=== PATIENT | male | born 1970 | race Caucasian/White ===

== ENCOUNTER → 2017-06-27 10:41 | Outpatient (CLI) | payer OTHER, SELFPAY ==
--- NOTE | 2017-06-27 | DI.RAD.S_ITS ---
PROCEDURE: XR LUMBAR SPINE MIN 4V INDICATIONS: BURST FRACTURE TECHNIQUE: 2 views of the lumbar spine acquired. COMPARISON: [facility], CR, SPINE LUMB 2 OR 3VW, 09/10/2013, 17:15. [facility], CR, XR LUMBAR SPINE 2 OR 3 VIEWS, 01/03/2017, 5:56. FINDINGS: Bones: 5 nonrib-bearing vertebrae are present. Compression fracture of L1 is reidentified. There is mild retropulsion of L1, unchanged. Mild retrolisthesis L2-3, L3-4 and L4-5 also unchanged. No suspicious bony lesions. Chronic degenerative disc disease and spondylosis L5-S1. Facet sclerosis L5-S1. Soft tissues: Overlying bowel gas pattern is normal. No suspicious soft tissue calcifications. Flexion/extension: There is limited range of motion, with preserved malalignment IMPRESSION: 1. Chronic compression fracture L1. 2. Lumbar malalignment as described. 3. Degenerative disc and facet disease L5-S1. Dictated by: Edgardo Moncada M.D. on 06/27/2017 at 11:49 Approved by: Edgardo Moncada M.D. on 06/27/2017 at 11:53
== END ==
PROVIDERS: Family Provider Family Medicine; PCP Physician Assistant; Visit Provider Physical Medicine & Rehabilitation
DX: S32.001A Stable burst fracture of unspecified lumbar vertebra, initial encounter for closed fracture (principal); M51.37 Other intervertebral disc degeneration, lumbosacral region
CPT/HCPCS: 72110

== ENCOUNTER → 2017-11-14 14:53 | Outpatient (CLI) | payer OTHER, SELFPAY ==
--- NOTE | 2017-11-14 14:57 | DI.RAD.S_ITS ---
PROCEDURE: XR LUMBAR SPINE MIN 4V INDICATIONS: L1 Burst fracture TECHNIQUE: 3 views of the lumbar spine acquired. COMPARISON: [facility], CR, XR THORACIC SPINE 3V, 11/14/2017, 14:38. [facility], CR, XR LUMBAR SPINE 2 OR 3 VIEWS, 01/03/2017, 5:56. [facility], CR, XR LUMBAR SPINE MIN 4V, 06/27/2017, 10:28. FINDINGS: Bones: 5 nonrib-bearing vertebrae are present. There is normal bony alignment. No change in moderate to severe L1 compression fracture. Multilevel grade 1 retrolisthesis and [id number] L5-S1 disc degeneration redemonstrated. Mild L4-L5 and L5-S1 facet joint arthropathy and neural foraminal narrowing Soft tissues: Overlying bowel gas pattern is normal. No suspicious soft tissue calcifications. Flexion/extension: There is normal range of motion, with preserved normal alignment. IMPRESSION: 1. L1 compression fracture unchanged in multilevel degenerative changes similar to prior examination. Dictated by: Anthony HILL Interpreted: Demi Ferguson MD on 11/14/2017 at 17:05 Approved by: Toan Palomares M.D. on 11/15/2017 at 9:22
--- NOTE | 2017-11-14 14:57 | DI.RAD.S_ITS ---
PROCEDURE: XR THORACIC SPINE 3V INDICATIONS: L1 Burst fracture TECHNIQUE: 3 views of the thoracic spine were acquired. COMPARISON: [facility], CR, XR LUMBAR SPINE MIN 4V, 06/27/2017, 10:28. FINDINGS: Bones: No acute fractures or dislocations. No change in L1 compression fracture. No suspicious bony lesions. 12 pairs of ribs are noted, and appear intact where visualized. Soft tissues: No paravertebral stripe thickening. IMPRESSION: No change in moderate to severe L1 compression fracture from prior examination. Trace levo-curvature otherwise normal T-spine. Dictated by: Anthony HILL Interpreted: Demi Ferguson MD on 11/14/2017 at 17:03 Approved by: Toan Palomares M.D. on 11/15/2017 at 9:22
== END ==
PROVIDERS: Visit Provider Physical Medicine & Rehabilitation
DX: S32.011D Stable burst fracture of first lumbar vertebra, subsequent encounter for fracture with routine healing (principal); M43.16 Spondylolisthesis, lumbar region; M51.37 Other intervertebral disc degeneration, lumbosacral region; M47.816 Spondylosis without myelopathy or radiculopathy, lumbar region; M47.817 Spondylosis without myelopathy or radiculopathy, lumbosacral region; M48.061 Spinal stenosis, lumbar region without neurogenic claudication; M48.07 Spinal stenosis, lumbosacral region; M54.9 Dorsalgia, unspecified
CPT/HCPCS: 72074; 72110

== ENCOUNTER 2018-02-07 11:00 | Outpatient (RCR) | payer OTHER, SELFPAY ==
--- NOTE | 2017-06-08 11:17 | PT.OTN ---
Current Diagnoses Low back pain (06/08/17) Pain in thoracic spine (06/08/17) Wedge compression fracture of first lumbar vertebra, initial encounter for closed fracture (06/08/17) Transition note: On June 06, 2017 our therapy services consisting of Speech, Occupational, and Physical Therapy transitioned from the [employer] electronic documentation system to a new [employer] electronic documentation system.?? All documentation prior to June 06 can be found under [employer] saved data. From June 06 forward all medical record documentation will be in [employer] 6.1.
--- NOTE | 2017-06-09 14:41 | PT.OIE ---
Current Diagnoses Low back pain (06/08/17) Pain in thoracic spine (06/08/17) Wedge compression fracture of first lumbar vertebra, initial encounter for closed fracture (06/08/17) Physical Therapy Initial Evaluation PT-OP-A Visit Information Start: 06/08/17 08:13 Freq: Status: Active Protocol: Activity Type Activity Date Activity User E-Sign Co-Sign Detail Recorded Client Recorded Date Recorded By Document 06/08/17 16:49 LRN [id number] 06/08/17 16:50 LRN 06/08/17 16:49 Out-Patient Physical Therapy Visit Information [Visit Information] -Visit Type Initial Evaulation -Visit Start Time 10:40 -Visit Stop Time 11:30 -Total Visit Minutes 55 -Visit Number 1 -Number of PUBLICATION SPECIALIST Visits 0 [Evaluation Information] -Evaluation Date 06/08/17 PT-OP-B Current Condition Start: 06/08/17 08:13 Freq: Status: Active Protocol: Activity Type Activity Date Activity User E-Sign Co-Sign Detail Recorded Client Recorded Date Recorded By Document 06/09/17 08:16 LRN [id number] 06/09/17 08:43 LRN 06/09/17 08:16 Current Condition [History of Current Condition] -Onset Date 01/02/2017 -Current Complaints Back pain, unable to work, sleep disturbance, difficulty with transfers -History of Current Condition Pt reports falling off a ladder ~18' high (records indicate ~25') landing on his back and hitting his head, causing a loss of consciousness. He was air lifted to [facility] in [place] and was placed in a TLSO brace for 8 weeks. Pt reports having a burst fracture at T1, the 01/02/17 X -ray indicated: Moderate compression fracture of L1 vertebral body with mild postierior displacement and hematoma at T12, L1 & L2. Other medical records indicate follow up care for L1 burst fracture , pt had been in brace for 10 weeks or so and was last seen by jono Quiles in March of this year. Pt is being referred for back pain for both upper/mid and L/S spine. -Future Testing and Treatments Planned Pt reports he is scheduled to see his [facility] physician soon to discuss possible surgery. [Treatment Goals] -Patient/Caregiver Goals Pt goal is to feel normal, decreased pain, improve ability to sleep and to tolerate static positioning. 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 -Baseline Function- Recreation/Hobbies G PT-OP-C Subjective Start: 06/08/17 08:13 Freq: Status: Active Protocol: Activity Type Activity Date Activity User E-Sign Co-Sign Detail Recorded Client Recorded Date Recorded By Document 06/08/17 16:49 LRN [id number] 06/09/17 14:40 LRN 06/08/17 16:49 Patient Questionnaires [Oswestry Low Back Index] -Oswestry Score 25 -Oswestry Impairment 20 to 39% Impaired (Score 20-39) OP-PT Pain Assessment [Pain Assessment Grid] -Paper Pain Assessment Grid Completed Yes [Location] Bilateral Lower Posterior Medial Back -Pain Location Details Midline -Intensity 6 -Scale Used Numeric (1 - 10 ) -Description Aching Radiating Shooting Throbbing -Frequency Constant -Pain Duration Since accident -Radiating Location Entire back, sometimes leg -Pain Aggravating Factors Position Changing Position ADL's Activity Exercise Standing Sitting Walking Stair Climbing Bending Lifting Prolonged Bedrest -Pain Alleviating Factors Medication -Other Pain Alleviating Factors Marijuana as needed -Patient Stated Pain Goal Less pain [Home Pain Medication Use] -Pain Medications Used Yes -Home Pain Medication Frequency As needed -Patient Goal Stay off narcotic meds [Pain Behaviors] -Pain Behaviors Guarding Restlessness [Comments] -Pain Comments Pt holds trunk very rigid. PT-OP-F Manual Assessment Start: 06/08/17 08:13 Freq: Status: Active Protocol: Activity Type Activity Date Activity User E-Sign Co-Sign Detail Recorded Client Recorded Date Recorded By Document 06/08/17 16:49 LRN [id number] 06/09/17 14:40 LRN 06/08/17 16:49 Manual Assessments [Soft Tissue Assessment] -Soft Tissue Mobility Assessment Muscle guarding and tightness in the entire posterior thoracic and lumbar muscle groups. [Joint Mobility Assessment] -Joint Mobility Assessment Deferred spinal mobility assessment. PT-OP-G Mobility & Gait Start: 06/08/17 16:33 Freq: Status: Active Protocol: Activity Type Activity Date Activity User E-Sign Co-Sign Detail Recorded Client Recorded Date Recorded By Document 06/08/17 16:49 [facility] [id number] 06/09/17 14:40 LRN 06/08/17 16:49 OP Mobility Evaluation [Bed Mobility] -Rolling Independent. Slow and cautious. -Supine to and from Sit Independent. Slow and cautious. [Transfers] -Sit to Stand Independent. Slow and cautious/ [Functional Movements] -Lifting and Carrying Deferred -Squats Deferred OP Gait Assessment [Gait Deviations] -General Gait Pattern Wide Based Gait [Factors Limiting Gait Function] -Factors Limiting Gait Function Limited Range of Motion Pain [Comments] -Gait Comments Slow gait with excessive trunk sway. PT-OP-H Neuro Start: 06/08/17 08:13 Freq: Status: Active Protocol: Activity Type Activity Date Activity User E-Sign Co-Sign Detail Recorded Client Recorded Date Recorded By Document 06/08/17 16:49 [facility] [id number] 06/09/17 14:40 [facility] 06/08/17 16:49 Sensation Evaluation [Gross Sensation] -Gross Sensation WNL Deep Tendon Reflex & Clonus Assessment [Deep Tendon Reflex] Left Achilles -Deep Tendon Reflex 2+ Normal Right Achilles -Deep Tendon Reflex 3+ Normal But Brisk PT-OP-J Posture/Palpation/Skin Start: 06/08/17 08:13 Freq: Status: Active Protocol: Activity Type Activity Date Activity User E-Sign Co-Sign Detail Recorded Client Recorded Date Recorded By Document 06/08/17 16:49 [facility] [id number] 06/09/17 14:40 [facility] 06/08/17 16:49 Posture Evaluation [Position] Standing -Evaluation View Lateral -Head/C-Spine Posture Forward Head -T-Spine Posture Flattened -L-Spine Posture Flattened -Shoulder Posture (R) Forward -Pelvis Posture Posterior Tilted -Ankle/Foot Posture (R) Forefoot Abducted -Foot Arch (L) High Arch (R) High Arch [Comments] -Posture Comments Lumbar spine is tilted Left with a C-Curve of the Thoracic spine with the apex on the left. Palpation Assessment [Location] One -Palpation Location Thoracic and Lumbar spine -Palpation Findings Muscle Guarding PT-OP-K Range of Motion Start: 06/08/17 08:13 Freq: Status: Active Protocol: Activity Type Activity Date Activity User E-Sign Co-Sign Detail Recorded Client Recorded Date Recorded By Document 06/08/17 16:49 [facility] [id number] 06/09/17 14:40 [facility] 06/08/17 16:49 Lumbar Spine Range of Motion [Lumbar Spine] Active -Testing Position Standing -Flexion 5 -Extension 3 -Lateral Flexion Left 3 -Lateral Flexion Right 5 -ROM Limitations Pain -Comments Measurements taken degrees. Shoulder Goniometric Range of Motion [Shoulder] Measured in Degrees Right Active -Shoulder ROM WFL Yes -Testing Position Sitting Left Active -Shoulder ROM WFL Yes -Testing Position Sitting Hip Goniometric Range of Motion [Hip] Measured in Degrees Left Active -Hip ROM WFL No -Testing Position Prone Right Active -Hip ROM WFL No -Testing Position Prone [Hip ROM Limitations] -Hip ROM Limitations Pain -Comments Hip ER is decreased 50% of normal bilaterally. PT-OP-M Strength Start: 06/08/17 08:13 Freq: Status: Active Protocol: Activity Type Activity Date Activity User E-Sign Co-Sign Detail Recorded Client Recorded Date Recorded By Document 06/08/17 16:49 [facility] [id number] 06/09/17 14:40 LR 06/08/17 16:49 Trunk Strength [Trunk Manual Muscle Testing] -Testing Position Sitting -Reason Not Measured Pain -Comments Pt can actively rotate in sitting ~ 28 deg's left, 10 deg's right. He is not able to lean forward in sitting and is unable to perform an abdominal curl due to back pain. Shoulder Strength [Shoulder Manual Muscle Testing] Left -Reason Not Measured Pain Right -Reason Not Measured Pain -Comments Deferred due to back pain Hip Strength [Hip Manual Muscle Testing] Left -Reason Not Measured Pain Right -Reason Not Measured Pain PT-OP-Q Treatments Start: 06/08/17 08:13 Freq: Status: Active Protocol: Activity Type Activity Date Activity User E-Sign Co-Sign Detail Recorded Client Recorded Date Recorded By Document 06/08/17 16:49 [facility] [id number] 06/09/17 14:40 [facility] 06/08/17 16:49 Manual Therapy Treatment [Soft Tissue Mobilization] 1 -Body Location Thoracic and Lumbar Paraspinals -Comments Start next treatment Self-Care/Home Management Treatment [Education] -Patient Education Posture [Activities] -Self-Care/Home Management Activities Anterior Pelvic Tilts, Equal weight bearing in standing, use of cryotherapy vs heat. PT-OP-T Assessment and Plan Start: 06/08/17 08:13 Freq: Status: Active Protocol: Activity Type Activity Date Activity User E-Sign Co-Sign Detail Recorded Client Recorded Date Recorded By Document 06/08/17 16:49 LRN [id number] 06/09/17 14:40 LRN 06/08/17 16:49 Physical Therapy Assessment [Rehab Potential] -Rehabilitation Potential Good [Evaluation Complexity] -Number of Personal Factors/ 3 or More Comorbidities -Number of Body Systems Impaired 4 or More -Clinical Presentation at Evaluation Evolving [Impairments] -Impairments Functional Activities Functional Mobility Gait Pain Posture ROM Soft Tissue Mobility Strength Transfers -Other Impairments Not able to work [Other Concerns] -Age Related Concerns Impact on family -Barriers to Rehabilitation Co-morbidity ( L5 disc bulge), spouse health concerns [Goals] Three -Impairment Pain due to soft tissue muscle guarding limiting functional ability. -Fpc Goal (LTG) TIEN Questionnaire Score - less than 19. -LTG Duration 12 weeks. Two -Impairment Decreased trunk /hip mobility -Fpc Goal (LTG) Pt will be able to demonstrate improved posture and gait mechanics with improved trunk and hip mobility. -LTG Duration 8 weeks One -Impairment Pain limiting functional mobility -Short Term Goal (STG) Pt will demonstrate ability to transfer sit to stand and move in bed with decreased pain. -STG Duration 3 weeks -Knurling Machine Operator Goal (LTG) Pt will be able to return to work on a limited basis with tolerable pain. -LTG Duration 12 weeks [Assessment Summary] -Assessment Pt presents with mechanical and soft tissue dysfunction of the spine, and pain limiting function and functional activities. The pt is quite restricted in his mobility and function; therefore he will benefit from skilled physical therapy to decrease pain, improve mobility strength, with an overall improvement in function. Stresses at home and exacerbation of his low back pain will hinder his rehabilitation, but the pt appears to be quite positive in his outlook and appears eager to start the rehabilitation process. If there are any restrictions or precautions the pt needs to follow, please note this on his signed plan of care. Physical Therapy Plan [Frequency and Duration] -Frequency of Treatment 2x/Week -Plan of Care Start Date 06/08/17 -Plan of Care End Date 08/31/17 [Therapeutic Interventions] -Therapeutic Interventions Aquatic Therapy Gait Training Home Exercise Program Manual Therapy Neuromuscular Re-education Patient/ Caregiver Education Self-Care/Home Management Soft Tissue Mobilization Taping Therapeutic Activities Therapeutic Exercises -Modalities Cold Pack/Ice Massage Electric Stimulation Hot Packs Ultrasound [Next Visit Focus/Plan] -Next Visit Plan Start STM, trunk stretches actively, HEP, E-Stim/ crotherapy or Moist heat. Check PSLR and hip PROM. Trunk strength check when tolerated. Progress towards normal posture and gait. Provider Signature Date
--- NOTE | 2017-06-09 14:45 | PT.OPPOC ---
Current Diagnoses Low back pain (06/08/17) Pain in thoracic spine (06/08/17) Other symptoms and signs involving the musculoskeletal system (06/08/17) Wedge compression fracture of first lumbar vertebra, initial encounter for closed fracture (06/08/17) Plan Of Care PT-OP-T Assessment and Plan Start: 06/08/17 08:13 Freq: Status: Active Protocol: Activity Type Activity Date Activity User E-Sign Co-Sign Detail Recorded Client Recorded Date Recorded By Document 06/08/17 16:49 LRN [id number] 06/09/17 14:40 LRN 06/08/17 16:49 Physical Therapy Assessment [Rehab Potential] -Rehabilitation Potential Good [Evaluation Complexity] -Number of Personal Factors/ 3 or More Comorbidities -Number of Body Systems Impaired 4 or More -Clinical Presentation at Evaluation Evolving [Impairments] -Impairments Functional Activities Functional Mobility Gait Pain Posture ROM Soft Tissue Mobility Strength Transfers -Other Impairments Not able to work [Other Concerns] -Age Related Concerns Impact on family -Barriers to Rehabilitation Co-morbidity ( L5 disc bulge), spouse health concerns [Goals] Three -Impairment Pain due to soft tissue muscle guarding limiting functional ability. -Highway Inspector Goal (LTG) TIEN Questionnaire Score - less than 19. -LTG Duration 12 weeks. Two -Impairment Decreased trunk /hip mobility -Highway Inspector Goal (LTG) Pt will be able to demonstrate improved posture and gait mechanics with improved trunk and hip mobility. -LTG Duration 8 weeks One -Impairment Pain limiting functional mobility -Short Term Goal (STG) Pt will demonstrate ability to transfer sit to stand and move in bed with decreased pain. -STG Duration 3 weeks -Highway Inspector Goal (LTG) Pt will be able to return to work on a limited basis with tolerable pain. -LTG Duration 12 weeks [Assessment Summary] -Assessment Pt presents with mechanical and soft tissue dysfunction of the spine, and pain limiting function and functional activities. The pt is quite restricted in his mobility and function; therefore he will benefit from skilled physical therapy to decrease pain, improve mobility strength, with an overall improvement in function. Stresses at home and exacerbation of his low back pain will hinder his rehabilitation, but the pt appears to be quite positive in his outlook and appears eager to start the rehabilitation process. If there are any restrictions or precautions the pt needs to follow, please note this on his signed plan of care. Physical Therapy Plan [Frequency and Duration] -Frequency of Treatment 2x/Week -Plan of Care Start Date 06/08/17 -Plan of Care End Date 08/31/17 [Therapeutic Interventions] -Therapeutic Interventions Aquatic Therapy Gait Training Home Exercise Program Manual Therapy Neuromuscular Re-education Patient/ Caregiver Education Self-Care/Home Management Soft Tissue Mobilization Taping Therapeutic Activities Therapeutic Exercises -Modalities Cold Pack/Ice Massage Electric Stimulation Hot Packs Ultrasound [Next Visit Focus/Plan] -Next Visit Plan Start STM, trunk stretches actively, HEP, E-Stim/ crotherapy or Moist heat. Check PSLR and hip PROM. Trunk strength check when tolerated. Progress towards normal posture and gait. Plan of Care Dates Plan of Care Start Date 06/08/17 Plan of Care End Date 08/31/17 Provider Visit Care Team Role Provider Type Lillie Ramirez MD Family Provider Non-Staff Specialty: [facility] Practice Address: [address] [place] [address], [phone] Email: Melissa Kuo PA-C Attending Provider Advanced Practioner Clinician Primary Care Provider Specialty: [facility] Address: [address] [place] [address], [id number] Email: [email or web address] Please Sign and Return: I have reviewed this Plan of Care and certify that the skilled therapy services above are required to meet the patient???s needs. Physician Signature Date Printed Name and Credentials
--- NOTE | 2017-06-13 16:59 | PT.OTN ---
Current Diagnoses Low back pain (06/13/17) Pain in thoracic spine (06/13/17) Wedge compression fracture of first lumbar vertebra, initial encounter for closed fracture (06/13/17) Physical Therapy Treatment Note PT-OP-A Visit Information Start: 06/08/17 08:13 Freq: Status: Active Protocol: Document 06/13/17 10:30 GGD (Rec: 06/13/17 16:59 GGD [id number]) Out-Patient Physical Therapy Visit Information Visit Information Visit Type Treatment Note Visit Start Time 10:30 Visit Stop Time 11:25 Total Visit Minutes 55 Visit Number 2 Number of CHEMIST INORGANIC Visits 1 Evaluation Information Evaluation Date 06/08/17 PT-OP-B Current Condition Start: 06/08/17 08:13 Freq: Status: Active Protocol: Document 06/09/17 08:16 LRN (Rec: 06/09/17 08:43 LRN [id number]) Current Condition History of Current Condition Onset Date 01/02/2017 Current Complaints Back pain, unable to work, sleep disturbance, difficulty with transfers History of Current Condition Pt reports falling off a ladder ~18' high (records indicate ~25') landing on his back and hitting his head, causing a loss of consciousness. He was air lifted to [facility] in [place] and was placed in a TLSO brace for 8 weeks. Pt reports having a burst fracture at T1, the 01/02/17 X -ray indicated: Moderate compression fracture of L1 vertebral body with mild postierior displacement and hematoma at T12, L1 & L2. Other medical records indicate follow up care for L1 burst fracture, pt had been in brace for 10 weeks or so and was last seen by jono Quiles in March of this year. Pt is being referred for back pain for both upper/ mid and L/S spine. Future Testing and Treatments Planned Pt reports he is scheduled to see his [facility] physician soon to discuss possible surgery. Treatment Goals Patient/Caregiver Goals Pt goal is to feel normal, decreased pain, improve ability to sleep and to tolerate static positioning. 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 Baseline Function- Recreation/Hobbies G PT-OP-C Subjective Start: 06/08/17 08:13 Freq: Status: Active Protocol: Document 06/13/17 10:30 GGD (Rec: 06/13/17 16:59 GGD [id number]) OP-PT Subjective Patient Comments Patient Comments Pt that he is stiff today. PT-OP-F Manual Assessment Start: 06/08/17 08:13 Freq: Status: Active Protocol: Document 06/08/17 16:49 LRN (Rec: 06/09/17 14:40 LRN [id number]) Manual Assessments Soft Tissue Assessment Soft Tissue Mobility Assessment Muscle guarding and tightness in the entire posterior thoracic and lumbar muscle groups. Joint Mobility Assessment Joint Mobility Assessment Deferred spinal mobility assessment. PT-OP-G Mobility & Gait Start: 06/08/17 16:33 Freq: Status: Active Protocol: Document 06/08/17 16:49 LRN (Rec: 06/09/17 14:40 LRN [id number]) OP Mobility Evaluation Bed Mobility Rolling Independent. Slow and cautious. Supine to and from Sit Independent. Slow and cautious. Transfers Sit to Stand Independent. Slow and cautious/ Functional Movements Lifting and Carrying Deferred Squats Deferred OP Gait Assessment Gait Deviations General Gait Pattern Wide Based Gait Factors Limiting Gait Function Factors Limiting Gait Function Limited Range of Motion Pain Comments Gait Comments Slow gait with excessive trunk sway. PT-OP-H Neuro Start: 06/08/17 08:13 Freq: Status: Active Protocol: Document 06/08/17 16:49 LRN (Rec: 06/09/17 14:40 LRN [id number]) Sensation Evaluation Gross Sensation Gross Sensation WNL Deep Tendon Reflex & Clonus Assessment Deep Tendon Reflex Left Achilles Deep Tendon Reflex 2+ Normal Right Achilles Deep Tendon Reflex 3+ Normal But Brisk PT-OP-J Posture/Palpation/Skin Start: 06/08/17 08:13 Freq: Status: Active Protocol: Document 06/08/17 16:49 LRN (Rec: 06/09/17 14:40 LRN [id number]) Posture Evaluation Position Standing Evaluation View Lateral Head/C-Spine Posture Forward Head T-Spine Posture Flattened L-Spine Posture Flattened Shoulder Posture (R) Forward Pelvis Posture Posterior Tilted Ankle/Foot Posture (R) Forefoot Abducted Foot Arch (L) High Arch (R) High Arch Comments Posture Comments Lumbar spine is tilted Left with a C-Curve of the Thoracic spine with the apex on the left. Palpation Assessment Location One Palpation Location Thoracic and Lumbar spine Palpation Findings Muscle Guarding PT-OP-K Range of Motion Start: 06/08/17 08:13 Freq: Status: Active Protocol: Document 06/08/17 16:49 LRN (Rec: 06/09/17 14:40 LRN [id number]) Lumbar Spine Range of Motion Lumbar Spine Active Testing Position Standing Flexion 5 Extension 3 Lateral Flexion Left 3 Lateral Flexion Right 5 ROM Limitations Pain Comments Measurements taken degrees. Shoulder Goniometric Range of Motion Shoulder Measured in Degrees Right Active Shoulder ROM WFL Yes Testing Position Sitting Left Active Shoulder ROM WFL Yes Testing Position Sitting Hip Goniometric Range of Motion Hip Measured in Degrees Left Active Hip ROM WFL No Testing Position Prone Right Active Hip ROM WFL No Testing Position Prone Hip ROM Limitations Hip ROM Limitations Pain Comments Hip ER is decreased 50% of normal bilaterally. PT-OP-M Strength Start: 06/08/17 08:13 Freq: Status: Active Protocol: Document 06/08/17 16:49 LRN (Rec: 06/09/17 14:40 LRN [id number]) Trunk Strength Trunk Manual Muscle Testing Testing Position Sitting Reason Not Measured Pain Comments Pt can actively rotate in sitting ~ 28 deg's left, 10 deg's right. He is not able to lean forward in sitting and is unable to perform an abdominal curl due to back pain. Shoulder Strength Shoulder Manual Muscle Testing Left Reason Not Measured Pain Right Reason Not Measured Pain Comments Deferred due to back pain Hip Strength Hip Manual Muscle Testing Left Reason Not Measured Pain Right Reason Not Measured Pain PT-OP-Q Treatments Start: 06/08/17 08:13 Freq: Status: Active Protocol: Document 06/13/17 10:30 GGD (Rec: 06/13/17 16:59 GGD [email or web address]) Therapeutic Exercises Supine Exercises 4 Supine Exercise Name Pirif str Reps/Minutes 4 3 Supine Exercise Name Single KTC Reps/Minutes 4 2 Supine Exercise Name LTR Side bilateral Reps/Minutes 10 1 Supine Exercise Name Hamstring str Reps/Minutes 4 Manual Therapy Treatment Soft Tissue Mobilization 1 Body Location Thoracic and Lumbar Paraspinals Mobilization Type Myofascial Release Rolling Sustained Pressure Intensity/Depth Moderate Body Position Prone PT-OP-R Modalities Start: 06/08/17 08:13 Freq: Status: Active Protocol: Document 06/13/17 10:30 GGD (Rec: 06/13/17 16:59 GGD [id number]) Electric Stimulation Electric Stimulation Interferential Current (IFC) Body Location T/S, L/S Duration (Minutes) 15 Combined With Heat/Cold Hot Pack PT-OP-T Assessment and Plan Start: 06/08/17 08:13 Freq: Status: Active Protocol: Document 06/13/17 10:30 GGD (Rec: 06/13/17 16:59 GGD [email or web address]) Physical Therapy Assessment Assessment Summary Assessment Pt increase muscle tone and tenderness to T/S and L/S paraspinals, QL. He was able to tolerate gentle LE stretching. Physical Therapy Plan Frequency and Duration Frequency of Treatment 2x/Week Plan of Care Start Date 06/08/17 Plan of Care End Date 08/31/17 Next Visit Focus/Plan Next Visit Plan HEP for LE stretching. Check PSLR and hip PROM. Trunk strength check when tolerated. Progress towards normal posture and gait.
--- NOTE | 2017-06-16 08:07 | PT.OTN ---
Current Diagnoses Low back pain (06/15/17) Pain in thoracic spine (06/15/17) Wedge compression fracture of first lumbar vertebra, initial encounter for closed fracture (06/15/17) Physical Therapy Treatment Note PT-OP-A Visit Information Start: 06/08/17 08:13 Freq: Status: Active Protocol: Document 06/15/17 11:15 AMB (Rec: 06/15/17 11:26 AMB [id number]) Out-Patient Physical Therapy Visit Information Visit Information Visit Type Treatment Note Visit Start Time 11:15 Visit Stop Time 12:10 Total Visit Minutes 55 Visit Number 3 Number of REGRADER Visits 0 Evaluation Information Evaluation Date 06/08/17 PT-OP-B Current Condition Start: 06/08/17 08:13 Freq: Status: Active Protocol: Document 06/09/17 08:16 LRN (Rec: 06/09/17 08:43 LRN [id number]) Current Condition History of Current Condition Onset Date 01/02/2017 Current Complaints Back pain, unable to work, sleep disturbance, difficulty with transfers History of Current Condition Pt reports falling off a ladder ~18' high (records indicate ~25') landing on his back and hitting his head, causing a loss of consciousness. He was air lifted to [facility] in [place] and was placed in a TLSO brace for 8 weeks. Pt reports having a burst fracture at T1, the 01/02/17 X -ray indicated: Moderate compression fracture of L1 vertebral body with mild postierior displacement and hematoma at T12, L1 & L2. Other medical records indicate follow up care for L1 burst fracture, pt had been in brace for 10 weeks or so and was last seen by jono Quiles in March of this year. Pt is being referred for back pain for both upper/ mid and L/S spine. Future Testing and Treatments Planned Pt reports he is scheduled to see his [facility] physician soon to discuss possible surgery. Treatment Goals Patient/Caregiver Goals Pt goal is to feel normal, decreased pain, improve ability to sleep and to tolerate static positioning. 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 Baseline Function- Recreation/Hobbies G PT-OP-C Subjective Start: 06/08/17 08:13 Freq: Status: Active Protocol: Document 06/15/17 11:15 AMB (Rec: 06/16/17 08:06 AMB [id number]) OP-PT Subjective Patient Comments Patient Comments Pt states his pain was increased after last appointment for about a day. PT-OP-F Manual Assessment Start: 06/08/17 08:13 Freq: Status: Active Protocol: Document 06/08/17 16:49 LRN (Rec: 06/09/17 14:40 LRN [id number]) Manual Assessments Soft Tissue Assessment Soft Tissue Mobility Assessment Muscle guarding and tightness in the entire posterior thoracic and lumbar muscle groups. Joint Mobility Assessment Joint Mobility Assessment Deferred spinal mobility assessment. PT-OP-G Mobility & Gait Start: 06/08/17 16:33 Freq: Status: Active Protocol: Document 06/08/17 16:49 LRN (Rec: 06/09/17 14:40 LRN [id number]) OP Mobility Evaluation Bed Mobility Rolling Independent. Slow and cautious. Supine to and from Sit Independent. Slow and cautious. Transfers Sit to Stand Independent. Slow and cautious/ Functional Movements Lifting and Carrying Deferred Squats Deferred OP Gait Assessment Gait Deviations General Gait Pattern Wide Based Gait Factors Limiting Gait Function Factors Limiting Gait Function Limited Range of Motion Pain Comments Gait Comments Slow gait with excessive trunk sway. PT-OP-H Neuro Start: 06/08/17 08:13 Freq: Status: Active Protocol: Document 06/08/17 16:49 LRN (Rec: 06/09/17 14:40 LRN [id number]) Sensation Evaluation Gross Sensation Gross Sensation WNL Deep Tendon Reflex & Clonus Assessment Deep Tendon Reflex Left Achilles Deep Tendon Reflex 2+ Normal Right Achilles Deep Tendon Reflex 3+ Normal But Brisk PT-OP-J Posture/Palpation/Skin Start: 06/08/17 08:13 Freq: Status: Active Protocol: Document 06/08/17 16:49 LRN (Rec: 06/09/17 14:40 LRN [id number]) Posture Evaluation Position Standing Evaluation View Lateral Head/C-Spine Posture Forward Head T-Spine Posture Flattened L-Spine Posture Flattened Shoulder Posture (R) Forward Pelvis Posture Posterior Tilted Ankle/Foot Posture (R) Forefoot Abducted Foot Arch (L) High Arch (R) High Arch Comments Posture Comments Lumbar spine is tilted Left with a C-Curve of the Thoracic spine with the apex on the left. Palpation Assessment Location One Palpation Location Thoracic and Lumbar spine Palpation Findings Muscle Guarding PT-OP-K Range of Motion Start: 06/08/17 08:13 Freq: Status: Active Protocol: Document 06/08/17 16:49 LRN (Rec: 06/09/17 14:40 LRN [id number]) Lumbar Spine Range of Motion Lumbar Spine Active Testing Position Standing Flexion 5 Extension 3 Lateral Flexion Left 3 Lateral Flexion Right 5 ROM Limitations Pain Comments Measurements taken degrees. Shoulder Goniometric Range of Motion Shoulder Measured in Degrees Right Active Shoulder ROM WFL Yes Testing Position Sitting Left Active Shoulder ROM WFL Yes Testing Position Sitting Hip Goniometric Range of Motion Hip Measured in Degrees Left Active Hip ROM WFL No Testing Position Prone Right Active Hip ROM WFL No Testing Position Prone Hip ROM Limitations Hip ROM Limitations Pain Comments Hip ER is decreased 50% of normal bilaterally. PT-OP-M Strength Start: 06/08/17 08:13 Freq: Status: Active Protocol: Document 06/08/17 16:49 LRN (Rec: 06/09/17 14:40 LRN [id number]) Trunk Strength Trunk Manual Muscle Testing Testing Position Sitting Reason Not Measured Pain Comments Pt can actively rotate in sitting ~ 28 deg's left, 10 deg's right. He is not able to lean forward in sitting and is unable to perform an abdominal curl due to back pain. Shoulder Strength Shoulder Manual Muscle Testing Left Reason Not Measured Pain Right Reason Not Measured Pain Comments Deferred due to back pain Hip Strength Hip Manual Muscle Testing Left Reason Not Measured Pain Right Reason Not Measured Pain PT-OP-Q Treatments Start: 06/08/17 08:13 Freq: Status: Active Protocol: Document 06/15/17 11:15 AMB (Rec: 06/16/17 08:06 AMB [id number]) Therapeutic Exercises Supine Exercises 6 Supine Exercise Name supine pelvic tilt Comments small ROM 5 Supine Exercise Name hooklying TrA stab Reps/Minutes 4 3 Supine Exercise Name Single KTC Reps/Minutes 4 Manual Therapy Treatment Soft Tissue Mobilization 1 Body Location Thoracic and Lumbar Paraspinals Mobilization Type Myofascial Release Rolling Sustained Pressure Intensity/Depth Moderate Body Position Prone Joint Mobilizations 1 Joint T4-9 Direction PA Grade II Body Position Prone Reps/Duration 2x10 PT-OP-R Modalities Start: 06/08/17 08:13 Freq: Status: Active Protocol: Document 06/15/17 11:15 AMB (Rec: 06/16/17 08:06 AMB [id number]) Electric Stimulation Electric Stimulation Interferential Current (IFC) Body Location T/S, L/S Duration (Minutes) 10 Combined With Heat/Cold Hot Pack Comments prone PT-OP-T Assessment and Plan Start: 06/08/17 08:13 Freq: Status: Active Protocol: Document 06/15/17 11:15 AMB (Rec: 06/16/17 08:06 AMB [id number]) Physical Therapy Assessment Assessment Summary Assessment Pt with more tone and tenderness on the left today, better at the end of the session. After e-stim pt felt prone was uncomfortable - may try other positions in the future. Physical Therapy Plan Next Visit Focus/Plan Next Visit Plan Progress LE stretch and gentle core stabilization HEP as tolerated.
--- NOTE | 2017-06-20 13:27 | PT.OTN ---
Current Diagnoses Low back pain (06/20/17) Pain in thoracic spine (06/20/17) Wedge compression fracture of first lumbar vertebra, initial encounter for closed fracture (06/20/17) Physical Therapy Treatment Note PT-OP-A Visit Information Start: 06/08/17 08:13 Freq: Status: Active Protocol: Document 06/20/17 13:25 EA (Rec: 06/20/17 13:26 EA [id number]) Out-Patient Physical Therapy Visit Information Visit Information Visit Type Treatment Note Visit Start Time 09:45 Visit Stop Time 10:45 Total Visit Minutes 45 Visit Number 4 PT-OP-B Current Condition Start: 06/08/17 08:13 Freq: Status: Active Protocol: Document 06/09/17 08:16 LRN (Rec: 06/09/17 08:43 LRN [id number]) Current Condition History of Current Condition Onset Date 01/02/2017 Current Complaints Back pain, unable to work, sleep disturbance, difficulty with transfers History of Current Condition Pt reports falling off a ladder ~18' high (records indicate ~25') landing on his back and hitting his head, causing a loss of consciousness. He was air lifted to [facility] in [place] and was placed in a TLSO brace for 8 weeks. Pt reports having a burst fracture at T1, the 01/02/17 X -ray indicated: Moderate compression fracture of L1 vertebral body with mild postierior displacement and hematoma at T12, L1 & L2. Other medical records indicate follow up care for L1 burst fracture, pt had been in brace for 10 weeks or so and was last seen by jono Quiles in March of this year. Pt is being referred for back pain for both upper/ mid and L/S spine. Future Testing and Treatments Planned Pt reports he is scheduled to see his [facility] physician soon to discuss possible surgery. Treatment Goals Patient/Caregiver Goals Pt goal is to feel normal, decreased pain, improve ability to sleep and to tolerate static positioning. 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 Baseline Function- Recreation/Hobbies G PT-OP-C Subjective Start: 06/08/17 08:13 Freq: Status: Active Protocol: Document 06/20/17 11:00 EA (Rec: 06/20/17 13:24 EA [id number]) OP-PT Subjective Patient Comments Patient Comments Patient reports pain is not improving and he is noit taking medication due to fear of defacation issues. He also states that he does not wnat to take so he can feel the pain if improving. PT-OP-F Manual Assessment Start: 06/08/17 08:13 Freq: Status: Active Protocol: Document 06/08/17 16:49 LRN (Rec: 06/09/17 14:40 LRN [id number]) Manual Assessments Soft Tissue Assessment Soft Tissue Mobility Assessment Muscle guarding and tightness in the entire posterior thoracic and lumbar muscle groups. Joint Mobility Assessment Joint Mobility Assessment Deferred spinal mobility assessment. PT-OP-G Mobility & Gait Start: 06/08/17 16:33 Freq: Status: Active Protocol: Document 06/08/17 16:49 LRN (Rec: 06/09/17 14:40 LRN [id number]) OP Mobility Evaluation Bed Mobility Rolling Independent. Slow and cautious. Supine to and from Sit Independent. Slow and cautious. Transfers Sit to Stand Independent. Slow and cautious/ Functional Movements Lifting and Carrying Deferred Squats Deferred OP Gait Assessment Gait Deviations General Gait Pattern Wide Based Gait Factors Limiting Gait Function Factors Limiting Gait Function Limited Range of Motion Pain Comments Gait Comments Slow gait with excessive trunk sway. PT-OP-H Neuro Start: 06/08/17 08:13 Freq: Status: Active Protocol: Document 06/08/17 16:49 LRN (Rec: 06/09/17 14:40 LRN [id number]) Sensation Evaluation Gross Sensation Gross Sensation WNL Deep Tendon Reflex & Clonus Assessment Deep Tendon Reflex Left Achilles Deep Tendon Reflex 2+ Normal Right Achilles Deep Tendon Reflex 3+ Normal But Brisk PT-OP-J Posture/Palpation/Skin Start: 06/08/17 08:13 Freq: Status: Active Protocol: Document 06/08/17 16:49 LRN (Rec: 06/09/17 14:40 LRN [id number]) Posture Evaluation Position Standing Evaluation View Lateral Head/C-Spine Posture Forward Head T-Spine Posture Flattened L-Spine Posture Flattened Shoulder Posture (R) Forward Pelvis Posture Posterior Tilted Ankle/Foot Posture (R) Forefoot Abducted Foot Arch (L) High Arch (R) High Arch Comments Posture Comments Lumbar spine is tilted Left with a C-Curve of the Thoracic spine with the apex on the left. Palpation Assessment Location One Palpation Location Thoracic and Lumbar spine Palpation Findings Muscle Guarding PT-OP-K Range of Motion Start: 06/08/17 08:13 Freq: Status: Active Protocol: Document 06/08/17 16:49 LRN (Rec: 06/09/17 14:40 LRN [id number]) Lumbar Spine Range of Motion Lumbar Spine Active Testing Position Standing Flexion 5 Extension 3 Lateral Flexion Left 3 Lateral Flexion Right 5 ROM Limitations Pain Comments Measurements taken degrees. Shoulder Goniometric Range of Motion Shoulder Measured in Degrees Right Active Shoulder ROM WFL Yes Testing Position Sitting Left Active Shoulder ROM WFL Yes Testing Position Sitting Hip Goniometric Range of Motion Hip Measured in Degrees Left Active Hip ROM WFL No Testing Position Prone Right Active Hip ROM WFL No Testing Position Prone Hip ROM Limitations Hip ROM Limitations Pain Comments Hip ER is decreased 50% of normal bilaterally. PT-OP-M Strength Start: 06/08/17 08:13 Freq: Status: Active Protocol: Document 06/08/17 16:49 LRN (Rec: 06/09/17 14:40 LRN [id number]) Trunk Strength Trunk Manual Muscle Testing Testing Position Sitting Reason Not Measured Pain Comments Pt can actively rotate in sitting ~ 28 deg's left, 10 deg's right. He is not able to lean forward in sitting and is unable to perform an abdominal curl due to back pain. Shoulder Strength Shoulder Manual Muscle Testing Left Reason Not Measured Pain Right Reason Not Measured Pain Comments Deferred due to back pain Hip Strength Hip Manual Muscle Testing Left Reason Not Measured Pain Right Reason Not Measured Pain PT-OP-Q Treatments Start: 06/08/17 08:13 Freq: Status: Active Protocol: Document 06/20/17 11:00 EA (Rec: 06/20/17 13:24 EA [id number]) Cardio Equipment Recumbent Stepper (Sci-Fit) Duration (Minutes) 5 Resistance 0 Seat Position low back supported Therapeutic Exercises Supine Exercises 7 Supine Exercise Name Isomteric low trunk rot Reps/Minutes x 5SH x 5 reps 6 Supine Exercise Name supine pelvic tilt Comments small ROM 5 Supine Exercise Name hooklying TrA stab Reps/Minutes 4 4 Supine Exercise Name Pirif str Reps/Minutes 4 1 Supine Exercise Name Hamstring str Reps/Minutes 4 Manual Therapy Treatment Soft Tissue Mobilization 1 Body Location not tolerated Joint Mobilizations 1 Joint not performed Self-Care/Home Management Treatment Education Patient Education Body Mechanics Pain Management Posture PT-OP-R Modalities Start: 06/08/17 08:13 Freq: Status: Active Protocol: Document 06/20/17 13:24 EA (Rec: 06/20/17 13:24 EA [id number]) Electric Stimulation Electric Stimulation Interferential Current (IFC) Body Location T/S, L/S Duration (Minutes) 10 Combined With Heat/Cold Hot Pack Comments prone PT-OP-T Assessment and Plan Start: 06/08/17 08:13 Freq: Status: Active Protocol: Document 06/20/17 11:00 EA (Rec: 06/20/17 13:24 EA [id number]) Physical Therapy Assessment Assessment Summary Assessment Pt did not tolerate manual therapy at this time due to increased pain sensitivity; patient showed low tolerance to therapeutic exercises as well. Patient need pain management at this time due to pain issues. Physical Therapy Plan Next Visit Focus/Plan Next Visit Plan Cont. with current plan.
--- NOTE | 2017-06-22 11:10 | PT.OTN ---
Current Diagnoses Low back pain (06/22/17) Pain in thoracic spine (06/22/17) Wedge compression fracture of first lumbar vertebra, initial encounter for closed fracture (06/22/17) Physical Therapy Treatment Note PT-OP-A Visit Information Start: 06/08/17 08:13 Freq: Status: Active Protocol: Document 06/22/17 09:50 DCW (Rec: 06/22/17 10:32 DCW [id number]) Out-Patient Physical Therapy Visit Information Visit Information Visit Type Treatment Note Visit Start Time 09:50 Visit Stop Time 10:30 Total Visit Minutes 40 Visit Number 5 Evaluation Information Evaluation Date 06/08/17 PT-OP-B Current Condition Start: 06/08/17 08:13 Freq: Status: Active Protocol: Document 06/09/17 08:16 LRN (Rec: 06/09/17 08:43 LRN [id number]) Current Condition History of Current Condition Onset Date 01/02/2017 Current Complaints Back pain, unable to work, sleep disturbance, difficulty with transfers History of Current Condition Pt reports falling off a ladder ~18' high (records indicate ~25') landing on his back and hitting his head, causing a loss of consciousness. He was air lifted to [facility] in [place] and was placed in a TLSO brace for 8 weeks. Pt reports having a burst fracture at T1, the 01/02/17 X -ray indicated: Moderate compression fracture of L1 vertebral body with mild postierior displacement and hematoma at T12, L1 & L2. Other medical records indicate follow up care for L1 burst fracture, pt had been in brace for 10 weeks or so and was last seen by jono Quiles in March of this year. Pt is being referred for back pain for both upper/ mid and L/S spine. Future Testing and Treatments Planned Pt reports he is scheduled to see his [facility] physician soon to discuss possible surgery. Treatment Goals Patient/Caregiver Goals Pt goal is to feel normal, decreased pain, improve ability to sleep and to tolerate static positioning. 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 Baseline Function- Recreation/Hobbies G PT-OP-C Subjective Start: 06/08/17 08:13 Freq: Status: Active Protocol: Document 06/22/17 09:50 DCW (Rec: 06/22/17 10:32 DCW [id number]) OP-PT Subjective Patient Comments Patient Comments Pt reports no real improvement , admits he is uncomfortable almost all the time. Patient Reported Progress Same PT-OP-Q Treatments Start: 06/08/17 08:13 Freq: Status: Active Protocol: Document 06/22/17 09:50 DCW (Rec: 06/22/17 10:32 DCW [id number]) Gym Equipment Therapeutic Ball 2 Exercise Details Feet on ball, hip/knee flex/ ext vs Lv 1 T-band Ball Size/Color Blue - 45 cm Body Position Supine 1 Exercise Details Feet on ball, Lateral rotation Ball Size/Color Blue 45 cm Body Position Supine Therapeutic Exercises Supine Exercises 6 Supine Exercise Name supine pelvic tilt Comments small ROM 5 Supine Exercise Name hooklying TrA stab Reps/Minutes 4 3 Supine Exercise Name Single KTC Reps/Minutes 4 1 Supine Exercise Name Hamstring str Reps/Minutes 4 Sidelying Exercises 2 Sidelying Exercise Name Reverse Clam Shells Side bilateral Reps/Minutes x15 1 Sidelying Exercise Name Clam Shells Side bilateral Reps/Minutes x15 Manual Therapy Treatment Soft Tissue Mobilization 1 Body Location Thoracic/Lumbar paraspinals Mobilization Type Sustained Pressure Trigger Point Release Body Position Sidelying PT-OP-T Assessment and Plan Start: 06/08/17 08:13 Freq: Status: Active Protocol: Document 06/22/17 09:50 DCW (Rec: 06/22/17 10:32 DCW [id number]) Physical Therapy Assessment Assessment Summary Assessment Due to pt report that he often left feeling very sore after E-stim, it was skipped today to see if he would have less pain. Pt able to perform all TherEx today, however exhibited clear signs of significant pain. Physical Therapy Plan Frequency and Duration Frequency of Treatment 2x/Week Plan of Care Start Date 06/08/17 Plan of Care End Date 08/31/17 Therapeutic Interventions Therapeutic Interventions Aquatic Therapy Gait Training Home Exercise Program Manual Therapy Neuromuscular Re-education Patient/Caregiver Education Self-Care/Home Management Soft Tissue Mobilization Taping Therapeutic Activities Therapeutic Exercises Modalities Cold Pack/Ice Massage Electric Stimulation Hot Packs Ultrasound Next Visit Focus/Plan Next Visit Plan Continued STM/Core strengthening, work on increasing activity tolerance.
--- NOTE | 2017-06-27 11:11 | PT.OTN ---
Current Diagnoses Low back pain (06/27/17) Pain in thoracic spine (06/27/17) Wedge compression fracture of first lumbar vertebra, initial encounter for closed fracture (06/27/17) Physical Therapy Treatment Note PT-OP-A Visit Information Start: 06/08/17 08:13 Freq: Status: Active Protocol: Document 06/27/17 09:45 GGD (Rec: 06/27/17 11:11 GGD [email or web address]) Out-Patient Physical Therapy Visit Information Visit Information Visit Type Treatment Note Visit Start Time 09:45 Visit Stop Time 10:25 Total Visit Minutes 40 Visit Number 6 Number of [employer] Visits 1 Evaluation Information Evaluation Date 06/08/17 PT-OP-B Current Condition Start: 06/08/17 08:13 Freq: Status: Active Protocol: Document 06/09/17 08:16 LRN (Rec: 06/09/17 08:43 LRN [id number]) Current Condition History of Current Condition Onset Date 01/02/2017 Current Complaints Back pain, unable to work, sleep disturbance, difficulty with transfers History of Current Condition Pt reports falling off a ladder ~18' high (records indicate ~25') landing on his back and hitting his head, causing a loss of consciousness. He was air lifted to [facility] in [place] and was placed in a TLSO brace for 8 weeks. Pt reports having a burst fracture at T1, the 01/02/17 X -ray indicated: Moderate compression fracture of L1 vertebral body with mild postierior displacement and hematoma at T12, L1 & L2. Other medical records indicate follow up care for L1 burst fracture, pt had been in brace for 10 weeks or so and was last seen by jono Quiles in March of this year. Pt is being referred for back pain for both upper/ mid and L/S spine. Future Testing and Treatments Planned Pt reports he is scheduled to see his [facility] physician soon to discuss possible surgery. Treatment Goals Patient/Caregiver Goals Pt goal is to feel normal, decreased pain, improve ability to sleep and to tolerate static positioning. 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 Baseline Function- Recreation/Hobbies G PT-OP-C Subjective Start: 06/08/17 08:13 Freq: Status: Active Protocol: Document 06/27/17 09:45 GGD (Rec: 06/27/17 11:11 GGD [email or web address]) OP-PT Subjective Patient Comments Patient Comments PT states that MD wants him to do aquatic PT and not land for now. Patient Reported Progress Same PT-OP-F Manual Assessment Start: 06/08/17 08:13 Freq: Status: Active Protocol: Document 06/08/17 16:49 LRN (Rec: 06/09/17 14:40 LRN [id number]) Manual Assessments Soft Tissue Assessment Soft Tissue Mobility Assessment Muscle guarding and tightness in the entire posterior thoracic and lumbar muscle groups. Joint Mobility Assessment Joint Mobility Assessment Deferred spinal mobility assessment. PT-OP-G Mobility & Gait Start: 06/08/17 16:33 Freq: Status: Active Protocol: Document 06/08/17 16:49 LRN (Rec: 06/09/17 14:40 LRN [id number]) OP Mobility Evaluation Bed Mobility Rolling Independent. Slow and cautious. Supine to and from Sit Independent. Slow and cautious. Transfers Sit to Stand Independent. Slow and cautious/ Functional Movements Lifting and Carrying Deferred Squats Deferred OP Gait Assessment Gait Deviations General Gait Pattern Wide Based Gait Factors Limiting Gait Function Factors Limiting Gait Function Limited Range of Motion Pain Comments Gait Comments Slow gait with excessive trunk sway. PT-OP-H Neuro Start: 06/08/17 08:13 Freq: Status: Active Protocol: Document 06/08/17 16:49 LRN (Rec: 06/09/17 14:40 LRN [id number]) Sensation Evaluation Gross Sensation Gross Sensation WNL Deep Tendon Reflex & Clonus Assessment Deep Tendon Reflex Left Achilles Deep Tendon Reflex 2+ Normal Right Achilles Deep Tendon Reflex 3+ Normal But Brisk PT-OP-J Posture/Palpation/Skin Start: 06/08/17 08:13 Freq: Status: Active Protocol: Document 06/08/17 16:49 LRN (Rec: 06/09/17 14:40 LRN [id number]) Posture Evaluation Position Standing Evaluation View Lateral Head/C-Spine Posture Forward Head T-Spine Posture Flattened L-Spine Posture Flattened Shoulder Posture (R) Forward Pelvis Posture Posterior Tilted Ankle/Foot Posture (R) Forefoot Abducted Foot Arch (L) High Arch (R) High Arch Comments Posture Comments Lumbar spine is tilted Left with a C-Curve of the Thoracic spine with the apex on the left. Palpation Assessment Location One Palpation Location Thoracic and Lumbar spine Palpation Findings Muscle Guarding PT-OP-K Range of Motion Start: 06/08/17 08:13 Freq: Status: Active Protocol: Document 06/08/17 16:49 LRN (Rec: 06/09/17 14:40 LRN [id number]) Lumbar Spine Range of Motion Lumbar Spine Active Testing Position Standing Flexion 5 Extension 3 Lateral Flexion Left 3 Lateral Flexion Right 5 ROM Limitations Pain Comments Measurements taken degrees. Shoulder Goniometric Range of Motion Shoulder Measured in Degrees Right Active Shoulder ROM WFL Yes Testing Position Sitting Left Active Shoulder ROM WFL Yes Testing Position Sitting Hip Goniometric Range of Motion Hip Measured in Degrees Left Active Hip ROM WFL No Testing Position Prone Right Active Hip ROM WFL No Testing Position Prone Hip ROM Limitations Hip ROM Limitations Pain Comments Hip ER is decreased 50% of normal bilaterally. PT-OP-M Strength Start: 06/08/17 08:13 Freq: Status: Active Protocol: Document 06/08/17 16:49 LRN (Rec: 06/09/17 14:40 LRN [id number]) Trunk Strength Trunk Manual Muscle Testing Testing Position Sitting Reason Not Measured Pain Comments Pt can actively rotate in sitting ~ 28 deg's left, 10 deg's right. He is not able to lean forward in sitting and is unable to perform an abdominal curl due to back pain. Shoulder Strength Shoulder Manual Muscle Testing Left Reason Not Measured Pain Right Reason Not Measured Pain Comments Deferred due to back pain Hip Strength Hip Manual Muscle Testing Left Reason Not Measured Pain Right Reason Not Measured Pain PT-OP-Q Treatments Start: 06/08/17 08:13 Freq: Status: Active Protocol: Document 06/27/17 09:45 GGD (Rec: 06/27/17 11:11 GGD [email or web address]) Therapeutic Exercises Supine Exercises 6 Supine Exercise Name supine pelvic tilt Comments small ROM 5 Supine Exercise Name hooklying TrA stab Reps/Minutes 4 3 Supine Exercise Name Single KTC Reps/Minutes 4 1 Supine Exercise Name Hamstring str Reps/Minutes 4 Sidelying Exercises 2 Sidelying Exercise Name Reverse Clam Shells Side bilateral Reps/Minutes x15 1 Sidelying Exercise Name Clam Shells Side bilateral Reps/Minutes x15 Manual Therapy Treatment Soft Tissue Mobilization 1 Body Location Thoracic/Lumbar paraspinals Mobilization Type Sustained Pressure Trigger Point Release Body Position Prone PT-OP-R Modalities Start: 06/08/17 08:13 Freq: Status: Active Protocol: Document 06/20/17 13:24 EA (Rec: 06/20/17 13:24 EA [id number]) Electric Stimulation Electric Stimulation Interferential Current (IFC) Body Location T/S, L/S Duration (Minutes) 10 Combined With Heat/Cold Hot Pack Comments prone PT-OP-T Assessment and Plan Start: 06/08/17 08:13 Freq: Status: Active Protocol: Document 06/27/17 09:45 GGD (Rec: 06/27/17 11:11 GGD [email or web address]) Physical Therapy Assessment Assessment Summary Assessment Pt had slight improve tolerance to exercise with decrease in ROM. Physical Therapy Plan Frequency and Duration Frequency of Treatment 2x/Week Plan of Care Start Date 06/08/17 Plan of Care End Date 08/31/17 Next Visit Focus/Plan Next Visit Plan Progress LE stretching and gentle stabilization.
--- NOTE | 2017-07-24 16:48 | PT.OTN ---
Current Diagnoses Low back pain (07/24/17) Pain in thoracic spine (07/24/17) Wedge compression fracture of first lumbar vertebra, initial encounter for closed fracture (07/24/17) Physical Therapy Treatment Note PT-OP-A Visit Information Start: 06/08/17 08:13 Freq: Status: Active Protocol: Document 07/24/17 13:45 CLB (Rec: 07/24/17 16:47 CLB [email or web address]) Out-Patient Physical Therapy Visit Information Visit Information Visit Type Treatment Note Visit Start Time 13:55 Visit Stop Time 14:25 Total Visit Minutes 30 Visit Number 7 Number of [employer] Visits 2 PT-OP-B Current Condition Start: 06/08/17 08:13 Freq: Status: Active Protocol: Document 06/09/17 08:16 LRN (Rec: 06/09/17 08:43 LRN [id number]) Current Condition History of Current Condition Onset Date 01/02/2017 Current Complaints Back pain, unable to work, sleep disturbance, difficulty with transfers History of Current Condition Pt reports falling off a ladder ~18' high (records indicate ~25') landing on his back and hitting his head, causing a loss of consciousness. He was air lifted to [facility] in [place] and was placed in a TLSO brace for 8 weeks. Pt reports having a burst fracture at T1, the 01/02/17 X -ray indicated: Moderate compression fracture of L1 vertebral body with mild postierior displacement and hematoma at T12, L1 & L2. Other medical records indicate follow up care for L1 burst fracture, pt had been in brace for 10 weeks or so and was last seen by jono Quiles in March of this year. Pt is being referred for back pain for both upper/ mid and L/S spine. Future Testing and Treatments Planned Pt reports he is scheduled to see his [facility] physician soon to discuss possible surgery. Treatment Goals Patient/Caregiver Goals Pt goal is to feel normal, decreased pain, improve ability to sleep and to tolerate static positioning. 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 Baseline Function- Recreation/Hobbies G PT-OP-C Subjective Start: 06/08/17 08:13 Freq: Status: Active Protocol: Document 07/24/17 13:45 CLB (Rec: 07/24/17 16:47 CLB [email or web address]) OP-PT Subjective Patient Comments Patient Comments Pt fearful of deep water. PT-OP-F Manual Assessment Start: 06/08/17 08:13 Freq: Status: Active Protocol: Document 06/08/17 16:49 LRN (Rec: 06/09/17 14:40 LRN [id number]) Manual Assessments Soft Tissue Assessment Soft Tissue Mobility Assessment Muscle guarding and tightness in the entire posterior thoracic and lumbar muscle groups. Joint Mobility Assessment Joint Mobility Assessment Deferred spinal mobility assessment. PT-OP-G Mobility & Gait Start: 06/08/17 16:33 Freq: Status: Active Protocol: Document 06/08/17 16:49 LRN (Rec: 06/09/17 14:40 LRN [id number]) OP Mobility Evaluation Bed Mobility Rolling Independent. Slow and cautious. Supine to and from Sit Independent. Slow and cautious. Transfers Sit to Stand Independent. Slow and cautious/ Functional Movements Lifting and Carrying Deferred Squats Deferred OP Gait Assessment Gait Deviations General Gait Pattern Wide Based Gait Factors Limiting Gait Function Factors Limiting Gait Function Limited Range of Motion Pain Comments Gait Comments Slow gait with excessive trunk sway. PT-OP-H Neuro Start: 06/08/17 08:13 Freq: Status: Active Protocol: Document 06/08/17 16:49 LRN (Rec: 06/09/17 14:40 LRN [id number]) Sensation Evaluation Gross Sensation Gross Sensation WNL Deep Tendon Reflex & Clonus Assessment Deep Tendon Reflex Left Achilles Deep Tendon Reflex 2+ Normal Right Achilles Deep Tendon Reflex 3+ Normal But Brisk PT-OP-J Posture/Palpation/Skin Start: 06/08/17 08:13 Freq: Status: Active Protocol: Document 06/08/17 16:49 LRN (Rec: 06/09/17 14:40 LRN [id number]) Posture Evaluation Position Standing Evaluation View Lateral Head/C-Spine Posture Forward Head T-Spine Posture Flattened L-Spine Posture Flattened Shoulder Posture (R) Forward Pelvis Posture Posterior Tilted Ankle/Foot Posture (R) Forefoot Abducted Foot Arch (L) High Arch (R) High Arch Comments Posture Comments Lumbar spine is tilted Left with a C-Curve of the Thoracic spine with the apex on the left. Palpation Assessment Location One Palpation Location Thoracic and Lumbar spine Palpation Findings Muscle Guarding PT-OP-K Range of Motion Start: 06/08/17 08:13 Freq: Status: Active Protocol: Document 06/08/17 16:49 LRN (Rec: 06/09/17 14:40 LRN [id number]) Lumbar Spine Range of Motion Lumbar Spine Active Testing Position Standing Flexion 5 Extension 3 Lateral Flexion Left 3 Lateral Flexion Right 5 ROM Limitations Pain Comments Measurements taken degrees. Shoulder Goniometric Range of Motion Shoulder Measured in Degrees Right Active Shoulder ROM WFL Yes Testing Position Sitting Left Active Shoulder ROM WFL Yes Testing Position Sitting Hip Goniometric Range of Motion Hip Measured in Degrees Left Active Hip ROM WFL No Testing Position Prone Right Active Hip ROM WFL No Testing Position Prone Hip ROM Limitations Hip ROM Limitations Pain Comments Hip ER is decreased 50% of normal bilaterally. PT-OP-M Strength Start: 06/08/17 08:13 Freq: Status: Active Protocol: Document 06/08/17 16:49 LRN (Rec: 06/09/17 14:40 LRN [id number]) Trunk Strength Trunk Manual Muscle Testing Testing Position Sitting Reason Not Measured Pain Comments Pt can actively rotate in sitting ~ 28 deg's left, 10 deg's right. He is not able to lean forward in sitting and is unable to perform an abdominal curl due to back pain. Shoulder Strength Shoulder Manual Muscle Testing Left Reason Not Measured Pain Right Reason Not Measured Pain Comments Deferred due to back pain Hip Strength Hip Manual Muscle Testing Left Reason Not Measured Pain Right Reason Not Measured Pain PT-OP-Q Treatments Start: 06/08/17 08:13 Freq: Status: Active Protocol: Document 06/27/17 09:45 GGD (Rec: 06/27/17 11:11 GGD [email or web address]) Therapeutic Exercises Supine Exercises 6 Supine Exercise Name supine pelvic tilt Comments small ROM 5 Supine Exercise Name hooklying TrA stab Reps/Minutes 4 3 Supine Exercise Name Single KTC Reps/Minutes 4 1 Supine Exercise Name Hamstring str Reps/Minutes 4 Sidelying Exercises 2 Sidelying Exercise Name Reverse Clam Shells Side bilateral Reps/Minutes x15 1 Sidelying Exercise Name Clam Shells Side bilateral Reps/Minutes x15 Manual Therapy Treatment Soft Tissue Mobilization 1 Body Location Thoracic/Lumbar paraspinals Mobilization Type Sustained Pressure Trigger Point Release Body Position Prone PT-OP-R Modalities Start: 06/08/17 08:13 Freq: Status: Active Protocol: Document 06/20/17 13:24 EA (Rec: 06/20/17 13:24 EA [id number]) Electric Stimulation Electric Stimulation Interferential Current (IFC) Body Location T/S, L/S Duration (Minutes) 10 Combined With Heat/Cold Hot Pack Comments prone PT-OP-S Aquatic Treatment Start: 07/24/17 16:26 Freq: Status: Active Protocol: Document 07/24/17 13:45 CLB (Rec: 07/24/17 16:47 CLB [email or web address]) Aquatics Treatment Pool Entry/Exit Pool Entry/Exit Method Stairs Assistance Standby Assistance Water Walking Sideways Water Level Chest Level Walking Equipment Large Noodle Level of Assistance Standby Assistance Forwards Water Level Chest Level Walking Equipment Large Noodle Level of Assistance Standby Assistance Lower Extremity Exercises 2 Details hip abd/add Body Position Standing Water Level Chest Level Equipment wall Reps/Duration x10 1 Details hip flx/ext Body Position Standing Water Level Chest Level Equipment wall Reps/Duration x10 PT-OP-T Assessment and Plan Start: 06/08/17 08:13 Freq: Status: Active Protocol: Document 07/24/17 13:45 CLB (Rec: 07/24/17 16:47 CLB [email or web address]) Physical Therapy Assessment Assessment Summary Assessment Pt had difficulty with balance in water. Pt tolerated hip flx/ext and abd/add within painfree ROM. Pt was fatigued after 30 minutes in pool. Physical Therapy Plan Frequency and Duration Frequency of Treatment 2x/Week Plan of Care Start Date 06/08/17 Plan of Care End Date 08/31/17 Next Visit Focus/Plan Next Visit Plan Continue water walking and advance pt as tolerated.
--- NOTE | 2017-07-28 12:30 | PT.OTN ---
Current Diagnoses Low back pain (07/28/17) Pain in thoracic spine (07/28/17) Wedge compression fracture of first lumbar vertebra, initial encounter for closed fracture (07/28/17) Physical Therapy Treatment Note PT-OP-A Visit Information Start: 06/08/17 08:13 Freq: Status: Active Protocol: Document 07/28/17 12:30 TMS (Rec: 07/28/17 15:32 TMS [email or web address]) Out-Patient Physical Therapy Visit Information Visit Information Visit Type Treatment Note Visit Start Time 11:45 Visit Stop Time 12:15 Total Visit Minutes 30 Visit Number 8 Number of SAFETY INSTRUCTOR Visits 3 PT-OP-B Current Condition Start: 06/08/17 08:13 Freq: Status: Active Protocol: Document 06/09/17 08:16 LRN (Rec: 06/09/17 08:43 LRN [id number]) Current Condition History of Current Condition Onset Date 01/02/2017 Current Complaints Back pain, unable to work, sleep disturbance, difficulty with transfers History of Current Condition Pt reports falling off a ladder ~18' high (records indicate ~25') landing on his back and hitting his head, causing a loss of consciousness. He was air lifted to [facility] in [place] and was placed in a TLSO brace for 8 weeks. Pt reports having a burst fracture at T1, the 01/02/17 X -ray indicated: Moderate compression fracture of L1 vertebral body with mild postierior displacement and hematoma at T12, L1 & L2. Other medical records indicate follow up care for L1 burst fracture, pt had been in brace for 10 weeks or so and was last seen by jono Quiles in March of this year. Pt is being referred for back pain for both upper/ mid and L/S spine. Future Testing and Treatments Planned Pt reports he is scheduled to see his [facility] physician soon to discuss possible surgery. Treatment Goals Patient/Caregiver Goals Pt goal is to feel normal, decreased pain, improve ability to sleep and to tolerate static positioning. 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 Baseline Function- Recreation/Hobbies G PT-OP-C Subjective Start: 06/08/17 08:13 Freq: Status: Active Protocol: Document 07/28/17 12:30 TMS (Rec: 07/28/17 15:32 TMS [email or web address]) OP-PT Subjective Patient Comments Patient Comments Pt. states he was exhausted after last aquatic treatment, states he didn't have an increase in pain afterwards. Reports pain at 5/10 today. PT-OP-F Manual Assessment Start: 06/08/17 08:13 Freq: Status: Active Protocol: Document 06/08/17 16:49 LRN (Rec: 06/09/17 14:40 LRN [id number]) Manual Assessments Soft Tissue Assessment Soft Tissue Mobility Assessment Muscle guarding and tightness in the entire posterior thoracic and lumbar muscle groups. Joint Mobility Assessment Joint Mobility Assessment Deferred spinal mobility assessment. PT-OP-G Mobility & Gait Start: 06/08/17 16:33 Freq: Status: Active Protocol: Document 06/08/17 16:49 LRN (Rec: 06/09/17 14:40 LRN [id number]) OP Mobility Evaluation Bed Mobility Rolling Independent. Slow and cautious. Supine to and from Sit Independent. Slow and cautious. Transfers Sit to Stand Independent. Slow and cautious/ Functional Movements Lifting and Carrying Deferred Squats Deferred OP Gait Assessment Gait Deviations General Gait Pattern Wide Based Gait Factors Limiting Gait Function Factors Limiting Gait Function Limited Range of Motion Pain Comments Gait Comments Slow gait with excessive trunk sway. PT-OP-H Neuro Start: 06/08/17 08:13 Freq: Status: Active Protocol: Document 06/08/17 16:49 LRN (Rec: 06/09/17 14:40 LRN [id number]) Sensation Evaluation Gross Sensation Gross Sensation WNL Deep Tendon Reflex & Clonus Assessment Deep Tendon Reflex Left Achilles Deep Tendon Reflex 2+ Normal Right Achilles Deep Tendon Reflex 3+ Normal But Brisk PT-OP-J Posture/Palpation/Skin Start: 06/08/17 08:13 Freq: Status: Active Protocol: Document 06/08/17 16:49 LRN (Rec: 06/09/17 14:40 LRN [id number]) Posture Evaluation Position Standing Evaluation View Lateral Head/C-Spine Posture Forward Head T-Spine Posture Flattened L-Spine Posture Flattened Shoulder Posture (R) Forward Pelvis Posture Posterior Tilted Ankle/Foot Posture (R) Forefoot Abducted Foot Arch (L) High Arch (R) High Arch Comments Posture Comments Lumbar spine is tilted Left with a C-Curve of the Thoracic spine with the apex on the left. Palpation Assessment Location One Palpation Location Thoracic and Lumbar spine Palpation Findings Muscle Guarding PT-OP-K Range of Motion Start: 06/08/17 08:13 Freq: Status: Active Protocol: Document 06/08/17 16:49 LRN (Rec: 06/09/17 14:40 LRN [id number]) Lumbar Spine Range of Motion Lumbar Spine Active Testing Position Standing Flexion 5 Extension 3 Lateral Flexion Left 3 Lateral Flexion Right 5 ROM Limitations Pain Comments Measurements taken degrees. Shoulder Goniometric Range of Motion Shoulder Measured in Degrees Right Active Shoulder ROM WFL Yes Testing Position Sitting Left Active Shoulder ROM WFL Yes Testing Position Sitting Hip Goniometric Range of Motion Hip Measured in Degrees Left Active Hip ROM WFL No Testing Position Prone Right Active Hip ROM WFL No Testing Position Prone Hip ROM Limitations Hip ROM Limitations Pain Comments Hip ER is decreased 50% of normal bilaterally. PT-OP-M Strength Start: 06/08/17 08:13 Freq: Status: Active Protocol: Document 06/08/17 16:49 LRN (Rec: 06/09/17 14:40 LRN [id number]) Trunk Strength Trunk Manual Muscle Testing Testing Position Sitting Reason Not Measured Pain Comments Pt can actively rotate in sitting ~ 28 deg's left, 10 deg's right. He is not able to lean forward in sitting and is unable to perform an abdominal curl due to back pain. Shoulder Strength Shoulder Manual Muscle Testing Left Reason Not Measured Pain Right Reason Not Measured Pain Comments Deferred due to back pain Hip Strength Hip Manual Muscle Testing Left Reason Not Measured Pain Right Reason Not Measured Pain PT-OP-Q Treatments Start: 06/08/17 08:13 Freq: Status: Active Protocol: Document 06/27/17 09:45 GGD (Rec: 06/27/17 11:11 GGD [email or web address]) Therapeutic Exercises Supine Exercises 6 Supine Exercise Name supine pelvic tilt Comments small ROM 5 Supine Exercise Name hooklying TrA stab Reps/Minutes 4 3 Supine Exercise Name Single KTC Reps/Minutes 4 1 Supine Exercise Name Hamstring str Reps/Minutes 4 Sidelying Exercises 2 Sidelying Exercise Name Reverse Clam Shells Side bilateral Reps/Minutes x15 1 Sidelying Exercise Name Clam Shells Side bilateral Reps/Minutes x15 Manual Therapy Treatment Soft Tissue Mobilization 1 Body Location Thoracic/Lumbar paraspinals Mobilization Type Sustained Pressure Trigger Point Release Body Position Prone PT-OP-R Modalities Start: 06/08/17 08:13 Freq: Status: Active Protocol: Document 06/20/17 13:24 EA (Rec: 06/20/17 13:24 EA [id number]) Electric Stimulation Electric Stimulation Interferential Current (IFC) Body Location T/S, L/S Duration (Minutes) 10 Combined With Heat/Cold Hot Pack Comments prone PT-OP-S Aquatic Treatment Start: 07/24/17 16:26 Freq: Status: Active Protocol: Document 07/28/17 12:30 TMS (Rec: 07/28/17 15:32 TMS [email or web address]) Aquatics Treatment Pool Entry/Exit Pool Entry/Exit Method Stairs Assistance Standby Assistance Water Walking Sideways Water Level Chest Level Walking Equipment Large Noodle Level of Assistance Standby Assistance Forwards Water Level Chest Level Walking Equipment Large Noodle Level of Assistance Standby Assistance Comments Also without noodle. Lower Extremity Exercises 3 Details L.E. circumduction Body Position Standing Water Level Chest Level Reps/Duration x 10 reps. 2 Details hip abd/add Body Position Standing Water Level Chest Level Reps/Duration x10 1 Details hip flx/ext Body Position Standing Water Level Chest Level Reps/Duration x10 [employer] Activities [employer] [place] Activities Bicycle Equipment Square float Duration 10 minutes Comments 1 lb. each ankle, pt. held on to tether. PT-OP-T Assessment and Plan Start: 06/08/17 08:13 Freq: Status: Active Protocol: Document 07/28/17 12:30 TMS (Rec: 07/28/17 15:32 TMS [email or web address]) Physical Therapy Assessment Assessment Summary Assessment Pt. seemed more relaxed in water today, better balance in deep water using square float and small weights on ankles. Able to walk in shallow water without noodle at end of treatment. Treatment limited to 30 minutes secondary to exhaustion after last treatment. Physical Therapy Plan Frequency and Duration Frequency of Treatment 2x/Week Plan of Care Start Date 06/08/17 Plan of Care End Date 08/31/17 Next Visit Focus/Plan Next Visit Plan Continue to progress aquatic program as tolerated, increase time to 45 minutes as able.
--- NOTE | 2017-08-02 15:59 | PT.OTN ---
Current Diagnoses Low back pain (07/28/17) Pain in thoracic spine (07/28/17) Wedge compression fracture of first lumbar vertebra, initial encounter for closed fracture (07/28/17) Physical Therapy Treatment Note PT-OP-A Visit Information Start: 06/08/17 08:13 Freq: Status: Active Protocol: Document 08/02/17 12:30 TMS (Rec: 08/02/17 15:58 TMS [email or web address]) Out-Patient Physical Therapy Visit Information Visit Information Visit Type Treatment Note Visit Start Time 12:30 Visit Stop Time 13:00 Total Visit Minutes 30 Visit Number 9 Number of RE[employer] DRIVER Visits 4 PT-OP-B Current Condition Start: 06/08/17 08:13 Freq: Status: Active Protocol: Document 06/09/17 08:16 LRN (Rec: 06/09/17 08:43 LRN [id number]) Current Condition History of Current Condition Onset Date 01/02/2017 Current Complaints Back pain, unable to work, sleep disturbance, difficulty with transfers History of Current Condition Pt reports falling off a ladder ~18' high (records indicate ~25') landing on his back and hitting his head, causing a loss of consciousness. He was air lifted to [facility] in [place] and was placed in a TLSO brace for 8 weeks. Pt reports having a burst fracture at T1, the 01/02/17 X -ray indicated: Moderate compression fracture of L1 vertebral body with mild postierior displacement and hematoma at T12, L1 & L2. Other medical records indicate follow up care for L1 burst fracture, pt had been in brace for 10 weeks or so and was last seen by jono Quiles in March of this year. Pt is being referred for back pain for both upper/ mid and L/S spine. Future Testing and Treatments Planned Pt reports he is scheduled to see his [facility] physician soon to discuss possible surgery. Treatment Goals Patient/Caregiver Goals Pt goal is to feel normal, decreased pain, improve ability to sleep and to tolerate static positioning. 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 Baseline Function- Recreation/Hobbies G PT-OP-C Subjective Start: 06/08/17 08:13 Freq: Status: Active Protocol: Document 08/02/17 12:30 TMS (Rec: 08/02/17 15:58 TMS [email or web address]) OP-PT Subjective Patient Comments Patient Comments Pt. states he wasn't as fatigued after last aquatic treatment as he was the first time. Pt. 15 minutes late for treatment. PT-OP-F Manual Assessment Start: 06/08/17 08:13 Freq: Status: Active Protocol: Document 06/08/17 16:49 LRN (Rec: 06/09/17 14:40 LRN [id number]) Manual Assessments Soft Tissue Assessment Soft Tissue Mobility Assessment Muscle guarding and tightness in the entire posterior thoracic and lumbar muscle groups. Joint Mobility Assessment Joint Mobility Assessment Deferred spinal mobility assessment. PT-OP-G Mobility & Gait Start: 06/08/17 16:33 Freq: Status: Active Protocol: Document 06/08/17 16:49 LRN (Rec: 06/09/17 14:40 LRN [id number]) OP Mobility Evaluation Bed Mobility Rolling Independent. Slow and cautious. Supine to and from Sit Independent. Slow and cautious. Transfers Sit to Stand Independent. Slow and cautious/ Functional Movements Lifting and Carrying Deferred Squats Deferred OP Gait Assessment Gait Deviations General Gait Pattern Wide Based Gait Factors Limiting Gait Function Factors Limiting Gait Function Limited Range of Motion Pain Comments Gait Comments Slow gait with excessive trunk sway. PT-OP-H Neuro Start: 06/08/17 08:13 Freq: Status: Active Protocol: Document 06/08/17 16:49 LRN (Rec: 06/09/17 14:40 LRN [id number]) Sensation Evaluation Gross Sensation Gross Sensation WNL Deep Tendon Reflex & Clonus Assessment Deep Tendon Reflex Left Achilles Deep Tendon Reflex 2+ Normal Right Achilles Deep Tendon Reflex 3+ Normal But Brisk PT-OP-J Posture/Palpation/Skin Start: 06/08/17 08:13 Freq: Status: Active Protocol: Document 06/08/17 16:49 LRN (Rec: 06/09/17 14:40 LRN [id number]) Posture Evaluation Position Standing Evaluation View Lateral Head/C-Spine Posture Forward Head T-Spine Posture Flattened L-Spine Posture Flattened Shoulder Posture (R) Forward Pelvis Posture Posterior Tilted Ankle/Foot Posture (R) Forefoot Abducted Foot Arch (L) High Arch (R) High Arch Comments Posture Comments Lumbar spine is tilted Left with a C-Curve of the Thoracic spine with the apex on the left. Palpation Assessment Location One Palpation Location Thoracic and Lumbar spine Palpation Findings Muscle Guarding PT-OP-K Range of Motion Start: 06/08/17 08:13 Freq: Status: Active Protocol: Document 06/08/17 16:49 LRN (Rec: 06/09/17 14:40 LRN [id number]) Lumbar Spine Range of Motion Lumbar Spine Active Testing Position Standing Flexion 5 Extension 3 Lateral Flexion Left 3 Lateral Flexion Right 5 ROM Limitations Pain Comments Measurements taken degrees. Shoulder Goniometric Range of Motion Shoulder Measured in Degrees Right Active Shoulder ROM WFL Yes Testing Position Sitting Left Active Shoulder ROM WFL Yes Testing Position Sitting Hip Goniometric Range of Motion Hip Measured in Degrees Left Active Hip ROM WFL No Testing Position Prone Right Active Hip ROM WFL No Testing Position Prone Hip ROM Limitations Hip ROM Limitations Pain Comments Hip ER is decreased 50% of normal bilaterally. PT-OP-M Strength Start: 06/08/17 08:13 Freq: Status: Active Protocol: Document 06/08/17 16:49 LRN (Rec: 06/09/17 14:40 LRN [id number]) Trunk Strength Trunk Manual Muscle Testing Testing Position Sitting Reason Not Measured Pain Comments Pt can actively rotate in sitting ~ 28 deg's left, 10 deg's right. He is not able to lean forward in sitting and is unable to perform an abdominal curl due to back pain. Shoulder Strength Shoulder Manual Muscle Testing Left Reason Not Measured Pain Right Reason Not Measured Pain Comments Deferred due to back pain Hip Strength Hip Manual Muscle Testing Left Reason Not Measured Pain Right Reason Not Measured Pain PT-OP-Q Treatments Start: 06/08/17 08:13 Freq: Status: Active Protocol: Document 06/27/17 09:45 GGD (Rec: 06/27/17 11:11 GGD [email or web address]) Therapeutic Exercises Supine Exercises 6 Supine Exercise Name supine pelvic tilt Comments small ROM 5 Supine Exercise Name hooklying TrA stab Reps/Minutes 4 3 Supine Exercise Name Single KTC Reps/Minutes 4 1 Supine Exercise Name Hamstring str Reps/Minutes 4 Sidelying Exercises 2 Sidelying Exercise Name Reverse Clam Shells Side bilateral Reps/Minutes x15 1 Sidelying Exercise Name Clam Shells Side bilateral Reps/Minutes x15 Manual Therapy Treatment Soft Tissue Mobilization 1 Body Location Thoracic/Lumbar paraspinals Mobilization Type Sustained Pressure Trigger Point Release Body Position Prone PT-OP-R Modalities Start: 06/08/17 08:13 Freq: Status: Active Protocol: Document 06/20/17 13:24 EA (Rec: 06/20/17 13:24 EA [id number]) Electric Stimulation Electric Stimulation Interferential Current (IFC) Body Location T/S, L/S Duration (Minutes) 10 Combined With Heat/Cold Hot Pack Comments prone PT-OP-S Aquatic Treatment Start: 07/24/17 16:26 Freq: Status: Active Protocol: Document 08/02/17 12:30 TMS (Rec: 08/02/17 15:58 TMS [email or web address]) Aquatics Treatment Pool Entry/Exit Pool Entry/Exit Method Stairs Assistance Standby Assistance Water Walking Sideways Water Level Chest Level Level of Assistance Standby Assistance Forwards Water Level Chest Level Level of Assistance Standby Assistance Lower Extremity Exercises 4 Details Squats Body Position Standing Water Level Chest Level Reps/Duration x 10 3 Details L.E. circumduction Body Position Standing Water Level Chest Level Reps/Duration x 10 reps. 2 Details hip abd/add Body Position Standing Water Level Chest Level Reps/Duration x10 1 Details hip flx/ext Body Position Standing Water Level Chest Level Reps/Duration x10 Lower Extremity Stretches 1 Details Hamstring Body Position Standing Water Level Chest Level Reps/Duration x2 2 Details Single knee to chest Body Position Standing Reps/Duration x2 Spinal Exercises 1 Details Standing U.E. flexion/ext, horiz AB/AD Water Level Chest Level Comments With emphasis on abdominal stabilization, bilateral and unilateral. [place] Activities [place] Activities Bicycle Equipment Square float Duration 6 minutes Comments 1 lb. each ankle, pt. held on to tether. PT-OP-T Assessment and Plan Start: 06/08/17 08:13 Freq: Status: Active Protocol: Document 08/02/17 12:30 TMS (Rec: 08/02/17 15:58 TMS [email or web address]) Physical Therapy Assessment Assessment Summary Assessment Pt. fatigued quickly in deep water today, tight hamstrings, needed cues to stay in tolerance range as was wincing with stretching. Physical Therapy Plan Frequency and Duration Frequency of Treatment 2x/Week Plan of Care Start Date 06/08/17 Plan of Care End Date 07/26/18 Next Visit Focus/Plan Next Visit Plan Continue to progress aquatic program as tolerated, increase time to 45 minutes as able.
--- NOTE | 2017-08-07 14:30 | PT.OTN ---
Current Diagnoses Low back pain (08/07/17) Pain in thoracic spine (08/07/17) Wedge compression fracture of first lumbar vertebra, initial encounter for closed fracture (08/07/17) Physical Therapy Treatment Note PT-OP-A Visit Information Start: 06/08/17 08:13 Freq: Status: Active Protocol: Document 08/07/17 14:30 TMS (Rec: 08/07/17 16:09 TMS [email or web address]) Out-Patient Physical Therapy Visit Information Visit Information Visit Type Treatment Note Visit Start Time 13:45 Visit Stop Time 14:30 Total Visit Minutes 45 Visit Number 10 Number of DRUM TENDER Visits 0 PT-OP-B Current Condition Start: 06/08/17 08:13 Freq: Status: Active Protocol: Document 06/09/17 08:16 LRN (Rec: 06/09/17 08:43 LRN [id number]) Current Condition History of Current Condition Onset Date 01/02/2017 Current Complaints Back pain, unable to work, sleep disturbance, difficulty with transfers History of Current Condition Pt reports falling off a ladder ~18' high (records indicate ~25') landing on his back and hitting his head, causing a loss of consciousness. He was air lifted to [facility] in [place] and was placed in a TLSO brace for 8 weeks. Pt reports having a burst fracture at T1, the 01/02/17 X -ray indicated: Moderate compression fracture of L1 vertebral body with mild postierior displacement and hematoma at T12, L1 & L2. Other medical records indicate follow up care for L1 burst fracture, pt had been in brace for 10 weeks or so and was last seen by jono Quiles in March of this year. Pt is being referred for back pain for both upper/ mid and L/S spine. Future Testing and Treatments Planned Pt reports he is scheduled to see his [facility] physician soon to discuss possible surgery. Treatment Goals Patient/Caregiver Goals Pt goal is to feel normal, decreased pain, improve ability to sleep and to tolerate static positioning. 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 Baseline Function- Recreation/Hobbies G PT-OP-C Subjective Start: 06/08/17 08:13 Freq: Status: Active Protocol: Document 08/07/17 14:30 TMS (Rec: 08/07/17 16:09 TMS [email or web address]) OP-PT Subjective Patient Comments Patient Comments Pt. walked onto pool deck at faster pace today, states he prefers aquatic therapy vs. land therapy. States I don't cry after aquatic therapy. States he's thinking about going salmon fishing from shore, it's pretty strenuous . PT-OP-F Manual Assessment Start: 06/08/17 08:13 Freq: Status: Active Protocol: Document 06/08/17 16:49 LRN (Rec: 06/09/17 14:40 LRN [id number]) Manual Assessments Soft Tissue Assessment Soft Tissue Mobility Assessment Muscle guarding and tightness in the entire posterior thoracic and lumbar muscle groups. Joint Mobility Assessment Joint Mobility Assessment Deferred spinal mobility assessment. PT-OP-G Mobility & Gait Start: 06/08/17 16:33 Freq: Status: Active Protocol: Document 06/08/17 16:49 LRN (Rec: 06/09/17 14:40 LRN [id number]) OP Mobility Evaluation Bed Mobility Rolling Independent. Slow and cautious. Supine to and from Sit Independent. Slow and cautious. Transfers Sit to Stand Independent. Slow and cautious/ Functional Movements Lifting and Carrying Deferred Squats Deferred OP Gait Assessment Gait Deviations General Gait Pattern Wide Based Gait Factors Limiting Gait Function Factors Limiting Gait Function Limited Range of Motion Pain Comments Gait Comments Slow gait with excessive trunk sway. PT-OP-H Neuro Start: 06/08/17 08:13 Freq: Status: Active Protocol: Document 06/08/17 16:49 LRN (Rec: 06/09/17 14:40 LRN [id number]) Sensation Evaluation Gross Sensation Gross Sensation WNL Deep Tendon Reflex & Clonus Assessment Deep Tendon Reflex Left Achilles Deep Tendon Reflex 2+ Normal Right Achilles Deep Tendon Reflex 3+ Normal But Brisk PT-OP-J Posture/Palpation/Skin Start: 06/08/17 08:13 Freq: Status: Active Protocol: Document 06/08/17 16:49 LRN (Rec: 06/09/17 14:40 LRN [id number]) Posture Evaluation Position Standing Evaluation View Lateral Head/C-Spine Posture Forward Head T-Spine Posture Flattened L-Spine Posture Flattened Shoulder Posture (R) Forward Pelvis Posture Posterior Tilted Ankle/Foot Posture (R) Forefoot Abducted Foot Arch (L) High Arch (R) High Arch Comments Posture Comments Lumbar spine is tilted Left with a C-Curve of the Thoracic spine with the apex on the left. Palpation Assessment Location One Palpation Location Thoracic and Lumbar spine Palpation Findings Muscle Guarding PT-OP-K Range of Motion Start: 06/08/17 08:13 Freq: Status: Active Protocol: Document 06/08/17 16:49 LRN (Rec: 06/09/17 14:40 LRN [id number]) Lumbar Spine Range of Motion Lumbar Spine Active Testing Position Standing Flexion 5 Extension 3 Lateral Flexion Left 3 Lateral Flexion Right 5 ROM Limitations Pain Comments Measurements taken degrees. Shoulder Goniometric Range of Motion Shoulder Measured in Degrees Right Active Shoulder ROM WFL Yes Testing Position Sitting Left Active Shoulder ROM WFL Yes Testing Position Sitting Hip Goniometric Range of Motion Hip Measured in Degrees Left Active Hip ROM WFL No Testing Position Prone Right Active Hip ROM WFL No Testing Position Prone Hip ROM Limitations Hip ROM Limitations Pain Comments Hip ER is decreased 50% of normal bilaterally. PT-OP-M Strength Start: 06/08/17 08:13 Freq: Status: Active Protocol: Document 06/08/17 16:49 LRN (Rec: 06/09/17 14:40 LRN [id number]) Trunk Strength Trunk Manual Muscle Testing Testing Position Sitting Reason Not Measured Pain Comments Pt can actively rotate in sitting ~ 28 deg's left, 10 deg's right. He is not able to lean forward in sitting and is unable to perform an abdominal curl due to back pain. Shoulder Strength Shoulder Manual Muscle Testing Left Reason Not Measured Pain Right Reason Not Measured Pain Comments Deferred due to back pain Hip Strength Hip Manual Muscle Testing Left Reason Not Measured Pain Right Reason Not Measured Pain PT-OP-Q Treatments Start: 06/08/17 08:13 Freq: Status: Active Protocol: Document 06/27/17 09:45 GGD (Rec: 06/27/17 11:11 GGD [email or web address]) Therapeutic Exercises Supine Exercises 6 Supine Exercise Name supine pelvic tilt Comments small ROM 5 Supine Exercise Name hooklying TrA stab Reps/Minutes 4 3 Supine Exercise Name Single KTC Reps/Minutes 4 1 Supine Exercise Name Hamstring str Reps/Minutes 4 Sidelying Exercises 2 Sidelying Exercise Name Reverse Clam Shells Side bilateral Reps/Minutes x15 1 Sidelying Exercise Name Michelle Shells Side bilateral Reps/Minutes x15 Manual Therapy Treatment Soft Tissue Mobilization 1 Body Location Thoracic/Lumbar paraspinals Mobilization Type Sustained Pressure Trigger Point Release Body Position Prone PT-OP-R Modalities Start: 06/08/17 08:13 Freq: Status: Active Protocol: Document 06/20/17 13:24 EA (Rec: 06/20/17 13:24 EA [id number]) Electric Stimulation Electric Stimulation Interferential Current (IFC) Body Location T/S, L/S Duration (Minutes) 10 Combined With Heat/Cold Hot Pack Comments prone PT-OP-S Aquatic Treatment Start: 07/24/17 16:26 Freq: Status: Active Protocol: Document 08/07/17 14:30 TMS (Rec: 08/07/17 16:09 TMS [email or web address]) Aquatics Treatment Pool Entry/Exit Pool Entry/Exit Method Stairs Assistance Standby Assistance Water Walking Backwards Water Level Chest Level Level of Assistance Standby Assistance Sideways Water Level Chest Level Level of Assistance Standby Assistance Forwards Water Level Chest Level Level of Assistance Standby Assistance Lower Extremity Exercises 4 Details Squats Body Position Standing Water Level Chest Level Reps/Duration x 10 3 Details L.E. circumduction Body Position Standing Water Level Chest Level Reps/Duration x 10 reps. 2 Details hip abd/add Body Position Standing Water Level Chest Level Reps/Duration x10 1 Details hip flx/ext Body Position Standing Water Level Chest Level Reps/Duration x10 Lower Extremity Stretches 1 Details Hamstring Body Position Standing Water Level Chest Level Reps/Duration x2 2 Details Single knee to chest Body Position Standing Reps/Duration x2 Upper Extremity Exercises 1 Details Shoulder Horiz AB/AD, AB/AB Body Position Standing Water Level Chest Level Equipment UE paddles Comments Bilateral/unilateral, core stabilization emphasis [place] Activities [place] Activities Bicycle Equipment Square float Duration 10 Comments 1 lb. each ankle, pt. held on to tether. PT-OP-T Assessment and Plan Start: 06/08/17 08:13 Freq: Status: Active Protocol: Document 08/07/17 14:30 TMS (Rec: 08/07/17 16:09 TMS [email or web address]) Physical Therapy Assessment Assessment Summary Assessment Pt. tolerated 45 minutes of aquatics today without increased complaints of pain. Encouraged pt. not to go fishing at this point. Physical Therapy Plan Frequency and Duration Frequency of Treatment 2x/Week Plan of Care Start Date 06/08/17 Plan of Care End Date 08/31/17 Next Visit Focus/Plan Next Visit Plan Continue to progress aquatic program as tolerated.
--- NOTE | 2017-08-14 15:18 | PT.OTN ---
Current Diagnoses Low back pain (08/14/17) Pain in thoracic spine (08/14/17) Wedge compression fracture of first lumbar vertebra, initial encounter for closed fracture (08/14/17) Physical Therapy Treatment Note PT-OP-A Visit Information Start: 06/08/17 08:13 Freq: Status: Active Protocol: Document 08/14/17 12:15 CLB (Rec: 08/14/17 15:18 CLB [email or web address]) Out-Patient Physical Therapy Visit Information Visit Information Visit Type Treatment Note Visit Start Time 12:15 Visit Stop Time 13:00 Total Visit Minutes 45 Visit Number 11 Number of COLD TYPE COMPOSING MACHINE OPERATOR Visits 1 PT-OP-B Current Condition Start: 06/08/17 08:13 Freq: Status: Active Protocol: Document 06/09/17 08:16 LRN (Rec: 06/09/17 08:43 LRN [id number]) Current Condition History of Current Condition Onset Date 01/02/2017 Current Complaints Back pain, unable to work, sleep disturbance, difficulty with transfers History of Current Condition Pt reports falling off a ladder ~18' high (records indicate ~25') landing on his back and hitting his head, causing a loss of consciousness. He was air lifted to [facility] in [place] and was placed in a TLSO brace for 8 weeks. Pt reports having a burst fracture at T1, the 01/02/17 X -ray indicated: Moderate compression fracture of L1 vertebral body with mild postierior displacement and hematoma at T12, L1 & L2. Other medical records indicate follow up care for L1 burst fracture, pt had been in brace for 10 weeks or so and was last seen by jono Quiles in March of this year. Pt is being referred for back pain for both upper/ mid and L/S spine. Future Testing and Treatments Planned Pt reports he is scheduled to see his [facility] physician soon to discuss possible surgery. Treatment Goals Patient/Caregiver Goals Pt goal is to feel normal, decreased pain, improve ability to sleep and to tolerate static positioning. 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 Baseline Function- Recreation/Hobbies G PT-OP-C Subjective Start: 06/08/17 08:13 Freq: Status: Active Protocol: Document 08/14/17 12:15 CLB (Rec: 08/14/17 15:18 CLB [email or web address]) OP-PT Subjective Patient Comments Patient Comments Pt states he feels that aquatic therapy helps but wishes he could do aquatic therapy twice a week. He states he feels like he loses what he gained by waiting a full week to do therapy again. Pt also stated he did go fishing once this last week. PT-OP-F Manual Assessment Start: 06/08/17 08:13 Freq: Status: Active Protocol: Document 06/08/17 16:49 LRN (Rec: 06/09/17 14:40 LRN [id number]) Manual Assessments Soft Tissue Assessment Soft Tissue Mobility Assessment Muscle guarding and tightness in the entire posterior thoracic and lumbar muscle groups. Joint Mobility Assessment Joint Mobility Assessment Deferred spinal mobility assessment. PT-OP-G Mobility & Gait Start: 06/08/17 16:33 Freq: Status: Active Protocol: Document 06/08/17 16:49 LRN (Rec: 06/09/17 14:40 LRN [id number]) OP Mobility Evaluation Bed Mobility Rolling Independent. Slow and cautious. Supine to and from Sit Independent. Slow and cautious. Transfers Sit to Stand Independent. Slow and cautious/ Functional Movements Lifting and Carrying Deferred Squats Deferred OP Gait Assessment Gait Deviations General Gait Pattern Wide Based Gait Factors Limiting Gait Function Factors Limiting Gait Function Limited Range of Motion Pain Comments Gait Comments Slow gait with excessive trunk sway. PT-OP-H Neuro Start: 06/08/17 08:13 Freq: Status: Active Protocol: Document 06/08/17 16:49 LRN (Rec: 06/09/17 14:40 LRN [id number]) Sensation Evaluation Gross Sensation Gross Sensation WNL Deep Tendon Reflex & Clonus Assessment Deep Tendon Reflex Left Achilles Deep Tendon Reflex 2+ Normal Right Achilles Deep Tendon Reflex 3+ Normal But Brisk PT-OP-J Posture/Palpation/Skin Start: 06/08/17 08:13 Freq: Status: Active Protocol: Document 06/08/17 16:49 LRN (Rec: 06/09/17 14:40 LRN [id number]) Posture Evaluation Position Standing Evaluation View Lateral Head/C-Spine Posture Forward Head T-Spine Posture Flattened L-Spine Posture Flattened Shoulder Posture (R) Forward Pelvis Posture Posterior Tilted Ankle/Foot Posture (R) Forefoot Abducted Foot Arch (L) High Arch (R) High Arch Comments Posture Comments Lumbar spine is tilted Left with a C-Curve of the Thoracic spine with the apex on the left. Palpation Assessment Location One Palpation Location Thoracic and Lumbar spine Palpation Findings Muscle Guarding PT-OP-K Range of Motion Start: 06/08/17 08:13 Freq: Status: Active Protocol: Document 06/08/17 16:49 LRN (Rec: 06/09/17 14:40 LRN [id number]) Lumbar Spine Range of Motion Lumbar Spine Active Testing Position Standing Flexion 5 Extension 3 Lateral Flexion Left 3 Lateral Flexion Right 5 ROM Limitations Pain Comments Measurements taken degrees. Shoulder Goniometric Range of Motion Shoulder Measured in Degrees Right Active Shoulder ROM WFL Yes Testing Position Sitting Left Active Shoulder ROM WFL Yes Testing Position Sitting Hip Goniometric Range of Motion Hip Measured in Degrees Left Active Hip ROM WFL No Testing Position Prone Right Active Hip ROM WFL No Testing Position Prone Hip ROM Limitations Hip ROM Limitations Pain Comments Hip ER is decreased 50% of normal bilaterally. PT-OP-M Strength Start: 06/08/17 08:13 Freq: Status: Active Protocol: Document 06/08/17 16:49 LRN (Rec: 06/09/17 14:40 LRN [id number]) Trunk Strength Trunk Manual Muscle Testing Testing Position Sitting Reason Not Measured Pain Comments Pt can actively rotate in sitting ~ 28 deg's left, 10 deg's right. He is not able to lean forward in sitting and is unable to perform an abdominal curl due to back pain. Shoulder Strength Shoulder Manual Muscle Testing Left Reason Not Measured Pain Right Reason Not Measured Pain Comments Deferred due to back pain Hip Strength Hip Manual Muscle Testing Left Reason Not Measured Pain Right Reason Not Measured Pain PT-OP-Q Treatments Start: 06/08/17 08:13 Freq: Status: Active Protocol: Document 06/27/17 09:45 GGD (Rec: 06/27/17 11:11 GGD [email or web address]) Therapeutic Exercises Supine Exercises 6 Supine Exercise Name supine pelvic tilt Comments small ROM 5 Supine Exercise Name hooklying TrA stab Reps/Minutes 4 3 Supine Exercise Name Single KTC Reps/Minutes 4 1 Supine Exercise Name Hamstring str Reps/Minutes 4 Sidelying Exercises 2 Sidelying Exercise Name Reverse Clam Shells Side bilateral Reps/Minutes x15 1 Sidelying Exercise Name Clam Shells Side bilateral Reps/Minutes x15 Manual Therapy Treatment Soft Tissue Mobilization 1 Body Location Thoracic/Lumbar paraspinals Mobilization Type Sustained Pressure Trigger Point Release Body Position Prone PT-OP-R Modalities Start: 06/08/17 08:13 Freq: Status: Active Protocol: Document 06/20/17 13:24 EA (Rec: 06/20/17 13:24 EA [id number]) Electric Stimulation Electric Stimulation Interferential Current (IFC) Body Location T/S, L/S Duration (Minutes) 10 Combined With Heat/Cold Hot Pack Comments prone PT-OP-S Aquatic Treatment Start: 07/24/17 16:26 Freq: Status: Active Protocol: Document 08/14/17 12:15 CLB (Rec: 08/14/17 15:18 CLB [email or web address]) Aquatics Treatment Pool Entry/Exit Pool Entry/Exit Method Stairs Assistance Standby Assistance Water Walking Backwards Water Level Chest Level Level of Assistance Standby Assistance Sideways Water Level Chest Level Level of Assistance Standby Assistance Forwards Water Level Chest Level Level of Assistance Standby Assistance Lower Extremity Exercises 4 Details Squats Body Position Standing Reps/Duration x 10 Comments cues for posture 3 Details L.E. circumduction Body Position Standing Water Level Chest Level Reps/Duration x 10 reps. 2 Details hip abd/add Body Position Standing Water Level Chest Level Reps/Duration x10 1 Details hip flx/ext Body Position Standing Water Level Chest Level Reps/Duration x10 Lower Extremity Stretches 1 Details Hamstring Body Position Standing Water Level Chest Level Reps/Duration x2 2 Details Single knee to chest Body Position Standing Reps/Duration x2 Upper Extremity Exercises 1 Details Shoulder Horiz AB/AD, AB/AB Body Position Standing Water Level Chest Level Equipment none Comments Bilateral/unilateral, core stabilization emphasis [place] Activities [place] Activities Bicycle Equipment small blue float Duration 10 Comments 1 lb. each ankle, pt. held on to tether. PT-OP-T Assessment and Plan Start: 06/08/17 08:13 Freq: Status: Active Protocol: Document 08/14/17 12:15 CLB (Rec: 08/14/17 15:18 CLB [email or web address]) Physical Therapy Assessment Assessment Summary Assessment Pt tolerated full 45 minute treatment today with no increase in pain. Physical Therapy Plan Frequency and Duration Frequency of Treatment 2x/Week Plan of Care Start Date 06/08/17 Plan of Care End Date 08/31/17 Next Visit Focus/Plan Next Visit Plan Continue to progress aquatic program as tolerated.
--- NOTE | 2017-08-21 16:11 | PT.OTN ---
Current Diagnoses Low back pain (08/21/17) Pain in thoracic spine (08/21/17) Wedge compression fracture of first lumbar vertebra, initial encounter for closed fracture (08/21/17) Physical Therapy Treatment Note PT-OP-A Visit Information Start: 06/08/17 08:13 Freq: Status: Active Protocol: Document 08/21/17 12:15 CLB (Rec: 08/21/17 16:11 CLB [id number]) Out-Patient Physical Therapy Visit Information Visit Information Visit Type Treatment Note Visit Start Time 12:15 Visit Stop Time 13:00 Total Visit Minutes 45 Visit Number 13 Number of DIRECTOR OF PHILANTHROPY Visits 1 PT-OP-B Current Condition Start: 06/08/17 08:13 Freq: Status: Active Protocol: Document 06/09/17 08:16 LRN (Rec: 06/09/17 08:43 LRN [id number]) Current Condition History of Current Condition Onset Date 01/02/2017 Current Complaints Back pain, unable to work, sleep disturbance, difficulty with transfers History of Current Condition Pt reports falling off a ladder ~18' high (records indicate ~25') landing on his back and hitting his head, causing a loss of consciousness. He was air lifted to [facility] in [place] and was placed in a TLSO brace for 8 weeks. Pt reports having a burst fracture at T1, the 01/02/17 X -ray indicated: Moderate compression fracture of L1 vertebral body with mild postierior displacement and hematoma at T12, L1 & L2. Other medical records indicate follow up care for L1 burst fracture, pt had been in brace for 10 weeks or so and was last seen by jono Quiles in March of this year. Pt is being referred for back pain for both upper/ mid and L/S spine. Future Testing and Treatments Planned Pt reports he is scheduled to see his [facility] physician soon to discuss possible surgery. Treatment Goals Patient/Caregiver Goals Pt goal is to feel normal, decreased pain, improve ability to sleep and to tolerate static positioning. 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 Baseline Function- Recreation/Hobbies G PT-OP-C Subjective Start: 06/08/17 08:13 Freq: Status: Active Protocol: Document 08/21/17 12:15 CLB (Rec: 08/21/17 16:11 CLB [id number]) OP-PT Subjective Patient Comments Patient Comments Pt states he feels like aquatic therapy is helping him and he is seeing improvements with his ambulation on land. PT-OP-F Manual Assessment Start: 06/08/17 08:13 Freq: Status: Active Protocol: Document 06/08/17 16:49 LRN (Rec: 06/09/17 14:40 LRN [id number]) Manual Assessments Soft Tissue Assessment Soft Tissue Mobility Assessment Muscle guarding and tightness in the entire posterior thoracic and lumbar muscle groups. Joint Mobility Assessment Joint Mobility Assessment Deferred spinal mobility assessment. PT-OP-G Mobility & Gait Start: 06/08/17 16:33 Freq: Status: Active Protocol: Document 06/08/17 16:49 LRN (Rec: 06/09/17 14:40 LRN [id number]) OP Mobility Evaluation Bed Mobility Rolling Independent. Slow and cautious. Supine to and from Sit Independent. Slow and cautious. Transfers Sit to Stand Independent. Slow and cautious/ Functional Movements Lifting and Carrying Deferred Squats Deferred OP Gait Assessment Gait Deviations General Gait Pattern Wide Based Gait Factors Limiting Gait Function Factors Limiting Gait Function Limited Range of Motion Pain Comments Gait Comments Slow gait with excessive trunk sway. PT-OP-H Neuro Start: 06/08/17 08:13 Freq: Status: Active Protocol: Document 06/08/17 16:49 LRN (Rec: 06/09/17 14:40 LRN [id number]) Sensation Evaluation Gross Sensation Gross Sensation WNL Deep Tendon Reflex & Clonus Assessment Deep Tendon Reflex Left Achilles Deep Tendon Reflex 2+ Normal Right Achilles Deep Tendon Reflex 3+ Normal But Brisk PT-OP-J Posture/Palpation/Skin Start: 06/08/17 08:13 Freq: Status: Active Protocol: Document 06/08/17 16:49 LRN (Rec: 06/09/17 14:40 LRN [id number]) Posture Evaluation Position Standing Evaluation View Lateral Head/C-Spine Posture Forward Head T-Spine Posture Flattened L-Spine Posture Flattened Shoulder Posture (R) Forward Pelvis Posture Posterior Tilted Ankle/Foot Posture (R) Forefoot Abducted Foot Arch (L) High Arch (R) High Arch Comments Posture Comments Lumbar spine is tilted Left with a C-Curve of the Thoracic spine with the apex on the left. Palpation Assessment Location One Palpation Location Thoracic and Lumbar spine Palpation Findings Muscle Guarding PT-OP-K Range of Motion Start: 06/08/17 08:13 Freq: Status: Active Protocol: Document 06/08/17 16:49 LRN (Rec: 06/09/17 14:40 LRN [id number]) Lumbar Spine Range of Motion Lumbar Spine Active Testing Position Standing Flexion 5 Extension 3 Lateral Flexion Left 3 Lateral Flexion Right 5 ROM Limitations Pain Comments Measurements taken degrees. Shoulder Goniometric Range of Motion Shoulder Measured in Degrees Right Active Shoulder ROM WFL Yes Testing Position Sitting Left Active Shoulder ROM WFL Yes Testing Position Sitting Hip Goniometric Range of Motion Hip Measured in Degrees Left Active Hip ROM WFL No Testing Position Prone Right Active Hip ROM WFL No Testing Position Prone Hip ROM Limitations Hip ROM Limitations Pain Comments Hip ER is decreased 50% of normal bilaterally. PT-OP-M Strength Start: 06/08/17 08:13 Freq: Status: Active Protocol: Document 06/08/17 16:49 LRN (Rec: 06/09/17 14:40 LRN [id number]) Trunk Strength Trunk Manual Muscle Testing Testing Position Sitting Reason Not Measured Pain Comments Pt can actively rotate in sitting ~ 28 deg's left, 10 deg's right. He is not able to lean forward in sitting and is unable to perform an abdominal curl due to back pain. Shoulder Strength Shoulder Manual Muscle Testing Left Reason Not Measured Pain Right Reason Not Measured Pain Comments Deferred due to back pain Hip Strength Hip Manual Muscle Testing Left Reason Not Measured Pain Right Reason Not Measured Pain PT-OP-Q Treatments Start: 06/08/17 08:13 Freq: Status: Active Protocol: Document 06/27/17 09:45 GGD (Rec: 06/27/17 11:11 GGD [email or web address]) Therapeutic Exercises Supine Exercises 6 Supine Exercise Name supine pelvic tilt Comments small ROM 5 Supine Exercise Name hooklying TrA stab Reps/Minutes 4 3 Supine Exercise Name Single KTC Reps/Minutes 4 1 Supine Exercise Name Hamstring str Reps/Minutes 4 Sidelying Exercises 2 Sidelying Exercise Name Reverse Clam Shells Side bilateral Reps/Minutes x15 1 Sidelying Exercise Name Clam Shells Side bilateral Reps/Minutes x15 Manual Therapy Treatment Soft Tissue Mobilization 1 Body Location Thoracic/Lumbar paraspinals Mobilization Type Sustained Pressure Trigger Point Release Body Position Prone PT-OP-R Modalities Start: 06/08/17 08:13 Freq: Status: Active Protocol: Document 06/20/17 13:24 EA (Rec: 06/20/17 13:24 EA [id number]) Electric Stimulation Electric Stimulation Interferential Current (IFC) Body Location T/S, L/S Duration (Minutes) 10 Combined With Heat/Cold Hot Pack Comments prone PT-OP-S Aquatic Treatment Start: 07/24/17 16:26 Freq: Status: Active Protocol: Document 08/21/17 12:15 CLB (Rec: 08/21/17 16:11 CLB [email or web address]) Aquatics Treatment Pool Entry/Exit Pool Entry/Exit Method Stairs Assistance Standby Assistance Water Walking Backwards Water Level Chest Level Level of Assistance Standby Assistance Forwards Water Level Chest Level Level of Assistance Standby Assistance [place] Activities [place] Activities Bicycle Equipment match-e-be-n[place]-she-wish band float Duration 10 min Comments 1 lb each LE Other 2 Details deep water DLS Body Position Standing Water Level [place] Equipment match-e-be-nash-she-wish band float, med barbells Reps/Duration 10 min 1 Details deep water traction Water Level [place] Reps/Duration match-e-be-nash-she-wish band float, 4# each LE PT-OP-T Assessment and Plan Start: 06/08/17 08:13 Freq: Status: Active Protocol: Document 08/21/17 12:15 CLB (Rec: 08/21/17 16:11 CLB [id number]) Physical Therapy Assessment Assessment Summary Assessment Pt states his ambulation on land has improved. Pt is tolerating increased activity in water. Physical Therapy Plan Frequency and Duration Frequency of Treatment 2x/Week Plan of Care Start Date 06/08/17 Plan of Care End Date 08/31/17 Next Visit Focus/Plan Next Visit Plan Continue to progress aquatic program as tolerated.
--- NOTE | 2017-09-04 15:56 | PT.OTN ---
Current Diagnoses Low back pain (09/04/17) Pain in thoracic spine (09/04/17) Wedge compression fracture of first lumbar vertebra, initial encounter for closed fracture (09/04/17) Physical Therapy Treatment Note PT-OP-A Visit Information Start: 06/08/17 08:13 Freq: Status: Active Protocol: Document 09/01/17 10:15 SAK (Rec: 09/04/17 15:54 SAK [id number]) Out-Patient Physical Therapy Visit Information Visit Information Visit Type Re-Evaluation Visit Start Time 10:15 Visit Stop Time 11:00 Total Visit Minutes 45 Visit Number Number of HOUSING INSPECTOR Visits 0 PT-OP-B Current Condition Start: 06/08/17 08:13 Freq: Status: Active Protocol: Document 06/09/17 08:16 LRN (Rec: 06/09/17 08:43 LRN [id number]) Current Condition History of Current Condition Onset Date 01/02/2017 Current Complaints Back pain, unable to work, sleep disturbance, difficulty with transfers History of Current Condition Pt reports falling off a ladder ~18' high (records indicate ~25') landing on his back and hitting his head, causing a loss of consciousness. He was air lifted to [facility] in [place] and was placed in a TLSO brace for 8 weeks. Pt reports having a burst fracture at T1, the 01/02/17 X -ray indicated: Moderate compression fracture of L1 vertebral body with mild postierior displacement and hematoma at T12, L1 & L2. Other medical records indicate follow up care for L1 burst fracture, pt had been in brace for 10 weeks or so and was last seen by jono Quiles in March of this year. Pt is being referred for back pain for both upper/ mid and L/S spine. Future Testing and Treatments Planned Pt reports he is scheduled to see his [facility] physician soon to discuss possible surgery. Treatment Goals Patient/Caregiver Goals Pt goal is to feel normal, decreased pain, improve ability to sleep and to tolerate static positioning. 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 Baseline Function- Recreation/Hobbies G PT-OP-C Subjective Start: 06/08/17 08:13 Freq: Status: Active Protocol: Document 09/01/17 10:15 SAK (Rec: 09/04/17 15:54 SAK [id number]) OP-PT Subjective Patient Comments Patient Comments Reports 15% better since starting therapy. States still very limited in his activity and that his pain is easily exacerbated. Sees his physician next week. Patient Reported Progress Improving PT-OP-F Manual Assessment Start: 06/08/17 08:13 Freq: Status: Active Protocol: Document 06/08/17 16:49 LRN (Rec: 06/09/17 14:40 LRN [id number]) Manual Assessments Soft Tissue Assessment Soft Tissue Mobility Assessment Muscle guarding and tightness in the entire posterior thoracic and lumbar muscle groups. Joint Mobility Assessment Joint Mobility Assessment Deferred spinal mobility assessment. PT-OP-G Mobility & Gait Start: 06/08/17 16:33 Freq: Status: Active Protocol: Document 06/08/17 16:49 LRN (Rec: 06/09/17 14:40 LRN [id number]) OP Mobility Evaluation Bed Mobility Rolling Independent. Slow and cautious. Supine to and from Sit Independent. Slow and cautious. Transfers Sit to Stand Independent. Slow and cautious/ Functional Movements Lifting and Carrying Deferred Squats Deferred OP Gait Assessment Gait Deviations General Gait Pattern Wide Based Gait Factors Limiting Gait Function Factors Limiting Gait Function Limited Range of Motion Pain Comments Gait Comments Slow gait with excessive trunk sway. PT-OP-H Neuro Start: 06/08/17 08:13 Freq: Status: Active Protocol: Document 06/08/17 16:49 LRN (Rec: 06/09/17 14:40 LRN [id number]) Sensation Evaluation Gross Sensation Gross Sensation WNL Deep Tendon Reflex & Clonus Assessment Deep Tendon Reflex Left Achilles Deep Tendon Reflex 2+ Normal Right Achilles Deep Tendon Reflex 3+ Normal But Brisk PT-OP-J Posture/Palpation/Skin Start: 06/08/17 08:13 Freq: Status: Active Protocol: Document 06/08/17 16:49 LRN (Rec: 06/09/17 14:40 LRN [id number]) Posture Evaluation Position Standing Evaluation View Lateral Head/C-Spine Posture Forward Head T-Spine Posture Flattened L-Spine Posture Flattened Shoulder Posture (R) Forward Pelvis Posture Posterior Tilted Ankle/Foot Posture (R) Forefoot Abducted Foot Arch (L) High Arch (R) High Arch Comments Posture Comments Lumbar spine is tilted Left with a C-Curve of the Thoracic spine with the apex on the left. Palpation Assessment Location One Palpation Location Thoracic and Lumbar spine Palpation Findings Muscle Guarding PT-OP-K Range of Motion Start: 06/08/17 08:13 Freq: Status: Active Protocol: Document 06/08/17 16:49 LRN (Rec: 06/09/17 14:40 LRN [id number]) Lumbar Spine Range of Motion Lumbar Spine Active Testing Position Standing Flexion 5 Extension 3 Lateral Flexion Left 3 Lateral Flexion Right 5 ROM Limitations Pain Comments Measurements taken degrees. Shoulder Goniometric Range of Motion Shoulder Measured in Degrees Right Active Shoulder ROM WFL Yes Testing Position Sitting Left Active Shoulder ROM WFL Yes Testing Position Sitting Hip Goniometric Range of Motion Hip Measured in Degrees Left Active Hip ROM WFL No Testing Position Prone Right Active Hip ROM WFL No Testing Position Prone Hip ROM Limitations Hip ROM Limitations Pain Comments Hip ER is decreased 50% of normal bilaterally. PT-OP-M Strength Start: 06/08/17 08:13 Freq: Status: Active Protocol: Document 06/08/17 16:49 LRN (Rec: 06/09/17 14:40 LRN [id number]) Trunk Strength Trunk Manual Muscle Testing Testing Position Sitting Reason Not Measured Pain Comments Pt can actively rotate in sitting ~ 28 deg's left, 10 deg's right. He is not able to lean forward in sitting and is unable to perform an abdominal curl due to back pain. Shoulder Strength Shoulder Manual Muscle Testing Left Reason Not Measured Pain Right Reason Not Measured Pain Comments Deferred due to back pain Hip Strength Hip Manual Muscle Testing Left Reason Not Measured Pain Right Reason Not Measured Pain PT-OP-Q Treatments Start: 06/08/17 08:13 Freq: Status: Active Protocol: Document 06/27/17 09:45 GGD (Rec: 06/27/17 11:11 GGD [email or web address]) Therapeutic Exercises Supine Exercises 6 Supine Exercise Name supine pelvic tilt Comments small ROM 5 Supine Exercise Name hooklying TrA stab Reps/Minutes 4 3 Supine Exercise Name Single KTC Reps/Minutes 4 1 Supine Exercise Name Hamstring str Reps/Minutes 4 Sidelying Exercises 2 Sidelying Exercise Name Reverse Clam Shells Side bilateral Reps/Minutes x15 1 Sidelying Exercise Name Clam Shells Side bilateral Reps/Minutes x15 Manual Therapy Treatment Soft Tissue Mobilization 1 Body Location Thoracic/Lumbar paraspinals Mobilization Type Sustained Pressure Trigger Point Release Body Position Prone PT-OP-R Modalities Start: 06/08/17 08:13 Freq: Status: Active Protocol: Document 06/20/17 13:24 EA (Rec: 06/20/17 13:24 EA [id number]) Electric Stimulation Electric Stimulation Interferential Current (IFC) Body Location T/S, L/S Duration (Minutes) 10 Combined With Heat/Cold Hot Pack Comments prone PT-OP-S Aquatic Treatment Start: 07/24/17 16:26 Freq: Status: Active Protocol: Document 09/01/17 10:15 SAK (Rec: 09/04/17 15:54 SAK [id number]) Aquatics Treatment Pool Entry/Exit Pool Entry/Exit Method Stairs Assistance Standby Assistance Water Walking Backwards Water Level Chest Level Level of Assistance Standby Assistance Forwards Water Level Chest Level Level of Assistance Standby Assistance Lower Extremity Exercises 4 Details Squats Body Position Standing Reps/Duration x 10 Comments cues for posture 3 Details L.E. circumduction Body Position Standing Water Level Chest Level Reps/Duration x 10 reps. 2 Details hip abd/add Body Position Standing Water Level Chest Level Reps/Duration x10 1 Details hip flx/ext Body Position Standing Water Level Chest Level Reps/Duration x10 Lower Extremity Stretches 1 Details Hamstring Body Position Standing Water Level Chest Level Reps/Duration x2 2 Details Single knee to chest Body Position Standing Reps/Duration x2 [place] Activities Vandiver Activities Bicycle Equipment little shell tribe float Duration 10 min Comments 1 lb each LE Other 2 Details deep water DLS Body Position Standing Water Level Vandiver Equipment little [place] tribe float, med barbells Reps/Duration 10 min 1 Details deep water traction Water Level Vandiver Equipment 10 min Reps/Duration little shell tribe float, 4# each LE PT-OP-T Assessment and Plan Start: 06/08/17 08:13 Freq: Status: Active Protocol: Document 09/01/17 10:15 SAK (Rec: 09/04/17 15:54 SAK [id number]) Physical Therapy Assessment Impairments Impairments Functional Activities Functional Mobility Gait Pain Posture ROM Soft Tissue Mobility Strength Transfers Other Impairments Not able to work Goals Three Impairment Pain due to soft tissue muscle guarding limiting functional ability. Buzzsaw Operator Helper Goal (LTG) TIEN Questionnaire Score - less than 19 (goal progress) LTG Duration 8 weeks Two Impairment Decreased trunk/hip mobility Buzzsaw Operator Helper Goal (LTG) Pt will be able to demonstrate improved posture and gait mechanics with improved trunk and hip mobility. (goal progress LTG Duration 8 weeks One Impairment Pain limiting functional mobility Short Term Goal (STG) Pt will demonstrate ability to transfer sit to stand and move in bed with decreased pain. (goal progress) Assisted Goal (LTG) Pt will be able to return to work on a limited basis with tolerable pain. (patient still unable to work) LTG Duration 8 weeks Progress Towards Goals Progress Comments slow progress due to persistent pain, activity intolerance. Best tolerance for aquatic therapy. Assessment Summary Assessment Pt states his ambulation on land has improved. Pt is tolerating increased activity in water. Physical Therapy Plan Frequency and Duration Frequency of Treatment 2x/Week Duration of Treatment 2 months Plan of Care Start Date 09/01/17 Plan of Care End Date 11/02/17 Therapeutic Interventions Therapeutic Interventions Aquatic Therapy Home Exercise Program Manual Therapy Patient/Caregiver Education Self-Care/Home Management Soft Tissue Mobilization Taping Therapeutic Activities Therapeutic Exercises Modalities Cold Pack/Ice Massage Electric Stimulation Hot Packs Ultrasound Next Visit Focus/Plan Next Note Type Treatment Note Next Visit Plan Aquatic therapy with emphasis on core and LE strengthening, pain management, posture, mobility.
--- NOTE | 2017-09-04 16:07 | PT.OTN ---
Current Diagnoses Low back pain (09/04/17) Pain in thoracic spine (09/04/17) Wedge compression fracture of first lumbar vertebra, initial encounter for closed fracture (09/04/17) Physical Therapy Treatment Note PT-OP-A Visit Information Start: 06/08/17 08:13 Freq: Status: Active Protocol: Document 09/04/17 12:15 CLB (Rec: 09/04/17 16:07 CLB [email or web address]) Out-Patient Physical Therapy Visit Information Visit Information Visit Type Treatment Note Visit Start Time 12:15 Visit Stop Time 13:00 Total Visit Minutes 45 Visit Number Number of DELIVERY COORDINATOR Visits 1 PT-OP-B Current Condition Start: 06/08/17 08:13 Freq: Status: Active Protocol: Document 06/09/17 08:16 LRN (Rec: 06/09/17 08:43 LRN [id number]) Current Condition History of Current Condition Onset Date 01/02/2017 Current Complaints Back pain, unable to work, sleep disturbance, difficulty with transfers History of Current Condition Pt reports falling off a ladder ~18' high (records indicate ~25') landing on his back and hitting his head, causing a loss of consciousness. He was air lifted to [facility] in [place] and was placed in a TLSO brace for 8 weeks. Pt reports having a burst fracture at T1, the 01/02/17 X -ray indicated: Moderate compression fracture of L1 vertebral body with mild postierior displacement and hematoma at T12, L1 & L2. Other medical records indicate follow up care for L1 burst fracture, pt had been in brace for 10 weeks or so and was last seen by jono Quiles in March of this year. Pt is being referred for back pain for both upper/ mid and L/S spine. Future Testing and Treatments Planned Pt reports he is scheduled to see his [facility] physician soon to discuss possible surgery. Treatment Goals Patient/Caregiver Goals Pt goal is to feel normal, decreased pain, improve ability to sleep and to tolerate static positioning. 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 Baseline Function- Recreation/Hobbies G PT-OP-C Subjective Start: 05/03/18 08:13 Freq: Status: Active Protocol: Document 09/04/17 12:15 CLB (Rec: 09/04/17 16:07 CLB [email or web address]) OP-PT Subjective Patient Comments Patient Comments Pt reports feeling like his balance is improving. Pt reports having some numbness in left hand. PT-OP-F Manual Assessment Start: 06/08/17 08:13 Freq: Status: Active Protocol: Document 06/08/17 16:49 LRN (Rec: 06/09/17 14:40 LRN [id number]) Manual Assessments Soft Tissue Assessment Soft Tissue Mobility Assessment Muscle guarding and tightness in the entire posterior thoracic and lumbar muscle groups. Joint Mobility Assessment Joint Mobility Assessment Deferred spinal mobility assessment. PT-OP-G Mobility & Gait Start: 06/08/17 16:33 Freq: Status: Active Protocol: Document 06/08/17 16:49 LRN (Rec: 06/09/17 14:40 LRN [id number]) OP Mobility Evaluation Bed Mobility Rolling Independent. Slow and cautious. Supine to and from Sit Independent. Slow and cautious. Transfers Sit to Stand Independent. Slow and cautious/ Functional Movements Lifting and Carrying Deferred Squats Deferred OP Gait Assessment Gait Deviations General Gait Pattern Wide Based Gait Factors Limiting Gait Function Factors Limiting Gait Function Limited Range of Motion Pain Comments Gait Comments Slow gait with excessive trunk sway. PT-OP-H Neuro Start: 06/08/17 08:13 Freq: Status: Active Protocol: Document 06/08/17 16:49 LRN (Rec: 06/09/17 14:40 LRN [id number]) Sensation Evaluation Gross Sensation Gross Sensation WNL Deep Tendon Reflex & Clonus Assessment Deep Tendon Reflex Left Achilles Deep Tendon Reflex 2+ Normal Right Achilles Deep Tendon Reflex 3+ Normal But Brisk PT-OP-J Posture/Palpation/Skin Start: 06/08/17 08:13 Freq: Status: Active Protocol: Document 06/08/17 16:49 LRN (Rec: 06/09/17 14:40 LRN [id number]) Posture Evaluation Position Standing Evaluation View Lateral Head/C-Spine Posture Forward Head T-Spine Posture Flattened L-Spine Posture Flattened Shoulder Posture (R) Forward Pelvis Posture Posterior Tilted Ankle/Foot Posture (R) Forefoot Abducted Foot Arch (L) High Arch (R) High Arch Comments Posture Comments Lumbar spine is tilted Left with a C-Curve of the Thoracic spine with the apex on the left. Palpation Assessment Location One Palpation Location Thoracic and Lumbar spine Palpation Findings Muscle Guarding PT-OP-K Range of Motion Start: 06/08/17 08:13 Freq: Status: Active Protocol: Document 06/08/17 16:49 LRN (Rec: 06/09/17 14:40 LRN [id number]) Lumbar Spine Range of Motion Lumbar Spine Active Testing Position Standing Flexion 5 Extension 3 Lateral Flexion Left 3 Lateral Flexion Right 5 ROM Limitations Pain Comments Measurements taken degrees. Shoulder Goniometric Range of Motion Shoulder Measured in Degrees Right Active Shoulder ROM WFL Yes Testing Position Sitting Left Active Shoulder ROM WFL Yes Testing Position Sitting Hip Goniometric Range of Motion Hip Measured in Degrees Left Active Hip ROM WFL No Testing Position Prone Right Active Hip ROM WFL No Testing Position Prone Hip ROM Limitations Hip ROM Limitations Pain Comments Hip ER is decreased 50% of normal bilaterally. PT-OP-M Strength Start: 06/08/17 08:13 Freq: Status: Active Protocol: Document 06/08/17 16:49 LRN (Rec: 06/09/17 14:40 LRN [id number]) Trunk Strength Trunk Manual Muscle Testing Testing Position Sitting Reason Not Measured Pain Comments Pt can actively rotate in sitting ~ 28 deg's left, 10 deg's right. He is not able to lean forward in sitting and is unable to perform an abdominal curl due to back pain. Shoulder Strength Shoulder Manual Muscle Testing Left Reason Not Measured Pain Right Reason Not Measured Pain Comments Deferred due to back pain Hip Strength Hip Manual Muscle Testing Left Reason Not Measured Pain Right Reason Not Measured Pain PT-OP-Q Treatments Start: 06/08/17 08:13 Freq: Status: Active Protocol: Document 06/27/17 09:45 GGD (Rec: 06/27/17 11:11 GGD [email or web address]) Therapeutic Exercises Supine Exercises 6 Supine Exercise Name supine pelvic tilt Comments small ROM 5 Supine Exercise Name hooklying TrA stab Reps/Minutes 4 3 Supine Exercise Name Single KTC Reps/Minutes 4 1 Supine Exercise Name Hamstring str Reps/Minutes 4 Sidelying Exercises 2 Sidelying Exercise Name Reverse Clam Shells Side bilateral Reps/Minutes x15 1 Sidelying Exercise Name Clam Shells Side bilateral Reps/Minutes x15 Manual Therapy Treatment Soft Tissue Mobilization 1 Body Location Thoracic/Lumbar paraspinals Mobilization Type Sustained Pressure Trigger Point Release Body Position Prone PT-OP-R Modalities Start: 06/08/17 08:13 Freq: Status: Active Protocol: Document 06/20/17 13:24 EA (Rec: 06/20/17 13:24 EA [id number]) Electric Stimulation Electric Stimulation Interferential Current (IFC) Body Location T/S, L/S Duration (Minutes) 10 Combined With Heat/Cold Hot Pack Comments prone PT-OP-S Aquatic Treatment Start: 07/24/17 16:26 Freq: Status: Active Protocol: Document 09/04/17 12:15 CLB (Rec: 09/04/17 16:07 CLB [email or web address]) Aquatics Treatment Pool Entry/Exit Pool Entry/Exit Method Stairs Assistance Standby Assistance Water Walking Sideways Water Level Chest Level Level of Assistance Standby Assistance Forwards Water Level Chest Level Level of Assistance Standby Assistance Lower Extremity Exercises 3 Details L.E. circumduction Body Position Standing Water Level Chest Level Reps/Duration x 10 reps. 2 Details hip abd/add Body Position Standing Water Level Chest Level Reps/Duration x10 1 Details hip flx/ext Body Position Standing Water Level Chest Level Reps/Duration x10 Lower Extremity Stretches 1 Details Hamstring Body Position Standing Water Level Chest Level Reps/Duration x2 [place] Activities [place] Activities Bicycle Equipment [place] float Duration 10 min Comments 1 lb each LE Other 2 Details deep water DLS Body Position Standing Water Level [place] Equipment [place] float, med barbells Reps/Duration 10 min 1 Details deep water traction Water Level [place] Equipment 10 min Reps/Duration [place] float, 4# each LE PT-OP-T Assessment and Plan Start: 06/08/17 08:13 Freq: Status: Active Protocol: Document 09/04/17 12:15 CLB (Rec: 09/04/17 16:07 CLB [email or web address]) Physical Therapy Assessment Progress Towards Goals Progress Comments slow progress due to persistent pain, activity intolerance. Assessment Summary Assessment Pt continues to tolerate increased activity in pool. Physical Therapy Plan Frequency and Duration Frequency of Treatment 2x/Week Duration of Treatment 2 months Plan of Care Start Date 09/01/17 Plan of Care End Date 11/02/17 Next Visit Focus/Plan Next Note Type Treatment Note Next Visit Plan Aquatic therapy with emphasis on core and LE strengthening, pain management, posture, mobility.
--- NOTE | 2017-09-08 11:00 | PT.OTN ---
Current Diagnoses Low back pain (09/08/17) Pain in thoracic spine (09/08/17) Wedge compression fracture of first lumbar vertebra, initial encounter for closed fracture (09/08/17) Physical Therapy Treatment Note PT-OP-A Visit Information Start: 06/08/17 08:13 Freq: Status: Active Protocol: Document 09/08/17 11:00 TMS (Rec: 09/08/17 15:30 TMS [email or web address]) Out-Patient Physical Therapy Visit Information Visit Information Visit Type Treatment Note Visit Start Time 10:15 Visit Stop Time 11:00 Total Visit Minutes 45 Visit Number Number of SHOE CLERK Visits 2 PT-OP-B Current Condition Start: 06/08/17 08:13 Freq: Status: Active Protocol: Document 06/09/17 08:16 LRN (Rec: 06/09/17 08:43 LRN [id number]) Current Condition History of Current Condition Onset Date 01/02/2017 Current Complaints Back pain, unable to work, sleep disturbance, difficulty with transfers History of Current Condition Pt reports falling off a ladder ~18' high (records indicate ~25') landing on his back and hitting his head, causing a loss of consciousness. He was air lifted to [facility] in [place] and was placed in a TLSO brace for 8 weeks. Pt reports having a burst fracture at T1, the 01/02/17 X -ray indicated: Moderate compression fracture of L1 vertebral body with mild postierior displacement and hematoma at T12, L1 & L2. Other medical records indicate follow up care for L1 burst fracture, pt had been in brace for 10 weeks or so and was last seen by jono Quiles in March of this year. Pt is being referred for back pain for both upper/ mid and L/S spine. Future Testing and Treatments Planned Pt reports he is scheduled to see his [facility] physician soon to discuss possible surgery. Treatment Goals Patient/Caregiver Goals Pt goal is to feel normal, decreased pain, improve ability to sleep and to tolerate static positioning. 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 Baseline Function- Recreation/Hobbies G PT-OP-C Subjective Start: 06/08/17 08:13 Freq: Status: Active Protocol: Document 09/08/17 11:00 TMS (Rec: 09/08/17 15:30 TMS [email or web address]) OP-PT Subjective Patient Comments Patient Comments Pt. reports feeling stronger and balance is improving. States aquatics hasn't changed his pain level. Rates pain level at 3/10 today. PT-OP-F Manual Assessment Start: 06/08/17 08:13 Freq: Status: Active Protocol: Document 06/08/17 16:49 LRN (Rec: 06/09/17 14:40 LRN [id number]) Manual Assessments Soft Tissue Assessment Soft Tissue Mobility Assessment Muscle guarding and tightness in the entire posterior thoracic and lumbar muscle groups. Joint Mobility Assessment Joint Mobility Assessment Deferred spinal mobility assessment. PT-OP-G Mobility & Gait Start: 06/08/17 16:33 Freq: Status: Active Protocol: Document 06/08/17 16:49 LRN (Rec: 06/09/17 14:40 LRN [id number]) OP Mobility Evaluation Bed Mobility Rolling Independent. Slow and cautious. Supine to and from Sit Independent. Slow and cautious. Transfers Sit to Stand Independent. Slow and cautious/ Functional Movements Lifting and Carrying Deferred Squats Deferred OP Gait Assessment Gait Deviations General Gait Pattern Wide Based Gait Factors Limiting Gait Function Factors Limiting Gait Function Limited Range of Motion Pain Comments Gait Comments Slow gait with excessive trunk sway. PT-OP-H Neuro Start: 06/08/17 08:13 Freq: Status: Active Protocol: Document 06/08/17 16:49 LRN (Rec: 06/09/17 14:40 LRN [id number]) Sensation Evaluation Gross Sensation Gross Sensation WNL Deep Tendon Reflex & Clonus Assessment Deep Tendon Reflex Left Achilles Deep Tendon Reflex 2+ Normal Right Achilles Deep Tendon Reflex 3+ Normal But Brisk PT-OP-J Posture/Palpation/Skin Start: 06/08/17 08:13 Freq: Status: Active Protocol: Document 06/08/17 16:49 LRN (Rec: 06/09/17 14:40 LRN [id number]) Posture Evaluation Position Standing Evaluation View Lateral Head/C-Spine Posture Forward Head T-Spine Posture Flattened L-Spine Posture Flattened Shoulder Posture (R) Forward Pelvis Posture Posterior Tilted Ankle/Foot Posture (R) Forefoot Abducted Foot Arch (L) High Arch (R) High Arch Comments Posture Comments Lumbar spine is tilted Left with a C-Curve of the Thoracic spine with the apex on the left. Palpation Assessment Location One Palpation Location Thoracic and Lumbar spine Palpation Findings Muscle Guarding PT-OP-K Range of Motion Start: 06/08/17 08:13 Freq: Status: Active Protocol: Document 06/08/17 16:49 LRN (Rec: 06/09/17 14:40 LRN [id number]) Lumbar Spine Range of Motion Lumbar Spine Active Testing Position Standing Flexion 5 Extension 3 Lateral Flexion Left 3 Lateral Flexion Right 5 ROM Limitations Pain Comments Measurements taken degrees. Shoulder Goniometric Range of Motion Shoulder Measured in Degrees Right Active Shoulder ROM WFL Yes Testing Position Sitting Left Active Shoulder ROM WFL Yes Testing Position Sitting Hip Goniometric Range of Motion Hip Measured in Degrees Left Active Hip ROM WFL No Testing Position Prone Right Active Hip ROM WFL No Testing Position Prone Hip ROM Limitations Hip ROM Limitations Pain Comments Hip ER is decreased 50% of normal bilaterally. PT-OP-M Strength Start: 06/08/17 08:13 Freq: Status: Active Protocol: Document 06/08/17 16:49 LRN (Rec: 06/09/17 14:40 LRN [id number]) Trunk Strength Trunk Manual Muscle Testing Testing Position Sitting Reason Not Measured Pain Comments Pt can actively rotate in sitting ~ 28 deg's left, 10 deg's right. He is not able to lean forward in sitting and is unable to perform an abdominal curl due to back pain. Shoulder Strength Shoulder Manual Muscle Testing Left Reason Not Measured Pain Right Reason Not Measured Pain Comments Deferred due to back pain Hip Strength Hip Manual Muscle Testing Left Reason Not Measured Pain Right Reason Not Measured Pain PT-OP-Q Treatments Start: 06/08/17 08:13 Freq: Status: Active Protocol: Document 06/27/17 09:45 GGD (Rec: 06/27/17 11:11 GGD [email or web address]) Therapeutic Exercises Supine Exercises 6 Supine Exercise Name supine pelvic tilt Comments small ROM 5 Supine Exercise Name hooklying TrA stab Reps/Minutes 4 3 Supine Exercise Name Single KTC Reps/Minutes 4 1 Supine Exercise Name Hamstring str Reps/Minutes 4 Sidelying Exercises 2 Sidelying Exercise Name Reverse Clam Shells Side bilateral Reps/Minutes x15 1 Sidelying Exercise Name Clam Shells Side bilateral Reps/Minutes x15 Manual Therapy Treatment Soft Tissue Mobilization 1 Body Location Thoracic/Lumbar paraspinals Mobilization Type Sustained Pressure Trigger Point Release Body Position Prone PT-OP-R Modalities Start: 06/08/17 08:13 Freq: Status: Active Protocol: Document 06/20/17 13:24 EA (Rec: 06/20/17 13:24 EA [id number]) Electric Stimulation Electric Stimulation Interferential Current (IFC) Body Location T/S, L/S Duration (Minutes) 10 Combined With Heat/Cold Hot Pack Comments prone PT-OP-S Aquatic Treatment Start: 07/24/17 16:26 Freq: Status: Active Protocol: Document 09/08/17 11:00 TMS (Rec: 09/08/17 15:30 TMS [email or web address]) Aquatics Treatment Pool Entry/Exit Pool Entry/Exit Method Stairs Assistance Standby Assistance Water Walking Forwards Water Level Chest Level Level of Assistance Standby Assistance Lower Extremity Exercises 3 Details L.E. circumduction Body Position Standing Water Level Chest Level Reps/Duration x 10 reps. 2 Details hip abd/add Body Position Standing Water Level Chest Level Reps/Duration x10 1 Details hip flx/ext Body Position Standing Water Level Chest Level Reps/Duration x10 Lower Extremity Stretches 1 Details Hamstring Body Position Standing Water Level Chest Level Equipment Ankle Floats Reps/Duration x2 Comments Small ankle float Spinal Exercises 1 Details [place] Stabilization Water Level [place] Equipment [place] Float Comments Medium barbells [place] Activities [place] Activities Bicycle Equipment [place] float Duration 15 min Comments No ankle weights Other 1 Details deep water traction Water Level [place] Equipment 10 min Reps/Duration [place] float, 5# each ankle. PT-OP-T Assessment and Plan Start: 06/08/17 08:13 Freq: Status: Active Protocol: Document 09/08/17 11:00 TMS (Rec: 09/08/17 15:30 TMS [email or web address]) Physical Therapy Assessment Assessment Summary Assessment Pt. able to tolerate small ankle floats with hamstring stretching today, deep water stabilization exercise challenging but improving. Physical Therapy Plan Frequency and Duration Frequency of Treatment 2x/Week Duration of Treatment 2 months Plan of Care Start Date 09/01/17 Plan of Care End Date 11/02/17 Next Visit Focus/Plan Next Note Type Treatment Note Next Visit Plan Aquatic therapy with emphasis on core and LE strengthening, pain management, posture, mobility.
--- NOTE | 2017-09-11 12:15 | PT.OTN ---
Current Diagnoses Low back pain (09/11/17) Pain in thoracic spine (09/11/17) Wedge compression fracture of first lumbar vertebra, initial encounter for closed fracture (09/11/17) Physical Therapy Treatment Note PT-OP-A Visit Information Start: 06/08/17 08:13 Freq: Status: Active Protocol: Document 09/11/17 12:15 TMS (Rec: 09/11/17 16:07 TMS [email or web address]) Out-Patient Physical Therapy Visit Information Visit Information Visit Type Treatment Note Visit Start Time 11:30 Visit Stop Time 12:15 Total Visit Minutes 45 Visit Number Number of HURRICANE TRACKER Visits 3 PT-OP-B Current Condition Start: 06/08/17 08:13 Freq: Status: Active Protocol: Document 06/09/17 08:16 LRN (Rec: 06/09/17 08:43 LRN [id number]) Current Condition History of Current Condition Onset Date 01/02/2017 Current Complaints Back pain, unable to work, sleep disturbance, difficulty with transfers History of Current Condition Pt reports falling off a ladder ~18' high (records indicate ~25') landing on his back and hitting his head, causing a loss of consciousness. He was air lifted to [facility] in [place] and was placed in a TLSO brace for 8 weeks. Pt reports having a burst fracture at T1, the 01/02/17 X -ray indicated: Moderate compression fracture of L1 vertebral body with mild postierior displacement and hematoma at T12, L1 & L2. Other medical records indicate follow up care for L1 burst fracture, pt had been in brace for 10 weeks or so and was last seen by jono Quiles in March of this year. Pt is being referred for back pain for both upper/ mid and L/S spine. Future Testing and Treatments Planned Pt reports he is scheduled to see his [facility] physician soon to discuss possible surgery. Treatment Goals Patient/Caregiver Goals Pt goal is to feel normal, decreased pain, improve ability to sleep and to tolerate static positioning. 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 Baseline Function- Recreation/Hobbies G PT-OP-C Subjective Start: 06/08/17 08:13 Freq: Status: Active Protocol: Document 09/11/17 12:15 TMS (Rec: 09/11/17 16:07 TMS [email or web address]) OP-PT Subjective Patient Comments Patient Comments Pt. states his back is sore today, he went on a long beach walk with yesterday. OP-PT Pain Assessment Comments Pain Comments Patient rated pain at 4.5/10. PT-OP-F Manual Assessment Start: 06/08/17 08:13 Freq: Status: Active Protocol: Document 06/08/17 16:49 LRN (Rec: 06/09/17 14:40 LRN [id number]) Manual Assessments Soft Tissue Assessment Soft Tissue Mobility Assessment Muscle guarding and tightness in the entire posterior thoracic and lumbar muscle groups. Joint Mobility Assessment Joint Mobility Assessment Deferred spinal mobility assessment. PT-OP-G Mobility & Gait Start: 06/08/17 16:33 Freq: Status: Active Protocol: Document 06/08/17 16:49 LRN (Rec: 06/09/17 14:40 LRN [id number]) OP Mobility Evaluation Bed Mobility Rolling Independent. Slow and cautious. Supine to and from Sit Independent. Slow and cautious. Transfers Sit to Stand Independent. Slow and cautious/ Functional Movements Lifting and Carrying Deferred Squats Deferred OP Gait Assessment Gait Deviations General Gait Pattern Wide Based Gait Factors Limiting Gait Function Factors Limiting Gait Function Limited Range of Motion Pain Comments Gait Comments Slow gait with excessive trunk sway. PT-OP-H Neuro Start: 06/08/17 08:13 Freq: Status: Active Protocol: Document 06/08/17 16:49 LRN (Rec: 06/09/17 14:40 LRN [id number]) Sensation Evaluation Gross Sensation Gross Sensation WNL Deep Tendon Reflex & Clonus Assessment Deep Tendon Reflex Left Achilles Deep Tendon Reflex 2+ Normal Right Achilles Deep Tendon Reflex 3+ Normal But Brisk PT-OP-J Posture/Palpation/Skin Start: 06/08/17 08:13 Freq: Status: Active Protocol: Document 06/08/17 16:49 LRN (Rec: 06/09/17 14:40 LRN [id number]) Posture Evaluation Position Standing Evaluation View Lateral Head/C-Spine Posture Forward Head T-Spine Posture Flattened L-Spine Posture Flattened Shoulder Posture (R) Forward Pelvis Posture Posterior Tilted Ankle/Foot Posture (R) Forefoot Abducted Foot Arch (L) High Arch (R) High Arch Comments Posture Comments Lumbar spine is tilted Left with a C-Curve of the Thoracic spine with the apex on the left. Palpation Assessment Location One Palpation Location Thoracic and Lumbar spine Palpation Findings Muscle Guarding PT-OP-K Range of Motion Start: 06/08/17 08:13 Freq: Status: Active Protocol: Document 06/08/17 16:49 LRN (Rec: 06/09/17 14:40 LRN [id number]) Lumbar Spine Range of Motion Lumbar Spine Active Testing Position Standing Flexion 5 Extension 3 Lateral Flexion Left 3 Lateral Flexion Right 5 ROM Limitations Pain Comments Measurements taken degrees. Shoulder Goniometric Range of Motion Shoulder Measured in Degrees Right Active Shoulder ROM WFL Yes Testing Position Sitting Left Active Shoulder ROM WFL Yes Testing Position Sitting Hip Goniometric Range of Motion Hip Measured in Degrees Left Active Hip ROM WFL No Testing Position Prone Right Active Hip ROM WFL No Testing Position Prone Hip ROM Limitations Hip ROM Limitations Pain Comments Hip ER is decreased 50% of normal bilaterally. PT-OP-M Strength Start: 06/08/17 08:13 Freq: Status: Active Protocol: Document 06/08/17 16:49 LRN (Rec: 06/09/17 14:40 LRN [id number]) Trunk Strength Trunk Manual Muscle Testing Testing Position Sitting Reason Not Measured Pain Comments Pt can actively rotate in sitting ~ 28 deg's left, 10 deg's right. He is not able to lean forward in sitting and is unable to perform an abdominal curl due to back pain. Shoulder Strength Shoulder Manual Muscle Testing Left Reason Not Measured Pain Right Reason Not Measured Pain Comments Deferred due to back pain Hip Strength Hip Manual Muscle Testing Left Reason Not Measured Pain Right Reason Not Measured Pain PT-OP-Q Treatments Start: 06/08/17 08:13 Freq: Status: Active Protocol: Document 06/27/17 09:45 GGD (Rec: 06/27/17 11:11 GGD [email or web address]) Therapeutic Exercises Supine Exercises 6 Supine Exercise Name supine pelvic tilt Comments small ROM 5 Supine Exercise Name hooklying TrA stab Reps/Minutes 4 3 Supine Exercise Name Single KTC Reps/Minutes 4 1 Supine Exercise Name Hamstring str Reps/Minutes 4 Sidelying Exercises 2 Sidelying Exercise Name Reverse Clam Shells Side bilateral Reps/Minutes x15 1 Sidelying Exercise Name Clam Shells Side bilateral Reps/Minutes x15 Manual Therapy Treatment Soft Tissue Mobilization 1 Body Location Thoracic/Lumbar paraspinals Mobilization Type Sustained Pressure Trigger Point Release Body Position Prone PT-OP-R Modalities Start: 06/08/17 08:13 Freq: Status: Active Protocol: Document 06/20/17 13:24 EA (Rec: 06/20/17 13:24 EA [id number]) Electric Stimulation Electric Stimulation Interferential Current (IFC) Body Location T/S, L/S Duration (Minutes) 10 Combined With Heat/Cold Hot Pack Comments prone PT-OP-S Aquatic Treatment Start: 07/24/17 16:26 Freq: Status: Active Protocol: Document 09/11/17 12:15 TMS (Rec: 09/11/17 16:07 TMS [email or web address]) Aquatics Treatment Pool Entry/Exit Pool Entry/Exit Method Stairs Assistance Standby Assistance Water Walking Sideways Water Level Chest Level Level of Assistance Standby Assistance Forwards Water Level Chest Level Level of Assistance Standby Assistance Lower Extremity Exercises 3 Details L.E. circumduction Body Position Standing Water Level Chest Level Reps/Duration x 10 reps. 2 Details hip abd/add Body Position Standing Water Level Chest Level Reps/Duration x10 1 Details hip flx/ext Body Position Standing Water Level Chest Level Reps/Duration x10 Lower Extremity Stretches 1 Details Hamstring Body Position Standing Water Level Chest Level Reps/Duration x2 Spinal Exercises 1 Details [place] Stabilization Water Level [place] Equipment [place] Float Comments Medium barbells [place] Activities [place] Activities Bicycle [place] Equipment lummi float Duration 15 min PT-OP-T Assessment and Plan Start: 06/08/17 08:13 Freq: Status: Active Protocol: Document 09/11/17 12:15 TMS (Rec: 09/11/17 16:07 TMS [email or web address]) Physical Therapy Assessment Assessment Summary Assessment Pt. continues to be quite guarded with all mobility. Needs cues to breathe and relax shoulders. Physical Therapy Plan Frequency and Duration Frequency of Treatment 2x/Week Duration of Treatment 2 months Plan of Care Start Date 09/01/17 Plan of Care End Date 11/02/17 Next Visit Focus/Plan Next Note Type Treatment Note Next Visit Plan Aquatic therapy with emphasis on core and LE strengthening, pain management, posture, mobility.
--- NOTE | 2017-09-15 11:00 | PT.OTN ---
Current Diagnoses Low back pain (09/15/17) Pain in thoracic spine (09/15/17) Wedge compression fracture of first lumbar vertebra, initial encounter for closed fracture (09/15/17) Physical Therapy Treatment Note PT-OP-A Visit Information Start: 06/08/17 08:13 Freq: Status: Active Protocol: Document 09/15/17 11:00 TMS (Rec: 09/15/17 14:53 TMS [email or web address]) Out-Patient Physical Therapy Visit Information Visit Information Visit Type Treatment Note Visit Start Time 10:15 Visit Stop Time 11:00 Total Visit Minutes 45 Visit Number Number of SPEED BELT SANDER TENDER Visits 4 PT-OP-B Current Condition Start: 06/08/17 08:13 Freq: Status: Active Protocol: Document 06/09/17 08:16 LRN (Rec: 06/09/17 08:43 LRN [id number]) Current Condition History of Current Condition Onset Date 01/02/2017 Current Complaints Back pain, unable to work, sleep disturbance, difficulty with transfers History of Current Condition Pt reports falling off a ladder ~18' high (records indicate ~25') landing on his back and hitting his head, causing a loss of consciousness. He was air lifted to [facility] in [place] and was placed in a TLSO brace for 8 weeks. Pt reports having a burst fracture at T1, the 01/02/17 X -ray indicated: Moderate compression fracture of L1 vertebral body with mild postierior displacement and hematoma at T12, L1 & L2. Other medical records indicate follow up care for L1 burst fracture, pt had been in brace for 10 weeks or so and was last seen by jono Quiles in March of this year. Pt is being referred for back pain for both upper/ mid and L/S spine. Future Testing and Treatments Planned Pt reports he is scheduled to see his [facility] physician soon to discuss possible surgery. Treatment Goals Patient/Caregiver Goals Pt goal is to feel normal, decreased pain, improve ability to sleep and to tolerate static positioning. 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 Baseline Function- Recreation/Hobbies G PT-OP-C Subjective Start: 06/08/17 08:13 Freq: Status: Active Protocol: Document 09/15/17 11:00 TMS (Rec: 09/15/17 14:53 TMS [email or web address]) OP-PT Subjective Patient Comments Patient Comments Pt. states he's feeling stronger and pain is decreasing since starting aquatics. PT-OP-F Manual Assessment Start: 06/08/17 08:13 Freq: Status: Active Protocol: Document 06/08/17 16:49 LRN (Rec: 06/09/17 14:40 LRN [id number]) Manual Assessments Soft Tissue Assessment Soft Tissue Mobility Assessment Muscle guarding and tightness in the entire posterior thoracic and lumbar muscle groups. Joint Mobility Assessment Joint Mobility Assessment Deferred spinal mobility assessment. PT-OP-G Mobility & Gait Start: 06/08/17 16:33 Freq: Status: Active Protocol: Document 06/08/17 16:49 LRN (Rec: 06/09/17 14:40 LRN [id number]) OP Mobility Evaluation Bed Mobility Rolling Independent. Slow and cautious. Supine to and from Sit Independent. Slow and cautious. Transfers Sit to Stand Independent. Slow and cautious/ Functional Movements Lifting and Carrying Deferred Squats Deferred OP Gait Assessment Gait Deviations General Gait Pattern Wide Based Gait Factors Limiting Gait Function Factors Limiting Gait Function Limited Range of Motion Pain Comments Gait Comments Slow gait with excessive trunk sway. PT-OP-H Neuro Start: 06/08/17 08:13 Freq: Status: Active Protocol: Document 06/08/17 16:49 LRN (Rec: 06/09/17 14:40 LRN [id number]) Sensation Evaluation Gross Sensation Gross Sensation WNL Deep Tendon Reflex & Clonus Assessment Deep Tendon Reflex Left Achilles Deep Tendon Reflex 2+ Normal Right Achilles Deep Tendon Reflex 3+ Normal But Brisk PT-OP-J Posture/Palpation/Skin Start: 06/08/17 08:13 Freq: Status: Active Protocol: Document 06/08/17 16:49 LRN (Rec: 06/09/17 14:40 LRN [id number]) Posture Evaluation Position Standing Evaluation View Lateral Head/C-Spine Posture Forward Head T-Spine Posture Flattened L-Spine Posture Flattened Shoulder Posture (R) Forward Pelvis Posture Posterior Tilted Ankle/Foot Posture (R) Forefoot Abducted Foot Arch (L) High Arch (R) High Arch Comments Posture Comments Lumbar spine is tilted Left with a C-Curve of the Thoracic spine with the apex on the left. Palpation Assessment Location One Palpation Location Thoracic and Lumbar spine Palpation Findings Muscle Guarding PT-OP-K Range of Motion Start: 06/08/17 08:13 Freq: Status: Active Protocol: Document 06/08/17 16:49 LRN (Rec: 06/09/17 14:40 LRN [id number]) Lumbar Spine Range of Motion Lumbar Spine Active Testing Position Standing Flexion 5 Extension 3 Lateral Flexion Left 3 Lateral Flexion Right 5 ROM Limitations Pain Comments Measurements taken degrees. Shoulder Goniometric Range of Motion Shoulder Measured in Degrees Right Active Shoulder ROM WFL Yes Testing Position Sitting Left Active Shoulder ROM WFL Yes Testing Position Sitting Hip Goniometric Range of Motion Hip Measured in Degrees Left Active Hip ROM WFL No Testing Position Prone Right Active Hip ROM WFL No Testing Position Prone Hip ROM Limitations Hip ROM Limitations Pain Comments Hip ER is decreased 50% of normal bilaterally. PT-OP-M Strength Start: 06/08/17 08:13 Freq: Status: Active Protocol: Document 06/08/17 16:49 LRN (Rec: 06/09/17 14:40 LRN [id number]) Trunk Strength Trunk Manual Muscle Testing Testing Position Sitting Reason Not Measured Pain Comments Pt can actively rotate in sitting ~ 28 deg's left, 10 deg's right. He is not able to lean forward in sitting and is unable to perform an abdominal curl due to back pain. Shoulder Strength Shoulder Manual Muscle Testing Left Reason Not Measured Pain Right Reason Not Measured Pain Comments Deferred due to back pain Hip Strength Hip Manual Muscle Testing Left Reason Not Measured Pain Right Reason Not Measured Pain PT-OP-Q Treatments Start: 06/08/17 08:13 Freq: Status: Active Protocol: Document 06/27/17 09:45 GGD (Rec: 06/27/17 11:11 GGD [email or web address]) Therapeutic Exercises Supine Exercises 6 Supine Exercise Name supine pelvic tilt Comments small ROM 5 Supine Exercise Name hooklying TrA stab Reps/Minutes 4 3 Supine Exercise Name Single KTC Reps/Minutes 4 1 Supine Exercise Name Hamstring str Reps/Minutes 4 Sidelying Exercises 2 Sidelying Exercise Name Reverse Clam Shells Side bilateral Reps/Minutes x15 1 Sidelying Exercise Name Clam Shells Side bilateral Reps/Minutes x15 Manual Therapy Treatment Soft Tissue Mobilization 1 Body Location Thoracic/Lumbar paraspinals Mobilization Type Sustained Pressure Trigger Point Release Body Position Prone PT-OP-R Modalities Start: 06/08/17 08:13 Freq: Status: Active Protocol: Document 06/20/17 13:24 EA (Rec: 06/20/17 13:24 EA [id number]) Electric Stimulation Electric Stimulation Interferential Current (IFC) Body Location T/S, L/S Duration (Minutes) 10 Combined With Heat/Cold Hot Pack Comments prone PT-OP-S Aquatic Treatment Start: 07/24/17 16:26 Freq: Status: Active Protocol: Document 09/15/17 11:00 TMS (Rec: 09/15/17 14:53 TMS [email or web address]) Aquatics Treatment Pool Entry/Exit Pool Entry/Exit Method Stairs Assistance Standby Assistance Water Walking Forwards Water Level Chest Level Walking Equipment Resistance Fins Level of Assistance Standby Assistance Lower Extremity Exercises 3 Details L.E. circumduction Body Position Standing Water Level Chest Level Equipment Resistance Fins Reps/Duration x 15 reps 2 Details hip abd/add Body Position Standing Water Level Chest Level Reps/Duration x15 1 Details hip flx/ext Body Position Standing Water Level Chest Level Equipment Resistance Fins Reps/Duration x 15 Lower Extremity Stretches 1 Details Hamstring Body Position Standing Water Level Chest Level Equipment small ankle floats 2 Details single knee to chest Body Position Standing Reps/Duration x2 [place] Activities [place] Activities Bicycle Equipment [place] float Duration 15 min Other 1 Details deep water traction Water Level [place] Equipment 10 min Reps/Duration [place] float, 5# each ankle. PT-OP-T Assessment and Plan Start: 06/08/17 08:13 Freq: Status: Active Protocol: Document 09/15/17 11:00 TMS (Rec: 09/15/17 14:53 TMS [email or web address]) Physical Therapy Assessment Goals Three Impairment Pain due to soft tissue muscle guarding limiting functional ability. Faculty Neuropsychologist Goal (LTG) TIEN Questionnaire Score - less than 19 (goal progress) LTG Duration 8 weeks Two Impairment Decreased trunk/hip mobility Senior Living Goal (LTG) Pt will be able to demonstrate improved posture and gait mechanics with improved trunk and hip mobility. (goal progress LTG Duration 8 weeks One Impairment Pain limiting functional mobility Short Term Goal (STG) Pt will demonstrate ability to transfer sit to stand and move in bed with decreased pain. (goal progress) Senior Living Goal (LTG) Pt will be able to return to work on a limited basis with tolerable pain. (patient still unable to work) LTG Duration 8 weeks Assessment Summary Assessment Pt. tolerated floats with stretching well, apprehensive in deep water so hesitant to try noodle or belt. Physical Therapy Plan Frequency and Duration Frequency of Treatment 2x/Week Duration of Treatment 2 months Plan of Care Start Date 09/01/17 Plan of Care End Date 11/02/17 Next Visit Focus/Plan Next Note Type Treatment Note Next Visit Plan Aquatic therapy with emphasis on core and LE strengthening, pain management, posture, mobility.
--- NOTE | 2017-09-25 17:40 | PT.OTN ---
Current Diagnoses Low back pain (09/25/17) Pain in thoracic spine (09/25/17) Wedge compression fracture of first lumbar vertebra, initial encounter for closed fracture (09/25/17) Physical Therapy Treatment Note PT-OP-A Visit Information Start: 06/08/17 08:13 Freq: Status: Active Protocol: Document 09/25/17 13:45 LJ (Rec: 09/25/17 17:40 LJ [email or web address]) Out-Patient Physical Therapy Visit Information Visit Information Visit Type Treatment Note Visit Start Time 13:45 Visit Stop Time 14:30 Total Visit Minutes 45 Number of CHEF DE CUISINE Visits 5 PT-OP-B Current Condition Start: 06/08/17 08:13 Freq: Status: Active Protocol: Document 06/09/17 08:16 LRN (Rec: 06/09/17 08:43 LRN [id number]) Current Condition History of Current Condition Onset Date 01/02/2017 Current Complaints Back pain, unable to work, sleep disturbance, difficulty with transfers History of Current Condition Pt reports falling off a ladder ~18' high (records indicate ~25') landing on his back and hitting his head, causing a loss of consciousness. He was air lifted to [facility] in [place] and was placed in a TLSO brace for 8 weeks. Pt reports having a burst fracture at T1, the 01/02/17 X -ray indicated: Moderate compression fracture of L1 vertebral body with mild postierior displacement and hematoma at T12, L1 & L2. Other medical records indicate follow up care for L1 burst fracture, pt had been in brace for 10 weeks or so and was last seen by jono Quiles in March of this year. Pt is being referred for back pain for both upper/ mid and L/S spine. Future Testing and Treatments Planned Pt reports he is scheduled to see his [facility] physician soon to discuss possible surgery. Treatment Goals Patient/Caregiver Goals Pt goal is to feel normal, decreased pain, improve ability to sleep and to tolerate static positioning. 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 Baseline Function- Recreation/Hobbies G PT-OP-C Subjective Start: 06/08/17 08:13 Freq: Status: Active Protocol: Document 09/25/17 13:45 LJ (Rec: 09/25/17 17:40 LJ [email or web address]) OP-PT Subjective Patient Comments Patient Comments Pt states concern over not being in the pool for a week. Did not want to lose the strength that he has gained. OP-PT Pain Assessment Location Bilateral Lower Posterior Medial Back Intensity 3 Scale Used Numeric (1 - 10) PT-OP-F Manual Assessment Start: 06/08/17 08:13 Freq: Status: Active Protocol: Document 06/08/17 16:49 LRN (Rec: 06/09/17 14:40 LRN [id number]) Manual Assessments Soft Tissue Assessment Soft Tissue Mobility Assessment Muscle guarding and tightness in the entire posterior thoracic and lumbar muscle groups. Joint Mobility Assessment Joint Mobility Assessment Deferred spinal mobility assessment. PT-OP-G Mobility & Gait Start: 06/08/17 16:33 Freq: Status: Active Protocol: Document 06/08/17 16:49 LRN (Rec: 06/09/17 14:40 LRN [id number]) OP Mobility Evaluation Bed Mobility Rolling Independent. Slow and cautious. Supine to and from Sit Independent. Slow and cautious. Transfers Sit to Stand Independent. Slow and cautious/ Functional Movements Lifting and Carrying Deferred Squats Deferred OP Gait Assessment Gait Deviations General Gait Pattern Wide Based Gait Factors Limiting Gait Function Factors Limiting Gait Function Limited Range of Motion Pain Comments Gait Comments Slow gait with excessive trunk sway. PT-OP-H Neuro Start: 06/08/17 08:13 Freq: Status: Active Protocol: Document 06/08/17 16:49 LRN (Rec: 06/09/17 14:40 LRN [id number]) Sensation Evaluation Gross Sensation Gross Sensation WNL Deep Tendon Reflex & Clonus Assessment Deep Tendon Reflex Left Achilles Deep Tendon Reflex 2+ Normal Right Achilles Deep Tendon Reflex 3+ Normal But Brisk PT-OP-J Posture/Palpation/Skin Start: 06/08/17 08:13 Freq: Status: Active Protocol: Document 06/08/17 16:49 LRN (Rec: 06/09/17 14:40 LRN [id number]) Posture Evaluation Position Standing Evaluation View Lateral Head/C-Spine Posture Forward Head T-Spine Posture Flattened L-Spine Posture Flattened Shoulder Posture (R) Forward Pelvis Posture Posterior Tilted Ankle/Foot Posture (R) Forefoot Abducted Foot Arch (L) High Arch (R) High Arch Comments Posture Comments Lumbar spine is tilted Left with a C-Curve of the Thoracic spine with the apex on the left. Palpation Assessment Location One Palpation Location Thoracic and Lumbar spine Palpation Findings Muscle Guarding PT-OP-K Range of Motion Start: 06/08/17 08:13 Freq: Status: Active Protocol: Document 06/08/17 16:49 LRN (Rec: 06/09/17 14:40 LRN [id number]) Lumbar Spine Range of Motion Lumbar Spine Active Testing Position Standing Flexion 5 Extension 3 Lateral Flexion Left 3 Lateral Flexion Right 5 ROM Limitations Pain Comments Measurements taken degrees. Shoulder Goniometric Range of Motion Shoulder Measured in Degrees Right Active Shoulder ROM WFL Yes Testing Position Sitting Left Active Shoulder ROM WFL Yes Testing Position Sitting Hip Goniometric Range of Motion Hip Measured in Degrees Left Active Hip ROM WFL No Testing Position Prone Right Active Hip ROM WFL No Testing Position Prone Hip ROM Limitations Hip ROM Limitations Pain Comments Hip ER is decreased 50% of normal bilaterally. PT-OP-M Strength Start: 06/08/17 08:13 Freq: Status: Active Protocol: Document 06/08/17 16:49 LRN (Rec: 06/09/17 14:40 LRN [id number]) Trunk Strength Trunk Manual Muscle Testing Testing Position Sitting Reason Not Measured Pain Comments Pt can actively rotate in sitting ~ 28 deg's left, 10 deg's right. He is not able to lean forward in sitting and is unable to perform an abdominal curl due to back pain. Shoulder Strength Shoulder Manual Muscle Testing Left Reason Not Measured Pain Right Reason Not Measured Pain Comments Deferred due to back pain Hip Strength Hip Manual Muscle Testing Left Reason Not Measured Pain Right Reason Not Measured Pain PT-OP-Q Treatments Start: 06/08/17 08:13 Freq: Status: Active Protocol: Document 06/27/17 09:45 GGD (Rec: 06/27/17 11:11 GGD [email or web address]) Therapeutic Exercises Supine Exercises 6 Supine Exercise Name supine pelvic tilt Comments small ROM 5 Supine Exercise Name hooklying TrA stab Reps/Minutes 4 3 Supine Exercise Name Single KTC Reps/Minutes 4 1 Supine Exercise Name Hamstring str Reps/Minutes 4 Sidelying Exercises 2 Sidelying Exercise Name Reverse Clam Shells Side bilateral Reps/Minutes x15 1 Sidelying Exercise Name Clam Shells Side bilateral Reps/Minutes x15 Manual Therapy Treatment Soft Tissue Mobilization 1 Body Location Thoracic/Lumbar paraspinals Mobilization Type Sustained Pressure Trigger Point Release Body Position Prone PT-OP-R Modalities Start: 06/08/17 08:13 Freq: Status: Active Protocol: Document 06/20/17 13:24 EA (Rec: 06/20/17 13:24 EA [id number]) Electric Stimulation Electric Stimulation Interferential Current (IFC) Body Location T/S, L/S Duration (Minutes) 10 Combined With Heat/Cold Hot Pack Comments prone PT-OP-S Aquatic Treatment Start: 07/24/17 16:26 Freq: Status: Active Protocol: Document 09/25/17 13:45 LJ (Rec: 09/25/17 17:40 LJ [email or web address]) Aquatics Treatment Pool Entry/Exit Pool Entry/Exit Method Stairs Assistance Standby Assistance Water Walking goose stepping Water Level Chest Level Walking Equipment Resistance Fins Level of Assistance Standby Assistance Sideways Water Level Chest Level Walking Equipment Resistance Fins Level of Assistance Standby Assistance Forwards Water Level Chest Level Walking Equipment Resistance Fins Level of Assistance Standby Assistance Lower Extremity Exercises 3 Details L.E. circumduction Body Position Standing Water Level Chest Level Equipment Resistance Fins Reps/Duration x 15 reps 2 Details hip abd/add Body Position Standing Water Level Chest Level Reps/Duration x15 1 Details hip flx/ext Body Position Standing Water Level Chest Level Equipment Resistance Fins Reps/Duration x 15 Lower Extremity Stretches 1 Details Hamstring Body Position Standing Water Level Chest Level Equipment small ankle floats Emily Activities Emily Activities Bicycle Equipment [place] float Duration 10 min Comments ankle fins-green PT-OP-T Assessment and Plan Start: 06/08/17 08:13 Freq: Status: Active Protocol: Document 09/25/17 13:45 LJ (Rec: 09/25/17 17:40 LJ [email or web address]) Physical Therapy Assessment Goals Three Impairment Pain due to soft tissue muscle guarding limiting functional ability. Residential Goal (LTG) TIEN Questionnaire Score - less than 19 (goal progress) LTG Duration 8 weeks Two Impairment Decreased trunk/hip mobility [employer] Goal (LTG) Pt will be able to demonstrate improved posture and gait mechanics with improved trunk and hip mobility. (goal progress LTG Duration 8 weeks One Impairment Pain limiting functional mobility Short Term Goal (STG) Pt will demonstrate ability to transfer sit to stand and move in bed with decreased pain. (goal progress) Residential Goal (LTG) Pt will be able to return to work on a limited basis with tolerable pain. (patient still unable to work) LTG Duration 8 weeks Progress Towards Goals Progress Comments slow progress due to persistent pain, activity intolerance. Assessment Summary Assessment Pt was relaxed in deep water doing biking and skis. Demonstrated guarding at end of treatment session walking in shallowest part of pool. Physical Therapy Plan Frequency and Duration Frequency of Treatment 2x/Week Duration of Treatment 2 months Plan of Care Start Date 09/01/17 Plan of Care End Date 11/02/17 Next Visit Focus/Plan Next Note Type Treatment Note Next Visit Plan Aquatic therapy with emphasis on core and LE strengthening, pain management, posture, mobility.
--- NOTE | 2017-09-27 16:29 | PT.OTN ---
Current Diagnoses Low back pain (09/27/17) Pain in thoracic spine (09/27/17) Wedge compression fracture of first lumbar vertebra, initial encounter for closed fracture (09/27/17) Physical Therapy Treatment Note PT-OP-A Visit Information Start: 06/08/17 08:13 Freq: Status: Active Protocol: Document 09/27/17 13:00 LJ (Rec: 09/27/17 16:29 LJ [email or web address]) Out-Patient Physical Therapy Visit Information Visit Information Visit Type Treatment Note Visit Start Time 12:15 Visit Stop Time 13:00 Total Visit Minutes 45 Number of HOSPITALIST NOCTURNIST PHYSICIAN Visits 6 PT-OP-B Current Condition Start: 06/08/17 08:13 Freq: Status: Active Protocol: Document 06/09/17 08:16 LRN (Rec: 06/09/17 08:43 LRN [id number]) Current Condition History of Current Condition Onset Date 01/02/2017 Current Complaints Back pain, unable to work, sleep disturbance, difficulty with transfers History of Current Condition Pt reports falling off a ladder ~18' high (records indicate ~25') landing on his back and hitting his head, causing a loss of consciousness. He was air lifted to [facility] in [place] and was placed in a TLSO brace for 8 weeks. Pt reports having a burst fracture at T1, the 01/02/17 X -ray indicated: Moderate compression fracture of L1 vertebral body with mild postierior displacement and hematoma at T12, L1 & L2. Other medical records indicate follow up care for L1 burst fracture, pt had been in brace for 10 weeks or so and was last seen by jono Quiles in March of this year. Pt is being referred for back pain for both upper/ mid and L/S spine. Future Testing and Treatments Planned Pt reports he is scheduled to see his [facility] physician soon to discuss possible surgery. Treatment Goals Patient/Caregiver Goals Pt goal is to feel normal, decreased pain, improve ability to sleep and to tolerate static positioning. 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 Baseline Function- Recreation/Hobbies G PT-OP-C Subjective Start: 06/08/17 08:13 Freq: Status: Active Protocol: Document 09/27/17 13:00 LJ (Rec: 09/27/17 16:29 LJ [email or web address]) OP-PT Subjective Patient Comments Patient Comments Pt states he went for a walk on [place] and was able to increase the distance from prior walks OP-PT Pain Assessment Location Bilateral Lower Posterior Medial Back Intensity 3 Scale Used Numeric (1 - 10) PT-OP-F Manual Assessment Start: 06/08/17 08:13 Freq: Status: Active Protocol: Document 06/08/17 16:49 LRN (Rec: 06/09/17 14:40 LRN [id number]) Manual Assessments Soft Tissue Assessment Soft Tissue Mobility Assessment Muscle guarding and tightness in the entire posterior thoracic and lumbar muscle groups. Joint Mobility Assessment Joint Mobility Assessment Deferred spinal mobility assessment. PT-OP-G Mobility & Gait Start: 06/08/17 16:33 Freq: Status: Active Protocol: Document 06/08/17 16:49 LRN (Rec: 06/09/17 14:40 LRN [id number]) OP Mobility Evaluation Bed Mobility Rolling Independent. Slow and cautious. Supine to and from Sit Independent. Slow and cautious. Transfers Sit to Stand Independent. Slow and cautious/ Functional Movements Lifting and Carrying Deferred Squats Deferred OP Gait Assessment Gait Deviations General Gait Pattern Wide Based Gait Factors Limiting Gait Function Factors Limiting Gait Function Limited Range of Motion Pain Comments Gait Comments Slow gait with excessive trunk sway. PT-OP-H Neuro Start: 06/08/17 08:13 Freq: Status: Active Protocol: Document 06/08/17 16:49 LRN (Rec: 06/09/17 14:40 LRN [id number]) Sensation Evaluation Gross Sensation Gross Sensation WNL Deep Tendon Reflex & Clonus Assessment Deep Tendon Reflex Left Achilles Deep Tendon Reflex 2+ Normal Right Achilles Deep Tendon Reflex 3+ Normal But Brisk PT-OP-J Posture/Palpation/Skin Start: 06/08/17 08:13 Freq: Status: Active Protocol: Document 06/08/17 16:49 LRN (Rec: 06/09/17 14:40 LRN [id number]) Posture Evaluation Position Standing Evaluation View Lateral Head/C-Spine Posture Forward Head T-Spine Posture Flattened L-Spine Posture Flattened Shoulder Posture (R) Forward Pelvis Posture Posterior Tilted Ankle/Foot Posture (R) Forefoot Abducted Foot Arch (L) High Arch (R) High Arch Comments Posture Comments Lumbar spine is tilted Left with a C-Curve of the Thoracic spine with the apex on the left. Palpation Assessment Location One Palpation Location Thoracic and Lumbar spine Palpation Findings Muscle Guarding PT-OP-K Range of Motion Start: 06/08/17 08:13 Freq: Status: Active Protocol: Document 06/08/17 16:49 LRN (Rec: 06/09/17 14:40 LRN [id number]) Lumbar Spine Range of Motion Lumbar Spine Active Testing Position Standing Flexion 5 Extension 3 Lateral Flexion Left 3 Lateral Flexion Right 5 ROM Limitations Pain Comments Measurements taken degrees. Shoulder Goniometric Range of Motion Shoulder Measured in Degrees Right Active Shoulder ROM WFL Yes Testing Position Sitting Left Active Shoulder ROM WFL Yes Testing Position Sitting Hip Goniometric Range of Motion Hip Measured in Degrees Left Active Hip ROM WFL No Testing Position Prone Right Active Hip ROM WFL No Testing Position Prone Hip ROM Limitations Hip ROM Limitations Pain Comments Hip ER is decreased 50% of normal bilaterally. PT-OP-M Strength Start: 06/08/17 08:13 Freq: Status: Active Protocol: Document 06/08/17 16:49 LRN (Rec: 06/09/17 14:40 LRN [id number]) Trunk Strength Trunk Manual Muscle Testing Testing Position Sitting Reason Not Measured Pain Comments Pt can actively rotate in sitting ~ 28 deg's left, 10 deg's right. He is not able to lean forward in sitting and is unable to perform an abdominal curl due to back pain. Shoulder Strength Shoulder Manual Muscle Testing Left Reason Not Measured Pain Right Reason Not Measured Pain Comments Deferred due to back pain Hip Strength Hip Manual Muscle Testing Left Reason Not Measured Pain Right Reason Not Measured Pain PT-OP-Q Treatments Start: 06/08/17 08:13 Freq: Status: Active Protocol: Document 06/27/17 09:45 GGD (Rec: 06/27/17 11:11 GGD [email or web address]) Therapeutic Exercises Supine Exercises 6 Supine Exercise Name supine pelvic tilt Comments small ROM 5 Supine Exercise Name hooklying TrA stab Reps/Minutes 4 3 Supine Exercise Name Single KTC Reps/Minutes 4 1 Supine Exercise Name Hamstring str Reps/Minutes 4 Sidelying Exercises 2 Sidelying Exercise Name Reverse Clam Shells Side bilateral Reps/Minutes x15 1 Sidelying Exercise Name Clam Shells Side bilateral Reps/Minutes x15 Manual Therapy Treatment Soft Tissue Mobilization 1 Body Location Thoracic/Lumbar paraspinals Mobilization Type Sustained Pressure Trigger Point Release Body Position Prone PT-OP-R Modalities Start: 06/08/17 08:13 Freq: Status: Active Protocol: Document 06/20/17 13:24 EA (Rec: 06/20/17 13:24 EA [id number]) Electric Stimulation Electric Stimulation Interferential Current (IFC) Body Location T/S, L/S Duration (Minutes) 10 Combined With Heat/Cold Hot Pack Comments prone PT-OP-S Aquatic Treatment Start: 07/24/17 16:26 Freq: Status: Active Protocol: Document 09/27/17 13:00 LJ (Rec: 09/27/17 16:29 LJ [email or web address]) Aquatics Treatment Pool Entry/Exit Pool Entry/Exit Method Stairs Assistance Standby Assistance Water Walking [place] Water Level Chest Level Walking Equipment Resistance Fins walking w/circum legs Water Level Chest Level Walking Equipment Resistance Fins goose stepping Water Level Chest Level Walking Equipment Resistance Fins Level of Assistance Standby Assistance Sideways Water Level Chest Level Walking Equipment Resistance Fins Level of Assistance Standby Assistance Forwards/backward Water Level Chest Level Walking Equipment Resistance Fins Level of Assistance Standby Assistance Lower Extremity Stretches 1 Details Hamstring Body Position Standing Water Level Chest Level Equipment small ankle floats Spinal Exercises pendulum Water Level [place] Equipment [place] Float 1 Details [place] Stabilization Water Level [place] Equipment [place] Float Comments Medium barbells [place] Activities [place] Activities Bicycle Equipment [place] float Duration 10 min Comments ankle fins-green Other 1 Details deep water traction Water Level [place] Equipment 10 min Reps/Duration [place] float, 5# each ankle. PT-OP-T Assessment and Plan Start: 06/08/17 08:13 Freq: Status: Active Protocol: Document 09/27/17 13:00 LJ (Rec: 09/27/17 16:29 LJ [email or web address]) Physical Therapy Assessment Goals Three Impairment Pain due to soft tissue muscle guarding limiting functional ability. Intermediate Goal (LTG) TIEN Questionnaire Score - less than 19 (goal progress) LTG Duration 8 weeks Two Intermediate Goal (LTG) Pt will be able to demonstrate improved posture and gait mechanics with improved trunk and hip mobility. (goal progress One Impairment Pain limiting functional mobility Short Term Goal (STG) Pt will demonstrate ability to transfer sit to stand and move in bed with decreased pain. (goal progress) Depositing Machine Operator Goal (LTG) Pt will be able to return to work on a limited basis with tolerable pain. (patient still unable to work) Progress Towards Goals Progress Comments slow progress due to persistent pain, activity intolerance. Assessment Summary Assessment Pt was relaxed in deep water doing biking and skis. Demonstrated guarding at end of treatment session walking in shallowest part of pool. Physical Therapy Plan Frequency and Duration Frequency of Treatment 2x/Week Duration of Treatment 2 months Plan of Care Start Date 09/01/17 Plan of Care End Date 11/02/17 Therapeutic Interventions Therapeutic Interventions Aquatic Therapy Home Exercise Program Manual Therapy Patient/Caregiver Education Self-Care/Home Management Soft Tissue Mobilization Taping Therapeutic Activities Therapeutic Exercises Modalities Cold Pack/Ice Massage Electric Stimulation Hot Packs Ultrasound Next Visit Focus/Plan Next Note Type Treatment Note Next Visit Plan Aquatic therapy with emphasis on core and LE strengthening, pain management, posture, mobility.
--- NOTE | 2017-10-03 10:39 | PT.OTN ---
Current Diagnoses Low back pain (10/02/17) Pain in thoracic spine (10/02/17) Wedge compression fracture of first lumbar vertebra, initial encounter for closed fracture (10/02/17) Physical Therapy Treatment Note PT-OP-A Visit Information Start: 06/08/17 08:13 Freq: Status: Active Protocol: Document 10/02/17 11:30 SAK (Rec: 10/03/17 10:39 SAK [id number]) Out-Patient Physical Therapy Visit Information Visit Information Visit Type Treatment Note Visit Start Time 11:30 Visit Stop Time 12:15 Total Visit Minutes 45 Visit Number Number of GUNNER'S MATE G Visits 6 PT-OP-B Current Condition Start: 06/08/17 08:13 Freq: Status: Active Protocol: Document 06/09/17 08:16 LRN (Rec: 06/09/17 08:43 LRN [id number]) Current Condition History of Current Condition Onset Date 01/02/2017 Current Complaints Back pain, unable to work, sleep disturbance, difficulty with transfers History of Current Condition Pt reports falling off a ladder ~18' high (records indicate ~25') landing on his back and hitting his head, causing a loss of consciousness. He was air lifted to [facility] in [place] and was placed in a TLSO brace for 8 weeks. Pt reports having a burst fracture at T1, the 01/02/17 X -ray indicated: Moderate compression fracture of L1 vertebral body with mild postierior displacement and hematoma at T12, L1 & L2. Other medical records indicate follow up care for L1 burst fracture, pt had been in brace for 10 weeks or so and was last seen by jono Quiles in March of this year. Pt is being referred for back pain for both upper/ mid and L/S spine. Future Testing and Treatments Planned Pt reports he is scheduled to see his [facility] physician soon to discuss possible surgery. Treatment Goals Patient/Caregiver Goals Pt goal is to feel normal, decreased pain, improve ability to sleep and to tolerate static positioning. 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 Baseline Function- Recreation/Hobbies G PT-OP-C Subjective Start: 06/08/17 08:13 Freq: Status: Active Protocol: Document 10/02/17 11:30 SAK (Rec: 10/03/17 10:39 SAK [id number]) OP-PT Subjective Patient Comments Patient Comments Reports improving walking tolerance, tried fishing but reports quickly experienced increase in pain. Reports low compliance with HEP; I guess I probably need to do more. PT-OP-F Manual Assessment Start: 06/08/17 08:13 Freq: Status: Active Protocol: Document 06/08/17 16:49 LRN (Rec: 06/09/17 14:40 LRN [id number]) Manual Assessments Soft Tissue Assessment Soft Tissue Mobility Assessment Muscle guarding and tightness in the entire posterior thoracic and lumbar muscle groups. Joint Mobility Assessment Joint Mobility Assessment Deferred spinal mobility assessment. PT-OP-G Mobility & Gait Start: 06/08/17 16:33 Freq: Status: Active Protocol: Document 06/08/17 16:49 LRN (Rec: 06/09/17 14:40 LRN [id number]) OP Mobility Evaluation Bed Mobility Rolling Independent. Slow and cautious. Supine to and from Sit Independent. Slow and cautious. Transfers Sit to Stand Independent. Slow and cautious/ Functional Movements Lifting and Carrying Deferred Squats Deferred OP Gait Assessment Gait Deviations General Gait Pattern Wide Based Gait Factors Limiting Gait Function Factors Limiting Gait Function Limited Range of Motion Pain Comments Gait Comments Slow gait with excessive trunk sway. PT-OP-H Neuro Start: 06/08/17 08:13 Freq: Status: Active Protocol: Document 06/08/17 16:49 LRN (Rec: 06/09/17 14:40 LRN [id number]) Sensation Evaluation Gross Sensation Gross Sensation WNL Deep Tendon Reflex & Clonus Assessment Deep Tendon Reflex Left Achilles Deep Tendon Reflex 2+ Normal Right Achilles Deep Tendon Reflex 3+ Normal But Brisk PT-OP-J Posture/Palpation/Skin Start: 06/08/17 08:13 Freq: Status: Active Protocol: Document 06/08/17 16:49 LRN (Rec: 06/09/17 14:40 LRN [id number]) Posture Evaluation Position Standing Evaluation View Lateral Head/C-Spine Posture Forward Head T-Spine Posture Flattened L-Spine Posture Flattened Shoulder Posture (R) Forward Pelvis Posture Posterior Tilted Ankle/Foot Posture (R) Forefoot Abducted Foot Arch (L) High Arch (R) High Arch Comments Posture Comments Lumbar spine is tilted Left with a C-Curve of the Thoracic spine with the apex on the left. Palpation Assessment Location One Palpation Location Thoracic and Lumbar spine Palpation Findings Muscle Guarding PT-OP-K Range of Motion Start: 06/08/17 08:13 Freq: Status: Active Protocol: Document 06/08/17 16:49 LRN (Rec: 06/09/17 14:40 LRN [id number]) Lumbar Spine Range of Motion Lumbar Spine Active Testing Position Standing Flexion 5 Extension 3 Lateral Flexion Left 3 Lateral Flexion Right 5 ROM Limitations Pain Comments Measurements taken degrees. Shoulder Goniometric Range of Motion Shoulder Measured in Degrees Right Active Shoulder ROM WFL Yes Testing Position Sitting Left Active Shoulder ROM WFL Yes Testing Position Sitting Hip Goniometric Range of Motion Hip Measured in Degrees Left Active Hip ROM WFL No Testing Position Prone Right Active Hip ROM WFL No Testing Position Prone Hip ROM Limitations Hip ROM Limitations Pain Comments Hip ER is decreased 50% of normal bilaterally. PT-OP-M Strength Start: 06/08/17 08:13 Freq: Status: Active Protocol: Document 06/08/17 16:49 LRN (Rec: 06/09/17 14:40 LRN [id number]) Trunk Strength Trunk Manual Muscle Testing Testing Position Sitting Reason Not Measured Pain Comments Pt can actively rotate in sitting ~ 28 deg's left, 10 deg's right. He is not able to lean forward in sitting and is unable to perform an abdominal curl due to back pain. Shoulder Strength Shoulder Manual Muscle Testing Left Reason Not Measured Pain Right Reason Not Measured Pain Comments Deferred due to back pain Hip Strength Hip Manual Muscle Testing Left Reason Not Measured Pain Right Reason Not Measured Pain PT-OP-Q Treatments Start: 06/08/17 08:13 Freq: Status: Active Protocol: Document 06/27/17 09:45 GGD (Rec: 06/27/17 11:11 GGD [id number]) Therapeutic Exercises Supine Exercises 6 Supine Exercise Name supine pelvic tilt Comments small ROM 5 Supine Exercise Name hooklying TrA stab Reps/Minutes 4 3 Supine Exercise Name Single KTC Reps/Minutes 4 1 Supine Exercise Name Hamstring str Reps/Minutes 4 Sidelying Exercises 2 Sidelying Exercise Name Reverse Clam Shells Side bilateral Reps/Minutes x15 1 Sidelying Exercise Name Clam Shells Side bilateral Reps/Minutes x15 Manual Therapy Treatment Soft Tissue Mobilization 1 Body Location Thoracic/Lumbar paraspinals Mobilization Type Sustained Pressure Trigger Point Release Body Position Prone PT-OP-R Modalities Start: 06/08/17 08:13 Freq: Status: Active Protocol: Document 06/20/17 13:24 EA (Rec: 06/20/17 13:24 EA [id number]) Electric Stimulation Electric Stimulation Interferential Current (IFC) Body Location T/S, L/S Duration (Minutes) 10 Combined With Heat/Cold Hot Pack Comments prone PT-OP-S Aquatic Treatment Start: 07/24/17 16:26 Freq: Status: Active Protocol: Document 10/02/17 11:30 SAK (Rec: 10/03/17 10:39 SAK [id number]) Aquatics Treatment Pool Entry/Exit Pool Entry/Exit Method Stairs Assistance Standby Assistance Water Walking [place] March Water Level Chest Level Walking Equipment Resistance Fins walking w/circumduction legs Water Level Chest Level Walking Equipment Resistance Fins goose stepping Water Level Chest Level Walking Equipment Resistance Fins Level of Assistance Standby Assistance Backwards Water Level Chest Level Level of Assistance Standby Assistance Sideways Water Level Chest Level Walking Equipment Resistance Fins Level of Assistance Standby Assistance Forwards Water Level Chest Level Walking Equipment Resistance Fins Level of Assistance Standby Assistance Lower Extremity Exercises 4 Details Squats Body Position Standing Reps/Duration x 10 Comments cues for posture 3 Details L.E. circumduction Body Position Standing Water Level Chest Level Equipment Resistance Fins Reps/Duration x 15 reps 2 Details hip abd/add Body Position Standing Water Level Chest Level Reps/Duration x15 1 Details hip flx/ext Body Position Standing Water Level Chest Level Equipment Resistance Fins Reps/Duration x 15 Lower Extremity Stretches 1 Details Hamstring Body Position Standing Water Level Chest Level Equipment small ankle floats 2 Details single knee to chest Body Position Standing Reps/Duration x2 Upper Extremity Exercises 1 Details Shoulder Horiz AB/AD, AB/AB Body Position Standing Water Level Chest Level Equipment none Comments Bilateral/unilateral, core stabilization emphasis Spinal Exercises pendulum Water Level Melvin Equipment [place] Float Melvin Activities Melvin Activities Bicycle Equipment [place] float Duration 10 min Comments ankle fins-green Manual Techniques [place] for lateral trunk flexibility and ROM Aquatic Massage for decreasing pain and paraspinal muscle tension; supine with yellow neck float, noodle and LE floats under knees Other 1 Details deep water traction Water Level Melvin Equipment 10 min Reps/Duration [place] float, 7# each ankle. PT-OP-T Assessment and Plan Start: 06/08/17 08:13 Freq: Status: Active Protocol: Document 10/02/17 11:30 SAK (Rec: 10/03/17 10:39 SAK [id number]) Physical Therapy Assessment Goals Three Impairment Pain due to soft tissue muscle guarding limiting functional ability. Usp Goal (LTG) TIEN Questionnaire Score - less than 19 (goal progress) LTG Duration 8 weeks Two Usp Goal (LTG) Pt will be able to demonstrate improved posture and gait mechanics with improved trunk and hip mobility. (goal progress One Impairment Pain limiting functional mobility Short Term Goal (STG) Pt will demonstrate ability to transfer sit to stand and move in bed with decreased pain. (goal progress) Usp Goal (LTG) Pt will be able to return to work on a limited basis with tolerable pain. (patient still unable to work) Progress Towards Goals Progress Comments Good tolerance for supine manual aquatic treatment, basim 7# well with deep water traction. Low compliance to HEP. Assessment Summary Assessment Decreased pain with treatment. Moderate palpable muscle tension in paraspinals Physical Therapy Plan Frequency and Duration Frequency of Treatment 2x/Week Duration of Treatment 2 months Plan of Care Start Date 09/01/17 Plan of Care End Date 11/02/17 Therapeutic Interventions Therapeutic Interventions Aquatic Therapy Home Exercise Program Manual Therapy Patient/Caregiver Education Self-Care/Home Management Soft Tissue Mobilization Taping Therapeutic Activities Therapeutic Exercises Modalities Cold Pack/Ice Massage Electric Stimulation Hot Packs Ultrasound Next Visit Focus/Plan Next Note Type Treatment Note Next Visit Plan Add aquatic lunge walking, increased spinal ROM and stabilization. Continue with manual treatment if beneficial . Review HEP
--- NOTE | 2017-10-06 15:10 | PT.OTN ---
Current Diagnoses Low back pain (10/06/17) Pain in thoracic spine (10/06/17) Wedge compression fracture of first lumbar vertebra, initial encounter for closed fracture (10/06/17) Physical Therapy Treatment Note PT-OP-A Visit Information Start: 06/08/17 08:13 Freq: Status: Active Protocol: Document 10/06/17 14:58 SAK (Rec: 10/06/17 15:10 SAK [id number]) Out-Patient Physical Therapy Visit Information Visit Information Visit Type Treatment Note Visit Start Time 10:15 Visit Stop Time 12:15 Total Visit Minutes 45 Visit Number Number of NETWORK ENGINEER Visits 2 PT-OP-B Current Condition Start: 06/08/17 08:13 Freq: Status: Active Protocol: Document 06/09/17 08:16 LRN (Rec: 06/09/17 08:43 LRN [id number]) Current Condition History of Current Condition Onset Date 01/02/2017 Current Complaints Back pain, unable to work, sleep disturbance, difficulty with transfers History of Current Condition Pt reports falling off a ladder ~18' high (records indicate ~25') landing on his back and hitting his head, causing a loss of consciousness. He was air lifted to [facility] in [place] and was placed in a TLSO brace for 8 weeks. Pt reports having a burst fracture at T1, the 01/02/17 X -ray indicated: Moderate compression fracture of L1 vertebral body with mild postierior displacement and hematoma at T12, L1 & L2. Other medical records indicate follow up care for L1 burst fracture, pt had been in brace for 10 weeks or so and was last seen by jono Quiles in March of this year. Pt is being referred for back pain for both upper/ mid and L/S spine. Future Testing and Treatments Planned Pt reports he is scheduled to see his [facility] physician soon to discuss possible surgery. Treatment Goals Patient/Caregiver Goals Pt goal is to feel normal, decreased pain, improve ability to sleep and to tolerate static positioning. 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 Baseline Function- Recreation/Hobbies G PT-OP-C Subjective Start: 06/08/17 08:13 Freq: Status: Active Protocol: Document 10/06/17 14:58 SAK (Rec: 10/06/17 15:10 SAK [id number]) OP-PT Subjective Patient Comments Patient Comments Patient reports stressed about his starting chemo every day for a few weeks. Trying to increase activity level. Requests updated written HEP. Reports didn't feel manual treatment helpful. PT-OP-F Manual Assessment Start: 06/08/17 08:13 Freq: Status: Active Protocol: Document 06/08/17 16:49 LRN (Rec: 06/09/17 14:40 LRN [id number]) Manual Assessments Soft Tissue Assessment Soft Tissue Mobility Assessment Muscle guarding and tightness in the entire posterior thoracic and lumbar muscle groups. Joint Mobility Assessment Joint Mobility Assessment Deferred spinal mobility assessment. PT-OP-G Mobility & Gait Start: 06/08/17 16:33 Freq: Status: Active Protocol: Document 06/08/17 16:49 LRN (Rec: 06/09/17 14:40 LRN [id number]) OP Mobility Evaluation Bed Mobility Rolling Independent. Slow and cautious. Supine to and from Sit Independent. Slow and cautious. Transfers Sit to Stand Independent. Slow and cautious/ Functional Movements Lifting and Carrying Deferred Squats Deferred OP Gait Assessment Gait Deviations General Gait Pattern Wide Based Gait Factors Limiting Gait Function Factors Limiting Gait Function Limited Range of Motion Pain Comments Gait Comments Slow gait with excessive trunk sway. PT-OP-H Neuro Start: 06/08/17 08:13 Freq: Status: Active Protocol: Document 06/08/17 16:49 LRN (Rec: 06/09/17 14:40 LRN [id number]) Sensation Evaluation Gross Sensation Gross Sensation WNL Deep Tendon Reflex & Clonus Assessment Deep Tendon Reflex Left Achilles Deep Tendon Reflex 2+ Normal Right Achilles Deep Tendon Reflex 3+ Normal But Brisk PT-OP-J Posture/Palpation/Skin Start: 06/08/17 08:13 Freq: Status: Active Protocol: Document 06/08/17 16:49 LRN (Rec: 06/09/17 14:40 LRN [id number]) Posture Evaluation Position Standing Evaluation View Lateral Head/C-Spine Posture Forward Head T-Spine Posture Flattened L-Spine Posture Flattened Shoulder Posture (R) Forward Pelvis Posture Posterior Tilted Ankle/Foot Posture (R) Forefoot Abducted Foot Arch (L) High Arch (R) High Arch Comments Posture Comments Lumbar spine is tilted Left with a C-Curve of the Thoracic spine with the apex on the left. Palpation Assessment Location One Palpation Location Thoracic and Lumbar spine Palpation Findings Muscle Guarding PT-OP-K Range of Motion Start: 06/08/17 08:13 Freq: Status: Active Protocol: Document 06/08/17 16:49 LRN (Rec: 06/09/17 14:40 LRN [id number]) Lumbar Spine Range of Motion Lumbar Spine Active Testing Position Standing Flexion 5 Extension 3 Lateral Flexion Left 3 Lateral Flexion Right 5 ROM Limitations Pain Comments Measurements taken degrees. Shoulder Goniometric Range of Motion Shoulder Measured in Degrees Right Active Shoulder ROM WFL Yes Testing Position Sitting Left Active Shoulder ROM WFL Yes Testing Position Sitting Hip Goniometric Range of Motion Hip Measured in Degrees Left Active Hip ROM WFL No Testing Position Prone Right Active Hip ROM WFL No Testing Position Prone Hip ROM Limitations Hip ROM Limitations Pain Comments Hip ER is decreased 50% of normal bilaterally. PT-OP-M Strength Start: 06/08/17 08:13 Freq: Status: Active Protocol: Document 06/08/17 16:49 LRN (Rec: 06/09/17 14:40 LRN [id number]) Trunk Strength Trunk Manual Muscle Testing Testing Position Sitting Reason Not Measured Pain Comments Pt can actively rotate in sitting ~ 28 deg's left, 10 deg's right. He is not able to lean forward in sitting and is unable to perform an abdominal curl due to back pain. Shoulder Strength Shoulder Manual Muscle Testing Left Reason Not Measured Pain Right Reason Not Measured Pain Comments Deferred due to back pain Hip Strength Hip Manual Muscle Testing Left Reason Not Measured Pain Right Reason Not Measured Pain PT-OP-Q Treatments Start: 06/08/17 08:13 Freq: Status: Active Protocol: Document 06/27/17 09:45 GGD (Rec: 06/27/17 11:11 GGD [id number]) Therapeutic Exercises Supine Exercises 6 Supine Exercise Name supine pelvic tilt Comments small ROM 5 Supine Exercise Name hooklying TrA stab Reps/Minutes 4 3 Supine Exercise Name Single KTC Reps/Minutes 4 1 Supine Exercise Name Hamstring str Reps/Minutes 4 Sidelying Exercises 2 Sidelying Exercise Name Reverse Clam Shells Side bilateral Reps/Minutes x15 1 Sidelying Exercise Name Clam Shells Side bilateral Reps/Minutes x15 Manual Therapy Treatment Soft Tissue Mobilization 1 Body Location Thoracic/Lumbar paraspinals Mobilization Type Sustained Pressure Trigger Point Release Body Position Prone PT-OP-R Modalities Start: 06/08/17 08:13 Freq: Status: Active Protocol: Document 06/20/17 13:24 EA (Rec: 06/20/17 13:24 EA [id number]) Electric Stimulation Electric Stimulation Interferential Current (IFC) Body Location T/S, L/S Duration (Minutes) 10 Combined With Heat/Cold Hot Pack Comments prone PT-OP-S Aquatic Treatment Start: 07/24/17 16:26 Freq: Status: Active Protocol: Document 10/06/17 14:58 SAK (Rec: 10/06/17 15:10 SAK [id number]) Aquatics Treatment Pool Entry/Exit Pool Entry/Exit Method Stairs Assistance Standby Assistance Water Walking [employer] [place] Water Level Chest Level Walking Equipment Resistance Fins walking w/circumduction legs Water Level Chest Level Walking Equipment Resistance Fins goose stepping Water Level Chest Level Walking Equipment Resistance Fins Level of Assistance Standby Assistance Backwards Water Level Chest Level Level of Assistance Standby Assistance Sideways Water Level Chest Level Walking Equipment Resistance Fins Level of Assistance Standby Assistance Forwards Water Level Chest Level Walking Equipment Resistance Fins Level of Assistance Standby Assistance Lower Extremity Exercises 4 Details Squats Body Position Standing Reps/Duration x 10 Comments cues for posture 3 Details L.E. circumduction Body Position Standing Water Level Chest Level Equipment Resistance Fins Reps/Duration x 15 reps 2 Details hip abd/add Body Position Standing Water Level Chest Level Reps/Duration x15 1 Details hip flx/ext Body Position Standing Water Level Chest Level Equipment Resistance Fins Reps/Duration x 15 Lower Extremity Stretches 1 Details Hamstring Body Position Standing Water Level Chest Level Equipment small ankle floats 2 Details single knee to chest Body Position Standing Water Level [place] Reps/Duration x2 Comments at wall Upper Extremity Exercises 1 Details Shoulder Horiz AB/AD, AB/AB Body Position Standing Water Level Chest Level Equipment none Comments Bilateral/unilateral, core stabilization emphasis Spinal Exercises 1 Details [place] Stabilization Water Level [place] Equipment [place] Float Comments Medium barbells [place] Activities [place] Activities Bicycle Bicycle Backwards Running Hip Abduction/Adduction Equipment large noodle Duration 15 min Comments ankle fins-green Manual Techniques Aquatic Massage for decreasing pain and paraspinal muscle tension; supine with yellow neck float, noodle and LE floats under knees Other 1 Details deep water traction Water Level [place] Equipment 10 min Reps/Duration [place] float, 7# each ankle. PT-OP-T Assessment and Plan Start: 06/08/17 08:13 Freq: Status: Active Protocol: Document 10/06/17 14:58 SAK (Rec: 10/06/17 15:10 SAK [id number]) Physical Therapy Assessment Goals Three Impairment Pain due to soft tissue muscle guarding limiting functional ability. Fiber Drier Operator Goal (LTG) TIEN Questionnaire Score - less than 19 (goal progress) LTG Duration 8 weeks Two Fiber Drier Operator Goal (LTG) Pt will be able to demonstrate improved posture and gait mechanics with improved trunk and hip mobility. (goal progress One Impairment Pain limiting functional mobility Short Term Goal (STG) Pt will demonstrate ability to transfer sit to stand and move in bed with decreased pain. (goal progress) Fiber Drier Operator Goal (LTG) Pt will be able to return to work on a limited basis with tolerable pain. (patient still unable to work) Progress Towards Goals Progress Comments Tolerated progression to noodle with deep water walking /bicycle as well as hip ab/ad and running motion in deep water. Physical Therapy Plan Frequency and Duration Frequency of Treatment 2x/Week Duration of Treatment 2 months Plan of Care Start Date 09/01/17 Plan of Care End Date 11/02/17 Therapeutic Interventions Therapeutic Interventions Aquatic Therapy Home Exercise Program Manual Therapy Patient/Caregiver Education Self-Care/Home Management Soft Tissue Mobilization Taping Therapeutic Activities Therapeutic Exercises Modalities Cold Pack/Ice Massage Electric Stimulation Hot Packs Ultrasound Next Visit Focus/Plan Next Note Type Treatment Note Next Visit Plan Progression as tolerated with aquatic exercise for pain managment, spinal stabilization, flexibility, strengthening.
--- NOTE | 2017-10-16 14:47 | PT.OTN ---
Current Diagnoses Low back pain (10/16/17) Pain in thoracic spine (10/16/17) Wedge compression fracture of first lumbar vertebra, initial encounter for closed fracture (10/16/17) Physical Therapy Treatment Note PT-OP-A Visit Information Start: 06/08/17 08:13 Freq: Status: Active Protocol: Document 10/16/17 11:00 LJ (Rec: 10/16/17 14:47 LJ [email or web address]) Out-Patient Physical Therapy Visit Information Visit Information Visit Type Treatment Note Visit Start Time 11:00 Visit Stop Time 11:45 Total Visit Minutes 35 Visit Number / Number of KILNMAN Visits 1 PT-OP-B Current Condition Start: 06/08/17 08:13 Freq: Status: Active Protocol: Document 06/09/17 08:16 LRN (Rec: 06/09/17 08:43 LRN [id number]) Current Condition History of Current Condition Onset Date 01/02/2017 Current Complaints Back pain, unable to work, sleep disturbance, difficulty with transfers History of Current Condition Pt reports falling off a ladder ~18' high (records indicate ~25') landing on his back and hitting his head, causing a loss of consciousness. He was air lifted to [facility] in [place] and was placed in a TLSO brace for 8 weeks. Pt reports having a burst fracture at T1, the 01/02/17 X -ray indicated: Moderate compression fracture of L1 vertebral body with mild postierior displacement and hematoma at T12, L1 & L2. Other medical records indicate follow up care for L1 burst fracture, pt had been in brace for 10 weeks or so and was last seen by jono Quiles in March of this year. Pt is being referred for back pain for both upper/ mid and L/S spine. Future Testing and Treatments Planned Pt reports he is scheduled to see his [facility] physician soon to discuss possible surgery. Treatment Goals Patient/Caregiver Goals Pt goal is to feel normal, decreased pain, improve ability to sleep and to tolerate static positioning. 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 Baseline Function- Recreation/Hobbies G PT-OP-C Subjective Start: 06/08/17 08:13 Freq: Status: Active Protocol: Document 10/16/17 11:00 LJ (Rec: 10/16/17 14:47 LJ [email or web address]) OP-PT Subjective Patient Comments Patient Comments Pt arrived 10 min late which made him perturbed. concerned about his 's radiation tx. Feels like it is going to be stressful. Went fishing this weekend. PT-OP-F Manual Assessment Start: 06/08/17 08:13 Freq: Status: Active Protocol: Document 06/08/17 16:49 LRN (Rec: 06/09/17 14:40 LRN [id number]) Manual Assessments Soft Tissue Assessment Soft Tissue Mobility Assessment Muscle guarding and tightness in the entire posterior thoracic and lumbar muscle groups. Joint Mobility Assessment Joint Mobility Assessment Deferred spinal mobility assessment. PT-OP-G Mobility & Gait Start: 06/08/17 16:33 Freq: Status: Active Protocol: Document 06/08/17 16:49 LRN (Rec: 06/09/17 14:40 LRN [id number]) OP Mobility Evaluation Bed Mobility Rolling Independent. Slow and cautious. Supine to and from Sit Independent. Slow and cautious. Transfers Sit to Stand Independent. Slow and cautious/ Functional Movements Lifting and Carrying Deferred Squats Deferred OP Gait Assessment Gait Deviations General Gait Pattern Wide Based Gait Factors Limiting Gait Function Factors Limiting Gait Function Limited Range of Motion Pain Comments Gait Comments Slow gait with excessive trunk sway. PT-OP-H Neuro Start: 06/08/17 08:13 Freq: Status: Active Protocol: Document 06/08/17 16:49 LRN (Rec: 06/09/17 14:40 LRN [id number]) Sensation Evaluation Gross Sensation Gross Sensation WNL Deep Tendon Reflex & Clonus Assessment Deep Tendon Reflex Left Achilles Deep Tendon Reflex 2+ Normal Right Achilles Deep Tendon Reflex 3+ Normal But Brisk PT-OP-J Posture/Palpation/Skin Start: 06/08/17 08:13 Freq: Status: Active Protocol: Document 06/08/17 16:49 LRN (Rec: 06/09/17 14:40 LRN [id number]) Posture Evaluation Position Standing Evaluation View Lateral Head/C-Spine Posture Forward Head T-Spine Posture Flattened L-Spine Posture Flattened Shoulder Posture (R) Forward Pelvis Posture Posterior Tilted Ankle/Foot Posture (R) Forefoot Abducted Foot Arch (L) High Arch (R) High Arch Comments Posture Comments Lumbar spine is tilted Left with a C-Curve of the Thoracic spine with the apex on the left. Palpation Assessment Location One Palpation Location Thoracic and Lumbar spine Palpation Findings Muscle Guarding PT-OP-K Range of Motion Start: 06/08/17 08:13 Freq: Status: Active Protocol: Document 06/08/17 16:49 LRN (Rec: 06/09/17 14:40 LRN [id number]) Lumbar Spine Range of Motion Lumbar Spine Active Testing Position Standing Flexion 5 Extension 3 Lateral Flexion Left 3 Lateral Flexion Right 5 ROM Limitations Pain Comments Measurements taken degrees. Shoulder Goniometric Range of Motion Shoulder Measured in Degrees Right Active Shoulder ROM WFL Yes Testing Position Sitting Left Active Shoulder ROM WFL Yes Testing Position Sitting Hip Goniometric Range of Motion Hip Measured in Degrees Left Active Hip ROM WFL No Testing Position Prone Right Active Hip ROM WFL No Testing Position Prone Hip ROM Limitations Hip ROM Limitations Pain Comments Hip ER is decreased 50% of normal bilaterally. PT-OP-M Strength Start: 06/08/17 08:13 Freq: Status: Active Protocol: Document 06/08/17 16:49 LRN (Rec: 06/09/17 14:40 LRN [id number]) Trunk Strength Trunk Manual Muscle Testing Testing Position Sitting Reason Not Measured Pain Comments Pt can actively rotate in sitting ~ 28 deg's left, 10 deg's right. He is not able to lean forward in sitting and is unable to perform an abdominal curl due to back pain. Shoulder Strength Shoulder Manual Muscle Testing Left Reason Not Measured Pain Right Reason Not Measured Pain Comments Deferred due to back pain Hip Strength Hip Manual Muscle Testing Left Reason Not Measured Pain Right Reason Not Measured Pain PT-OP-Q Treatments Start: 06/08/17 08:13 Freq: Status: Active Protocol: Document 06/27/17 09:45 GGD (Rec: 06/27/17 11:11 GGD [email or web address]) Therapeutic Exercises Supine Exercises 6 Supine Exercise Name supine pelvic tilt Comments small ROM 5 Supine Exercise Name hooklying TrA stab Reps/Minutes 4 3 Supine Exercise Name Single KTC Reps/Minutes 4 1 Supine Exercise Name Hamstring str Reps/Minutes 4 Sidelying Exercises 2 Sidelying Exercise Name Reverse Clam Shells Side bilateral Reps/Minutes x15 1 Sidelying Exercise Name Clam Shells Side bilateral Reps/Minutes x15 Manual Therapy Treatment Soft Tissue Mobilization 1 Body Location Thoracic/Lumbar paraspinals Mobilization Type Sustained Pressure Trigger Point Release Body Position Prone PT-OP-R Modalities Start: 06/08/17 08:13 Freq: Status: Active Protocol: Document 06/20/17 13:24 EA (Rec: 06/20/17 13:24 EA [id number]) Electric Stimulation Electric Stimulation Interferential Current (IFC) Body Location T/S, L/S Duration (Minutes) 10 Combined With Heat/Cold Hot Pack Comments prone PT-OP-S Aquatic Treatment Start: 07/24/17 16:26 Freq: Status: Active Protocol: Document 10/16/17 11:00 LJ (Rec: 10/16/17 14:47 LJ [email or web address]) Aquatics Treatment Pool Entry/Exit Pool Entry/Exit Method Stairs Assistance Standby Assistance Water Walking [place] March Water Level Chest Level Walking Equipment Resistance Fins goose stepping Water Level Chest Level Walking Equipment Resistance Fins Level of Assistance Standby Assistance Backwards Water Level Chest Level Level of Assistance Standby Assistance Sideways Water Level Chest Level Walking Equipment Resistance Fins Level of Assistance Standby Assistance Forwards Water Level Chest Level Walking Equipment Resistance Fins Level of Assistance Standby Assistance Lower Extremity Exercises 4 Details Squats Body Position Standing Reps/Duration x 10 Comments cues for posture 3 Details L.E. circumduction Body Position Standing Water Level Chest Level Equipment Resistance Fins Reps/Duration x 15 reps 2 Details hip abd/add Body Position Standing Water Level Chest Level Reps/Duration x15 Lower Extremity Stretches 1 Details Hamstring Body Position Standing Water Level Chest Level 2 Details single knee to chest Body Position Standing Water Level [place] Reps/Duration x2 Comments at wall Upper Extremity Exercises 2 Details shoulder fl/ext Body Position Standing Comments cues for shoulder retraction 1 Details Shoulder Horiz AB/AD, AB/AB Body Position Standing Water Level Chest Level Equipment none Comments Bilateral/unilateral, core stabilization emphasis Orange Activities Orange Activities Bicycle Bicycle Backwards Running Hip Abduction/Adduction Equipment L belt Duration 15 min Other 1 Details deep water traction Water Level [place] Equipment 10 min Reps/Duration [place] float, 7# each ankle. PT-OP-T Assessment and Plan Start: 06/08/17 08:13 Freq: Status: Active Protocol: Document 10/16/17 11:00 LJ (Rec: 10/16/17 14:47 LJ [email or web address]) Physical Therapy Assessment Goals Three Impairment Pain due to soft tissue muscle guarding limiting functional ability. Wood Dowel Machine Operator Goal (LTG) TIEN Questionnaire Score - less than 19 (goal progress) LTG Duration 8 weeks Two Wood Dowel Machine Operator Goal (LTG) Pt will be able to demonstrate improved posture and gait mechanics with improved trunk and hip mobility. (goal progress One Impairment Pain limiting functional mobility Short Term Goal (STG) Pt will demonstrate ability to transfer sit to stand and move in bed with decreased pain. (goal progress) Residential Goal (LTG) Pt will be able to return to work on a limited basis with tolerable pain. (patient still unable to work) Progress Towards Goals Progress Comments Pt tolerated increase in deep water ex. intensity and duration. Assessment Summary Assessment Pt was less guarded in shallow water UE exercises. Required fewer cues in deep water for body alignment. Given HEP sheet.Advised to stop by clinic and get green band. Physical Therapy Plan Frequency and Duration Frequency of Treatment 2x/Week Duration of Treatment 2 months Plan of Care Start Date 09/01/17 Plan of Care End Date 11/02/17 Therapeutic Interventions Therapeutic Interventions Aquatic Therapy Home Exercise Program Manual Therapy Patient/Caregiver Education Self-Care/Home Management Soft Tissue Mobilization Taping Therapeutic Activities Therapeutic Exercises Modalities Cold Pack/Ice Massage Electric Stimulation Hot Packs Ultrasound Next Visit Focus/Plan Next Note Type Treatment Note Next Visit Plan Progression as tolerated with aquatic exercise for pain managment, spinal stabilization, flexibility, strengthening.
--- NOTE | 2017-10-18 14:16 | PT.OTN ---
Current Diagnoses Low back pain (10/16/17) Pain in thoracic spine (10/16/17) Wedge compression fracture of first lumbar vertebra, initial encounter for closed fracture (10/16/17) Physical Therapy Treatment Note PT-OP-A Visit Information Start: 06/08/17 08:13 Freq: Status: Active Protocol: Document 10/18/17 11:45 LJ (Rec: 10/18/17 14:16 LJ [email or web address]) Out-Patient Physical Therapy Visit Information Visit Information Visit Start Time 11:45 Visit Stop Time 12:30 Total Visit Minutes 47 Visit Number 24/ Number of VOLUNTEER RECRUITER Visits 2 PT-OP-B Current Condition Start: 06/08/17 08:13 Freq: Status: Active Protocol: Document 06/09/17 08:16 LRN (Rec: 06/09/17 08:43 LRN [id number]) Current Condition History of Current Condition Onset Date 01/02/2017 Current Complaints Back pain, unable to work, sleep disturbance, difficulty with transfers History of Current Condition Pt reports falling off a ladder ~18' high (records indicate ~25') landing on his back and hitting his head, causing a loss of consciousness. He was air lifted to [facility] in [place] and was placed in a TLSO brace for 8 weeks. Pt reports having a burst fracture at T1, the 01/02/17 X -ray indicated: Moderate compression fracture of L1 vertebral body with mild postierior displacement and hematoma at T12, L1 & L2. Other medical records indicate follow up care for L1 burst fracture, pt had been in brace for 10 weeks or so and was last seen by jono Quiles in March of this year. Pt is being referred for back pain for both upper/ mid and L/S spine. Future Testing and Treatments Planned Pt reports he is scheduled to see his [facility] physician soon to discuss possible surgery. Treatment Goals Patient/Caregiver Goals Pt goal is to feel normal, decreased pain, improve ability to sleep and to tolerate static positioning. 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 Baseline Function- Recreation/Hobbies G PT-OP-C Subjective Start: 06/08/17 08:13 Freq: Status: Active Protocol: Document 10/18/17 11:45 LJ (Rec: 10/18/17 14:16 LJ [email or web address]) OP-PT Subjective Patient Comments Patient Comments Pt reported pain increase yesterday. PT-OP-F Manual Assessment Start: 06/08/17 08:13 Freq: Status: Active Protocol: Document 06/08/17 16:49 LRN (Rec: 06/09/17 14:40 LRN [id number]) Manual Assessments Soft Tissue Assessment Soft Tissue Mobility Assessment Muscle guarding and tightness in the entire posterior thoracic and lumbar muscle groups. Joint Mobility Assessment Joint Mobility Assessment Deferred spinal mobility assessment. PT-OP-G Mobility & Gait Start: 06/08/17 16:33 Freq: Status: Active Protocol: Document 06/08/17 16:49 LRN (Rec: 06/09/17 14:40 LRN [id number]) OP Mobility Evaluation Bed Mobility Rolling Independent. Slow and cautious. Supine to and from Sit Independent. Slow and cautious. Transfers Sit to Stand Independent. Slow and cautious/ Functional Movements Lifting and Carrying Deferred Squats Deferred OP Gait Assessment Gait Deviations General Gait Pattern Wide Based Gait Factors Limiting Gait Function Factors Limiting Gait Function Limited Range of Motion Pain Comments Gait Comments Slow gait with excessive trunk sway. PT-OP-H Neuro Start: 06/08/17 08:13 Freq: Status: Active Protocol: Document 06/08/17 16:49 LRN (Rec: 06/09/17 14:40 LRN [id number]) Sensation Evaluation Gross Sensation Gross Sensation WNL Deep Tendon Reflex & Clonus Assessment Deep Tendon Reflex Left Achilles Deep Tendon Reflex 2+ Normal Right Achilles Deep Tendon Reflex 3+ Normal But Brisk PT-OP-J Posture/Palpation/Skin Start: 06/08/17 08:13 Freq: Status: Active Protocol: Document 06/08/17 16:49 LRN (Rec: 06/09/17 14:40 LRN [id number]) Posture Evaluation Position Standing Evaluation View Lateral Head/C-Spine Posture Forward Head T-Spine Posture Flattened L-Spine Posture Flattened Shoulder Posture (R) Forward Pelvis Posture Posterior Tilted Ankle/Foot Posture (R) Forefoot Abducted Foot Arch (L) High Arch (R) High Arch Comments Posture Comments Lumbar spine is tilted Left with a C-Curve of the Thoracic spine with the apex on the left. Palpation Assessment Location One Palpation Location Thoracic and Lumbar spine Palpation Findings Muscle Guarding PT-OP-K Range of Motion Start: 06/08/17 08:13 Freq: Status: Active Protocol: Document 06/08/17 16:49 LRN (Rec: 06/09/17 14:40 LRN [id number]) Lumbar Spine Range of Motion Lumbar Spine Active Testing Position Standing Flexion 5 Extension 3 Lateral Flexion Left 3 Lateral Flexion Right 5 ROM Limitations Pain Comments Measurements taken degrees. Shoulder Goniometric Range of Motion Shoulder Measured in Degrees Right Active Shoulder ROM WFL Yes Testing Position Sitting Left Active Shoulder ROM WFL Yes Testing Position Sitting Hip Goniometric Range of Motion Hip Measured in Degrees Left Active Hip ROM WFL No Testing Position Prone Right Active Hip ROM WFL No Testing Position Prone Hip ROM Limitations Hip ROM Limitations Pain Comments Hip ER is decreased 50% of normal bilaterally. PT-OP-M Strength Start: 06/08/17 08:13 Freq: Status: Active Protocol: Document 06/08/17 16:49 LRN (Rec: 06/09/17 14:40 LRN [id number]) Trunk Strength Trunk Manual Muscle Testing Testing Position Sitting Reason Not Measured Pain Comments Pt can actively rotate in sitting ~ 28 deg's left, 10 deg's right. He is not able to lean forward in sitting and is unable to perform an abdominal curl due to back pain. Shoulder Strength Shoulder Manual Muscle Testing Left Reason Not Measured Pain Right Reason Not Measured Pain Comments Deferred due to back pain Hip Strength Hip Manual Muscle Testing Left Reason Not Measured Pain Right Reason Not Measured Pain PT-OP-Q Treatments Start: 06/08/17 08:13 Freq: Status: Active Protocol: Document 06/27/17 09:45 GGD (Rec: 06/27/17 11:11 GGD [email or web address]) Therapeutic Exercises Supine Exercises 6 Supine Exercise Name supine pelvic tilt Comments small ROM 5 Supine Exercise Name hooklying TrA stab Reps/Minutes 4 3 Supine Exercise Name Single KTC Reps/Minutes 4 1 Supine Exercise Name Hamstring str Reps/Minutes 4 Sidelying Exercises 2 Sidelying Exercise Name Reverse Clam Shells Side bilateral Reps/Minutes x15 1 Sidelying Exercise Name Clam Shells Side bilateral Reps/Minutes x15 Manual Therapy Treatment Soft Tissue Mobilization 1 Body Location Thoracic/Lumbar paraspinals Mobilization Type Sustained Pressure Trigger Point Release Body Position Prone PT-OP-R Modalities Start: 06/08/17 08:13 Freq: Status: Active Protocol: Document 06/20/17 13:24 EA (Rec: 06/20/17 13:24 EA [id number]) Electric Stimulation Electric Stimulation Interferential Current (IFC) Body Location T/S, L/S Duration (Minutes) 10 Combined With Heat/Cold Hot Pack Comments prone PT-OP-S Aquatic Treatment Start: 07/24/17 16:26 Freq: Status: Active Protocol: Document 10/18/17 11:45 LJ (Rec: 10/18/17 14:16 LJ [email or web address]) Aquatics Treatment Pool Entry/Exit Pool Entry/Exit Method Stairs Assistance Standby Assistance Water Walking [place] March Water Level Chest Level Walking Equipment Resistance Fins goose stepping Water Level Chest Level Walking Equipment Resistance Fins Level of Assistance Standby Assistance Backwards Water Level Chest Level Walking Equipment Resistance Fins Level of Assistance Standby Assistance Sideways Water Level Chest Level Walking Equipment Resistance Fins Level of Assistance Standby Assistance Forwards Water Level Chest Level Walking Equipment Resistance Fins Level of Assistance Standby Assistance Lower Extremity Exercises 4 Details Squats Body Position Standing Reps/Duration 5 Comments against wall, hold for 30 sec 3 Details L.E. circumduction Body Position Standing Water Level Chest Level Equipment Resistance Fins Reps/Duration x 15 reps Lower Extremity Stretches 3 Details piriformis Body Position Standing Water Level Chest Level Comments pt c/o pain w/RLE 1 Details Hamstring Body Position Standing Water Level Chest Level 2 Details single knee to chest Body Position Standing Water Level [place] Reps/Duration x2 Comments at wall Upper Extremity Exercises 2 Details shoulder fl/ext Body Position Standing Comments cues for shoulder retraction 1 Details Shoulder Horiz AB/AD, AB/AB Body Position Standing Water Level Chest Level Equipment none Comments Bilateral/unilateral, core stabilization emphasis Balance 1 Details toe taps on table Body Position Standing Water Level Waist Level Reps/Duration x 10 bilat [place] Activities [place] Activities Bicycle Bicycle Backwards [place] Running Hip Abduction/Adduction Other Activities diagonal ski, 1 min Equipment noodle Duration 15 min Other 1 Details deep water traction Water Level [place] Equipment 10 min Reps/Duration [place] float, 7# each ankle. PT-OP-T Assessment and Plan Start: 06/08/17 08:13 Freq: Status: Active Protocol: Document 10/18/17 11:45 LJ (Rec: 10/18/17 14:16 LJ [email or web address]) Physical Therapy Assessment Goals Three Impairment Pain due to soft tissue muscle guarding limiting functional ability. Care Home Goal (LTG) TIEN Questionnaire Score - less than 19 (goal progress) LTG Duration 8 weeks Two Chemical Unit Operator Goal (LTG) Pt will be able to demonstrate improved posture and gait mechanics with improved trunk and hip mobility. (goal progress One Impairment Pain limiting functional mobility Short Term Goal (STG) Pt will demonstrate ability to transfer sit to stand and move in bed with decreased pain. (goal progress) Care Home Goal (LTG) Pt will be able to return to work on a limited basis with tolerable pain. (patient still unable to work) Assessment Summary Assessment Pt demonstrated increased relaxation and balance in shallow water. Removed fins in deep water and used noodle rather than blue float. Pt had difficulty maintaining neutral spine w/fins and blue float so removed fins. Physical Therapy Plan Frequency and Duration Frequency of Treatment 2x/Week Duration of Treatment 2 months Plan of Care Start Date 09/01/17 Plan of Care End Date 11/02/17 Therapeutic Interventions Therapeutic Interventions Aquatic Therapy Home Exercise Program Manual Therapy Patient/Caregiver Education Self-Care/Home Management Soft Tissue Mobilization Taping Therapeutic Activities Therapeutic Exercises Modalities Cold Pack/Ice Massage Electric Stimulation Hot Packs Ultrasound Next Visit Focus/Plan Next Note Type Treatment Note Next Visit Plan Progression as tolerated with aquatic exercise for pain managment, spinal stabilization, flexibility, strengthening.
--- NOTE | 2017-10-23 14:32 | PT.OTN ---
Current Diagnoses Low back pain (10/23/17) Pain in thoracic spine (10/23/17) Wedge compression fracture of first lumbar vertebra, initial encounter for closed fracture (10/23/17) Physical Therapy Treatment Note PT-OP-A Visit Information Start: 06/08/17 08:13 Freq: Status: Active Protocol: Document 10/23/17 11:00 LJ (Rec: 10/23/17 14:31 LJ [id number]) Out-Patient Physical Therapy Visit Information Visit Information Visit Type Treatment Note Visit Start Time 11:00 Visit Stop Time 11:45 Total Visit Minutes 45 Number of LABORATORY ANIMAL CARETAKER Visits 3 PT-OP-B Current Condition Start: 06/08/17 08:13 Freq: Status: Active Protocol: Document 06/09/17 08:16 LRN (Rec: 06/09/17 08:43 LRN [id number]) Current Condition History of Current Condition Onset Date 01/02/2017 Current Complaints Back pain, unable to work, sleep disturbance, difficulty with transfers History of Current Condition Pt reports falling off a ladder ~18' high (records indicate ~25') landing on his back and hitting his head, causing a loss of consciousness. He was air lifted to [facility] in [place] and was placed in a TLSO brace for 8 weeks. Pt reports having a burst fracture at T1, the 01/02/17 X -ray indicated: Moderate compression fracture of L1 vertebral body with mild postierior displacement and hematoma at T12, L1 & L2. Other medical records indicate follow up care for L1 burst fracture, pt had been in brace for 10 weeks or so and was last seen by jono Quiles in March of this year. Pt is being referred for back pain for both upper/ mid and L/S spine. Future Testing and Treatments Planned Pt reports he is scheduled to see his [facility] physician soon to discuss possible surgery. Treatment Goals Patient/Caregiver Goals Pt goal is to feel normal, decreased pain, improve ability to sleep and to tolerate static positioning. 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 Baseline Function- Recreation/Hobbies G PT-OP-C Subjective Start: 06/08/17 08:13 Freq: Status: Active Protocol: Document 10/23/17 11:00 LJ (Rec: 10/23/17 14:31 LJ [id number]) OP-PT Subjective Patient Comments Patient Comments Pt reported going fishing the previous day. States pain level remains about the same but balance is better. PT-OP-F Manual Assessment Start: 06/08/17 08:13 Freq: Status: Active Protocol: Document 06/08/17 16:49 LRN (Rec: 06/09/17 14:40 LRN [id number]) Manual Assessments Soft Tissue Assessment Soft Tissue Mobility Assessment Muscle guarding and tightness in the entire posterior thoracic and lumbar muscle groups. Joint Mobility Assessment Joint Mobility Assessment Deferred spinal mobility assessment. PT-OP-G Mobility & Gait Start: 06/08/17 16:33 Freq: Status: Active Protocol: Document 06/08/17 16:49 LRN (Rec: 06/09/17 14:40 LRN [id number]) OP Mobility Evaluation Bed Mobility Rolling Independent. Slow and cautious. Supine to and from Sit Independent. Slow and cautious. Transfers Sit to Stand Independent. Slow and cautious/ Functional Movements Lifting and Carrying Deferred Squats Deferred OP Gait Assessment Gait Deviations General Gait Pattern Wide Based Gait Factors Limiting Gait Function Factors Limiting Gait Function Limited Range of Motion Pain Comments Gait Comments Slow gait with excessive trunk sway. PT-OP-H Neuro Start: 06/08/17 08:13 Freq: Status: Active Protocol: Document 06/08/17 16:49 LRN (Rec: 06/09/17 14:40 LRN [id number]) Sensation Evaluation Gross Sensation Gross Sensation WNL Deep Tendon Reflex & Clonus Assessment Deep Tendon Reflex Left Achilles Deep Tendon Reflex 2+ Normal Right Achilles Deep Tendon Reflex 3+ Normal But Brisk PT-OP-J Posture/Palpation/Skin Start: 06/08/17 08:13 Freq: Status: Active Protocol: Document 06/08/17 16:49 LRN (Rec: 06/09/17 14:40 LRN [id number]) Posture Evaluation Position Standing Evaluation View Lateral Head/C-Spine Posture Forward Head T-Spine Posture Flattened L-Spine Posture Flattened Shoulder Posture (R) Forward Pelvis Posture Posterior Tilted Ankle/Foot Posture (R) Forefoot Abducted Foot Arch (L) High Arch (R) High Arch Comments Posture Comments Lumbar spine is tilted Left with a C-Curve of the Thoracic spine with the apex on the left. Palpation Assessment Location One Palpation Location Thoracic and Lumbar spine Palpation Findings Muscle Guarding PT-OP-K Range of Motion Start: 06/08/17 08:13 Freq: Status: Active Protocol: Document 06/08/17 16:49 LRN (Rec: 06/09/17 14:40 LRN [id number]) Lumbar Spine Range of Motion Lumbar Spine Active Testing Position Standing Flexion 5 Extension 3 Lateral Flexion Left 3 Lateral Flexion Right 5 ROM Limitations Pain Comments Measurements taken degrees. Shoulder Goniometric Range of Motion Shoulder Measured in Degrees Right Active Shoulder ROM WFL Yes Testing Position Sitting Left Active Shoulder ROM WFL Yes Testing Position Sitting Hip Goniometric Range of Motion Hip Measured in Degrees Left Active Hip ROM WFL No Testing Position Prone Right Active Hip ROM WFL No Testing Position Prone Hip ROM Limitations Hip ROM Limitations Pain Comments Hip ER is decreased 50% of normal bilaterally. PT-OP-M Strength Start: 06/08/17 08:13 Freq: Status: Active Protocol: Document 06/08/17 16:49 LRN (Rec: 06/09/17 14:40 LRN [id number]) Trunk Strength Trunk Manual Muscle Testing Testing Position Sitting Reason Not Measured Pain Comments Pt can actively rotate in sitting ~ 28 deg's left, 10 deg's right. He is not able to lean forward in sitting and is unable to perform an abdominal curl due to back pain. Shoulder Strength Shoulder Manual Muscle Testing Left Reason Not Measured Pain Right Reason Not Measured Pain Comments Deferred due to back pain Hip Strength Hip Manual Muscle Testing Left Reason Not Measured Pain Right Reason Not Measured Pain PT-OP-Q Treatments Start: 06/08/17 08:13 Freq: Status: Active Protocol: Document 06/27/17 09:45 GGD (Rec: 06/27/17 11:11 GGD [id number]) Therapeutic Exercises Supine Exercises 6 Supine Exercise Name supine pelvic tilt Comments small ROM 5 Supine Exercise Name hooklying TrA stab Reps/Minutes 4 3 Supine Exercise Name Single KTC Reps/Minutes 4 1 Supine Exercise Name Hamstring str Reps/Minutes 4 Sidelying Exercises 2 Sidelying Exercise Name Reverse Clam Shells Side bilateral Reps/Minutes x15 1 Sidelying Exercise Name Clam Shells Side bilateral Reps/Minutes x15 Manual Therapy Treatment Soft Tissue Mobilization 1 Body Location Thoracic/Lumbar paraspinals Mobilization Type Sustained Pressure Trigger Point Release Body Position Prone PT-OP-R Modalities Start: 06/08/17 08:13 Freq: Status: Active Protocol: Document 06/20/17 13:24 EA (Rec: 06/20/17 13:24 EA [id number]) Electric Stimulation Electric Stimulation Interferential Current (IFC) Body Location T/S, L/S Duration (Minutes) 10 Combined With Heat/Cold Hot Pack Comments prone PT-OP-S Aquatic Treatment Start: 07/24/17 16:26 Freq: Status: Active Protocol: Document 10/23/17 11:00 LJ (Rec: 10/23/17 14:31 LJ [id number]) Aquatics Treatment Pool Entry/Exit Pool Entry/Exit Method Stairs Assistance Standby Assistance Water Walking [place] Water Level Chest Level goose stepping Water Level Chest Level Level of Assistance Standby Assistance Backwards Water Level Chest Level Level of Assistance Standby Assistance Sideways Water Level Chest Level Level of Assistance Standby Assistance Forwards Water Level Chest Level Level of Assistance Standby Assistance Lower Extremity Exercises 4 Details Squats Body Position Standing Reps/Duration 5 Comments against wall 3 Details L.E. circumduction Body Position Standing Water Level Chest Level Reps/Duration x 15 reps 2 Details hip abd/add Body Position Standing Water Level Chest Level Reps/Duration x15 1 Details hip flx/ext Body Position Standing Water Level Chest Level Reps/Duration x 15 Lower Extremity Stretches 3 Details piriformis Body Position Standing Water Level Chest Level 1 Details Hamstring Body Position Standing Water Level Waist Level 2 Details single knee to chest Body Position Standing Water Level Chest Level Reps/Duration x2 Upper Extremity Exercises 2 Details shoulder fl/ext Body Position Standing Comments cues for shoulder retraction 1 Details Shoulder Horiz AB/AD, AB/AB Body Position Standing Water Level Chest Level Equipment none Comments Bilateral/unilateral, core stabilization emphasis Spinal Exercises 3 Details squat at wall Comments UE in/out, wipers, fl/ex [place] Activities [place] Activities Bicycle Bicycle Backwards Cross [place] Running Hip Abduction/Adduction Other Activities diagonal ski, 1 min Equipment noodle Other 1 Details deep water traction Water Level [place] Equipment 10 min Reps/Duration noodle, 6# each ankle. PT-OP-T Assessment and Plan Start: 06/08/17 08:13 Freq: Status: Active Protocol: Document 10/23/17 11:00 LJ (Rec: 10/23/17 14:31 ESTELLE [id number]) Physical Therapy Assessment Goals Three Impairment Pain due to soft tissue muscle guarding limiting functional ability. Correction Goal (LTG) TIEN Questionnaire Score - less than 19 (goal progress) LTG Duration 8 weeks Two Correction Goal (LTG) Pt will be able to demonstrate improved posture and gait mechanics with improved trunk and hip mobility. (goal progress One Impairment Pain limiting functional mobility Short Term Goal (STG) Pt will demonstrate ability to transfer sit to stand and move in bed with decreased pain. (goal progress) Electrical Solderer Goal (LTG) Pt will be able to return to work on a limited basis with tolerable pain. (patient still unable to work) Assessment Summary Assessment Pt tolerated spinal stabilization exercises in squat position at wall with decrease in pain as compared to two weeks ago. Physical Therapy Plan Frequency and Duration Frequency of Treatment 2x/Week Duration of Treatment 2 months Plan of Care Start Date 09/01/17 Plan of Care End Date 11/02/17 Therapeutic Interventions Therapeutic Interventions Aquatic Therapy Home Exercise Program Manual Therapy Patient/Caregiver Education Self-Care/Home Management Soft Tissue Mobilization Taping Therapeutic Activities Therapeutic Exercises Modalities Cold Pack/Ice Massage Electric Stimulation Hot Packs Ultrasound Next Visit Focus/Plan Next Note Type Treatment Note Next Visit Plan Focus on core stabilization and strengthening as well as LE strengthening for pain management and endurance
--- NOTE | 2017-10-25 15:56 | PT.OTN ---
Current Diagnoses Low back pain (10/25/17) Pain in thoracic spine (10/25/17) Wedge compression fracture of first lumbar vertebra, initial encounter for closed fracture (10/25/17) Physical Therapy Treatment Note PT-OP-A Visit Information Start: 06/08/17 08:13 Freq: Status: Active Protocol: Document 10/25/17 11:45 LJ (Rec: 10/25/17 15:55 LJ [id number]) Out-Patient Physical Therapy Visit Information Visit Information Visit Type Treatment Note Visit Start Time 11:45 Visit Stop Time 12:30 Total Visit Minutes 45 Number of METAL REFINER Visits 4 PT-OP-B Current Condition Start: 06/08/17 08:13 Freq: Status: Active Protocol: Document 06/09/17 08:16 LRN (Rec: 06/09/17 08:43 LRN [id number]) Current Condition History of Current Condition Onset Date 01/02/2017 Current Complaints Back pain, unable to work, sleep disturbance, difficulty with transfers History of Current Condition Pt reports falling off a ladder ~18' high (records indicate ~25') landing on his back and hitting his head, causing a loss of consciousness. He was air lifted to [facility] in [place] and was placed in a TLSO brace for 8 weeks. Pt reports having a burst fracture at T1, the 01/02/17 X -ray indicated: Moderate compression fracture of L1 vertebral body with mild postierior displacement and hematoma at T12, L1 & L2. Other medical records indicate follow up care for L1 burst fracture, pt had been in brace for 10 weeks or so and was last seen by jono Quiles in March of this year. Pt is being referred for back pain for both upper/ mid and L/S spine. Future Testing and Treatments Planned Pt reports he is scheduled to see his [facility] physician soon to discuss possible surgery. Treatment Goals Patient/Caregiver Goals Pt goal is to feel normal, decreased pain, improve ability to sleep and to tolerate static positioning. 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 Baseline Function- Recreation/Hobbies G PT-OP-C Subjective Start: 06/08/17 08:13 Freq: Status: Active Protocol: Document 10/25/17 11:45 LJ (Rec: 10/25/17 15:55 LJ [id number]) OP-PT Subjective Patient Comments Patient Comments Pt reports being sick of having pain and dealing with 's issues also. Stated he' s not sure Aquatic therapy is working but willing to continue PT-OP-F Manual Assessment Start: 06/08/17 08:13 Freq: Status: Active Protocol: Document 06/08/17 16:49 LRN (Rec: 06/09/17 14:40 LRN [id number]) Manual Assessments Soft Tissue Assessment Soft Tissue Mobility Assessment Muscle guarding and tightness in the entire posterior thoracic and lumbar muscle groups. Joint Mobility Assessment Joint Mobility Assessment Deferred spinal mobility assessment. PT-OP-G Mobility & Gait Start: 06/08/17 16:33 Freq: Status: Active Protocol: Document 06/08/17 16:49 LRN (Rec: 06/09/17 14:40 LRN [id number]) OP Mobility Evaluation Bed Mobility Rolling Independent. Slow and cautious. Supine to and from Sit Independent. Slow and cautious. Transfers Sit to Stand Independent. Slow and cautious/ Functional Movements Lifting and Carrying Deferred Squats Deferred OP Gait Assessment Gait Deviations General Gait Pattern Wide Based Gait Factors Limiting Gait Function Factors Limiting Gait Function Limited Range of Motion Pain Comments Gait Comments Slow gait with excessive trunk sway. PT-OP-H Neuro Start: 06/08/17 08:13 Freq: Status: Active Protocol: Document 06/08/17 16:49 LRN (Rec: 06/09/17 14:40 LRN [id number]) Sensation Evaluation Gross Sensation Gross Sensation WNL Deep Tendon Reflex & Clonus Assessment Deep Tendon Reflex Left Achilles Deep Tendon Reflex 2+ Normal Right Achilles Deep Tendon Reflex 3+ Normal But Brisk PT-OP-J Posture/Palpation/Skin Start: 06/08/17 08:13 Freq: Status: Active Protocol: Document 06/08/17 16:49 LRN (Rec: 06/09/17 14:40 LRN [id number]) Posture Evaluation Position Standing Evaluation View Lateral Head/C-Spine Posture Forward Head T-Spine Posture Flattened L-Spine Posture Flattened Shoulder Posture (R) Forward Pelvis Posture Posterior Tilted Ankle/Foot Posture (R) Forefoot Abducted Foot Arch (L) High Arch (R) High Arch Comments Posture Comments Lumbar spine is tilted Left with a C-Curve of the Thoracic spine with the apex on the left. Palpation Assessment Location One Palpation Location Thoracic and Lumbar spine Palpation Findings Muscle Guarding PT-OP-K Range of Motion Start: 06/08/17 08:13 Freq: Status: Active Protocol: Document 06/08/17 16:49 LRN (Rec: 06/09/17 14:40 LRN [id number]) Lumbar Spine Range of Motion Lumbar Spine Active Testing Position Standing Flexion 5 Extension 3 Lateral Flexion Left 3 Lateral Flexion Right 5 ROM Limitations Pain Comments Measurements taken degrees. Shoulder Goniometric Range of Motion Shoulder Measured in Degrees Right Active Shoulder ROM WFL Yes Testing Position Sitting Left Active Shoulder ROM WFL Yes Testing Position Sitting Hip Goniometric Range of Motion Hip Measured in Degrees Left Active Hip ROM WFL No Testing Position Prone Right Active Hip ROM WFL No Testing Position Prone Hip ROM Limitations Hip ROM Limitations Pain Comments Hip ER is decreased 50% of normal bilaterally. PT-OP-M Strength Start: 06/08/17 08:13 Freq: Status: Active Protocol: Document 06/08/17 16:49 LRN (Rec: 06/09/17 14:40 LRN [id number]) Trunk Strength Trunk Manual Muscle Testing Testing Position Sitting Reason Not Measured Pain Comments Pt can actively rotate in sitting ~ 28 deg's left, 10 deg's right. He is not able to lean forward in sitting and is unable to perform an abdominal curl due to back pain. Shoulder Strength Shoulder Manual Muscle Testing Left Reason Not Measured Pain Right Reason Not Measured Pain Comments Deferred due to back pain Hip Strength Hip Manual Muscle Testing Left Reason Not Measured Pain Right Reason Not Measured Pain PT-OP-Q Treatments Start: 06/08/17 08:13 Freq: Status: Active Protocol: Document 06/27/17 09:45 GGD (Rec: 06/27/17 11:11 GGD [id number]) Therapeutic Exercises Supine Exercises 6 Supine Exercise Name supine pelvic tilt Comments small ROM 5 Supine Exercise Name hooklying TrA stab Reps/Minutes 4 3 Supine Exercise Name Single KTC Reps/Minutes 4 1 Supine Exercise Name Hamstring str Reps/Minutes 4 Sidelying Exercises 2 Sidelying Exercise Name Reverse Clam Shells Side bilateral Reps/Minutes x15 1 Sidelying Exercise Name Clam Shells Side bilateral Reps/Minutes x15 Manual Therapy Treatment Soft Tissue Mobilization 1 Body Location Thoracic/Lumbar paraspinals Mobilization Type Sustained Pressure Trigger Point Release Body Position Prone PT-OP-R Modalities Start: 06/08/17 08:13 Freq: Status: Active Protocol: Document 06/20/17 13:24 EA (Rec: 06/20/17 13:24 EA [id number]) Electric Stimulation Electric Stimulation Interferential Current (IFC) Body Location T/S, L/S Duration (Minutes) 10 Combined With Heat/Cold Hot Pack Comments prone PT-OP-S Aquatic Treatment Start: 07/24/17 16:26 Freq: Status: Active Protocol: Document 10/25/17 11:45 LJ (Rec: 10/25/17 15:55 LJ [id number]) Aquatics Treatment Pool Entry/Exit Pool Entry/Exit Method Stairs Assistance Standby Assistance Water Walking [place] Water Level Chest Level Level of Assistance Standby Assistance walking w/circumduction legs Water Level Chest Level Level of Assistance Standby Assistance Backwards Water Level Chest Level Level of Assistance Standby Assistance Sideways Water Level Chest Level Level of Assistance Standby Assistance Forwards Water Level Chest Level Level of Assistance Standby Assistance Lower Extremity Exercises 3 Details L.E. circumduction Body Position Standing Water Level Chest Level Reps/Duration x 15 reps 2 Details hip abd/add Body Position Standing Water Level Chest Level Reps/Duration x15 1 Details hip flx/ext Body Position Standing Water Level Chest Level Reps/Duration x 15 Lower Extremity Stretches 1 Details Hamstring Body Position Standing Water Level Waist Level Equipment Small Noodle 2 Details single knee to chest Body Position Standing Water Level Chest Level Reps/Duration x2 Comments at wall Upper Extremity Exercises 2 Details shoulder fl/ext Body Position Standing Comments cues for shoulder retraction 1 Details Shoulder Horiz AB/AD, AB/AB Body Position Standing Water Level Chest Level Equipment none Comments Bilateral/unilateral, core stabilization emphasis [place] Activities [place] Activities Bicycle Equipment noodle Manual Techniques [place] Ragaz for lateral trunk flexibility and ROM PT-OP-T Assessment and Plan Start: 06/08/17 08:13 Freq: Status: Active Protocol: Document 10/25/17 11:45 LJ (Rec: 10/25/17 15:55 LJ [id number]) Physical Therapy Assessment Goals Three Impairment Pain due to soft tissue muscle guarding limiting functional ability. Crusher And Binder Operator Goal (LTG) TIEN Questionnaire Score - less than 19 (goal progress) LTG Duration 8 weeks Two Crusher And Binder Operator Goal (LTG) Pt will be able to demonstrate improved posture and gait mechanics with improved trunk and hip mobility. (goal progress One Impairment Pain limiting functional mobility Short Term Goal (STG) Pt will demonstrate ability to transfer sit to stand and move in bed with decreased pain. (goal progress) Crusher And Binder Operator Goal (LTG) Pt will be able to return to work on a limited basis with tolerable pain. (patient still unable to work) Progress Towards Goals Progress Comments Pt refused ankle fins but consented to use ankle floats in shallow water Assessment Summary Assessment Pt agitated today. Refused increased intensity in deep water and reported Bad Ragaz unpleasant d/t water in ears Physical Therapy Plan Frequency and Duration Frequency of Treatment 2x/Week Duration of Treatment 2 months Plan of Care Start Date 09/01/17 Plan of Care End Date 11/02/17 Therapeutic Interventions Therapeutic Interventions Aquatic Therapy Home Exercise Program Manual Therapy Patient/Caregiver Education Self-Care/Home Management Soft Tissue Mobilization Taping Therapeutic Activities Therapeutic Exercises Modalities Cold Pack/Ice Massage Electric Stimulation Hot Packs Ultrasound Next Visit Focus/Plan Next Note Type Treatment Note Next Visit Plan Add lunge walking for LE strengthening and balance. Incorporate wall back stabilization w/UE movement.
--- NOTE | 2017-10-30 17:07 | PT.OTN ---
Current Diagnoses Low back pain (10/30/17) Pain in thoracic spine (10/30/17) Wedge compression fracture of first lumbar vertebra, initial encounter for closed fracture (10/30/17) Physical Therapy Treatment Note PT-OP-A Visit Information Start: 06/08/17 08:13 Freq: Status: Active Protocol: Document 10/30/17 17:01 SAK (Rec: 10/30/17 17:07 SAK [id number]) Out-Patient Physical Therapy Visit Information Visit Information Visit Type Treatment Note Visit Start Time 11:45 Visit Stop Time 12:30 Total Visit Minutes 45 Number of TATTOO IDENTIFIER Visits 4 PT-OP-B Current Condition Start: 06/08/17 08:13 Freq: Status: Active Protocol: Document 06/09/17 08:16 LRN (Rec: 06/09/17 08:43 LRN [id number]) Current Condition History of Current Condition Onset Date 01/02/2017 Current Complaints Back pain, unable to work, sleep disturbance, difficulty with transfers History of Current Condition Pt reports falling off a ladder ~18' high (records indicate ~25') landing on his back and hitting his head, causing a loss of consciousness. He was air lifted to [facility] in [place] and was placed in a TLSO brace for 8 weeks. Pt reports having a burst fracture at T1, the 01/02/17 X -ray indicated: Moderate compression fracture of L1 vertebral body with mild postierior displacement and hematoma at T12, L1 & L2. Other medical records indicate follow up care for L1 burst fracture, pt had been in brace for 10 weeks or so and was last seen by jono Quiles in March of this year. Pt is being referred for back pain for both upper/ mid and L/S spine. Future Testing and Treatments Planned Pt reports he is scheduled to see his [facility] physician soon to discuss possible surgery. Treatment Goals Patient/Caregiver Goals Pt goal is to feel normal, decreased pain, improve ability to sleep and to tolerate static positioning. 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 Baseline Function- Recreation/Hobbies G PT-OP-C Subjective Start: 06/08/17 08:13 Freq: Status: Active Protocol: Document 10/30/17 17:01 SAK (Rec: 10/30/17 17:07 SAK [id number]) OP-PT Subjective Patient Comments Patient Comments Reports feeling that he has improved but recently plateaued. Pain 3-4/10 PT-OP-F Manual Assessment Start: 06/08/17 08:13 Freq: Status: Active Protocol: Document 06/08/17 16:49 LRN (Rec: 06/09/17 14:40 LRN [id number]) Manual Assessments Soft Tissue Assessment Soft Tissue Mobility Assessment Muscle guarding and tightness in the entire posterior thoracic and lumbar muscle groups. Joint Mobility Assessment Joint Mobility Assessment Deferred spinal mobility assessment. PT-OP-G Mobility & Gait Start: 06/08/17 16:33 Freq: Status: Active Protocol: Document 06/08/17 16:49 LRN (Rec: 06/09/17 14:40 LRN [id number]) OP Mobility Evaluation Bed Mobility Rolling Independent. Slow and cautious. Supine to and from Sit Independent. Slow and cautious. Transfers Sit to Stand Independent. Slow and cautious/ Functional Movements Lifting and Carrying Deferred Squats Deferred OP Gait Assessment Gait Deviations General Gait Pattern Wide Based Gait Factors Limiting Gait Function Factors Limiting Gait Function Limited Range of Motion Pain Comments Gait Comments Slow gait with excessive trunk sway. PT-OP-H Neuro Start: 06/08/17 08:13 Freq: Status: Active Protocol: Document 06/08/17 16:49 LRN (Rec: 06/09/17 14:40 LRN [id number]) Sensation Evaluation Gross Sensation Gross Sensation WNL Deep Tendon Reflex & Clonus Assessment Deep Tendon Reflex Left Achilles Deep Tendon Reflex 2+ Normal Right Achilles Deep Tendon Reflex 3+ Normal But Brisk PT-OP-J Posture/Palpation/Skin Start: 06/08/17 08:13 Freq: Status: Active Protocol: Document 06/08/17 16:49 LRN (Rec: 06/09/17 14:40 LRN [id number]) Posture Evaluation Position Standing Evaluation View Lateral Head/C-Spine Posture Forward Head T-Spine Posture Flattened L-Spine Posture Flattened Shoulder Posture (R) Forward Pelvis Posture Posterior Tilted Ankle/Foot Posture (R) Forefoot Abducted Foot Arch (L) High Arch (R) High Arch Comments Posture Comments Lumbar spine is tilted Left with a C-Curve of the Thoracic spine with the apex on the left. Palpation Assessment Location One Palpation Location Thoracic and Lumbar spine Palpation Findings Muscle Guarding PT-OP-K Range of Motion Start: 06/08/17 08:13 Freq: Status: Active Protocol: Document 06/08/17 16:49 LRN (Rec: 06/09/17 14:40 LRN [id number]) Lumbar Spine Range of Motion Lumbar Spine Active Testing Position Standing Flexion 5 Extension 3 Lateral Flexion Left 3 Lateral Flexion Right 5 ROM Limitations Pain Comments Measurements taken degrees. Shoulder Goniometric Range of Motion Shoulder Measured in Degrees Right Active Shoulder ROM WFL Yes Testing Position Sitting Left Active Shoulder ROM WFL Yes Testing Position Sitting Hip Goniometric Range of Motion Hip Measured in Degrees Left Active Hip ROM WFL No Testing Position Prone Right Active Hip ROM WFL No Testing Position Prone Hip ROM Limitations Hip ROM Limitations Pain Comments Hip ER is decreased 50% of normal bilaterally. PT-OP-M Strength Start: 06/08/17 08:13 Freq: Status: Active Protocol: Document 06/08/17 16:49 LRN (Rec: 06/09/17 14:40 LRN [id number]) Trunk Strength Trunk Manual Muscle Testing Testing Position Sitting Reason Not Measured Pain Comments Pt can actively rotate in sitting ~ 28 deg's left, 10 deg's right. He is not able to lean forward in sitting and is unable to perform an abdominal curl due to back pain. Shoulder Strength Shoulder Manual Muscle Testing Left Reason Not Measured Pain Right Reason Not Measured Pain Comments Deferred due to back pain Hip Strength Hip Manual Muscle Testing Left Reason Not Measured Pain Right Reason Not Measured Pain PT-OP-Q Treatments Start: 06/08/17 08:13 Freq: Status: Active Protocol: Document 06/27/17 09:45 GGD (Rec: 06/27/17 11:11 GGD [id number]) Therapeutic Exercises Supine Exercises 6 Supine Exercise Name supine pelvic tilt Comments small ROM 5 Supine Exercise Name hooklying TrA stab Reps/Minutes 4 3 Supine Exercise Name Single KTC Reps/Minutes 4 1 Supine Exercise Name Hamstring str Reps/Minutes 4 Sidelying Exercises 2 Sidelying Exercise Name Reverse Clam Shells Side bilateral Reps/Minutes x15 1 Sidelying Exercise Name Clam Shells Side bilateral Reps/Minutes x15 Manual Therapy Treatment Soft Tissue Mobilization 1 Body Location Thoracic/Lumbar paraspinals Mobilization Type Sustained Pressure Trigger Point Release Body Position Prone PT-OP-R Modalities Start: 06/08/17 08:13 Freq: Status: Active Protocol: Document 06/20/17 13:24 EA (Rec: 06/20/17 13:24 EA [id number]) Electric Stimulation Electric Stimulation Interferential Current (IFC) Body Location T/S, L/S Duration (Minutes) 10 Combined With Heat/Cold Hot Pack Comments prone PT-OP-S Aquatic Treatment Start: 07/24/17 16:26 Freq: Status: Active Protocol: Document 10/30/17 17:01 SAK (Rec: 10/30/17 17:07 SAK [id number]) Aquatics Treatment Pool Entry/Exit Pool Entry/Exit Method Stairs Assistance Standby Assistance Water Walking [place] March Water Level Chest Level Level of Assistance Standby Assistance walking w/circumduction legs Water Level Chest Level Level of Assistance Standby Assistance goose stepping Water Level Chest Level Level of Assistance Standby Assistance Backwards Water Level Chest Level Level of Assistance Standby Assistance Sideways Water Level Chest Level Level of Assistance Standby Assistance Forwards Water Level Chest Level Level of Assistance Standby Assistance Lower Extremity Exercises 4 Details Squats Body Position Standing Reps/Duration 5 Comments against wall 3 Details L.E. circumduction Body Position Standing Water Level Chest Level Equipment Resistance Fins Reps/Duration x 15 reps 2 Details hip abd/add Body Position Standing Water Level Chest Level Equipment Resistance Fins Reps/Duration x15 1 Details hip flx/ext Body Position Standing Water Level Chest Level Equipment Resistance Fins Reps/Duration x 15 Lower Extremity Stretches 3 Details piriformis Body Position Standing Water Level Chest Level 1 Details Hamstring Body Position Standing Water Level Waist Level Equipment Small Noodle 2 Details single knee to chest Body Position Standing Water Level Chest Level Reps/Duration x2 Comments at wall Upper Extremity Exercises 2 Details shoulder fl/ext Body Position Standing Comments cues for shoulder retraction 1 Details Shoulder Horiz AB/AD, AB/AB Body Position Standing Water Level Chest Level Equipment none Comments Bilateral/unilateral, core stabilization emphasis Spinal Exercises 3 Details squat at wall Comments UE in/out, wipers, fl/ex pendulum Water Level [place] Equipment noodle 1 Details [place] Stabilization Water Level [place] Equipment [place] Float Comments large barbells Lodge Activities Lodge Activities Bicycle Bicycle Backwards Cross [place] Running Hip Abduction/Adduction Equipment noodle Duration 15 min Comments resistance fins; small Other 1 Details deep water traction Water Level [place] Equipment 10 min Reps/Duration noodle, 6# each ankle. PT-OP-T Assessment and Plan Start: 06/08/17 08:13 Freq: Status: Active Protocol: Document 10/30/17 17:01 [facility] (Rec: 10/30/17 17:07 [facility] [id number]) Physical Therapy Assessment Goals Three Impairment Pain due to soft tissue muscle guarding limiting functional ability. Nursing Home Goal (LTG) TIEN Questionnaire Score - less than 19 (goal progress) LTG Duration 8 weeks Two Grounding Engineer Goal (LTG) Pt will be able to demonstrate improved posture and gait mechanics with improved trunk and hip mobility. (goal progress One Impairment Pain limiting functional mobility Short Term Goal (STG) Pt will demonstrate ability to transfer sit to stand and move in bed with decreased pain. (goal progress) Nursing Home Goal (LTG) Pt will be able to return to work on a limited basis with tolerable pain. (patient still unable to work) Progress Towards Goals Progress Comments Pt refused ankle fins but consented to use ankle floats in shallow water Assessment Summary Assessment Able to tolerate increased intensity in deep water activities today; reports giving it his full effort. Physical Therapy Plan Frequency and Duration Frequency of Treatment 2x/Week Duration of Treatment 2 months Plan of Care Start Date 09/01/17 Plan of Care End Date 11/02/17 Therapeutic Interventions Therapeutic Interventions Aquatic Therapy Home Exercise Program Manual Therapy Patient/Caregiver Education Self-Care/Home Management Soft Tissue Mobilization Taping Therapeutic Activities Therapeutic Exercises Modalities Cold Pack/Ice Massage Electric Stimulation Hot Packs Ultrasound Next Visit Focus/Plan Next Note Type Re-Evaluation Next Visit Plan Add lunge walking for LE strengthening and balance. Incorporate wall back stabilization w/UE movement. Discuss POC
--- NOTE | 2017-11-01 15:28 | PT.OTN ---
Current Diagnoses Low back pain (11/01/17) Pain in thoracic spine (11/01/17) Wedge compression fracture of first lumbar vertebra, initial encounter for closed fracture (11/01/17) Physical Therapy Treatment Note PT-OP-A Visit Information Start: 06/08/17 08:13 Freq: Status: Active Protocol: Document 11/01/17 11:45 SAK (Rec: 11/01/17 15:28 SAK [id number]) Out-Patient Physical Therapy Visit Information Visit Information Visit Type Re-Evaluation Visit Start Time 11:45 Visit Stop Time 12:30 Total Visit Minutes 45 Visit Number 28 Number of OUTDOOR FITNESS TRAINER Visits 0 PT-OP-B Current Condition Start: 06/08/17 08:13 Freq: Status: Active Protocol: Document 06/09/17 08:16 LRN (Rec: 06/09/17 08:43 LRN [id number]) Current Condition History of Current Condition Onset Date 01/02/2017 Current Complaints Back pain, unable to work, sleep disturbance, difficulty with transfers History of Current Condition Pt reports falling off a ladder ~18' high (records indicate ~25') landing on his back and hitting his head, causing a loss of consciousness. He was air lifted to [facility] in [place] and was placed in a TLSO brace for 8 weeks. Pt reports having a burst fracture at T1, the 01/02/17 X -ray indicated: Moderate compression fracture of L1 vertebral body with mild postierior displacement and hematoma at T12, L1 & L2. Other medical records indicate follow up care for L1 burst fracture, pt had been in brace for 10 weeks or so and was last seen by jono Quiles in March of this year. Pt is being referred for back pain for both upper/ mid and L/S spine. Future Testing and Treatments Planned Pt reports he is scheduled to see his [facility] physician soon to discuss possible surgery. Treatment Goals Patient/Caregiver Goals Pt goal is to feel normal, decreased pain, improve ability to sleep and to tolerate static positioning. 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 Baseline Function- Recreation/Hobbies G PT-OP-C Subjective Start: 06/08/17 08:13 Freq: Status: Active Protocol: Document 11/01/17 11:45 SAK (Rec: 11/01/17 15:28 SAK [id number]) OP-PT Subjective Patient Comments Patient Comments Reports feeling that he has improved but recently plateaued. Pain 3-4/10. Stressed about 's continued cancer treatment; currently radiation daily. PT-OP-F Manual Assessment Start: 06/08/17 08:13 Freq: Status: Active Protocol: Document 06/08/17 16:49 LRN (Rec: 06/09/17 14:40 LRN [id number]) Manual Assessments Soft Tissue Assessment Soft Tissue Mobility Assessment Muscle guarding and tightness in the entire posterior thoracic and lumbar muscle groups. Joint Mobility Assessment Joint Mobility Assessment Deferred spinal mobility assessment. PT-OP-G Mobility & Gait Start: 06/08/17 16:33 Freq: Status: Active Protocol: Document 06/08/17 16:49 LRN (Rec: 06/09/17 14:40 LRN [id number]) OP Mobility Evaluation Bed Mobility Rolling Independent. Slow and cautious. Supine to and from Sit Independent. Slow and cautious. Transfers Sit to Stand Independent. Slow and cautious/ Functional Movements Lifting and Carrying Deferred Squats Deferred OP Gait Assessment Gait Deviations General Gait Pattern Wide Based Gait Factors Limiting Gait Function Factors Limiting Gait Function Limited Range of Motion Pain Comments Gait Comments Slow gait with excessive trunk sway. PT-OP-H Neuro Start: 06/08/17 08:13 Freq: Status: Active Protocol: Document 06/08/17 16:49 LRN (Rec: 06/09/17 14:40 LRN [id number]) Sensation Evaluation Gross Sensation Gross Sensation WNL Deep Tendon Reflex & Clonus Assessment Deep Tendon Reflex Left Achilles Deep Tendon Reflex 2+ Normal Right Achilles Deep Tendon Reflex 3+ Normal But Brisk PT-OP-J Posture/Palpation/Skin Start: 06/08/17 08:13 Freq: Status: Active Protocol: Document 06/08/17 16:49 LRN (Rec: 06/09/17 14:40 LRN [id number]) Posture Evaluation Position Standing Evaluation View Lateral Head/C-Spine Posture Forward Head T-Spine Posture Flattened L-Spine Posture Flattened Shoulder Posture (R) Forward Pelvis Posture Posterior Tilted Ankle/Foot Posture (R) Forefoot Abducted Foot Arch (L) High Arch (R) High Arch Comments Posture Comments Lumbar spine is tilted Left with a C-Curve of the Thoracic spine with the apex on the left. Palpation Assessment Location One Palpation Location Thoracic and Lumbar spine Palpation Findings Muscle Guarding PT-OP-K Range of Motion Start: 06/08/17 08:13 Freq: Status: Active Protocol: Document 06/08/17 16:49 LRN (Rec: 06/09/17 14:40 LRN [id number]) Lumbar Spine Range of Motion Lumbar Spine Active Testing Position Standing Flexion 5 Extension 3 Lateral Flexion Left 3 Lateral Flexion Right 5 ROM Limitations Pain Comments Measurements taken degrees. Shoulder Goniometric Range of Motion Shoulder Measured in Degrees Right Active Shoulder ROM WFL Yes Testing Position Sitting Left Active Shoulder ROM WFL Yes Testing Position Sitting Hip Goniometric Range of Motion Hip Measured in Degrees Left Active Hip ROM WFL No Testing Position Prone Right Active Hip ROM WFL No Testing Position Prone Hip ROM Limitations Hip ROM Limitations Pain Comments Hip ER is decreased 50% of normal bilaterally. PT-OP-M Strength Start: 06/08/17 08:13 Freq: Status: Active Protocol: Document 06/08/17 16:49 LRN (Rec: 06/09/17 14:40 LRN [id number]) Trunk Strength Trunk Manual Muscle Testing Testing Position Sitting Reason Not Measured Pain Comments Pt can actively rotate in sitting ~ 28 deg's left, 10 deg's right. He is not able to lean forward in sitting and is unable to perform an abdominal curl due to back pain. Shoulder Strength Shoulder Manual Muscle Testing Left Reason Not Measured Pain Right Reason Not Measured Pain Comments Deferred due to back pain Hip Strength Hip Manual Muscle Testing Left Reason Not Measured Pain Right Reason Not Measured Pain PT-OP-Q Treatments Start: 06/08/17 08:13 Freq: Status: Active Protocol: Document 06/27/17 09:45 GGD (Rec: 06/27/17 11:11 GGD [id number]) Therapeutic Exercises Supine Exercises 6 Supine Exercise Name supine pelvic tilt Comments small ROM 5 Supine Exercise Name hooklying TrA stab Reps/Minutes 4 3 Supine Exercise Name Single KTC Reps/Minutes 4 1 Supine Exercise Name Hamstring str Reps/Minutes 4 Sidelying Exercises 2 Sidelying Exercise Name Reverse Clam Shells Side bilateral Reps/Minutes x15 1 Sidelying Exercise Name Clam Shells Side bilateral Reps/Minutes x15 Manual Therapy Treatment Soft Tissue Mobilization 1 Body Location Thoracic/Lumbar paraspinals Mobilization Type Sustained Pressure Trigger Point Release Body Position Prone PT-OP-R Modalities Start: 06/08/17 08:13 Freq: Status: Active Protocol: Document 06/20/17 13:24 EA (Rec: 06/20/17 13:24 EA [id number]) Electric Stimulation Electric Stimulation Interferential Current (IFC) Body Location T/S, L/S Duration (Minutes) 10 Combined With Heat/Cold Hot Pack Comments prone PT-OP-S Aquatic Treatment Start: 07/24/17 16:26 Freq: Status: Active Protocol: Document 11/01/17 11:45 SAK (Rec: 11/01/17 15:28 SAK [id number]) Aquatics Treatment Pool Entry/Exit Pool Entry/Exit Method Stairs Assistance Standby Assistance Water Walking [place] March Water Level Chest Level Level of Assistance Standby Assistance Verbal Cues Comments ankle floats walking w/circumduction legs Water Level Chest Level Level of Assistance Standby Assistance Verbal Cues Comments ankle floats goose stepping Water Level Chest Level Level of Assistance Standby Assistance Verbal Cues Comments ankle floats Backwards Water Level Chest Level Walking Equipment UE paddles Level of Assistance Standby Assistance Verbal Cues Comments ankle floats Sideways Water Level Chest Level Walking Equipment UE paddles Level of Assistance Standby Assistance Verbal Cues Comments ankle floats Forwards Water Level Chest Level Walking Equipment UE paddles Level of Assistance Standby Assistance Verbal Cues Comments ankle floats Lower Extremity Exercises 4 Details Squats Body Position Standing Reps/Duration 5 Comments against wall 3 Details L.E. circumduction Body Position Standing Water Level Chest Level Equipment LE floats Reps/Duration x 20 reps 2 Details hip abd/add Body Position Standing Water Level Chest Level Equipment Ankle Floats Reps/Duration x20 1 Details hip flx/ext Body Position Standing Water Level Chest Level Equipment Ankle Floats Reps/Duration x 20 Lower Extremity Stretches 3 Details piriformis Body Position Standing Water Level Chest Level 1 Details Hamstring Body Position Standing Water Level Waist Level Equipment Small Noodle 2 Details single knee to chest Body Position Standing Water Level [place] Reps/Duration x2 Comments at wall Upper Extremity Exercises 3 Details push/pull Equipment UE paddles 2 Details shoulder fl/ext Body Position Standing Water Level Chest Level Equipment UE paddles Comments cues for shoulder retraction 1 Details Shoulder Horiz AB/AD, AB/AB Body Position Standing Water Level Chest Level Equipment UE paddles Comments Bilateral/unilateral, core stabilization emphasis Spinal Exercises 3 Details squat at wall Comments UE in/out, wipers, fl/ex pendulum Water Level [place] Equipment noodle 1 Details [place] Stabilization Water Level [place] Equipment [place] Float Comments large barbells [place] Activities [place] Activities Bicycle Bicycle Backwards Cross [place] Running Hip Abduction/Adduction Equipment noodle Duration 15 min Comments resistance fins; small PT-OP-T Assessment and Plan Start: 06/08/17 08:13 Freq: Status: Active Protocol: Document 11/01/17 11:45 SAK (Rec: 11/01/17 15:28 SAK [id number]) Physical Therapy Assessment Goals Three Impairment Pain due to soft tissue muscle guarding limiting functional ability. Clerical Transcriber Goal (LTG) TIEN Questionnaire Score - less than 19 (goal progress; decreased by 4 points) LTG Duration 2 months Two Custodial Goal (LTG) Pt will be able to demonstrate improved posture and gait mechanics with improved trunk and hip mobility. (good goal progress LTG Duration 2 months One Impairment Pain limiting functional mobility Short Term Goal (STG) Pt will demonstrate ability to transfer sit to stand and move in bed with decreased pain. (goal progress) Clerical Transcriber Goal (LTG) Pt will be able to return to work on a limited basis with tolerable pain. (patient still unable to work) LTG Duration 2 months Progress Towards Goals Progress Comments Patient reporting decrease in pain at 3-4/10 but with some radiating pain down LE's. Oswestry Disability Index score also improved, though slow. Patient reported this week he feels has improved but that his progress has plateaued recently. Pain and dysfunction complicated by patient's undergoing cancer treatment at this time; high stress level. Assessment Summary Assessment Patient is progressing in activity tolerance in aquatic PT, tolerating increased speed and intensity. Feel he would benefit from further PT, with gradual transition from aquatic-based PT to land-based PT to further work on core strengthening, activity tolerance, pain management in land-based environment. He should continue to do aquatic exercise independently once we are able to transition to land-based PT and activity. Physical Therapy Plan Frequency and Duration Frequency of Treatment 2x/Week Duration of Treatment 2 months Plan of Care Start Date 11/01/17 Plan of Care End Date 01/01/18 Therapeutic Interventions Therapeutic Interventions Aquatic Therapy Home Exercise Program Manual Therapy Patient/Caregiver Education Self-Care/Home Management Soft Tissue Mobilization Taping Therapeutic Activities Therapeutic Exercises Modalities Cold Pack/Ice Massage Electric Stimulation Hot Packs Ultrasound Next Visit Focus/Plan Next Note Type Treatment Note Next Visit Plan Add lunge walking for LE strengthening and balance. Incorporate wall back stabilization w/UE movement. Discuss POC
--- NOTE | 2017-11-13 14:48 | PT.OTN ---
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 He was air lifted to [facility] in [place] and was placed in a TLSO brace for 8 weeks. Pt reports having a burst fracture at T1, the 01/02/17 X -ray indicated: Moderate compression fracture of L1 vertebral body with mild postierior displacement and hematoma at T12, L1 & L2. Other medical records indicate follow up care for L1 burst fracture, pt had been in brace for 10 weeks or so and was last seen by jono Quiles in March of this year. Pt is being referred for back pain for both upper/ mid and L/S spine. Future Testing and Treatments Planned Pt reports he is scheduled to see his [facility] physician soon to discuss possible surgery. Treatment Goals Patient/Caregiver Goals Pt goal is to feel normal, decreased pain, improve ability to sleep and to tolerate static positioning. 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 Baseline Function- Recreation/Hobbies G PT-OP-C Subjective Start: 06/08/17 08:13 Freq: Status: Active Protocol: Document 11/13/17 10:15 LJ (Rec: 11/13/17 14:48 LJ [email or web address]) OP-PT Subjective Patient Comments Patient Comments Pt states he is feeling less pain but is stiff today and he attributes it to being out of the pool for a while d/t pink eye PT-OP-F Manual Assessment Start: 06/08/17 08:13 Freq: Status: Active Protocol: Document 06/08/17 16:49 LRN (Rec: 06/09/17 14:40 LRN [id number]) Manual Assessments Soft Tissue Assessment Soft Tissue Mobility Assessment Muscle guarding and tightness in the entire posterior thoracic and lumbar muscle groups. Joint Mobility Assessment Joint Mobility Assessment Deferred spinal mobility assessment. PT-OP-G Mobility & Gait Start: 06/08/17 16:33 Freq: Status: Active Protocol: Document 06/08/17 16:49 LRN (Rec: 06/09/17 14:40 LRN [id number]) OP Mobility Evaluation Bed Mobility Rolling Independent. Slow and cautious. Supine to and from Sit Independent. Slow and cautious. Transfers Sit to Stand Independent. Slow and cautious/ Functional Movements Lifting and Carrying Deferred Squats Deferred OP Gait Assessment Gait Deviations General Gait Pattern Wide Based Gait Factors Limiting Gait Function Factors Limiting Gait Function Limited Range of Motion Pain Comments Gait Comments Slow gait with excessive trunk sway. PT-OP-H Neuro Start: 06/08/17 08:13 Freq: Status: Active Protocol: Document 06/08/17 16:49 LRN (Rec: 06/09/17 14:40 LRN [id number]) Sensation Evaluation Gross Sensation Gross Sensation WNL Deep Tendon Reflex & Clonus Assessment Deep Tendon Reflex Left Achilles Deep Tendon Reflex 2+ Normal Right Achilles Deep Tendon Reflex 3+ Normal But Brisk PT-OP-J Posture/Palpation/Skin Start: 06/08/17 08:13 Freq: Status: Active Protocol: Document 06/08/17 16:49 LRN (Rec: 06/09/17 14:40 LRN [id number]) Posture Evaluation Position Standing Evaluation View Lateral Head/C-Spine Posture Forward Head T-Spine Posture Flattened L-Spine Posture Flattened Shoulder Posture (R) Forward Pelvis Posture Posterior Tilted Ankle/Foot Posture (R) Forefoot Abducted Foot Arch (L) High Arch (R) High Arch Comments Posture Comments Lumbar spine is tilted Left with a C-Curve of the Thoracic spine with the apex on the left. Palpation Assessment Location One Palpation Location Thoracic and Lumbar spine Palpation Findings Muscle Guarding PT-OP-K Range of Motion Start: 06/08/17 08:13 Freq: Status: Active Protocol: Document 06/08/17 16:49 LRN (Rec: 06/09/17 14:40 LRN [id number]) Lumbar Spine Range of Motion Lumbar Spine Active Testing Position Standing Flexion 5 Extension 3 Lateral Flexion Left 3 Lateral Flexion Right 5 ROM Limitations Pain Comments Measurements taken degrees. Shoulder Goniometric Range of Motion Shoulder Measured in Degrees Right Active Shoulder ROM WFL Yes Testing Position Sitting Left Active Shoulder ROM WFL Yes Testing Position Sitting Hip Goniometric Range of Motion Hip Measured in Degrees Left Active Hip ROM WFL No Testing Position Prone Right Active Hip ROM WFL No Testing Position Prone Hip ROM Limitations Hip ROM Limitations Pain Comments Hip ER is decreased 50% of normal bilaterally. PT-OP-M Strength Start: 06/08/17 08:13 Freq: Status: Active Protocol: Document 06/08/17 16:49 LRN (Rec: 06/09/17 14:40 LRN [id number]) Trunk Strength Trunk Manual Muscle Testing Testing Position Sitting Reason Not Measured Pain Comments Pt can actively rotate in sitting ~ 28 deg's left, 10 deg's right. He is not able to lean forward in sitting and is unable to perform an abdominal curl due to back pain. Shoulder Strength Shoulder Manual Muscle Testing Left Reason Not Measured Pain Right Reason Not Measured Pain Comments Deferred due to back pain Hip Strength Hip Manual Muscle Testing Left Reason Not Measured Pain Right Reason Not Measured Pain PT-OP-Q Treatments Start: 06/08/17 08:13 Freq: Status: Active Protocol: Document 06/27/17 09:45 GGD (Rec: 06/27/17 11:11 GGD [email or web address]) Therapeutic Exercises Supine Exercises 6 Supine Exercise Name supine pelvic tilt Comments small ROM 5 Supine Exercise Name hooklying TrA stab Reps/Minutes 4 3 Supine Exercise Name Single KTC Reps/Minutes 4 1 Supine Exercise Name Hamstring str Reps/Minutes 4 Sidelying Exercises 2 Sidelying Exercise Name Reverse Clam Shells Side bilateral Reps/Minutes x15 1 Sidelying Exercise Name Clam Shells Side bilateral Reps/Minutes x15 Manual Therapy Treatment Soft Tissue Mobilization 1 Body Location Thoracic/Lumbar paraspinals Mobilization Type Sustained Pressure Trigger Point Release Body Position Prone PT-OP-R Modalities Start: 06/08/17 08:13 Freq: Status: Active Protocol: Document 06/20/17 13:24 EA (Rec: 06/20/17 13:24 EA [id number]) Electric Stimulation Electric Stimulation Interferential Current (IFC) Body Location T/S, L/S Duration (Minutes) 10 Combined With Heat/Cold Hot Pack Comments prone PT-OP-S Aquatic Treatment Start: 07/24/17 16:26 Freq: Status: Active Protocol: Document 11/13/17 10:15 LJ (Rec: 11/13/17 14:48 LJ [email or web address]) Aquatics Treatment Pool Entry/Exit Pool Entry/Exit Method Stairs Assistance Standby Assistance Water Walking [place] March Water Level Chest Level Level of Assistance Standby Assistance Verbal Cues Comments ankle floats goose stepping Water Level Chest Level Level of Assistance Standby Assistance Verbal Cues Comments ankle floats Backwards Water Level Chest Level Walking Equipment UE paddles Level of Assistance Standby Assistance Verbal Cues Comments ankle floats Sideways Water Level Chest Level Walking Equipment UE paddles Level of Assistance Standby Assistance Verbal Cues Comments ankle floats Forwards Water Level Chest Level Walking Equipment UE paddles Level of Assistance Standby Assistance Verbal Cues Comments ankle floats Lower Extremity Exercises 5 Details HS curls Body Position Standing Water Level Chest Level Equipment Ankle Floats Reps/Duration 2 x 10 3 Details L.E. circumduction Body Position Standing Water Level Chest Level Equipment LE floats Reps/Duration x 20 reps 2 Details hip abd/add Body Position Standing Water Level Chest Level Equipment Ankle Floats Reps/Duration x20 1 Details hip flx/ext Body Position Standing Water Level Chest Level Equipment Ankle Floats Reps/Duration x 20 Lower Extremity Stretches 3 Details piriformis Body Position Standing Water Level [place] Reps/Duration 40 sec bilat Comments corner 1 Details Hamstring Body Position Standing Water Level Waist Level Equipment Small Noodle Upper Extremity Exercises 3 Details push/pull Equipment UE paddles Reps/Duration 2 x 10 2 Details shoulder fl/ext Body Position Standing Water Level Chest Level Equipment UE paddles Reps/Duration 2 x 10 Comments cues for shoulder retraction 1 Details Shoulder Horiz AB/AD, AB/AB Body Position Standing Water Level Chest Level Equipment UE paddles Comments Bilateral/unilateral, core stabilization emphasis Spinal Exercises 3 Details squat at wall Equipment UE paddles Reps/Duration 2 x 10 ea Comments UE in/out, wipers, fl/ex [place] Activities [place] Activities Running Hip Abduction/Adduction Equipment noodle Duration 15 min Comments resistance fins; small PT-OP-T Assessment and Plan Start: 06/08/17 08:13 Freq: Status: Active Protocol: Document 11/13/17 10:15 ESTELLE (Rec: 11/13/17 14:48 ESTELLE [email or web address]) Physical Therapy Assessment Goals Three Impairment Pain due to soft tissue muscle guarding limiting functional ability. Jail Goal (LTG) TIEN Questionnaire Score - less than 19 (goal progress; decreased by 4 points) LTG Duration 2 months Two Jail Goal (LTG) Pt will be able to demonstrate improved posture and gait mechanics with improved trunk and hip mobility. (good goal progress LTG Duration 2 months One Impairment Pain limiting functional mobility Short Term Goal (STG) Pt will demonstrate ability to transfer sit to stand and move in bed with decreased pain. (goal progress) Jail Goal (LTG) Pt will be able to return to work on a limited basis with tolerable pain. (patient still unable to work) LTG Duration 2 months Progress Towards Goals Progress Comments Pt reports decrease in pain and willingness to attempt slight increase in intensity of exercises. Assessment Summary Assessment Pt progressing with balance and posture while walking all directions in shallow water. Less guarding and improved use of UEs during shallow water exercises. Pt shows increase in exercise tolerance and endurance with fewer complaints and less resistance to slight increase in intensity of exercises. Physical Therapy Plan Frequency and Duration Frequency of Treatment 2x/Week Duration of Treatment 2 months Plan of Care Start Date 11/01/17 Plan of Care End Date 01/01/18 Therapeutic Interventions Therapeutic Interventions Aquatic Therapy Home Exercise Program Manual Therapy Patient/Caregiver Education Self-Care/Home Management Soft Tissue Mobilization Taping Therapeutic Activities Therapeutic Exercises Modalities Cold Pack/Ice Massage Electric Stimulation Hot Packs Ultrasound Next Visit Focus/Plan Next Note Type Treatment Note Next Visit Plan Increase pts pace and intensity with walking activities. Incorporate Chi for upper body stretching and balance at end of treatment.
--- NOTE | 2017-11-15 14:40 | PT.OTN ---
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 He was air lifted to [facility] in [place] and was placed in a TLSO brace for 8 weeks. Pt reports having a burst fracture at T1, the 01/02/17 X -ray indicated: Moderate compression fracture of L1 vertebral body with mild postierior displacement and hematoma at T12, L1 & L2. Other medical records indicate follow up care for L1 burst fracture, pt had been in brace for 10 weeks or so and was last seen by jono Quiles in March of this year. Pt is being referred for back pain for both upper/ mid and L/S spine. Future Testing and Treatments Planned Pt reports he is scheduled to see his [facility] physician soon to discuss possible surgery. Treatment Goals Patient/Caregiver Goals Pt goal is to feel normal, decreased pain, improve ability to sleep and to tolerate static positioning. 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 Baseline Function- Recreation/Hobbies G PT-OP-C Subjective Start: 06/08/17 08:13 Freq: Status: Active Protocol: Document 11/15/17 10:15 LJ (Rec: 11/15/17 14:40 LJ [email or web address]) OP-PT Subjective Patient Comments Patient Comments Pt reports he is in less pain than past few weeks. Had x- rays yesterday and commented on having a protruding disc that looked like a [place] PT-OP-F Manual Assessment Start: 06/08/17 08:13 Freq: Status: Active Protocol: Document 06/08/17 16:49 LRN (Rec: 06/09/17 14:40 LRN [id number]) Manual Assessments Soft Tissue Assessment Soft Tissue Mobility Assessment Muscle guarding and tightness in the entire posterior thoracic and lumbar muscle groups. Joint Mobility Assessment Joint Mobility Assessment Deferred spinal mobility assessment. PT-OP-G Mobility & Gait Start: 06/08/17 16:33 Freq: Status: Active Protocol: Document 06/08/17 16:49 LRN (Rec: 06/09/17 14:40 LRN [id number]) OP Mobility Evaluation Bed Mobility Rolling Independent. Slow and cautious. Supine to and from Sit Independent. Slow and cautious. Transfers Sit to Stand Independent. Slow and cautious/ Functional Movements Lifting and Carrying Deferred Squats Deferred OP Gait Assessment Gait Deviations General Gait Pattern Wide Based Gait Factors Limiting Gait Function Factors Limiting Gait Function Limited Range of Motion Pain Comments Gait Comments Slow gait with excessive trunk sway. PT-OP-H Neuro Start: 06/08/17 08:13 Freq: Status: Active Protocol: Document 06/08/17 16:49 LRN (Rec: 06/09/17 14:40 LRN [id number]) Sensation Evaluation Gross Sensation Gross Sensation WNL Deep Tendon Reflex & Clonus Assessment Deep Tendon Reflex Left Achilles Deep Tendon Reflex 2+ Normal Right Achilles Deep Tendon Reflex 3+ Normal But Brisk PT-OP-J Posture/Palpation/Skin Start: 06/08/17 08:13 Freq: Status: Active Protocol: Document 06/08/17 16:49 LRN (Rec: 06/09/17 14:40 LRN [id number]) Posture Evaluation Position Standing Evaluation View Lateral Head/C-Spine Posture Forward Head T-Spine Posture Flattened L-Spine Posture Flattened Shoulder Posture (R) Forward Pelvis Posture Posterior Tilted Ankle/Foot Posture (R) Forefoot Abducted Foot Arch (L) High Arch (R) High Arch Comments Posture Comments Lumbar spine is tilted Left with a C-Curve of the Thoracic spine with the apex on the left. Palpation Assessment Location One Palpation Location Thoracic and Lumbar spine Palpation Findings Muscle Guarding PT-OP-K Range of Motion Start: 06/08/17 08:13 Freq: Status: Active Protocol: Document 06/08/17 16:49 LRN (Rec: 06/09/17 14:40 LRN [id number]) Lumbar Spine Range of Motion Lumbar Spine Active Testing Position Standing Flexion 5 Extension 3 Lateral Flexion Left 3 Lateral Flexion Right 5 ROM Limitations Pain Comments Measurements taken degrees. Shoulder Goniometric Range of Motion Shoulder Measured in Degrees Right Active Shoulder ROM WFL Yes Testing Position Sitting Left Active Shoulder ROM WFL Yes Testing Position Sitting Hip Goniometric Range of Motion Hip Measured in Degrees Left Active Hip ROM WFL No Testing Position Prone Right Active Hip ROM WFL No Testing Position Prone Hip ROM Limitations Hip ROM Limitations Pain Comments Hip ER is decreased 50% of normal bilaterally. PT-OP-M Strength Start: 06/08/17 08:13 Freq: Status: Active Protocol: Document 06/08/17 16:49 LRN (Rec: 06/09/17 14:40 LRN [id number]) Trunk Strength Trunk Manual Muscle Testing Testing Position Sitting Reason Not Measured Pain Comments Pt can actively rotate in sitting ~ 28 deg's left, 10 deg's right. He is not able to lean forward in sitting and is unable to perform an abdominal curl due to back pain. Shoulder Strength Shoulder Manual Muscle Testing Left Reason Not Measured Pain Right Reason Not Measured Pain Comments Deferred due to back pain Hip Strength Hip Manual Muscle Testing Left Reason Not Measured Pain Right Reason Not Measured Pain PT-OP-Q Treatments Start: 06/08/17 08:13 Freq: Status: Active Protocol: Document 06/27/17 09:45 GGD (Rec: 06/27/17 11:11 GGD [email or web address]) Therapeutic Exercises Supine Exercises 6 Supine Exercise Name supine pelvic tilt Comments small ROM 5 Supine Exercise Name hooklying TrA stab Reps/Minutes 4 3 Supine Exercise Name Single KTC Reps/Minutes 4 1 Supine Exercise Name Hamstring str Reps/Minutes 4 Sidelying Exercises 2 Sidelying Exercise Name Reverse Clam Shells Side bilateral Reps/Minutes x15 1 Sidelying Exercise Name Clam Shells Side bilateral Reps/Minutes x15 Manual Therapy Treatment Soft Tissue Mobilization 1 Body Location Thoracic/Lumbar paraspinals Mobilization Type Sustained Pressure Trigger Point Release Body Position Prone PT-OP-R Modalities Start: 06/08/17 08:13 Freq: Status: Active Protocol: Document 06/20/17 13:24 EA (Rec: 06/20/17 13:24 EA [id number]) Electric Stimulation Electric Stimulation Interferential Current (IFC) Body Location T/S, L/S Duration (Minutes) 10 Combined With Heat/Cold Hot Pack Comments prone PT-OP-S Aquatic Treatment Start: 07/24/17 16:26 Freq: Status: Active Protocol: Document 11/15/17 10:15 LJ (Rec: 11/15/17 14:40 LJ [email or web address]) Aquatics Treatment Pool Entry/Exit Pool Entry/Exit Method Stairs Assistance Independent Water Walking [place] March Level of Assistance Independent walking w/circumduction legs Water Level Chest Level Level of Assistance Standby Assistance Verbal Cues Comments pt reported pain-discontinued goose stepping Water Level Chest Level Level of Assistance Independent Backwards Water Level Chest Level Level of Assistance Standby Assistance Verbal Cues Sideways Water Level Chest Level Level of Assistance Standby Assistance Verbal Cues Forwards Water Level Chest Level Level of Assistance Independent Lower Extremity Exercises 4 Details Squats Body Position Standing Reps/Duration 5 Comments against wall 3 Details L.E. circumduction Body Position Standing Water Level Chest Level Equipment LE floats Reps/Duration x 20 reps 2 Details hip abd/add Body Position Standing Water Level Chest Level Equipment Ankle Floats Reps/Duration x20 Lower Extremity Stretches 1 Details Hamstring Body Position Standing Water Level Waist Level Equipment Small Noodle 2 Details single knee to chest Body Position Standing Water Level Chest Level Reps/Duration x2 Comments at wall Upper Extremity Exercises 3 Details push/pull Equipment UE paddles Reps/Duration 2 x 10 2 Details shoulder fl/ext Body Position Standing Water Level Chest Level Equipment UE paddles Reps/Duration 2 x 10 Comments cues for shoulder retraction 1 Details Shoulder Horiz AB/AD, AB/AB Body Position Standing Water Level Chest Level Equipment UE paddles Comments Bilateral/unilateral, core stabilization emphasis Balance 2 Details unpredictable command directional changes Body Position Standing Water Level Chest Level Reps/Duration 2 min Comments cued directional changes [place]essel Activities [place] Activities [place] Running Equipment noodle Duration 15 min PT-OP-T Assessment and Plan Start: 06/08/17 08:13 Freq: Status: Active Protocol: Document 11/15/17 10:15 ESTELLE (Rec: 11/15/17 14:40 LJ [email or web address]) Physical Therapy Assessment Goals Three Impairment Pain due to soft tissue muscle guarding limiting functional ability. Nursing Home Goal (LTG) TIEN Questionnaire Score - less than 19 (goal progress; decreased by 4 points) LTG Duration 2 months Two Nursing Home Goal (LTG) Pt will be able to demonstrate improved posture and gait mechanics with improved trunk and hip mobility. (good goal progress One Impairment Pain limiting functional mobility Short Term Goal (STG) Pt will demonstrate ability to transfer sit to stand and move in bed with decreased pain. 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 (patient still unable to work) LTG Duration 2 months Progress Towards Goals Progress Comments Pt reports decrease in pain and willingness to attempt slight increase in intensity of exercises. Assessment Summary Assessment Pt tolerated increased reps and intensity with standing exercises. Improved posture and less guarding while ambulating in shallow. Pt increased intensity on his own in deep water running Physical Therapy Plan Frequency and Duration Frequency of Treatment 2x/Week Duration of Treatment 2 months Plan of Care Start Date 11/01/17 Plan of Care End Date 01/01/18 Therapeutic Interventions Therapeutic Interventions Aquatic Therapy Home Exercise Program Manual Therapy Patient/Caregiver Education Self-Care/Home Management Soft Tissue Mobilization Taping Therapeutic Activities Therapeutic Exercises Modalities Cold Pack/Ice Massage Electric Stimulation Hot Packs Ultrasound Next Visit Focus/Plan Next Note Type Treatment Note Next Visit Plan Increase pts pace and intensity with walking activities. Incorporate Chi for upper body stretching and balance at end of treatment.
--- NOTE | 2017-11-20 16:23 | PT.OTN ---
Current Diagnoses Low back pain (11/20/17) Pain in thoracic spine (11/20/17) Wedge compression fracture of first lumbar vertebra, initial encounter for closed fracture (11/20/17) Physical Therapy Treatment Note PT-OP-A Visit Information Start: 06/08/17 08:13 Freq: Status: Active Protocol: Document 11/20/17 16:15 SAK (Rec: 11/20/17 16:23 SAK [id number]) Out-Patient Physical Therapy Visit Information Visit Information Visit Type Treatment Note Visit Start Time 10:15 Visit Stop Time 11:00 Total Visit Minutes 45 Visit Number 31 Number of CURB SETTER HELPER Visits 0 Evaluation Information Evaluation Date 06/08/17 PT-OP-B Current Condition Start: 06/08/17 08:13 Freq: Status: Active Protocol: Document 06/09/17 08:16 LRN (Rec: 06/09/17 08:43 LRN [id number]) Current Condition History of Current Condition Onset Date 01/02/2017 Current Complaints Back pain, unable to work, sleep disturbance, difficulty with transfers History of Current Condition Pt reports falling off a ladder ~18' high (records indicate ~25') landing on his back and hitting his head, causing a loss of consciousness. He was air lifted to [facility] in [place] and was placed in a TLSO brace for 8 weeks. Pt reports having a burst fracture at T1, the 01/02/17 X -ray indicated: Moderate compression fracture of L1 vertebral body with mild postierior displacement and hematoma at T12, L1 & L2. Other medical records indicate follow up care for L1 burst fracture, pt had been in brace for 10 weeks or so and was last seen by jono Quiles in March of this year. Pt is being referred for back pain for both upper/ mid and L/S spine. Future Testing and Treatments Planned Pt reports he is scheduled to see his [facility] physician soon to discuss possible surgery. Treatment Goals Patient/Caregiver Goals Pt goal is to feel normal, decreased pain, improve ability to sleep and to tolerate static positioning. 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 Baseline Function- Recreation/Hobbies G PT-OP-C Subjective Start: 06/08/17 08:13 Freq: Status: Active Protocol: Document 11/20/17 16:15 SAK (Rec: 11/20/17 16:23 SAK [id number]) OP-PT Subjective Patient Comments Patient Comments Reports he sees Dr. Elaine tomorrow. Feels 30% better than when I started; nothing close to what I was before. PT-OP-F Manual Assessment Start: 06/08/17 08:13 Freq: Status: Active Protocol: Document 06/08/17 16:49 LRN (Rec: 06/09/17 14:40 LRN [id number]) Manual Assessments Soft Tissue Assessment Soft Tissue Mobility Assessment Muscle guarding and tightness in the entire posterior thoracic and lumbar muscle groups. Joint Mobility Assessment Joint Mobility Assessment Deferred spinal mobility assessment. PT-OP-G Mobility & Gait Start: 06/08/17 16:33 Freq: Status: Active Protocol: Document 06/08/17 16:49 LRN (Rec: 06/09/17 14:40 LRN [id number]) OP Mobility Evaluation Bed Mobility Rolling Independent. Slow and cautious. Supine to and from Sit Independent. Slow and cautious. Transfers Sit to Stand Independent. Slow and cautious/ Functional Movements Lifting and Carrying Deferred Squats Deferred OP Gait Assessment Gait Deviations General Gait Pattern Wide Based Gait Factors Limiting Gait Function Factors Limiting Gait Function Limited Range of Motion Pain Comments Gait Comments Slow gait with excessive trunk sway. PT-OP-H Neuro Start: 06/08/17 08:13 Freq: Status: Active Protocol: Document 06/08/17 16:49 LRN (Rec: 06/09/17 14:40 LRN [id number]) Sensation Evaluation Gross Sensation Gross Sensation WNL Deep Tendon Reflex & Clonus Assessment Deep Tendon Reflex Left Achilles Deep Tendon Reflex 2+ Normal Right Achilles Deep Tendon Reflex 3+ Normal But Brisk PT-OP-J Posture/Palpation/Skin Start: 06/08/17 08:13 Freq: Status: Active Protocol: Document 06/08/17 16:49 LRN (Rec: 06/09/17 14:40 LRN [id number]) Posture Evaluation Position Standing Evaluation View Lateral Head/C-Spine Posture Forward Head T-Spine Posture Flattened L-Spine Posture Flattened Shoulder Posture (R) Forward Pelvis Posture Posterior Tilted Ankle/Foot Posture (R) Forefoot Abducted Foot Arch (L) High Arch (R) High Arch Comments Posture Comments Lumbar spine is tilted Left with a C-Curve of the Thoracic spine with the apex on the left. Palpation Assessment Location One Palpation Location Thoracic and Lumbar spine Palpation Findings Muscle Guarding PT-OP-K Range of Motion Start: 06/08/17 08:13 Freq: Status: Active Protocol: Document 06/08/17 16:49 LRN (Rec: 06/09/17 14:40 LRN [id number]) Lumbar Spine Range of Motion Lumbar Spine Active Testing Position Standing Flexion 5 Extension 3 Lateral Flexion Left 3 Lateral Flexion Right 5 ROM Limitations Pain Comments Measurements taken degrees. Shoulder Goniometric Range of Motion Shoulder Measured in Degrees Right Active Shoulder ROM WFL Yes Testing Position Sitting Left Active Shoulder ROM WFL Yes Testing Position Sitting Hip Goniometric Range of Motion Hip Measured in Degrees Left Active Hip ROM WFL No Testing Position Prone Right Active Hip ROM WFL No Testing Position Prone Hip ROM Limitations Hip ROM Limitations Pain Comments Hip ER is decreased 50% of normal bilaterally. PT-OP-M Strength Start: 06/08/17 08:13 Freq: Status: Active Protocol: Document 06/08/17 16:49 LRN (Rec: 06/09/17 14:40 LRN [id number]) Trunk Strength Trunk Manual Muscle Testing Testing Position Sitting Reason Not Measured Pain Comments Pt can actively rotate in sitting ~ 28 deg's left, 10 deg's right. He is not able to lean forward in sitting and is unable to perform an abdominal curl due to back pain. Shoulder Strength Shoulder Manual Muscle Testing Left Reason Not Measured Pain Right Reason Not Measured Pain Comments Deferred due to back pain Hip Strength Hip Manual Muscle Testing Left Reason Not Measured Pain Right Reason Not Measured Pain PT-OP-Q Treatments Start: 06/08/17 08:13 Freq: Status: Active Protocol: Document 06/27/17 09:45 GGD (Rec: 06/27/17 11:11 GGD [id number]) Therapeutic Exercises Supine Exercises 6 Supine Exercise Name supine pelvic tilt Comments small ROM 5 Supine Exercise Name hooklying TrA stab Reps/Minutes 4 3 Supine Exercise Name Single KTC Reps/Minutes 4 1 Supine Exercise Name Hamstring str Reps/Minutes 4 Sidelying Exercises 2 Sidelying Exercise Name Reverse Clam Shells Side bilateral Reps/Minutes x15 1 Sidelying Exercise Name Clam Shells Side bilateral Reps/Minutes x15 Manual Therapy Treatment Soft Tissue Mobilization 1 Body Location Thoracic/Lumbar paraspinals Mobilization Type Sustained Pressure Trigger Point Release Body Position Prone PT-OP-R Modalities Start: 06/08/17 08:13 Freq: Status: Active Protocol: Document 06/20/17 13:24 EA (Rec: 06/20/17 13:24 EA [id number]) Electric Stimulation Electric Stimulation Interferential Current (IFC) Body Location T/S, L/S Duration (Minutes) 10 Combined With Heat/Cold Hot Pack Comments prone PT-OP-S Aquatic Treatment Start: 07/24/17 16:26 Freq: Status: Active Protocol: Document 11/20/17 16:15 SAK (Rec: 11/20/17 16:23 SAK [id number]) Aquatics Treatment Pool Entry/Exit Pool Entry/Exit Method Stairs Assistance Independent Water Walking [place] March Level of Assistance Verbal Cues goose stepping Water Level Chest Level Level of Assistance Verbal Cues Comments ankle floats Backwards Water Level Chest Level Level of Assistance Standby Assistance Verbal Cues Comments ankle floats Sideways Water Level Chest Level Level of Assistance Standby Assistance Verbal Cues Comments ankle floats Forwards Water Level Chest Level Level of Assistance Verbal Cues Comments ankle floats Lower Extremity Exercises 5 Details HS curls Body Position Standing Water Level Chest Level Equipment Ankle Floats Reps/Duration 2 x 10 4 Details Squats Body Position Standing Reps/Duration 5 Comments against wall 3 Details L.E. circumduction Body Position Standing Water Level Chest Level Equipment LE floats Reps/Duration x 20 reps 2 Details hip abd/add Body Position Standing Water Level Chest Level Equipment Ankle Floats Reps/Duration x20 1 Details hip flx/ext Body Position Standing Water Level Chest Level Equipment Ankle Floats Reps/Duration x 20 Lower Extremity Stretches 3 Details piriformis Body Position Standing Water Level [place] Reps/Duration 40 sec bilat Comments corner 1 Details Hamstring Body Position Standing Water Level Waist Level Equipment Ankle Floats 2 Details single knee to chest Body Position Standing Water Level Chest Level Reps/Duration x2 Comments at wall Upper Extremity Exercises pull downs Body Position Standing Equipment Large Noodle 3 Details push/pull Equipment UE paddles Reps/Duration 2 x 10 2 Details shoulder fl/ext Body Position Standing Water Level Chest Level Equipment UE paddles Reps/Duration 2 x 10 Comments cues for shoulder retraction 1 Details Shoulder Horiz AB/AD, AB/AB Body Position Standing Water Level Chest Level Equipment UE paddles Comments Bilateral/unilateral, core stabilization emphasis Spinal Exercises 1 Details [place] Stabilization Water Level [place] Equipment [place] Float Comments large barbells Balance 2 Details unpredictable command directional changes Body Position Standing Water Level Chest Level Reps/Duration 2 min Comments cued directional changes [place] Activities [place] Activities Cross [place] Running Equipment noodle Duration 15 min Comments 5 rounds of 30:30 intervals PT-OP-T Assessment and Plan Start: 06/08/17 08:13 Freq: Status: Active Protocol: Document 11/20/17 16:15 [facility] (Rec: 11/20/17 16:23 [facility] [id number]) Physical Therapy Assessment Goals Three Impairment Pain due to soft tissue muscle guarding limiting functional ability. Cst Goal (LTG) TIEN Questionnaire Score - less than 19 (goal progress; decreased by 4 points) LTG Duration 2 months Two Cst Goal (LTG) Pt will be able to demonstrate improved posture and gait mechanics with improved trunk and hip mobility. (good goal progress LTG Duration 2 months One Impairment Pain limiting functional mobility Short Term Goal (STG) Pt will demonstrate ability to transfer sit to stand and move in bed with decreased pain. (goal progress) Cst Goal (LTG) Pt will be able to return to work on a limited basis with tolerable pain. (patient still unable to work) LTG Duration 2 months Progress Towards Goals Progress Comments Tolerated progression of aquatic ex today. Feel he may benefit from transition to land-based PT soon pending results of x-ray and physician visit tomorrow. Assessment Summary Assessment Improved exercise tolerance, improved ease of mobility with less guarding noted. Physical Therapy Plan Frequency and Duration Frequency of Treatment 2x/Week Duration of Treatment 2 months Plan of Care Start Date 11/01/17 Plan of Care End Date 01/01/18 Therapeutic Interventions Therapeutic Interventions Aquatic Therapy Home Exercise Program Manual Therapy Patient/Caregiver Education Self-Care/Home Management Soft Tissue Mobilization Taping Therapeutic Activities Therapeutic Exercises Modalities Cold Pack/Ice Massage Electric Stimulation Hot Packs Ultrasound Next Visit Focus/Plan Next Note Type Treatment Note Next Visit Plan Increase pts pace and intensity with walking activities. Incorporate Chi for upper body stretching and balance at end of treatment.
--- NOTE | 2017-11-22 14:44 | PT.OTN ---
Current Diagnoses Low back pain (11/22/17) Pain in thoracic spine (11/22/17) Wedge compression fracture of first lumbar vertebra, initial encounter for closed fracture (11/22/17) Physical Therapy Treatment Note PT-OP-A Visit Information Start: 06/08/17 08:13 Freq: Status: Active Protocol: Document 11/22/17 10:15 LJ (Rec: 11/22/17 14:43 LJ [id number]) Out-Patient Physical Therapy Visit Information Visit Information Visit Type Treatment Note Visit Start Time 10:15 Visit Stop Time 11:00 Total Visit Minutes 45 Visit Number 32 Number of DEFLASH AND WASH OPERATOR Visits 1 PT-OP-B Current Condition Start: 06/08/17 08:13 Freq: Status: Active Protocol: Document 06/09/17 08:16 LRN (Rec: 06/09/17 08:43 LRN [id number]) Current Condition History of Current Condition Onset Date 01/02/2017 Current Complaints Back pain, unable to work, sleep disturbance, difficulty with transfers History of Current Condition Pt reports falling off a ladder ~18' high (records indicate ~25') landing on his back and hitting his head, causing a loss of consciousness. He was air lifted to [facility] in [place] and was placed in a TLSO brace for 8 weeks. Pt reports having a burst fracture at T1, the 01/02/17 X -ray indicated: Moderate compression fracture of L1 vertebral body with mild postierior displacement and hematoma at T12, L1 & L2. Other medical records indicate follow up care for L1 burst fracture, pt had been in brace for 10 weeks or so and was last seen by jono Quiles in March of this year. Pt is being referred for back pain for both upper/ mid and L/S spine. Future Testing and Treatments Planned Pt reports he is scheduled to see his [facility] physician soon to discuss possible surgery. Treatment Goals Patient/Caregiver Goals Pt goal is to feel normal, decreased pain, improve ability to sleep and to tolerate static positioning. 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 Baseline Function- Recreation/Hobbies G PT-OP-C Subjective Start: 06/08/17 08:13 Freq: Status: Active Protocol: Document 11/22/17 10:15 LJ (Rec: 11/22/17 14:43 LJ [id number]) OP-PT Subjective Patient Comments Patient Comments Pt reports that Dr Elaine stated his healing is about as good as its going to get. Pt states he already knew that PT-OP-F Manual Assessment Start: 06/08/17 08:13 Freq: Status: Active Protocol: Document 06/08/17 16:49 LRN (Rec: 06/09/17 14:40 LRN [id number]) Manual Assessments Soft Tissue Assessment Soft Tissue Mobility Assessment Muscle guarding and tightness in the entire posterior thoracic and lumbar muscle groups. Joint Mobility Assessment Joint Mobility Assessment Deferred spinal mobility assessment. PT-OP-G Mobility & Gait Start: 06/08/17 16:33 Freq: Status: Active Protocol: Document 06/08/17 16:49 LRN (Rec: 06/09/17 14:40 LRN [id number]) OP Mobility Evaluation Bed Mobility Rolling Independent. Slow and cautious. Supine to and from Sit Independent. Slow and cautious. Transfers Sit to Stand Independent. Slow and cautious/ Functional Movements Lifting and Carrying Deferred Squats Deferred OP Gait Assessment Gait Deviations General Gait Pattern Wide Based Gait Factors Limiting Gait Function Factors Limiting Gait Function Limited Range of Motion Pain Comments Gait Comments Slow gait with excessive trunk sway. PT-OP-H Neuro Start: 06/08/17 08:13 Freq: Status: Active Protocol: Document 06/08/17 16:49 LRN (Rec: 06/09/17 14:40 LRN [id number]) Sensation Evaluation Gross Sensation Gross Sensation WNL Deep Tendon Reflex & Clonus Assessment Deep Tendon Reflex Left Achilles Deep Tendon Reflex 2+ Normal Right Achilles Deep Tendon Reflex 3+ Normal But Brisk PT-OP-J Posture/Palpation/Skin Start: 06/08/17 08:13 Freq: Status: Active Protocol: Document 06/08/17 16:49 LRN (Rec: 06/09/17 14:40 LRN [id number]) Posture Evaluation Position Standing Evaluation View Lateral Head/C-Spine Posture Forward Head T-Spine Posture Flattened L-Spine Posture Flattened Shoulder Posture (R) Forward Pelvis Posture Posterior Tilted Ankle/Foot Posture (R) Forefoot Abducted Foot Arch (L) High Arch (R) High Arch Comments Posture Comments Lumbar spine is tilted Left with a C-Curve of the Thoracic spine with the apex on the left. Palpation Assessment Location One Palpation Location Thoracic and Lumbar spine Palpation Findings Muscle Guarding PT-OP-K Range of Motion Start: 06/08/17 08:13 Freq: Status: Active Protocol: Document 06/08/17 16:49 LRN (Rec: 06/09/17 14:40 LRN [id number]) Lumbar Spine Range of Motion Lumbar Spine Active Testing Position Standing Flexion 5 Extension 3 Lateral Flexion Left 3 Lateral Flexion Right 5 ROM Limitations Pain Comments Measurements taken degrees. Shoulder Goniometric Range of Motion Shoulder Measured in Degrees Right Active Shoulder ROM WFL Yes Testing Position Sitting Left Active Shoulder ROM WFL Yes Testing Position Sitting Hip Goniometric Range of Motion Hip Measured in Degrees Left Active Hip ROM WFL No Testing Position Prone Right Active Hip ROM WFL No Testing Position Prone Hip ROM Limitations Hip ROM Limitations Pain Comments Hip ER is decreased 50% of normal bilaterally. PT-OP-M Strength Start: 06/08/17 08:13 Freq: Status: Active Protocol: Document 06/08/17 16:49 LRN (Rec: 06/09/17 14:40 LRN [id number]) Trunk Strength Trunk Manual Muscle Testing Testing Position Sitting Reason Not Measured Pain Comments Pt can actively rotate in sitting ~ 28 deg's left, 10 deg's right. He is not able to lean forward in sitting and is unable to perform an abdominal curl due to back pain. Shoulder Strength Shoulder Manual Muscle Testing Left Reason Not Measured Pain Right Reason Not Measured Pain Comments Deferred due to back pain Hip Strength Hip Manual Muscle Testing Left Reason Not Measured Pain Right Reason Not Measured Pain PT-OP-Q Treatments Start: 06/08/17 08:13 Freq: Status: Active Protocol: Document 06/27/17 09:45 GGD (Rec: 06/27/17 11:11 GGD [email or web address]) Therapeutic Exercises Supine Exercises 6 Supine Exercise Name supine pelvic tilt Comments small ROM 5 Supine Exercise Name hooklying TrA stab Reps/Minutes 4 3 Supine Exercise Name Single KTC Reps/Minutes 4 1 Supine Exercise Name Hamstring str Reps/Minutes 4 Sidelying Exercises 2 Sidelying Exercise Name Reverse Clam Shells Side bilateral Reps/Minutes x15 1 Sidelying Exercise Name Clam Shells Side bilateral Reps/Minutes x15 Manual Therapy Treatment Soft Tissue Mobilization 1 Body Location Thoracic/Lumbar paraspinals Mobilization Type Sustained Pressure Trigger Point Release Body Position Prone PT-OP-R Modalities Start: 06/08/17 08:13 Freq: Status: Active Protocol: Document 06/20/17 13:24 EA (Rec: 06/20/17 13:24 EA [id number]) Electric Stimulation Electric Stimulation Interferential Current (IFC) Body Location T/S, L/S Duration (Minutes) 10 Combined With Heat/Cold Hot Pack Comments prone PT-OP-S Aquatic Treatment Start: 07/24/17 16:26 Freq: Status: Active Protocol: Document 11/22/17 10:15 LJ (Rec: 11/22/17 14:43 LJ [email or web address]) Aquatics Treatment Pool Entry/Exit Pool Entry/Exit Method Stairs Assistance Independent Water Walking [place] Water Level Chest Level Level of Assistance Verbal Cues Comments slow motion for core mm initiation Backwards Water Level Chest Level Level of Assistance Standby Assistance Verbal Cues Comments slow motion for core mm iniation Sideways Water Level Chest Level Level of Assistance Standby Assistance Verbal Cues Forwards Water Level Chest Level Level of Assistance Verbal Cues Lower Extremity Exercises 5 Details HS curls Body Position Standing Water Level Chest Level Reps/Duration 2 x 10 Comments #5 w/heel pushing into wall 4 Details Squats Body Position Standing Reps/Duration 5 Comments against wall 2 Details hip abd/add Body Position Standing Water Level Chest Level Reps/Duration x20 Comments #5 wts Lower Extremity Stretches 3 Details piriformis Body Position Standing Water Level [place] Reps/Duration 40 sec bilat Comments corner 1 Details Hamstring Body Position Standing Water Level Waist Level Equipment Small Noodle 2 Details single knee to chest Body Position Standing Water Level Chest Level Reps/Duration x2 Comments at wall Upper Extremity Exercises pull downs Body Position Standing Water Level [place] Equipment barbells Comments slow motion lateral pull downs , slow motion up also Spinal Exercises 3 Details standing w/perturbations 1 Details [place] Stabilization Water Level [place] Equipment Large Noodle [place] Activities [place] Activities [place] Running Equipment noodle Duration 15 min Comments 5 rounds of 30:30 intervals PT-OP-T Assessment and Plan Start: 06/08/17 08:13 Freq: Status: Active Protocol: Document 11/22/17 10:15 ESTELLE (Rec: 11/22/17 14:43 LJ [email or web address]) Physical Therapy Assessment Goals Three Impairment Pain due to soft tissue muscle guarding limiting functional ability. Internet Sales Associate Goal (LTG) TIEN Questionnaire Score - less than 19 (goal progress; decreased by 4 points) LTG Duration 2 months Two Internet Sales Associate Goal (LTG) Pt will be able to demonstrate improved posture and gait mechanics with improved trunk and hip mobility. (good goal progress LTG Duration 2 months One Impairment Pain limiting functional mobility Short Term Goal (STG) Pt will demonstrate ability to transfer sit to stand and move in bed with decreased pain. (goal progress) Half-Way Goal (LTG) Pt will be able to return to work on a limited basis with tolerable pain. (patient still unable to work) LTG Duration 2 months Progress Towards Goals Progress Comments Pt demonstrates stability in chest deep water w/ perturbations. Improved alignment in deep water activities. Pt would benefit from aquatic HEP and land based PT Assessment Summary Assessment Pt progressing with balance and posture while walking in shallow water. Less guarding and improved posture and core control during shallow water exercises. Pt shows increase in exercise tolerance and endurance with fewer complaints and less resistance to slight increase in intensity of exercises. Physical Therapy Plan Frequency and Duration Frequency of Treatment 2x/Week Duration of Treatment 2 months Plan of Care Start Date 11/01/17 Plan of Care End Date 01/01/18 Therapeutic Interventions Therapeutic Interventions Aquatic Therapy Home Exercise Program Manual Therapy Patient/Caregiver Education Self-Care/Home Management Soft Tissue Mobilization Taping Therapeutic Activities Therapeutic Exercises Modalities Cold Pack/Ice Massage Electric Stimulation Hot Packs Ultrasound Next Visit Focus/Plan Next Visit Plan Increase level of core stabilization exercises and pace of deep water intervals. Continue with lateral pull downs next visit in shallow water so pt does not need noodle under arms.
--- NOTE | 2017-11-27 14:53 | PT.OTN ---
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 He was air lifted to [facility] in [place] and was placed in a TLSO brace for 8 weeks. Pt reports having a burst fracture at T1, the 01/02/17 X -ray indicated: Moderate compression fracture of L1 vertebral body with mild postierior displacement and hematoma at T12, L1 & L2. Other medical records indicate follow up care for L1 burst fracture, pt had been in brace for 10 weeks or so and was last seen by jono Quiles in March of this year. Pt is being referred for back pain for both upper/ mid and L/S spine. Future Testing and Treatments Planned Pt reports he is scheduled to see his [facility] physician soon to discuss possible surgery. Treatment Goals Patient/Caregiver Goals Pt goal is to feel normal, decreased pain, improve ability to sleep and to tolerate static positioning. 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 Baseline Function- Recreation/Hobbies G PT-OP-C Subjective Start: 06/08/17 08:13 Freq: Status: Active Protocol: Document 11/27/17 10:15 LJ (Rec: 11/27/17 14:53 LJ [email or web address]) OP-PT Subjective Patient Comments Patient Comments Pt reports he will be done with 's doc visits next week and will be able to schedule massage therapy for himself soon. Wishing he was fishing rather than in therapy . PT-OP-F Manual Assessment Start: 06/08/17 08:13 Freq: Status: Active Protocol: Document 06/08/17 16:49 LRN (Rec: 06/09/17 14:40 LRN [id number]) Manual Assessments Soft Tissue Assessment Soft Tissue Mobility Assessment Muscle guarding and tightness in the entire posterior thoracic and lumbar muscle groups. Joint Mobility Assessment Joint Mobility Assessment Deferred spinal mobility assessment. PT-OP-G Mobility & Gait Start: 06/08/17 16:33 Freq: Status: Active Protocol: Document 06/08/17 16:49 LRN (Rec: 06/09/17 14:40 LRN [id number]) OP Mobility Evaluation Bed Mobility Rolling Independent. Slow and cautious. Supine to and from Sit Independent. Slow and cautious. Transfers Sit to Stand Independent. Slow and cautious/ Functional Movements Lifting and Carrying Deferred Squats Deferred OP Gait Assessment Gait Deviations General Gait Pattern Wide Based Gait Factors Limiting Gait Function Factors Limiting Gait Function Limited Range of Motion Pain Comments Gait Comments Slow gait with excessive trunk sway. PT-OP-H Neuro Start: 06/08/17 08:13 Freq: Status: Active Protocol: Document 06/08/17 16:49 LRN (Rec: 06/09/17 14:40 LRN [id number]) Sensation Evaluation Gross Sensation Gross Sensation WNL Deep Tendon Reflex & Clonus Assessment Deep Tendon Reflex Left Achilles Deep Tendon Reflex 2+ Normal Right Achilles Deep Tendon Reflex 3+ Normal But Brisk PT-OP-J Posture/Palpation/Skin Start: 06/08/17 08:13 Freq: Status: Active Protocol: Document 06/08/17 16:49 LRN (Rec: 06/09/17 14:40 LRN [id number]) Posture Evaluation Position Standing Evaluation View Lateral Head/C-Spine Posture Forward Head T-Spine Posture Flattened L-Spine Posture Flattened Shoulder Posture (R) Forward Pelvis Posture Posterior Tilted Ankle/Foot Posture (R) Forefoot Abducted Foot Arch (L) High Arch (R) High Arch Comments Posture Comments Lumbar spine is tilted Left with a C-Curve of the Thoracic spine with the apex on the left. Palpation Assessment Location One Palpation Location Thoracic and Lumbar spine Palpation Findings Muscle Guarding PT-OP-K Range of Motion Start: 06/08/17 08:13 Freq: Status: Active Protocol: Document 06/08/17 16:49 LRN (Rec: 06/09/17 14:40 LRN [id number]) Lumbar Spine Range of Motion Lumbar Spine Active Testing Position Standing Flexion 5 Extension 3 Lateral Flexion Left 3 Lateral Flexion Right 5 ROM Limitations Pain Comments Measurements taken degrees. Shoulder Goniometric Range of Motion Shoulder Measured in Degrees Right Active Shoulder ROM WFL Yes Testing Position Sitting Left Active Shoulder ROM WFL Yes Testing Position Sitting Hip Goniometric Range of Motion Hip Measured in Degrees Left Active Hip ROM WFL No Testing Position Prone Right Active Hip ROM WFL No Testing Position Prone Hip ROM Limitations Hip ROM Limitations Pain Comments Hip ER is decreased 50% of normal bilaterally. PT-OP-M Strength Start: 06/08/17 08:13 Freq: Status: Active Protocol: Document 06/08/17 16:49 LRN (Rec: 06/09/17 14:40 LRN [id number]) Trunk Strength Trunk Manual Muscle Testing Testing Position Sitting Reason Not Measured Pain Comments Pt can actively rotate in sitting ~ 28 deg's left, 10 deg's right. He is not able to lean forward in sitting and is unable to perform an abdominal curl due to back pain. Shoulder Strength Shoulder Manual Muscle Testing Left Reason Not Measured Pain Right Reason Not Measured Pain Comments Deferred due to back pain Hip Strength Hip Manual Muscle Testing Left Reason Not Measured Pain Right Reason Not Measured Pain PT-OP-Q Treatments Start: 06/08/17 08:13 Freq: Status: Active Protocol: Document 06/27/17 09:45 GGD (Rec: 06/27/17 11:11 GGD [id number]) Therapeutic Exercises Supine Exercises 6 Supine Exercise Name supine pelvic tilt Comments small ROM 5 Supine Exercise Name hooklying TrA stab Reps/Minutes 4 3 Supine Exercise Name Single KTC Reps/Minutes 4 1 Supine Exercise Name Hamstring str Reps/Minutes 4 Sidelying Exercises 2 Sidelying Exercise Name Reverse Clam Shells Side bilateral Reps/Minutes x15 1 Sidelying Exercise Name Clam Shells Side bilateral Reps/Minutes x15 Manual Therapy Treatment Soft Tissue Mobilization 1 Body Location Thoracic/Lumbar paraspinals Mobilization Type Sustained Pressure Trigger Point Release Body Position Prone PT-OP-R Modalities Start: 06/08/17 08:13 Freq: Status: Active Protocol: Document 06/20/17 13:24 EA (Rec: 06/20/17 13:24 EA [id number]) Electric Stimulation Electric Stimulation Interferential Current (IFC) Body Location T/S, L/S Duration (Minutes) 10 Combined With Heat/Cold Hot Pack Comments prone PT-OP-S Aquatic Treatment Start: 07/24/17 16:26 Freq: Status: Active Protocol: Document 11/27/17 10:15 ESTELLE (Rec: 11/27/17 14:53 LJ [email or web address]) Aquatics Treatment Pool Entry/Exit Pool Entry/Exit Method Stairs Assistance Independent Water Walking [place] April Water Level Chest Level Level of Assistance Verbal Cues Comments slow motion for core mm initiation Backwards Water Level Chest Level Level of Assistance Standby Assistance Verbal Cues Comments slow motion for core mm iniation Lower Extremity Exercises 5 Details HS curls Body Position Standing Water Level Chest Level Reps/Duration 2 x 10 Comments #5 w/heel pushing into wall 4 Details Squats Body Position Standing Reps/Duration 5 Comments against wall 2 Details hip abd/add Body Position Standing Water Level Chest Level Reps/Duration x20 Comments #5 wts 1 Details hip flx/ext Body Position Standing Water Level Chest Level Reps/Duration x 20 Lower Extremity Stretches 1 Details Hamstring Body Position Standing Water Level Waist Level Equipment Small Noodle 2 Details single knee to chest Body Position Standing Water Level Chest Level Reps/Duration x2 Comments at wall Upper Extremity Exercises 1 Details Shoulder Horiz AB/AD, AB/AB Body Position Standing Water Level Chest Level Equipment Neck Float Comments Bilateral/unilateral, core stabilization emphasis Spinal Exercises 3 Details standing w/perturbations 1 Details [place] Stabilization Water Level [place] Equipment Large Noodle [place] Activities [place] Activities Bicycle Cross Country Running Hip Abduction/Adduction Equipment noodle Duration 10 min Comments 8 rounds of 30/15 intervals Manual Techniques Aquatic Massage Ball against wall self assisted soft tissue release erector spinae PT-OP-T Assessment and Plan Start: 06/08/17 08:13 Freq: Status: Active Protocol: Document 11/27/17 10:15 ESTELLE (Rec: 11/27/17 14:53 LJ [email or web address]) Physical Therapy Assessment Goals Three Impairment Pain due to soft tissue muscle guarding limiting functional ability. 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 (good goal progress One Short Term Goal (STG) Pt will demonstrate ability to transfer sit to stand and move in bed with decreased pain. (goal progress) Half-Way Goal (LTG) Pt will be able to return to work on a limited basis with tolerable pain. (patient still unable to work) Progress Towards Goals Progress Comments Pt demonstrates normalized scapular stability during dynamic and static exercises in shallow water. Self assisted soft tissue release enabled pt to perform mini squats w/o increase in pain. Pt able to tolerate increase in intensity of deep water intervals. Assessment Summary Assessment Pt demonstrates improvement in flexibility and mobility as well as toleration for increase in exercise intensity . Transition to land based therapy to complete goals for returning to work. Physical Therapy Plan Frequency and Duration Frequency of Treatment 2x/Week Duration of Treatment 2 months Plan of Care Start Date 11/01/17 Plan of Care End Date 01/01/18 Therapeutic Interventions Therapeutic Interventions Home Exercise Program Manual Therapy Patient/Caregiver Education Self-Care/Home Management Soft Tissue Mobilization Taping Therapeutic Activities Therapeutic Exercises Modalities Cold Pack/Ice Massage Electric Stimulation Hot Packs Ultrasound Next Visit Focus/Plan Next Note Type Treatment Note Next Visit Plan Perform sit>standon table; stairs w/o using UEs; deep and shallow water intensity exercises.
--- NOTE | 2017-11-29 14:44 | PT.OTN ---
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 He was air lifted to [facility] in [place] and was placed in a TLSO brace for 8 weeks. Pt reports having a burst fracture at T1, the 01/02/17 X -ray indicated: Moderate compression fracture of L1 vertebral body with mild postierior displacement and hematoma at T12, L1 & L2. Other medical records indicate follow up care for L1 burst fracture, pt had been in brace for 10 weeks or so and was last seen by jono Quiles in March of this year. Pt is being referred for back pain for both upper/ mid and L/S spine. Future Testing and Treatments Planned Pt reports he is scheduled to see his [facility] physician soon to discuss possible surgery. Treatment Goals Patient/Caregiver Goals Pt goal is to feel normal, decreased pain, improve ability to sleep and to tolerate static positioning. 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 Baseline Function- Recreation/Hobbies G PT-OP-C Subjective Start: 06/08/17 08:13 Freq: Status: Active Protocol: Document 11/29/17 10:15 LJ (Rec: 11/29/17 14:44 LJ [email or web address]) OP-PT Subjective Patient Comments Patient Comments Pt reports he has no increase in pain after the last aquatic session which was of a higher intensity. PT-OP-F Manual Assessment Start: 06/08/17 08:13 Freq: Status: Active Protocol: Document 06/08/17 16:49 LRN (Rec: 06/09/17 14:40 LRN [id number]) Manual Assessments Soft Tissue Assessment Soft Tissue Mobility Assessment Muscle guarding and tightness in the entire posterior thoracic and lumbar muscle groups. Joint Mobility Assessment Joint Mobility Assessment Deferred spinal mobility assessment. PT-OP-G Mobility & Gait Start: 06/08/17 16:33 Freq: Status: Active Protocol: Document 06/08/17 16:49 LRN (Rec: 06/09/17 14:40 LRN [id number]) OP Mobility Evaluation Bed Mobility Rolling Independent. Slow and cautious. Supine to and from Sit Independent. Slow and cautious. Transfers Sit to Stand Independent. Slow and cautious/ Functional Movements Lifting and Carrying Deferred Squats Deferred OP Gait Assessment Gait Deviations General Gait Pattern Wide Based Gait Factors Limiting Gait Function Factors Limiting Gait Function Limited Range of Motion Pain Comments Gait Comments Slow gait with excessive trunk sway. PT-OP-H Neuro Start: 06/08/17 08:13 Freq: Status: Active Protocol: Document 06/08/17 16:49 LRN (Rec: 06/09/17 14:40 LRN [id number]) Sensation Evaluation Gross Sensation Gross Sensation WNL Deep Tendon Reflex & Clonus Assessment Deep Tendon Reflex Left Achilles Deep Tendon Reflex 2+ Normal Right Achilles Deep Tendon Reflex 3+ Normal But Brisk PT-OP-J Posture/Palpation/Skin Start: 06/08/17 08:13 Freq: Status: Active Protocol: Document 06/08/17 16:49 LRN (Rec: 06/09/17 14:40 LRN [id number]) Posture Evaluation Position Standing Evaluation View Lateral Head/C-Spine Posture Forward Head T-Spine Posture Flattened L-Spine Posture Flattened Shoulder Posture (R) Forward Pelvis Posture Posterior Tilted Ankle/Foot Posture (R) Forefoot Abducted Foot Arch (L) High Arch (R) High Arch Comments Posture Comments Lumbar spine is tilted Left with a C-Curve of the Thoracic spine with the apex on the left. Palpation Assessment Location One Palpation Location Thoracic and Lumbar spine Palpation Findings Muscle Guarding PT-OP-K Range of Motion Start: 06/08/17 08:13 Freq: Status: Active Protocol: Document 06/08/17 16:49 LRN (Rec: 06/09/17 14:40 LRN [id number]) Lumbar Spine Range of Motion Lumbar Spine Active Testing Position Standing Flexion 5 Extension 3 Lateral Flexion Left 3 Lateral Flexion Right 5 ROM Limitations Pain Comments Measurements taken degrees. Shoulder Goniometric Range of Motion Shoulder Measured in Degrees Right Active Shoulder ROM WFL Yes Testing Position Sitting Left Active Shoulder ROM WFL Yes Testing Position Sitting Hip Goniometric Range of Motion Hip Measured in Degrees Left Active Hip ROM WFL No Testing Position Prone Right Active Hip ROM WFL No Testing Position Prone Hip ROM Limitations Hip ROM Limitations Pain Comments Hip ER is decreased 50% of normal bilaterally. PT-OP-M Strength Start: 06/08/17 08:13 Freq: Status: Active Protocol: Document 06/08/17 16:49 LRN (Rec: 06/09/17 14:40 LRN [id number]) Trunk Strength Trunk Manual Muscle Testing Testing Position Sitting Reason Not Measured Pain Comments Pt can actively rotate in sitting ~ 28 deg's left, 10 deg's right. He is not able to lean forward in sitting and is unable to perform an abdominal curl due to back pain. Shoulder Strength Shoulder Manual Muscle Testing Left Reason Not Measured Pain Right Reason Not Measured Pain Comments Deferred due to back pain Hip Strength Hip Manual Muscle Testing Left Reason Not Measured Pain Right Reason Not Measured Pain PT-OP-Q Treatments Start: 06/08/17 08:13 Freq: Status: Active Protocol: Document 06/27/17 09:45 GGD (Rec: 06/27/17 11:11 GGD [email or web address]) Therapeutic Exercises Supine Exercises 6 Supine Exercise Name supine pelvic tilt Comments small ROM 5 Supine Exercise Name hooklying TrA stab Reps/Minutes 4 3 Supine Exercise Name Single KTC Reps/Minutes 4 1 Supine Exercise Name Hamstring str Reps/Minutes 4 Sidelying Exercises 2 Sidelying Exercise Name Reverse Clam Shells Side bilateral Reps/Minutes x15 1 Sidelying Exercise Name Clam Shells Side bilateral Reps/Minutes x15 Manual Therapy Treatment Soft Tissue Mobilization 1 Body Location Thoracic/Lumbar paraspinals Mobilization Type Sustained Pressure Trigger Point Release Body Position Prone PT-OP-R Modalities Start: 06/08/17 08:13 Freq: Status: Active Protocol: Document 06/20/17 13:24 EA (Rec: 06/20/17 13:24 EA [id number]) Electric Stimulation Electric Stimulation Interferential Current (IFC) Body Location T/S, L/S Duration (Minutes) 10 Combined With Heat/Cold Hot Pack Comments prone PT-OP-S Aquatic Treatment Start: 07/24/17 16:26 Freq: Status: Active Protocol: Document 11/29/17 10:15 LJ (Rec: 11/29/17 14:44 LJ [email or web address]) Aquatics Treatment Pool Entry/Exit Pool Entry/Exit Method Stairs Assistance Independent Water Walking [place] April Water Level Chest Level Level of Assistance Verbal Cues Comments slow motion for core mm initiation goose stepping Water Level Chest Level Level of Assistance Verbal Cues Backwards Water Level Chest Level Level of Assistance Standby Assistance Verbal Cues Comments slow motion for core mm iniation Sideways Water Level Chest Level Level of Assistance Standby Assistance Verbal Cues Forwards Water Level Chest Level Level of Assistance Verbal Cues Lower Extremity Exercises 5 Details HS curls Body Position Standing Water Level Chest Level Reps/Duration 2 x 10 Comments #5 w/heel pushing into wall 4 Details Squats Body Position Standing Reps/Duration 20 Comments holding #5 pudhing forward then side to side Lower Extremity Stretches 1 Details Hamstring Body Position Standing Water Level Waist Level Equipment Small Noodle Upper Extremity Exercises pull downs Body Position Standing Water Level [place] Equipment barbells 3 Details push/pull Equipment UE paddles Reps/Duration 2 x 10 2 Details shoulder fl/ext Body Position Standing Water Level Chest Level Equipment UE paddles Reps/Duration 2 x 10 Comments cues for shoulder retraction [place] Activities [place] Activities Bicycle Cross [place] Running Hip Abduction/Adduction Equipment noodle Duration 10 min Comments 8 rounds of 40/20 intervals at max intensity PT-OP-T Assessment and Plan Start: 06/08/17 08:13 Freq: Status: Active Protocol: Document 11/29/17 10:15 LJ (Rec: 11/29/17 14:44 LJ [email or web address]) Physical Therapy Assessment Goals Three Impairment Pain due to soft tissue muscle guarding limiting functional ability. Care Home Goal (LTG) TIEN Questionnaire Score - less than 19 (goal progress; decreased by 4 points) LTG Duration 2 months Two Care Home Goal (LTG) Pt will be able to demonstrate improved posture and gait mechanics with improved trunk and hip mobility. (good goal progress One Short Term Goal (STG) Pt will demonstrate ability to transfer sit to stand and move in bed with decreased pain. (goal progress) Care Home Goal (LTG) Pt will be able to return to work on a limited basis with tolerable pain. (patient still unable to work) Progress Towards Goals Progress Comments Pt improved in dymnamic stabilization demonstrated by no LOB during slow motion walking all directions. Endurance improved evidenced by greater effort with deep water exercises. Assessment Summary Assessment Pt progressing with balance and posture while walking all directions in shallow water. No guarding and improved use of UEs during shallow water exercises. Pt shows increase in exercise tolerance and endurance with fewer complaints and less resistance to slight increase in intensity of exercises. Pt to transition Physical Therapy Plan Frequency and Duration Frequency of Treatment 2x/Week Duration of Treatment 2 months Plan of Care Start Date 11/01/17 Plan of Care End Date 01/01/18 Therapeutic Interventions Therapeutic Interventions Home Exercise Program Manual Therapy Patient/Caregiver Education Self-Care/Home Management Soft Tissue Mobilization Taping Therapeutic Activities Therapeutic Exercises Modalities Cold Pack/Ice Massage Electric Stimulation Hot Packs Ultrasound Next Visit Focus/Plan Next Note Type Treatment Note Next Visit Plan Transition to land based program with 1 x week aquatic for 2 weeks
--- NOTE | 2018-01-18 11:45 | PT.OTRE ---
Current Diagnoses Low back pain (01/17/18) Pain in thoracic spine (01/17/18) Wedge compression fracture of first lumbar vertebra, initial encounter for closed fracture (01/17/18) Provider Visit Care Team Role Provider Type Lillie Ramirez MD Family Provider Non-Staff Specialty: Family Practice Address: [address] [place] [address], [place], [address] Email: Melissa Kuo PA-C Attending Provider Advanced Advertising Executive Specialty: Family Practice Address: [address] [place] [address], [id number] Email: [email or web address] Physical Therapy Re-Evaluation PT-OP-A Visit Information Start: 06/08/17 08:13 Freq: Status: Active Protocol: Document 01/15/18 11:00 SAK (Rec: 01/18/18 10:27 SAK [id number]) Out-Patient Physical Therapy Visit Information Visit Information Visit Type Progress Note Visit Note Aquatic treatment note Visit Start Time 11:00 Visit Stop Time 11:45 Total Visit Minutes 45 Visit Number 35 Number of PIPE INSULATOR Visits 0 PT-OP-B Current Condition Start: 06/08/17 08:13 Freq: Status: Active Protocol: Document 06/09/17 08:16 LRN (Rec: 06/09/17 08:43 LRN [id number]) Current Condition History of Current Condition Onset Date 01/02/2017 Current Complaints Back pain, unable to work, sleep disturbance, difficulty with transfers History of Current Condition Pt reports falling off a ladder ~18' high (records indicate ~25') landing on his back and hitting his head, causing a loss of consciousness. He was air lifted to [facility] in [place] and was placed in a TLSO brace for 8 weeks. Pt reports having a burst fracture at T1, the 01/02/17 X -ray indicated: Moderate compression fracture of L1 vertebral body with mild postierior displacement and hematoma at T12, L1 & L2. Other medical records indicate follow up care for L1 burst fracture, pt had been in brace for 10 weeks or so and was last seen by jono Quiles in March of this year. Pt is being referred for back pain for both upper/ mid and L/S spine. Future Testing and Treatments Planned Pt reports he is scheduled to see his [facility] physician soon to discuss possible surgery. Treatment Goals Patient/Caregiver Goals Pt goal is to feel normal, decreased pain, improve ability to sleep and to tolerate static positioning. 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 Baseline Function- Recreation/Hobbies G PT-OP-C Subjective Start: 06/08/17 08:13 Freq: Status: Active Protocol: Document 01/15/18 11:00 SAK (Rec: 01/18/18 10:27 SAK [id number]) OP-PT Subjective Patient Comments Patient Comments Patient reports he hasn't been to the pool for aquatic exercise depsite recommendation from PT staff to try on his own while waiting to get rescheduled. Also reports not doing HEP very much. Pain persists. Saw surgeon who recommended fusion with cage which patient reports he is not sure of. Agreeable to combination land and aquatic PT at this time. OP-PT Pain Assessment Pain Assessment Grid Paper Pain Assessment Grid Completed Yes Location Bilateral Lower Posterior Medial Back Pain Location Details 4-6 Scale Used Numeric (1 - 10) PT-OP-F Manual Assessment Start: 06/08/17 08:13 Freq: Status: Active Protocol: Document 06/08/17 16:49 LRN (Rec: 06/09/17 14:40 LRN [id number]) Manual Assessments Soft Tissue Assessment Soft Tissue Mobility Assessment Muscle guarding and tightness in the entire posterior thoracic and lumbar muscle groups. Joint Mobility Assessment Joint Mobility Assessment Deferred spinal mobility assessment. PT-OP-G Mobility & Gait Start: 06/08/17 16:33 Freq: Status: Active Protocol: Document 06/08/17 16:49 LRN (Rec: 06/09/17 14:40 LRN [id number]) OP Mobility Evaluation Bed Mobility Rolling Independent. Slow and cautious. Supine to and from Sit Independent. Slow and cautious. Transfers Sit to Stand Independent. Slow and cautious/ Functional Movements Lifting and Carrying Deferred Squats Deferred OP Gait Assessment Gait Deviations General Gait Pattern Wide Based Gait Factors Limiting Gait Function Factors Limiting Gait Function Limited Range of Motion Pain Comments Gait Comments Slow gait with excessive trunk sway. PT-OP-H Neuro Start: 06/08/17 08:13 Freq: Status: Active Protocol: Document 06/08/17 16:49 LRN (Rec: 06/09/17 14:40 LRN [id number]) Sensation Evaluation Gross Sensation Gross Sensation WNL Deep Tendon Reflex & Clonus Assessment Deep Tendon Reflex Left Achilles Deep Tendon Reflex 2+ Normal Right Achilles Deep Tendon Reflex 3+ Normal But Brisk PT-OP-J Posture/Palpation/Skin Start: 06/08/17 08:13 Freq: Status: Active Protocol: Document 06/08/17 16:49 LRN (Rec: 06/09/17 14:40 LRN [id number]) Posture Evaluation Position Standing Evaluation View Lateral Head/C-Spine Posture Forward Head T-Spine Posture Flattened L-Spine Posture Flattened Shoulder Posture (R) Forward Pelvis Posture Posterior Tilted Ankle/Foot Posture (R) Forefoot Abducted Foot Arch (L) High Arch (R) High Arch Comments Posture Comments Lumbar spine is tilted Left with a C-Curve of the Thoracic spine with the apex on the left. Palpation Assessment Location One Palpation Location Thoracic and Lumbar spine Palpation Findings Muscle Guarding PT-OP-K Range of Motion Start: 06/08/17 08:13 Freq: Status: Active Protocol: Document 06/08/17 16:49 LRN (Rec: 06/09/17 14:40 LRN [id number]) Lumbar Spine Range of Motion Lumbar Spine Active Testing Position Standing Flexion 5 Extension 3 Lateral Flexion Left 3 Lateral Flexion Right 5 ROM Limitations Pain Comments Measurements taken degrees. Shoulder Goniometric Range of Motion Shoulder Measured in Degrees Right Active Shoulder ROM WFL Yes Testing Position Sitting Left Active Shoulder ROM WFL Yes Testing Position Sitting Hip Goniometric Range of Motion Hip Measured in Degrees Left Active Hip ROM WFL No Testing Position Prone Right Active Hip ROM WFL No Testing Position Prone Hip ROM Limitations Hip ROM Limitations Pain Comments Hip ER is decreased 50% of normal bilaterally. PT-OP-M Strength Start: 06/08/17 08:13 Freq: Status: Active Protocol: Document 06/08/17 16:49 LRN (Rec: 06/09/17 14:40 LRN [id number]) Trunk Strength Trunk Manual Muscle Testing Testing Position Sitting Reason Not Measured Pain Comments Pt can actively rotate in sitting ~ 28 deg's left, 10 deg's right. He is not able to lean forward in sitting and is unable to perform an abdominal curl due to back pain. Shoulder Strength Shoulder Manual Muscle Testing Left Reason Not Measured Pain Right Reason Not Measured Pain Comments Deferred due to back pain Hip Strength Hip Manual Muscle Testing Left Reason Not Measured Pain Right Reason Not Measured Pain PT-OP-Q Treatments Start: 06/08/17 08:13 Freq: Status: Active Protocol: Document 06/27/17 09:45 GGD (Rec: 06/27/17 11:11 GGD [id number]) Therapeutic Exercises Supine Exercises 6 Supine Exercise Name supine pelvic tilt Comments small ROM 5 Supine Exercise Name hooklying TrA stab Reps/Minutes 4 3 Supine Exercise Name Single KTC Reps/Minutes 4 1 Supine Exercise Name Hamstring str Reps/Minutes 4 Sidelying Exercises 2 Sidelying Exercise Name Reverse Clam Shells Side bilateral Reps/Minutes x15 1 Sidelying Exercise Name Clam Shells Side bilateral Reps/Minutes x15 Manual Therapy Treatment Soft Tissue Mobilization 1 Body Location Thoracic/Lumbar paraspinals Mobilization Type Sustained Pressure Trigger Point Release Body Position Prone PT-OP-R Modalities Start: 06/08/17 08:13 Freq: Status: Active Protocol: Document 06/20/17 13:24 EA (Rec: 06/20/17 13:24 EA [id number]) Electric Stimulation Electric Stimulation Interferential Current (IFC) Body Location T/S, L/S Duration (Minutes) 10 Combined With Heat/Cold Hot Pack Comments prone PT-OP-T Assessment and Plan Start: 06/08/17 08:13 Freq: Status: Active Protocol: Document 01/15/18 11:00 SAK (Rec: 01/18/18 10:27 SAK [id number]) Physical Therapy Assessment Goals Three Impairment Pain due to soft tissue muscle guarding limiting functional ability. Educational/Development Assistant Goal (LTG) TIEN Questionnaire Score - less than 19 (no change since last seen) LTG Duration 2 months Two Educational/Development Assistant Goal (LTG) Pt will be able to demonstrate improved posture and gait mechanics with improved trunk and hip mobility. (good goal progress One Short Term Goal (STG) Pt will demonstrate ability to transfer sit to stand and move in bed with decreased pain. (goal progress) Educational/Development Assistant Goal (LTG) Pt will be able to return to work on a limited basis with tolerable pain. (patient still unable to work) Progress Towards Goals Progress Comments Decreased exercise tolerance due to not seen for 6 wks with poor follow-through with aquatic exercise and HEP on own. Stressed importance of patient taking ownership of helping himself to get better. Patient agreeable. Assessment Summary Assessment Treatment modified today, not as intense due to 6 wks without aquatic exercise. Need to assure patient safe and indpendent and compliant to independent aquatic exercise. His has been continuing to go through cancer treatments which has been a factor in his willingness to spend time on himself. Today he reports his is winning in her fight against cancer. Am hopeful patient will be able to be more compliant with HEP and be willing to comply with aquatic exercise on his own; much emphasis on this today. Physical Therapy Plan Frequency and Duration Frequency of Treatment 2x/Week Duration of Treatment 2 months Plan of Care Start Date 11/01/17 Plan of Care End Date 01/01/18 Therapeutic Interventions Therapeutic Interventions Home Exercise Program Manual Therapy Patient/Caregiver Education Self-Care/Home Management Soft Tissue Mobilization Taping Therapeutic Activities Therapeutic Exercises Modalities Cold Pack/Ice Massage Electric Stimulation Hot Packs Ultrasound Next Visit Focus/Plan Next Note Type Treatment Note Next Visit Plan Land-based PT visit; review and progress land-based HEP and ther ex as tolerated. POC to emphasize progression of land-based activity and ther ex, modalities and manual therapy as needed for pain.
--- NOTE | 2018-01-18 11:45 | PT.OPPOC ---
Current Diagnoses Low back pain (01/17/18) Pain in thoracic spine (01/17/18) Wedge compression fracture of first lumbar vertebra, initial encounter for closed fracture (01/17/18) Provider Visit Care Team Role Provider Type Lillie Ramirez MD Family Provider Non-Staff Specialty: Family Practice Address: [address] [place] [address], [place], [address] Email: Melissa Kuo PA-C Attending Provider Advanced Pointer Machine Operator Specialty: Family Practice Address: [address] [place] [address], [id number] Email: [email or web address] Plan Of Care PT-OP-T Assessment and Plan Start: 06/08/17 08:13 Freq: Status: Active Protocol: Document 01/15/18 11:[address] [facility] (Rec: 01/18/18 10:[address] [facility] [id number]) Physical Therapy Assessment Goals Three Impairment Pain due to soft tissue muscle guarding limiting functional ability. Rectifying Attendant Goal (LTG) TIEN Questionnaire Score - less than 19 (no change since last seen) LTG Duration 2 months Two Detention Goal (LTG) Pt will be able to demonstrate improved posture and gait mechanics with improved trunk and hip mobility. (good goal progress One Short Term Goal (STG) Pt will demonstrate ability to transfer sit to stand and move in bed with decreased pain. (goal progress) Rectifying Attendant Goal (LTG) Pt will be able to return to work on a limited basis with tolerable pain. (patient still unable to work) Progress Towards Goals Progress Comments Decreased exercise tolerance due to not seen for 6 wks with poor follow-through with aquatic exercise and HEP on own. Stressed importance of patient taking ownership of helping himself to get better. Patient agreeable. Assessment Summary Assessment Treatment modified today, not as intense due to 6 wks without aquatic exercise. Need to assure patient safe and indpendent and compliant to independent aquatic exercise. His has been continuing to go through cancer treatments which has been a factor in his willingness to spend time on himself. Today he reports his is winning in her fight against cancer. Am hopeful patient will be able to be more compliant with HEP and be willing to comply with aquatic exercise on his own; much emphasis on this today. Physical Therapy Plan Frequency and Duration Frequency of Treatment 2x/Week Duration of Treatment 2 months Plan of Care Start Date 11/01/17 Plan of Care End Date 01/01/18 Therapeutic Interventions Therapeutic Interventions Home Exercise Program Manual Therapy Patient/Caregiver Education Self-Care/Home Management Soft Tissue Mobilization Taping Therapeutic Activities Therapeutic Exercises Modalities Cold Pack/Ice Massage Electric Stimulation Hot Packs Ultrasound Next Visit Focus/Plan Next Note Type Treatment Note Next Visit Plan Land-based PT visit; review and progress land-based HEP and ther ex as tolerated. POC to emphasize progression of land-based activity and ther ex, modalities and manual therapy as needed for pain. Plan of Care Dates Plan of Care Start Date 11/01/17 Plan of Care End Date 01/01/18 Please Sign and Return: I have reviewed this Plan of Care and certify that the skilled therapy services above are required to meet the patient?s needs. Physician Signature Date Printed Name and Credentials Clinical Instructor Signature Printed Name and Credentials
--- NOTE | 2018-01-18 11:53 | PT.OTN ---
Current Diagnoses Low back pain (01/17/18) Pain in thoracic spine (01/17/18) Wedge compression fracture of first lumbar vertebra, initial encounter for closed fracture (01/17/18) Physical Therapy Treatment Note PT-OP-A Visit Information Start: 06/08/17 08:13 Freq: Status: Active Protocol: Document 01/17/18 14:30 SAK (Rec: 01/18/18 11:50 SAK [id number]) Out-Patient Physical Therapy Visit Information Visit Information Visit Type Treatment Note Visit Start Time 14:30 Visit Stop Time 15:25 Total Visit Minutes 55 Visit Number 36 Number of REVENUE ACCOUNTING MANAGER Visits 0 PT-OP-B Current Condition Start: 06/08/17 08:13 Freq: Status: Active Protocol: Document 06/09/17 08:16 LRN (Rec: 06/09/17 08:43 LRN [id number]) Current Condition History of Current Condition Onset Date 01/02/2017 Current Complaints Back pain, unable to work, sleep disturbance, difficulty with transfers History of Current Condition Pt reports falling off a ladder ~18' high (records indicate ~25') landing on his back and hitting his head, causing a loss of consciousness. He was air lifted to [facility] in [place] and was placed in a TLSO brace for 8 weeks. Pt reports having a burst fracture at T1, the 01/02/17 X -ray indicated: Moderate compression fracture of L1 vertebral body with mild postierior displacement and hematoma at T12, L1 & L2. Other medical records indicate follow up care for L1 burst fracture, pt had been in brace for 10 weeks or so and was last seen by jono Quiles in March of this year. Pt is being referred for back pain for both upper/ mid and L/S spine. Future Testing and Treatments Planned Pt reports he is scheduled to see his [facility] physician soon to discuss possible surgery. Treatment Goals Patient/Caregiver Goals Pt goal is to feel normal, decreased pain, improve ability to sleep and to tolerate static positioning. 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 Baseline Function- Recreation/Hobbies G PT-OP-C Subjective Start: 06/08/17 08:13 Freq: Status: Active Protocol: Document 01/17/18 14:30 SAK (Rec: 01/18/18 11:50 SAK [id number]) OP-PT Subjective Patient Comments Patient Comments Reports tired and sore from return to aquatic PT, some increase in pain. PT-OP-F Manual Assessment Start: 06/08/17 08:13 Freq: Status: Active Protocol: Document 06/08/17 16:49 LRN (Rec: 06/09/17 14:40 LRN [id number]) Manual Assessments Soft Tissue Assessment Soft Tissue Mobility Assessment Muscle guarding and tightness in the entire posterior thoracic and lumbar muscle groups. Joint Mobility Assessment Joint Mobility Assessment Deferred spinal mobility assessment. PT-OP-G Mobility & Gait Start: 06/08/17 16:33 Freq: Status: Active Protocol: Document 06/08/17 16:49 LRN (Rec: 06/09/17 14:40 LRN [id number]) OP Mobility Evaluation Bed Mobility Rolling Independent. Slow and cautious. Supine to and from Sit Independent. Slow and cautious. Transfers Sit to Stand Independent. Slow and cautious/ Functional Movements Lifting and Carrying Deferred Squats Deferred OP Gait Assessment Gait Deviations General Gait Pattern Wide Based Gait Factors Limiting Gait Function Factors Limiting Gait Function Limited Range of Motion Pain Comments Gait Comments Slow gait with excessive trunk sway. PT-OP-H Neuro Start: 06/08/17 08:13 Freq: Status: Active Protocol: Document 06/08/17 16:49 LRN (Rec: 06/09/17 14:40 LRN [id number]) Sensation Evaluation Gross Sensation Gross Sensation WNL Deep Tendon Reflex & Clonus Assessment Deep Tendon Reflex Left Achilles Deep Tendon Reflex 2+ Normal Right Achilles Deep Tendon Reflex 3+ Normal But Brisk PT-OP-J Posture/Palpation/Skin Start: 06/08/17 08:13 Freq: Status: Active Protocol: Document 06/08/17 16:49 LRN (Rec: 06/09/17 14:40 LRN [id number]) Posture Evaluation Position Standing Evaluation View Lateral Head/C-Spine Posture Forward Head T-Spine Posture Flattened L-Spine Posture Flattened Shoulder Posture (R) Forward Pelvis Posture Posterior Tilted Ankle/Foot Posture (R) Forefoot Abducted Foot Arch (L) High Arch (R) High Arch Comments Posture Comments Lumbar spine is tilted Left with a C-Curve of the Thoracic spine with the apex on the left. Palpation Assessment Location One Palpation Location Thoracic and Lumbar spine Palpation Findings Muscle Guarding PT-OP-K Range of Motion Start: 06/08/17 08:13 Freq: Status: Active Protocol: Document 06/08/17 16:49 LRN (Rec: 06/09/17 14:40 LRN [id number]) Lumbar Spine Range of Motion Lumbar Spine Active Testing Position Standing Flexion 5 Extension 3 Lateral Flexion Left 3 Lateral Flexion Right 5 ROM Limitations Pain Comments Measurements taken degrees. Shoulder Goniometric Range of Motion Shoulder Measured in Degrees Right Active Shoulder ROM WFL Yes Testing Position Sitting Left Active Shoulder ROM WFL Yes Testing Position Sitting Hip Goniometric Range of Motion Hip Measured in Degrees Left Active Hip ROM WFL No Testing Position Prone Right Active Hip ROM WFL No Testing Position Prone Hip ROM Limitations Hip ROM Limitations Pain Comments Hip ER is decreased 50% of normal bilaterally. PT-OP-M Strength Start: 06/08/17 08:13 Freq: Status: Active Protocol: Document 06/08/17 16:49 LRN (Rec: 06/09/17 14:40 LRN [id number]) Trunk Strength Trunk Manual Muscle Testing Testing Position Sitting Reason Not Measured Pain Comments Pt can actively rotate in sitting ~ 28 deg's left, 10 deg's right. He is not able to lean forward in sitting and is unable to perform an abdominal curl due to back pain. Shoulder Strength Shoulder Manual Muscle Testing Left Reason Not Measured Pain Right Reason Not Measured Pain Comments Deferred due to back pain Hip Strength Hip Manual Muscle Testing Left Reason Not Measured Pain Right Reason Not Measured Pain PT-OP-Q Treatments Start: 06/08/17 08:13 Freq: Status: Active Protocol: Document 01/17/18 14:30 SAK (Rec: 01/18/18 11:53 SAK [id number]) Cardio Equipment Recumbent Stepper (Sci-Fit) Duration (Minutes) 5 Resistance 1 Seat Position low back supported Gym Equipment Shuttle Recovery Unilateral Squats Resistance 50 Shuttle Recovery Platform Stable Reps/Time 10x2 Therapeutic Ball 2 Exercise Details Feet on ball, hip/knee flex/ ext vs Lv 1 T-band Ball Size/Color Blue - 45 cm Body Position Supine Therapeutic Exercises Supine Exercises 6 Supine Exercise Name supine pelvic tilt Reps/Minutes 10x Comments small ROM 5 Supine Exercise Name hooklying TrA stab Reps/Minutes 2x 3 Supine Exercise Name Single KTC, DKTC Reps/Minutes 2x 2 Supine Exercise Name LTR Reps/Minutes 10x 1 Reps/Minutes 2x Comments manual Sidelying Exercises 2 Sidelying Exercise Name Reverse Clam Shells Side bilateral Reps/Minutes x15 1 Sidelying Exercise Name Clam Shells Side bilateral Reps/Minutes x15 Self-Care/Home Management Treatment Education Patient Education Body Mechanics Pain Management Posture PT-OP-R Modalities Start: 06/08/17 08:13 Freq: Status: Active Protocol: Document 01/17/18 14:30 [facility] (Rec: 01/18/18 11:53 [facility] [id number]) Electric Stimulation Electric Stimulation Interferential Current (IFC) Body Location T/S, L/S Duration (Minutes) 10 Combined With Heat/Cold Hot Pack Comments prone PT-OP-S Aquatic Treatment Start: 07/24/17 16:26 Freq: Status: Active Protocol: Document 01/15/18 11:00 [facility] (Rec: 01/18/18 10:27 [facility] [id number]) Aquatics Treatment Pool Entry/Exit Pool Entry/Exit Method Stairs Assistance Independent Water Walking [place] April Water Level Chest Level Level of Assistance Verbal Cues Comments slow motion for core mm initiation Backwards Water Level Chest Level Level of Assistance Standby Assistance Verbal Cues Comments slow motion for core mm iniation Sideways Water Level Chest Level Level of Assistance Standby Assistance Verbal Cues Forwards Water Level Chest Level Level of Assistance Verbal Cues Lower Extremity Exercises 4 Details Squats Body Position Standing 3 Details L.E. circumduction Body Position Standing Water Level Chest Level Reps/Duration x 20 reps 2 Details hip abd/add Body Position Standing Water Level Chest Level Reps/Duration x20 1 Details hip flx/ext Body Position Standing Water Level Chest Level Reps/Duration x 20 Lower Extremity Stretches 3 Details piriformis Body Position Standing Water Level Sims Reps/Duration 40 sec bilat Comments corner 1 Details Hamstring Body Position Standing Water Level Waist Level Equipment Small Noodle 2 Details single knee to chest Body Position Standing Water Level Chest Level Reps/Duration x2 Comments at wall Upper Extremity Exercises pull downs Body Position Standing Water Level Sims Equipment barbells 2 Details shoulder fl/ext Body Position Standing Water Level Chest Level Reps/Duration 10x Comments cues for shoulder retraction 1 Details Shoulder Horiz AB/AD, AB/AB Body Position Standing Water Level Chest Level Reps/Duration 10x Comments Bilateral/unilateral, core stabilization emphasis Spinal Exercises 1 Details Sims Stabilization Water Level Sims Equipment Large Noodle Sims Activities Sims Activities Bicycle Cross Country Running Hip Abduction/Adduction Equipment noodle Duration 10 min Comments postural cues PT-OP-T Assessment and Plan Start: 06/08/17 08:13 Freq: Status: Active Protocol: Document 01/17/18 14:30 SAK (Rec: 01/18/18 11:50 [facility] [id number]) Physical Therapy Assessment Goals Three Impairment Pain due to soft tissue muscle guarding limiting functional ability. Skilled Nursing Goal (LTG) TIEN Questionnaire Score - less than 19 (no change since last seen) LTG Duration 2 months Two Skilled Nursing Goal (LTG) Pt will be able to demonstrate improved posture and gait mechanics with improved trunk and hip mobility. (good goal progress One Short Term Goal (STG) Pt will demonstrate ability to transfer sit to stand and move in bed with decreased pain. (goal progress) Skilled Nursing Goal (LTG) Pt will be able to return to work on a limited basis with tolerable pain. (patient still unable to work) Assessment Summary Assessment Mod cues for core stabilization and postural alignment with all ther ex. Fair tolerance. Physical Therapy Plan Frequency and Duration Frequency of Treatment 2x/Week Duration of Treatment 2 months Plan of Care Start Date 11/01/17 Plan of Care End Date 01/01/18 Therapeutic Interventions Therapeutic Interventions Home Exercise Program Manual Therapy Patient/Caregiver Education Self-Care/Home Management Soft Tissue Mobilization Taping Therapeutic Activities Therapeutic Exercises Modalities Cold Pack/Ice Massage Electric Stimulation Hot Packs Ultrasound Next Visit Focus/Plan Next Note Type Treatment Note Next Visit Plan Progress ther ex as tolerated with emphasis on core stabilization and neutral postural alignment. further education on body mechanics, back protection with all activities.
--- NOTE | 2018-01-22 14:09 | PT.OTN ---
Current Diagnoses Low back pain (01/22/18) Pain in thoracic spine (01/22/18) Wedge compression fracture of first lumbar vertebra, initial encounter for closed fracture (01/22/18) Physical Therapy Treatment Note PT-OP-A Visit Information Start: 06/08/17 08:13 Freq: Status: Active Protocol: Document 01/22/18 11:00 [facility] (Rec: 01/22/18 14:08 [facility] [id number]) Out-Patient Physical Therapy Visit Information Visit Information Visit Type Treatment Note Visit Note Aquatic treatment note Visit Start Time 11:00 Visit Stop Time 11:45 Total Visit Minutes 45 Visit Number 37 Number of DIRECTOR MEDICAL AFFAIRS Visits 1 PT-OP-B Current Condition Start: 06/08/17 08:13 Freq: Status: Active Protocol: Document 06/09/17 08:16 LRN (Rec: 06/09/17 08:43 LRN [id number]) Current Condition History of Current Condition Onset Date 01/02/2017 Current Complaints Back pain, unable to work, sleep disturbance, difficulty with transfers History of Current Condition Pt reports falling off a ladder ~18' high (records indicate ~25') landing on his back and hitting his head, causing a loss of consciousness. He was air lifted to [facility] in [place] and was placed in a TLSO brace for 8 weeks. Pt reports having a burst fracture at T1, the 01/02/17 X -ray indicated: Moderate compression fracture of L1 vertebral body with mild postierior displacement and hematoma at T12, L1 & L2. Other medical records indicate follow up care for L1 burst fracture, pt had been in brace for 10 weeks or so and was last seen by jono Quiles in March of this year. Pt is being referred for back pain for both upper/ mid and L/S spine. Future Testing and Treatments Planned Pt reports he is scheduled to see his [facility] physician soon to discuss possible surgery. Treatment Goals Patient/Caregiver Goals Pt goal is to feel normal, decreased pain, improve ability to sleep and to tolerate static positioning. 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 Baseline Function- Recreation/Hobbies G PT-OP-C Subjective Start: 06/08/17 08:13 Freq: Status: Active Protocol: Document 01/22/18 11:00 CLB (Rec: 01/22/18 14:08 CLB [id number]) OP-PT Subjective Patient Comments Patient Comments Pt reports feeling sore after land therapy. PT-OP-F Manual Assessment Start: 06/08/17 08:13 Freq: Status: Active Protocol: Document 06/08/17 16:49 LRN (Rec: 06/09/17 14:40 LRN [id number]) Manual Assessments Soft Tissue Assessment Soft Tissue Mobility Assessment Muscle guarding and tightness in the entire posterior thoracic and lumbar muscle groups. Joint Mobility Assessment Joint Mobility Assessment Deferred spinal mobility assessment. PT-OP-G Mobility & Gait Start: 06/08/17 16:33 Freq: Status: Active Protocol: Document 06/08/17 16:49 LRN (Rec: 06/09/17 14:40 LRN [id number]) OP Mobility Evaluation Bed Mobility Rolling Independent. Slow and cautious. Supine to and from Sit Independent. Slow and cautious. Transfers Sit to Stand Independent. Slow and cautious/ Functional Movements Lifting and Carrying Deferred Squats Deferred OP Gait Assessment Gait Deviations General Gait Pattern Wide Based Gait Factors Limiting Gait Function Factors Limiting Gait Function Limited Range of Motion Pain Comments Gait Comments Slow gait with excessive trunk sway. PT-OP-H Neuro Start: 06/08/17 08:13 Freq: Status: Active Protocol: Document 06/08/17 16:49 LRN (Rec: 06/09/17 14:40 LRN [id number]) Sensation Evaluation Gross Sensation Gross Sensation WNL Deep Tendon Reflex & Clonus Assessment Deep Tendon Reflex Left Achilles Deep Tendon Reflex 2+ Normal Right Achilles Deep Tendon Reflex 3+ Normal But Brisk PT-OP-J Posture/Palpation/Skin Start: 06/08/17 08:13 Freq: Status: Active Protocol: Document 06/08/17 16:49 LRN (Rec: 06/09/17 14:40 LRN [id number]) Posture Evaluation Position Standing Evaluation View Lateral Head/C-Spine Posture Forward Head T-Spine Posture Flattened L-Spine Posture Flattened Shoulder Posture (R) Forward Pelvis Posture Posterior Tilted Ankle/Foot Posture (R) Forefoot Abducted Foot Arch (L) High Arch (R) High Arch Comments Posture Comments Lumbar spine is tilted Left with a C-Curve of the Thoracic spine with the apex on the left. Palpation Assessment Location One Palpation Location Thoracic and Lumbar spine Palpation Findings Muscle Guarding PT-OP-K Range of Motion Start: 06/08/17 08:13 Freq: Status: Active Protocol: Document 06/08/17 16:49 LRN (Rec: 06/09/17 14:40 LRN [id number]) Lumbar Spine Range of Motion Lumbar Spine Active Testing Position Standing Flexion 5 Extension 3 Lateral Flexion Left 3 Lateral Flexion Right 5 ROM Limitations Pain Comments Measurements taken degrees. Shoulder Goniometric Range of Motion Shoulder Measured in Degrees Right Active Shoulder ROM WFL Yes Testing Position Sitting Left Active Shoulder ROM WFL Yes Testing Position Sitting Hip Goniometric Range of Motion Hip Measured in Degrees Left Active Hip ROM WFL No Testing Position Prone Right Active Hip ROM WFL No Testing Position Prone Hip ROM Limitations Hip ROM Limitations Pain Comments Hip ER is decreased 50% of normal bilaterally. PT-OP-M Strength Start: 06/08/17 08:13 Freq: Status: Active Protocol: Document 06/08/17 16:49 LRN (Rec: 06/09/17 14:40 LRN [id number]) Trunk Strength Trunk Manual Muscle Testing Testing Position Sitting Reason Not Measured Pain Comments Pt can actively rotate in sitting ~ 28 deg's left, 10 deg's right. He is not able to lean forward in sitting and is unable to perform an abdominal curl due to back pain. Shoulder Strength Shoulder Manual Muscle Testing Left Reason Not Measured Pain Right Reason Not Measured Pain Comments Deferred due to back pain Hip Strength Hip Manual Muscle Testing Left Reason Not Measured Pain Right Reason Not Measured Pain PT-OP-Q Treatments Start: 06/08/17 08:13 Freq: Status: Active Protocol: Document 01/17/18 14:30 SAK (Rec: 01/18/18 11:53 SAK [id number]) Cardio Equipment Recumbent Stepper (Sci-Fit) Duration (Minutes) 5 Resistance 1 Seat Position low back supported Gym Equipment Shuttle Recovery Unilateral Squats Resistance 50 Shuttle Recovery Platform Stable Reps/Time 10x2 Therapeutic Ball 2 Exercise Details Feet on ball, hip/knee flex/ ext vs Lv 1 T-band Ball Size/Color Blue - 45 cm Body Position Supine Therapeutic Exercises Supine Exercises 6 Supine Exercise Name supine pelvic tilt Reps/Minutes 10x Comments small ROM 5 Supine Exercise Name hooklying TrA stab Reps/Minutes 2x 3 Supine Exercise Name Single KTC, DKTC Reps/Minutes 2x 2 Supine Exercise Name LTR Reps/Minutes 10x 1 Reps/Minutes 2x Comments manual Sidelying Exercises 2 Sidelying Exercise Name Reverse Clam Shells Side bilateral Reps/Minutes x15 1 Sidelying Exercise Name Clam Shells Side bilateral Reps/Minutes x15 Self-Care/Home Management Treatment Education Patient Education Body Mechanics Pain Management Posture PT-OP-R Modalities Start: 06/08/17 08:13 Freq: Status: Active Protocol: Document 01/17/18 14:30 SAK (Rec: 01/18/18 11:53 SAK [id number]) Electric Stimulation Electric Stimulation Interferential Current (IFC) Body Location T/S, L/S Duration (Minutes) 10 Combined With Heat/Cold Hot Pack Comments prone PT-OP-S Aquatic Treatment Start: 07/24/17 16:26 Freq: Status: Active Protocol: Document 01/22/18 11:00 [facility] (Rec: 01/22/18 14:08 CLB [id number]) Aquatics Treatment Pool Entry/Exit Pool Entry/Exit Method Stairs Assistance Independent Water Walking [place] April Water Level Chest Level Level of Assistance Verbal Cues Comments slow motion for core mm initiation Backwards Water Level Chest Level Level of Assistance Standby Assistance Verbal Cues Comments slow motion for core mm iniation Sideways Water Level Chest Level Level of Assistance Standby Assistance Verbal Cues Forwards Water Level Chest Level Level of Assistance Verbal Cues Lower Extremity Exercises 4 Details Squats Body Position Standing 3 Details L.E. circumduction Body Position Standing Water Level Chest Level Reps/Duration x 20 reps 2 Details hip abd/add Body Position Standing Water Level Chest Level Reps/Duration x20 1 Details hip flx/ext Body Position Standing Water Level Chest Level Reps/Duration x 20 Lower Extremity Stretches 1 Details Hamstring Body Position Standing Water Level Waist Level Equipment Small Noodle 2 Details single knee to chest Body Position Standing Water Level Chest Level Reps/Duration x2 Comments at wall Upper Extremity Exercises pull downs Body Position Standing Water Level [place] Equipment barbells 2 Details shoulder fl/ext Body Position Standing Water Level Chest Level Reps/Duration 10x Comments cues for shoulder retraction 1 Details Shoulder Horiz AB/AD, AB/AB Body Position Standing Water Level Chest Level Reps/Duration 10x Comments Bilateral/unilateral, core stabilization emphasis [place] Activities [place] Activities Bicycle Cross Country Running Hip Abduction/Adduction Equipment noodle Duration 20 min Comments postural cues PT-OP-T Assessment and Plan Start: 06/08/17 08:13 Freq: Status: Active Protocol: Document 01/22/18 11:00 CLB (Rec: 01/22/18 14:08 CLB [id number]) Physical Therapy Assessment Goals Three Impairment Pain due to soft tissue muscle guarding limiting functional ability. Shelter Goal (LTG) TIEN Questionnaire Score - less than 19 (no change since last seen) LTG Duration 2 months Two Shelter Goal (LTG) Pt will be able to demonstrate improved posture and gait mechanics with improved trunk and hip mobility. (good goal progress One Short Term Goal (STG) Pt will demonstrate ability to transfer sit to stand and move in bed with decreased pain. (goal progress) Shelter Goal (LTG) Pt will be able to return to work on a limited basis with tolerable pain. (patient still unable to work) Assessment Summary Assessment Pt required rest breaks during deep water activites due to fatigue but had no increase in pain. Pt had good tolerance of all aquatic activites today . Physical Therapy Plan Frequency and Duration Frequency of Treatment 2x/Week Duration of Treatment 2 months Plan of Care Start Date 01/15/18 Plan of Care End Date 03/18/18 Next Visit Focus/Plan Next Visit Plan Transition pt to land based program.
--- NOTE | 2018-01-25 10:28 | PT.OTN ---
Current Diagnoses Low back pain (01/24/18) Pain in thoracic spine (01/24/18) Wedge compression fracture of first lumbar vertebra, initial encounter for closed fracture (01/24/18) Physical Therapy Treatment Note PT-OP-A Visit Information Start: 06/08/17 08:13 Freq: Status: Active Protocol: Document 01/24/18 14:33 SAK (Rec: 01/24/18 14:37 SAK [id number]) Out-Patient Physical Therapy Visit Information Visit Information Visit Type Treatment Note Visit Start Time 14:30 Visit Stop Time 15:25 Total Visit Minutes 55 Visit Number 38 Number of CARDIOLOGY TECH Visits 0 PT-OP-B Current Condition Start: 06/08/17 08:13 Freq: Status: Active Protocol: Document 06/09/17 08:16 LRN (Rec: 06/09/17 08:43 LRN [id number]) Current Condition History of Current Condition Onset Date 01/02/2017 Current Complaints Back pain, unable to work, sleep disturbance, difficulty with transfers History of Current Condition Pt reports falling off a ladder ~18' high (records indicate ~25') landing on his back and hitting his head, causing a loss of consciousness. He was air lifted to [facility] in [place] and was placed in a TLSO brace for 8 weeks. Pt reports having a burst fracture at T1, the 01/02/17 X -ray indicated: Moderate compression fracture of L1 vertebral body with mild postierior displacement and hematoma at T12, L1 & L2. Other medical records indicate follow up care for L1 burst fracture, pt had been in brace for 10 weeks or so and was last seen by jono Quiles in March of this year. Pt is being referred for back pain for both upper/ mid and L/S spine. Future Testing and Treatments Planned Pt reports he is scheduled to see his [facility] physician soon to discuss possible surgery. Treatment Goals Patient/Caregiver Goals Pt goal is to feel normal, decreased pain, improve ability to sleep and to tolerate static positioning. 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 Baseline Function- Recreation/Hobbies G PT-OP-C Subjective Start: 06/08/17 08:13 Freq: Status: Active Protocol: Document 01/24/18 14:33 SAK (Rec: 01/24/18 14:37 SAK [id number]) OP-PT Subjective Patient Comments Patient Comments A bit sore, but that's pretty normal. PT-OP-F Manual Assessment Start: 06/08/17 08:13 Freq: Status: Active Protocol: Document 06/08/17 16:49 LRN (Rec: 06/09/17 14:40 LRN [id number]) Manual Assessments Soft Tissue Assessment Soft Tissue Mobility Assessment Muscle guarding and tightness in the entire posterior thoracic and lumbar muscle groups. Joint Mobility Assessment Joint Mobility Assessment Deferred spinal mobility assessment. PT-OP-G Mobility & Gait Start: 06/08/17 16:33 Freq: Status: Active Protocol: Document 06/08/17 16:49 LRN (Rec: 06/09/17 14:40 LRN [id number]) OP Mobility Evaluation Bed Mobility Rolling Independent. Slow and cautious. Supine to and from Sit Independent. Slow and cautious. Transfers Sit to Stand Independent. Slow and cautious/ Functional Movements Lifting and Carrying Deferred Squats Deferred OP Gait Assessment Gait Deviations General Gait Pattern Wide Based Gait Factors Limiting Gait Function Factors Limiting Gait Function Limited Range of Motion Pain Comments Gait Comments Slow gait with excessive trunk sway. PT-OP-H Neuro Start: 06/08/17 08:13 Freq: Status: Active Protocol: Document 06/08/17 16:49 LRN (Rec: 06/09/17 14:40 LRN [id number]) Sensation Evaluation Gross Sensation Gross Sensation WNL Deep Tendon Reflex & Clonus Assessment Deep Tendon Reflex Left Achilles Deep Tendon Reflex 2+ Normal Right Achilles Deep Tendon Reflex 3+ Normal But Brisk PT-OP-J Posture/Palpation/Skin Start: 06/08/17 08:13 Freq: Status: Active Protocol: Document 06/08/17 16:49 LRN (Rec: 06/09/17 14:40 LRN [id number]) Posture Evaluation Position Standing Evaluation View Lateral Head/C-Spine Posture Forward Head T-Spine Posture Flattened L-Spine Posture Flattened Shoulder Posture (R) Forward Pelvis Posture Posterior Tilted Ankle/Foot Posture (R) Forefoot Abducted Foot Arch (L) High Arch (R) High Arch Comments Posture Comments Lumbar spine is tilted Left with a C-Curve of the Thoracic spine with the apex on the left. Palpation Assessment Location One Palpation Location Thoracic and Lumbar spine Palpation Findings Muscle Guarding PT-OP-K Range of Motion Start: 06/08/17 08:13 Freq: Status: Active Protocol: Document 06/08/17 16:49 LRN (Rec: 06/09/17 14:40 LRN [id number]) Lumbar Spine Range of Motion Lumbar Spine Active Testing Position Standing Flexion 5 Extension 3 Lateral Flexion Left 3 Lateral Flexion Right 5 ROM Limitations Pain Comments Measurements taken degrees. Shoulder Goniometric Range of Motion Shoulder Measured in Degrees Right Active Shoulder ROM WFL Yes Testing Position Sitting Left Active Shoulder ROM WFL Yes Testing Position Sitting Hip Goniometric Range of Motion Hip Measured in Degrees Left Active Hip ROM WFL No Testing Position Prone Right Active Hip ROM WFL No Testing Position Prone Hip ROM Limitations Hip ROM Limitations Pain Comments Hip ER is decreased 50% of normal bilaterally. PT-OP-M Strength Start: 06/08/17 08:13 Freq: Status: Active Protocol: Document 06/08/17 16:49 LRN (Rec: 06/09/17 14:40 LRN [id number]) Trunk Strength Trunk Manual Muscle Testing Testing Position Sitting Reason Not Measured Pain Comments Pt can actively rotate in sitting ~ 28 deg's left, 10 deg's right. He is not able to lean forward in sitting and is unable to perform an abdominal curl due to back pain. Shoulder Strength Shoulder Manual Muscle Testing Left Reason Not Measured Pain Right Reason Not Measured Pain Comments Deferred due to back pain Hip Strength Hip Manual Muscle Testing Left Reason Not Measured Pain Right Reason Not Measured Pain PT-OP-Q Treatments Start: 06/08/17 08:13 Freq: Status: Active Protocol: Document 01/24/18 14:33 SAK (Rec: 01/24/18 15:14 SAK [id number]) Cardio Equipment Recumbent Stepper (Sci-Fit) Duration (Minutes) 10 Resistance 1 Seat Position low back supported Gym Equipment Shuttle Recovery Bilateral Squats Resistance 50 Shuttle Recovery Platform Stable Therapeutic Exercises Sidelying Exercises reach and roll Reps/Minutes 6x Sitting Exercises lat pull Reps/Minutes 10x Standing Exercises tricep ext Resistance L1TB Reps/Minutes 10x row, shld ext Resistance L1 TB Reps/Minutes 10x Manual Therapy Treatment Soft Tissue Mobilization 1 Body Location Thoracic/Lumbar paraspinals Mobilization Type Myofascial Release Rolling Strumming Body Position Prone PT-OP-R Modalities Start: 06/08/17 08:13 Freq: Status: Active Protocol: Document 01/17/18 14:30 SAK (Rec: 01/18/18 11:53 SAK [id number]) Electric Stimulation Electric Stimulation Interferential Current (IFC) Body Location T/S, L/S Duration (Minutes) 10 Combined With Heat/Cold Hot Pack Comments prone PT-OP-S Aquatic Treatment Start: 07/24/17 16:26 Freq: Status: Active Protocol: Document 01/22/18 11:00 CLB (Rec: 01/22/18 14:08 CLB [id number]) Aquatics Treatment Pool Entry/Exit Pool Entry/Exit Method Stairs Assistance Independent Water Walking [place] April Water Level Chest Level Level of Assistance Verbal Cues Comments slow motion for core mm initiation Backwards Water Level Chest Level Level of Assistance Standby Assistance Verbal Cues Comments slow motion for core mm iniation Sideways Water Level Chest Level Level of Assistance Standby Assistance Verbal Cues Forwards Water Level Chest Level Level of Assistance Verbal Cues Lower Extremity Exercises 4 Details Squats Body Position Standing 3 Details L.E. circumduction Body Position Standing Water Level Chest Level Reps/Duration x 20 reps 2 Details hip abd/add Body Position Standing Water Level Chest Level Reps/Duration x20 1 Details hip flx/ext Body Position Standing Water Level Chest Level Reps/Duration x 20 Lower Extremity Stretches 1 Details Hamstring Body Position Standing Water Level Waist Level Equipment Small Noodle 2 Details single knee to chest Body Position Standing Water Level Chest Level Reps/Duration x2 Comments at wall Upper Extremity Exercises pull downs Body Position Standing Water Level [place] Equipment barbells 2 Details shoulder fl/ext Body Position Standing Water Level Chest Level Reps/Duration 10x Comments cues for shoulder retraction 1 Details Shoulder Horiz AB/AD, AB/AB Body Position Standing Water Level Chest Level Reps/Duration 10x Comments Bilateral/unilateral, core stabilization emphasis [place] Activities [place] Activities Bicycle Cross [place] Running Hip Abduction/Adduction Equipment noodle Duration 20 min Comments postural cues PT-OP-T Assessment and Plan Start: 06/08/17 08:13 Freq: Status: Active Protocol: Document 01/24/18 14:33 SAK (Rec: 01/24/18 14:37 SAK [id number]) Physical Therapy Assessment Goals Three Impairment Pain due to soft tissue muscle guarding limiting functional ability. Pediatric Assistant Goal (LTG) TIEN Questionnaire Score - less than 19 (no change since last seen) LTG Duration 2 months Two Pediatric Assistant Goal (LTG) Pt will be able to demonstrate improved posture and gait mechanics with improved trunk and hip mobility. (good goal progress One Short Term Goal (STG) Pt will demonstrate ability to transfer sit to stand and move in bed with decreased pain. (goal progress) Snf Goal (LTG) Pt will be able to return to work on a limited basis with tolerable pain. (patient still unable to work) Physical Therapy Plan Frequency and Duration Frequency of Treatment 2x/Week Duration of Treatment 2 months Plan of Care Start Date 01/15/18 Plan of Care End Date 03/18/18 Therapeutic Interventions Therapeutic Interventions Home Exercise Program Manual Therapy Patient/Caregiver Education Self-Care/Home Management Soft Tissue Mobilization Taping Therapeutic Activities Therapeutic Exercises Modalities Cold Pack/Ice Massage Electric Stimulation Hot Packs Ultrasound Next Visit Focus/Plan Next Visit Plan Transition pt to land based program; progress ther ex for strengthening, flexibility, core strengthening. Pain management with modalities and manual treatment as indicated .
--- NOTE | 2018-02-02 17:05 | PT.OTN ---
Current Diagnoses Low back pain (02/02/18) Pain in thoracic spine (02/02/18) Wedge compression fracture of first lumbar vertebra, initial encounter for closed fracture (02/02/18) Physical Therapy Treatment Note PT-OP-A Visit Information Start: 06/08/17 08:13 Freq: Status: Active Protocol: Document 02/02/18 17:00 SAK (Rec: 02/02/18 17:05 SAK [id number]) Out-Patient Physical Therapy Visit Information Visit Information Visit Type Aquatic Treatment Note Visit Start Time 10:15 Visit Stop Time 11:00 Total Visit Minutes 45 Visit Number 39 Number of LUMP MAKER Visits 0 PT-OP-B Current Condition Start: 06/08/17 08:13 Freq: Status: Active Protocol: Document 06/09/17 08:16 LRN (Rec: 06/09/17 08:43 LRN [id number]) Current Condition History of Current Condition Onset Date 01/02/2017 Current Complaints Back pain, unable to work, sleep disturbance, difficulty with transfers History of Current Condition Pt reports falling off a ladder ~18' high (records indicate ~25') landing on his back and hitting his head, causing a loss of consciousness. He was air lifted to [facility] in [place] and was placed in a TLSO brace for 8 weeks. Pt reports having a burst fracture at T1, the 01/02/17 X -ray indicated: Moderate compression fracture of L1 vertebral body with mild postierior displacement and hematoma at T12, L1 & L2. Other medical records indicate follow up care for L1 burst fracture, pt had been in brace for 10 weeks or so and was last seen by jono Quiles in March of this year. Pt is being referred for back pain for both upper/ mid and L/S spine. Future Testing and Treatments Planned Pt reports he is scheduled to see his [facility] physician soon to discuss possible surgery. Treatment Goals Patient/Caregiver Goals Pt goal is to feel normal, decreased pain, improve ability to sleep and to tolerate static positioning. 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 Baseline Function- Recreation/Hobbies G PT-OP-C Subjective Start: 06/08/17 08:13 Freq: Status: Active Protocol: Document 02/02/18 17:00 SAK (Rec: 02/02/18 17:05 SAK [id number]) OP-PT Subjective Patient Comments Patient Comments No new c/o, still low tolerance for standing and walking, best tolerance for aquatic exercise. Apologizes for going to pool instead of clinic 01/31/18 by mistake and missing PT appt. PT-OP-F Manual Assessment Start: 06/08/17 08:13 Freq: Status: Active Protocol: Document 06/08/17 16:49 LRN (Rec: 06/09/17 14:40 LRN [id number]) Manual Assessments Soft Tissue Assessment Soft Tissue Mobility Assessment Muscle guarding and tightness in the entire posterior thoracic and lumbar muscle groups. Joint Mobility Assessment Joint Mobility Assessment Deferred spinal mobility assessment. PT-OP-G Mobility & Gait Start: 06/08/17 16:33 Freq: Status: Active Protocol: Document 06/08/17 16:49 LRN (Rec: 06/09/17 14:40 LRN [id number]) OP Mobility Evaluation Bed Mobility Rolling Independent. Slow and cautious. Supine to and from Sit Independent. Slow and cautious. Transfers Sit to Stand Independent. Slow and cautious/ Functional Movements Lifting and Carrying Deferred Squats Deferred OP Gait Assessment Gait Deviations General Gait Pattern Wide Based Gait Factors Limiting Gait Function Factors Limiting Gait Function Limited Range of Motion Pain Comments Gait Comments Slow gait with excessive trunk sway. PT-OP-H Neuro Start: 06/08/17 08:13 Freq: Status: Active Protocol: Document 06/08/17 16:49 LRN (Rec: 06/09/17 14:40 LRN [id number]) Sensation Evaluation Gross Sensation Gross Sensation WNL Deep Tendon Reflex & Clonus Assessment Deep Tendon Reflex Left Achilles Deep Tendon Reflex 2+ Normal Right Achilles Deep Tendon Reflex 3+ Normal But Brisk PT-OP-J Posture/Palpation/Skin Start: 06/08/17 08:13 Freq: Status: Active Protocol: Document 06/08/17 16:49 LRN (Rec: 06/09/17 14:40 LRN [id number]) Posture Evaluation Position Standing Evaluation View Lateral Head/C-Spine Posture Forward Head T-Spine Posture Flattened L-Spine Posture Flattened Shoulder Posture (R) Forward Pelvis Posture Posterior Tilted Ankle/Foot Posture (R) Forefoot Abducted Foot Arch (L) High Arch (R) High Arch Comments Posture Comments Lumbar spine is tilted Left with a C-Curve of the Thoracic spine with the apex on the left. Palpation Assessment Location One Palpation Location Thoracic and Lumbar spine Palpation Findings Muscle Guarding PT-OP-K Range of Motion Start: 06/08/17 08:13 Freq: Status: Active Protocol: Document 06/08/17 16:49 LRN (Rec: 06/09/17 14:40 LRN [id number]) Lumbar Spine Range of Motion Lumbar Spine Active Testing Position Standing Flexion 5 Extension 3 Lateral Flexion Left 3 Lateral Flexion Right 5 ROM Limitations Pain Comments Measurements taken degrees. Shoulder Goniometric Range of Motion Shoulder Measured in Degrees Right Active Shoulder ROM WFL Yes Testing Position Sitting Left Active Shoulder ROM WFL Yes Testing Position Sitting Hip Goniometric Range of Motion Hip Measured in Degrees Left Active Hip ROM WFL No Testing Position Prone Right Active Hip ROM WFL No Testing Position Prone Hip ROM Limitations Hip ROM Limitations Pain Comments Hip ER is decreased 50% of normal bilaterally. PT-OP-M Strength Start: 06/08/17 08:13 Freq: Status: Active Protocol: Document 06/08/17 16:49 LRN (Rec: 06/09/17 14:40 LRN [id number]) Trunk Strength Trunk Manual Muscle Testing Testing Position Sitting Reason Not Measured Pain Comments Pt can actively rotate in sitting ~ 28 deg's left, 10 deg's right. He is not able to lean forward in sitting and is unable to perform an abdominal curl due to back pain. Shoulder Strength Shoulder Manual Muscle Testing Left Reason Not Measured Pain Right Reason Not Measured Pain Comments Deferred due to back pain Hip Strength Hip Manual Muscle Testing Left Reason Not Measured Pain Right Reason Not Measured Pain PT-OP-Q Treatments Start: 06/08/17 08:13 Freq: Status: Active Protocol: Document 01/24/18 14:33 SAK (Rec: 01/24/18 15:14 SAK [id number]) Cardio Equipment Recumbent Stepper (Sci-Fit) Duration (Minutes) 10 Resistance 1 Seat Position low back supported Gym Equipment Shuttle Recovery Bilateral Squats Resistance 50 Shuttle Recovery Platform Stable Therapeutic Exercises Sidelying Exercises reach and roll Reps/Minutes 6x Sitting Exercises lat pull Reps/Minutes 10x Standing Exercises tricep ext Resistance L1TB Reps/Minutes 10x row, shld ext Resistance L1 TB Reps/Minutes 10x Manual Therapy Treatment Soft Tissue Mobilization 1 Body Location Thoracic/Lumbar paraspinals Mobilization Type Myofascial Release Rolling Strumming Body Position Prone PT-OP-R Modalities Start: 06/08/17 08:13 Freq: Status: Active Protocol: Document 01/17/18 14:30 [facility] (Rec: 01/18/18 11:53 [facility] [id number]) Electric Stimulation Electric Stimulation Interferential Current (IFC) Body Location T/S, L/S Duration (Minutes) 10 Combined With Heat/Cold Hot Pack Comments prone PT-OP-S Aquatic Treatment Start: 07/24/17 16:26 Freq: Status: Active Protocol: Document 02/02/18 17:00 SAK (Rec: 02/02/18 17:05 [facility] [id number]) Aquatics Treatment Pool Entry/Exit Pool Entry/Exit Method Stairs Assistance Independent Water Walking [place] April Water Level Chest Level Level of Assistance Verbal Cues Comments slow motion for core mm initiation Backwards Water Level Chest Level Level of Assistance Standby Assistance Verbal Cues Comments slow motion for core mm iniation Sideways Water Level Chest Level Level of Assistance Standby Assistance Verbal Cues Forwards Water Level Chest Level Level of Assistance Verbal Cues Lower Extremity Exercises 4 Details Squats Body Position Standing 3 Details L.E. circumduction Body Position Standing Water Level Chest Level Reps/Duration x 20 reps 2 Details hip abd/add Body Position Standing Water Level Chest Level Reps/Duration x20 1 Details hip flx/ext Body Position Standing Water Level Chest Level Reps/Duration x 20 Lower Extremity Stretches 3 Details piriformis Body Position Standing Water Level [place] Reps/Duration 40 sec bilat Comments corner 1 Details Hamstring Body Position Standing Water Level Waist Level Equipment stair 2 Details single knee to chest Body Position Standing Water Level Chest Level Reps/Duration x2 Comments at wall Upper Extremity Exercises pull downs Body Position Standing Water Level [place] Equipment noodle Comments large noodle, forward 3 Details push/pull Equipment UE paddles Reps/Duration 2 x 10 2 Details shoulder fl/ext Body Position Standing Water Level Chest Level Equipment paddles Reps/Duration 10x Comments cues for shoulder retraction 1 Details Shoulder Horiz AB/AD, AB/AB Body Position Standing Water Level Chest Level Equipment paddles Reps/Duration 10x Comments Bilateral/unilateral, core stabilization emphasis Spinal Exercises 1 Details [place] Stabilization Water Level [place] Equipment Large Noodle [place] Activities [place] Activities Bicycle Cross [place] Running Hip Abduction/Adduction Equipment noodle Duration 20 min Comments 5 rounds of 30:30 intervals PT-OP-T Assessment and Plan Start: 06/08/17 08:13 Freq: Status: Active Protocol: Document 02/02/18 17:00 [facility] (Rec: 02/02/18 17:05 [facility] [id number]) Physical Therapy Assessment Goals Three Impairment Pain due to soft tissue muscle guarding limiting functional ability. Supervisory Training Specialist Goal (LTG) TIEN Questionnaire Score - less than 19 (no change since last seen) LTG Duration 2 months Two Correction Goal (LTG) Pt will be able to demonstrate improved posture and gait mechanics with improved trunk and hip mobility. (good goal progress One Short Term Goal (STG) Pt will demonstrate ability to transfer sit to stand and move in bed with decreased pain. (goal progress) Correction Goal (LTG) Pt will be able to return to work on a limited basis with tolerable pain. (patient still unable to work) Assessment Summary Assessment Pt tolerating progression of aquatic exercises with increased resistance today and intervals. Demonstrates understanding of need for transition to land-based PT; patient to call to change appointments MANUEL. Physical Therapy Plan Frequency and Duration Frequency of Treatment 2x/Week Duration of Treatment 2 months Plan of Care Start Date 01/15/18 Plan of Care End Date 03/18/18 Therapeutic Interventions Therapeutic Interventions Home Exercise Program Manual Therapy Patient/Caregiver Education Self-Care/Home Management Soft Tissue Mobilization Taping Therapeutic Activities Therapeutic Exercises Modalities Cold Pack/Ice Massage Electric Stimulation Hot Packs Ultrasound Next Visit Focus/Plan Next Visit Plan Transition pt to land based program; progress ther ex for strengthening, flexibility, core strengthening. Pain management with modalities and manual treatment as indicated .
--- NOTE | 2018-02-07 14:46 | PT.OTN ---
Current Diagnoses Low back pain (02/07/18) Pain in thoracic spine (02/07/18) Wedge compression fracture of first lumbar vertebra, initial encounter for closed fracture (02/07/18) Physical Therapy Treatment Note PT-OP-A Visit Information Start: 06/08/17 08:13 Freq: Status: Active Protocol: Document 02/07/18 11:00 LJ (Rec: 02/07/18 14:46 LJ [id number]) Out-Patient Physical Therapy Visit Information Visit Information Visit Type Aquatic Treatment Note Visit Start Time 11:00 Visit Stop Time 11:45 Total Visit Minutes 45 Visit Number 40 Number of PRIVATE CHEF Visits 1 PT-OP-B Current Condition Start: 06/08/17 08:13 Freq: Status: Active Protocol: Document 06/09/17 08:16 LRN (Rec: 06/09/17 08:43 LRN [id number]) Current Condition History of Current Condition Onset Date 01/02/2017 Current Complaints Back pain, unable to work, sleep disturbance, difficulty with transfers History of Current Condition Pt reports falling off a ladder ~18' high (records indicate ~25') landing on his back and hitting his head, causing a loss of consciousness. He was air lifted to [facility] in [place] and was placed in a TLSO brace for 8 weeks. Pt reports having a burst fracture at T1, the 01/02/17 X -ray indicated: Moderate compression fracture of L1 vertebral body with mild postierior displacement and hematoma at T12, L1 & L2. Other medical records indicate follow up care for L1 burst fracture, pt had been in brace for 10 weeks or so and was last seen by jono Quiles in March of this year. Pt is being referred for back pain for both upper/ mid and L/S spine. Future Testing and Treatments Planned Pt reports he is scheduled to see his [facility] physician soon to discuss possible surgery. Treatment Goals Patient/Caregiver Goals Pt goal is to feel normal, decreased pain, improve ability to sleep and to tolerate static positioning. 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 Baseline Function- Recreation/Hobbies G PT-OP-C Subjective Start: 06/08/17 08:13 Freq: Status: Active Protocol: Document 02/07/18 11:00 LJ (Rec: 02/07/18 14:46 LJ [id number]) OP-PT Subjective Patient Comments Patient Comments No new c/o. Pt reoprts he will miss aquatic therapy but will check into setObject schedule PT-OP-F Manual Assessment Start: 06/08/17 08:13 Freq: Status: Active Protocol: Document 06/08/17 16:49 LRN (Rec: 06/09/17 14:40 LRN [id number]) Manual Assessments Soft Tissue Assessment Soft Tissue Mobility Assessment Muscle guarding and tightness in the entire posterior thoracic and lumbar muscle groups. Joint Mobility Assessment Joint Mobility Assessment Deferred spinal mobility assessment. PT-OP-G Mobility & Gait Start: 06/08/17 16:33 Freq: Status: Active Protocol: Document 06/08/17 16:49 LRN (Rec: 06/09/17 14:40 LRN [id number]) OP Mobility Evaluation Bed Mobility Rolling Independent. Slow and cautious. Supine to and from Sit Independent. Slow and cautious. Transfers Sit to Stand Independent. Slow and cautious/ Functional Movements Lifting and Carrying Deferred Squats Deferred OP Gait Assessment Gait Deviations General Gait Pattern Wide Based Gait Factors Limiting Gait Function Factors Limiting Gait Function Limited Range of Motion Pain Comments Gait Comments Slow gait with excessive trunk sway. PT-OP-H Neuro Start: 06/08/17 08:13 Freq: Status: Active Protocol: Document 06/08/17 16:49 LRN (Rec: 06/09/17 14:40 LRN [id number]) Sensation Evaluation Gross Sensation Gross Sensation WNL Deep Tendon Reflex & Clonus Assessment Deep Tendon Reflex Left Achilles Deep Tendon Reflex 2+ Normal Right Achilles Deep Tendon Reflex 3+ Normal But Brisk PT-OP-J Posture/Palpation/Skin Start: 06/08/17 08:13 Freq: Status: Active Protocol: Document 06/08/17 16:49 LRN (Rec: 06/09/17 14:40 LRN [id number]) Posture Evaluation Position Standing Evaluation View Lateral Head/C-Spine Posture Forward Head T-Spine Posture Flattened L-Spine Posture Flattened Shoulder Posture (R) Forward Pelvis Posture Posterior Tilted Ankle/Foot Posture (R) Forefoot Abducted Foot Arch (L) High Arch (R) High Arch Comments Posture Comments Lumbar spine is tilted Left with a C-Curve of the Thoracic spine with the apex on the left. Palpation Assessment Location One Palpation Location Thoracic and Lumbar spine Palpation Findings Muscle Guarding PT-OP-K Range of Motion Start: 06/08/17 08:13 Freq: Status: Active Protocol: Document 06/08/17 16:49 LRN (Rec: 06/09/17 14:40 LRN [id number]) Lumbar Spine Range of Motion Lumbar Spine Active Testing Position Standing Flexion 5 Extension 3 Lateral Flexion Left 3 Lateral Flexion Right 5 ROM Limitations Pain Comments Measurements taken degrees. Shoulder Goniometric Range of Motion Shoulder Measured in Degrees Right Active Shoulder ROM WFL Yes Testing Position Sitting Left Active Shoulder ROM WFL Yes Testing Position Sitting Hip Goniometric Range of Motion Hip Measured in Degrees Left Active Hip ROM WFL No Testing Position Prone Right Active Hip ROM WFL No Testing Position Prone Hip ROM Limitations Hip ROM Limitations Pain Comments Hip ER is decreased 50% of normal bilaterally. PT-OP-M Strength Start: 06/08/17 08:13 Freq: Status: Active Protocol: Document 06/08/17 16:49 LRN (Rec: 06/09/17 14:40 LRN [id number]) Trunk Strength Trunk Manual Muscle Testing Testing Position Sitting Reason Not Measured Pain Comments Pt can actively rotate in sitting ~ 28 deg's left, 10 deg's right. He is not able to lean forward in sitting and is unable to perform an abdominal curl due to back pain. Shoulder Strength Shoulder Manual Muscle Testing Left Reason Not Measured Pain Right Reason Not Measured Pain Comments Deferred due to back pain Hip Strength Hip Manual Muscle Testing Left Reason Not Measured Pain Right Reason Not Measured Pain PT-OP-Q Treatments Start: 06/08/17 08:13 Freq: Status: Active Protocol: Document 01/24/18 14:33 SAK (Rec: 01/24/18 15:14 SAK [id number]) Cardio Equipment Recumbent Stepper (Sci-Fit) Duration (Minutes) 10 Resistance 1 Seat Position low back supported Gym Equipment Shuttle Recovery Bilateral Squats Resistance 50 Shuttle Recovery Platform Stable Therapeutic Exercises Sidelying Exercises reach and roll Reps/Minutes 6x Sitting Exercises lat pull Reps/Minutes 10x Standing Exercises tricep ext Resistance L1TB Reps/Minutes 10x row, shld ext Resistance L1 TB Reps/Minutes 10x Manual Therapy Treatment Soft Tissue Mobilization 1 Body Location Thoracic/Lumbar paraspinals Mobilization Type Myofascial Release Rolling Strumming Body Position Prone PT-OP-R Modalities Start: 06/08/17 08:13 Freq: Status: Active Protocol: Document 01/17/18 14:30 SAK (Rec: 01/18/18 11:53 SAK [id number]) Electric Stimulation Electric Stimulation Interferential Current (IFC) Body Location T/S, L/S Duration (Minutes) 10 Combined With Heat/Cold Hot Pack Comments prone PT-OP-S Aquatic Treatment Start: 07/24/17 16:26 Freq: Status: Active Protocol: Document 02/07/18 11:00 LJ (Rec: 02/07/18 14:46 LJ [id number]) Aquatics Treatment Pool Entry/Exit Pool Entry/Exit Method Stairs Assistance Independent Water Walking [place] March Water Level Chest Level Walking Equipment ankle weights #4 Level of Assistance Verbal Cues Comments slow motion for core mm initiation goose stepping Water Level Chest Level Walking Equipment ankle wts #4 Backwards Water Level Chest Level Level of Assistance Standby Assistance Verbal Cues Comments slow motion for core mm iniation Sideways Water Level Chest Level Comments #4 ankel wts Forwards Comments #4 ankle wts Lower Extremity Exercises 4 Details Squats Body Position Standing 3 Details L.E. circumduction Body Position Standing Water Level Chest Level Reps/Duration x 20 reps 2 Details hip abd/add Body Position Standing Water Level Chest Level Reps/Duration x20 1 Details hip flx/ext Body Position Standing Water Level Chest Level Reps/Duration x 20 Lower Extremity Stretches 3 Details piriformis Body Position Standing Water Level [place] Reps/Duration 40 sec bilat Comments wall 1 Details Hamstring Body Position Standing Water Level Waist Level Equipment wall 2 Details single knee to chest Body Position Standing Water Level Chest Level Reps/Duration x2 Comments at wall Upper Extremity Exercises bow stringing Body Position Standing Water Level Chest Level Equipment UE paddles Reps/Duration x10 bilat Comments cues for scap retraction pull downs Body Position Standing Water Level Neck Level Equipment noodle Comments paddles 3 Details push/pull Body Position Standing Water Level Chest Level Equipment UE paddles Reps/Duration 2 x 10 2 Details shoulder fl/ext Body Position Standing Water Level Chest Level Equipment paddles Reps/Duration 10x Comments cues for shoulder retraction 1 Details Shoulder Horiz AB/AD, AB/AB Body Position Standing Water Level Chest Level Equipment paddles Reps/Duration 10x Comments Bilateral/unilateral, core stabilization emphasis [place] Activities [place] Activities Bicycle Cross Country Running Hip Abduction/Adduction Equipment noodle Duration 15 min Comments 2 min run/ 30 sec rest x 4 reps cues for breathing PT-OP-T Assessment and Plan Start: 06/08/17 08:13 Freq: Status: Active Protocol: Document 02/07/18 11:00 LJ (Rec: 02/07/18 14:46 LJ [id number]) Physical Therapy Assessment Goals Three Impairment Pain due to soft tissue muscle guarding limiting functional ability. [facility] Goal (LTG) TIEN Questionnaire Score - less than 19 (no change since last seen) LTG Duration 2 months Two [facility] Goal (LTG) Pt will be able to demonstrate improved posture and gait mechanics with improved trunk and hip mobility. (good goal progress One Short Term Goal (STG) Pt will demonstrate ability to transfer sit to stand and move in bed with decreased pain. 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 (patient still unable to work) Assessment Summary Assessment Pt tolerating progression of aquatic exercises with increased resistance today and intervals. Demonstrates understanding of need for transition to land-based PT; patient to call to change appointments MANUEL. Physical Therapy Plan Frequency and Duration Frequency of Treatment 2x/Week Duration of Treatment 2 months Plan of Care Start Date 01/15/18 Plan of Care End Date 03/18/18 Therapeutic Interventions Therapeutic Interventions Home Exercise Program Manual Therapy Patient/Caregiver Education Self-Care/Home Management Soft Tissue Mobilization Taping Therapeutic Activities Therapeutic Exercises Modalities Cold Pack/Ice Massage Electric Stimulation Hot Packs Ultrasound Next Visit Focus/Plan Next Visit Plan Transition pt to land based program; progress ther ex for strengthening, flexibility, core strengthening. Pain management with modalities and manual treatment as indicated .
== END 2018-02-08 11:56 ==
LOC: PHYS 11:00
PROVIDERS: Family Provider Family Medicine; Visit Provider Physician Assistant
DX: S32.010A Wedge compression fracture of first lumbar vertebra, initial encounter for closed fracture (principal); M54.5 Low back pain; M54.6 Pain in thoracic spine
CPT/HCPCS: 97014; 97110; 97113; 97140; 97162; 97535; G0283

== ENCOUNTER → 2018-04-30 16:01 | Outpatient (CLI) | payer OTHER, MEDICAID, SELFPAY ==
--- NOTE | 2018-04-30 16:05 | DI.RAD.S_ITS ---
PROCEDURE: XR TIBIA FUBULA RT 2V INDICATIONS: right leg pain TECHNIQUE: 2 views of the tibia and fibula were acquired. COMPARISON: None. FINDINGS: Bones: No fractures or dislocations. No suspicious bony lesions. Soft tissues: No suspicious soft tissue calcifications or masses. IMPRESSION: No fracture or dislocation is seen in right lower leg. Dictated by: Zi Colon M.D. on 04/30/2018 at 16:28 Approved by: Zi Colon M.D. on 04/30/2018 at 16:28
--- NOTE | 2018-04-30 16:05 | DI.RAD.S_ITS ---
PROCEDURE: XR KNEE RT 3V INDICATIONS: right knee pain TECHNIQUE: 3 views of the knee were acquired. COMPARISON: None. FINDINGS: Bones: No fractures or dislocations. No suspicious bony lesions. No significant patellar subluxation. Soft tissues: No joint effusion. No suspicious soft tissue calcifications. IMPRESSION: No right knee fracture or dislocation. Dictated by: Zi Colon M.D. on 04/30/2018 at 16:27 Approved by: Zi Colon M.D. on 04/30/2018 at 16:28
== END ==
PROVIDERS: Family Provider Family Medicine; PCP Student in an Organized Health Care Education/Training Program; Visit Provider Physician Assistant
DX: M25.561 Pain in right knee (principal); M79.661 Pain in right lower leg
CPT/HCPCS: 73562; 73590

== ENCOUNTER → 2019-12-09 12:21 | Outpatient (CLI) | payer OTHER, MEDICAID, SELFPAY ==
[2019-12-09 14:18] LABS: Add Manual Diff / Slide Review NO; Basophils Absolute Auto 0 /uL (0-100); Basophils Percent Auto 0.6 % (0-2); Eosinophils Absolute Auto 300 /uL (0-450); Eosinophils Percent Auto 5.7 % (2-4); Hematocrit 47.5 % (41-53); Hemoglobin 16.2 g/dL (13.5-17.5); Lymphocytes Absolute Auto 1300 /uL (1100-4500); Lymphocytes Percent Auto 22.5 % (25-40); Mean Corpuscular HGB Conc 34.1 % (30-36); Mean Corpuscular Hemoglobin 33.5 PG (26-34); Mean Corpuscular Volume 98.3 fL (80-100); Monocytes Absolute Auto 700 /uL (0-900); Monocytes Percent Auto 12.6 % (3-14); Neutrophils Absolute Auto 3400 /uL (1500-7000); Neutrophils Percent Auto 58.6 % (50-75); Platelet Count 271 X10^3/uL (150-400); Red Blood Cell Count 4.84 X10^6/uL (4.5-5.9); Red Cell Distribution Width 12.7 % (11.6-14.8); White Blood Cell Count 5.9 X10^3/uL (4.5-11.0)
[2019-12-09 15:37] LABS: Alanine Aminotransferase 61 IU/L (<50); Albumin 4.3 g/dL (3.5-5.0); Albumin Globulin Ratio 1.3 (1.0-2.8); Alkaline Phosphatase 64 U/L (38-126); Aspartate Aminotransferase 45 IU/L (17-59); BUN Creatinine Ratio 17.1 (6-22); Bilirubin Total 0.5 mg/dL (0.2-1.3); Blood Urea Nitrogen 14 mg/dL (9-20); Calcium 9.3 mg/dL (8.4-10.2); Carbon Dioxide 27 mmol/L (22-32); Chloride 101 mmol/L (98-107); Cholesterol 169 mg/dL (140-199); Estimated Glomerular Filt Rate > 60.0 mL/min (>60); Globulin 3.4 g/dL (1.7-4.1); Glucose 97 mg/dL (70-100); HDL Cholesterol 30 mg/dL (40-60); HEMOLYSIS < 15 (0-50); LDL Cholesterol Calculated 105 mg/dL (<100); Potassium 4.3 mmol/L (3.4-5.1); Sodium 136 mmol/L (137-145); Total Protein 7.7 g/dL (6.3-8.2); Triglycerides 172 mg/dL (35-150)
== END ==
PROVIDERS: Family Provider Family Medicine; PCP Student in an Organized Health Care Education/Training Program; Referring Provider Student in an Organized Health Care Education/Training Program; Visit Provider Student in an Organized Health Care Education/Training Program
DX: F41.9 Anxiety disorder, unspecified (principal); I10 Essential (primary) hypertension; Z72.0 Tobacco use; Z13.220 Encounter for screening for lipoid disorders
CPT/HCPCS: 36415; 80053; 80061; 85025

== ENCOUNTER → 2020-11-16 11:44 | Outpatient (CLI) | payer OTHER, SELFPAY ==
[2020-11-16 15:44] LABS: COVID19 -Nasal RAPID Negative (Negative)
== END ==
PROVIDERS: Family Provider Family Medicine; PCP Student in an Organized Health Care Education/Training Program; Visit Provider Nurse Practitioner Family
DX: Z20.822 Contact with and (suspected) exposure to COVID-19 (principal); Z01.812 Encounter for preprocedural laboratory examination
CPT/HCPCS: 87635

== ENCOUNTER 2020-11-17 07:29 | Day surgery (SDC) | payer OTHER, SELFPAY ==
--- NOTE | 2020-11-17 | PATH_ITS ---
[facility] Accession Number: [id number] . 01 Material submitted: . colon - ASCENDING COLON POLYP . 02 Diagnosis: Ascending Colon, Polyp, Biopsy: Tubular adenoma. MRV 11/19/2020 1320 Local . 02 Electronically signed: . Leidy Mansfield MD, Pathologist NPI- [id number] . 01 Gross description: . ASCENDING COLON POLYP: Received in formalin is 1 fragment(s) of [place], soft tissue measuring 0.5 x 0.2 x 0.2 cm submitted entirely in 1 cassette(s) /KEV 11/18/2020 0524 Local . 02 Pathologist provided ICD-10: D12.2 . 02 CPT . 213675 Performed at: 01 [facility] [address] [id number] MD Antoine Cardona MD Phone: [phone] Performed at: 02 [facility] [place] [address] [place], [place] [id number] MD Leidy Mansfield MD Phone: [phone]
[2020-11-17 07:38] VITALS: BP 140/94; PULSE 90; RESP 18; TEMP 36.9; O2SAT 98; BMI 31.1
[2020-11-17] MEDS: SODIUM CHLORIDE 0.9% 1,000 ML 84 ML IV (07:57)
--- NOTE | 2020-11-17 08:04 | PM.HP.1 ---
History of Present Illness History of Present Illness Date Patient Seen: 11/17/20 Time Patient Seen: 08:04 Chief complaint: DX COLONOSCOPY Narrative: I reviewed my note from October 13, 2020 no changes. Patient History Medical History Anxiety (~2016) Chronic back pain (~1999) Dental caries Eczema Fractures (~1999) Rosacea Surgical History Amputated finger (~2000) Anesthesia History of arthroscopic knee surgery (~1989) Wrist fracture, right (~1999) Family & Social History Social History: household members spouse Tobacco & Substance use: Smoking Status Current every day smoker alcohol intake frequency 0-2 drinks per day Substance Use Type marijuana Meds Home Medications and Allergies Home Medications Medication Instructions Recorded Confirmed Type ibuprofen 800 mg tablet 800 mg PO TIDP PRN #90 tab 03/14/19 11/17/20 Rx lisinopril 20 mg tablet 20 mg PO DAILY #90 tab 07/22/19 11/17/20 Rx bupropion HCl 150 mg tablet,12 hr 150 mg PO BID #60 ea 10/21/20 11/17/20 Rx sustained-release lorazepam 1 mg tablet 1 mg PO HS PRN #10 tab 10/21/20 11/17/20 Rx oxycodone 5 mg tablet 5 mg PO BID-TID PRN #75 tab 10/21/20 11/17/20 Rx Allergies Allergy/AdvReac Type Severity Reaction Status Date / Time codeine [CODEINE] Allergy Unknown Verified 11/17/20 07:12 PENICILLIN Allergy Unknown Uncoded 11/17/20 07:12 Review of Systems Review of Systems ROS: Yes All systems reviewed with the patient and are negative except as otherwise documented Exam Vital Signs (past 8 hours): - 11/17/20 07:38 Temperature 98.4 F Pulse Rate 90 Respiratory Rate 18 Blood Pressure 140/94 H Pulse Oximetry 98 Oxygen Delivery Method Room Air Const General: cooperative and comfortable Orientation: alert HENMT Head: normocephalic Ears: external ears normal Nose: external nose normal Face and sinus: normal facial exam Mouth: oral mucosae normal Eyes General: appearance normal, both eyes and all related structures Neck Neck: normal visual inspection Chest Chest: normal inspection of the chest Resp Effort & Inspection: normal respiratory effort Auscultation: clear to auscultation bilaterally Cardio Rate: regular rate Rhythm: regular rhythm Heart Sounds: no murmurs GI Inspection: normal to inspection Palpation: soft and No tender Auscultation: normal bowel sounds Skin General: no rashes or lesions noted and No jaundice Neuro General: patient alert and moves all extremities Cognition: normal cognition Speech: speech normal Extrem General: no pedal edema Psych Appearance: grossly normal Assessment & Plan Assessment & Plan narrative: 50-year-old with intermittent longstanding fecal incontinence following a back injury. He also has some rectal bleeding. Colonoscopy is thus pursued Time Spent With Patient Critical Care time: I spent a total of [] minutes of critical care time on this patient's care today; this time is exclusive of procedural time.
--- NOTE | 2020-11-17 08:06 | PM.PREOP ---
Pre-operative Note COVID-19 COVID-19 status: Negative Result date/Date tested (Pos, Neg/Pending): 11/16/20 Interval Note History & Physical reviewed/Exam performed by Physician: Yes Changes to H&P: No ASA Class (for procedural sedation): II
--- NOTE | 2020-11-17 09:07 | PM.OP.COLON ---
Operative Date/Time/Diagnoses Date of procedure: 11/17/20 Time of procedure: 09:07 Pre-op diagnosis: Fecal incontinence. Rectal bleeding. Post-op diagnosis: same Procedure & Clinicians Study performed: Colonoscopy with cold snare polypectomy Same procedure as scheduled: Yes Indications: Fecal incontinence rectal bleeding. Surgeon: Gómez Hough Procedure Notes SCOAP/Timeout: Done Procedure in detail: After the risks and benefits were explained, written and verbal informed consent was obtained. The patient was brought into the procedure room and placed into the left lateral decubitus position. Please see nurse midwife and birth center owner notes for sedation details. Digital rectal examination was accomplished. The scope was introduced into the patient and advanced under direct visualization to the cecum as identified by the appendiceal orifice and ileocecal valve. The scope was slowly withdrawn to carefully examine the mucosa for any defects or lesions. Comprehensive imaging was accomplished throughout the rectum including the dentate line. The colon was decompressed, the scope was then removed from the patient who tolerated the procedure well. Bowel prep adequate Adult colonoscope Scope withdrawal time: 9 minutes Sedation minutes: 17 Impression: Patient had grade 1 to grade 2 internal nonbleeding nonthrombosed hemorrhoids. No rectal mass lesions. There was acceptable resting tone. The patient had a subjectively reduced ability to on command squeezes external anal sphincter mechanism. The anal sphincter mechanism did seem to relax appropriately on simulated defecation. Patient seemed to have fairly normal sensation in the perianal region. I did not appreciate a classic anal wink. The colon did not demonstrate any source for bleeding. There was a small polyp in the proximal ascending colon. We initially attempted this with cold forceps but with respiratory movement decided to swap out for a cold snare. This polyp was perhaps 5 mm in greatest dimension. Endoscopic diagnosis 1. Diminutive colon polyp 2. Subjectively reduced external anal sphincter strength Post-procedure Recommendations: Colonoscopy in 5 years Plan for aftercare: 1. Await histopathology 2. Consider anorectal manometry. 3. Repeat colonoscopy will likely be suggested for 5 years. Disposition: PACU
[2020-11-17 09:13] VITALS: BP 114/88; PULSE 89; RESP 16; TEMP 36; O2SAT 98
[2020-11-17 09:17] VITALS: BP 117/81; PULSE 88; RESP 13; TEMP 36.6; O2SAT 99
[2020-11-17 09:22] VITALS: BP 131/89; PULSE 75; RESP 16; TEMP 36.3; O2SAT 98
[2020-11-17 09:27] VITALS: BP 138/90; PULSE 79; RESP 16; TEMP 36.1; O2SAT 99
[2020-11-17 09:35] VITALS: BP 137/95; PULSE 81; RESP 16; TEMP 35.9; O2SAT 99
== END 2020-11-17 09:38 | disposition home or self-care (01) ==
PROVIDERS: Family Provider Family Medicine; PCP Student in an Organized Health Care Education/Training Program; Referring Provider Internal Medicine Gastroenterology; Visit Provider Internal Medicine Gastroenterology
PROC: 0DJD8ZZ Inspection of Lower Intestinal Tract, Via Natural or Artificial Opening Endoscopic (ICD-10-PCS; CPT 45378; principal; 2020-11-17 08:30)
DX: K62.5 Hemorrhage of anus and rectum (principal); R15.1 Fecal smearing; I10 Essential (primary) hypertension; K64.1 Second degree hemorrhoids
CPT/HCPCS: 45385; J2704

== ENCOUNTER → 2021-01-28 16:24 | Outpatient (CLI) | payer OTHER, MEDICAID, SELFPAY ==
--- NOTE | 2021-01-28 16:30 | DI.RAD.S_ITS ---
PROCEDURE: XR KNEE RT 3V INDICATIONS: Knee trauma TECHNIQUE: Three views of the knee were acquired. COMPARISON: [facility], , XR KNEE RT 3V, 04/30/2018, 16:09. FINDINGS: Bones: No fractures or dislocations. No suspicious bony lesions. Soft tissues: No joint effusion. No suspicious soft tissue calcifications. IMPRESSION: Normal right knee. Dictated by: Lexy Ramirez M.D. on 01/28/2021 at 16:47 Approved by: Lexy Ramirez M.D. on 01/28/2021 at 16:47
[2021-01-28 18:02] LABS: Alanine Aminotransferase 112 IU/L (<50); Albumin 4.6 g/dL (3.5-5.0); Albumin Globulin Ratio 1.6 (1.0-2.8); Alkaline Phosphatase 60 U/L (38-126); Aspartate Aminotransferase 50 IU/L (17-59); Bilirubin Total 0.3 mg/dL (0.2-1.3); Blood Urea Nitrogen 15 mg/dL (9-20); Calcium 9.8 mg/dL (8.4-10.2); Carbon Dioxide 25 mmol/L (22-32); Chloride 104 mmol/L (98-107); Estimated Glomerular Filt Rate > 60.0 mL/min (>60); Globulin 2.8 g/dL (1.7-4.1); Glucose 100 mg/dL (70-100); HEMOLYSIS < 15 (0-50); Potassium 4.4 mmol/L (3.4-5.1); Sodium 137 mmol/L (137-145); Total Protein 7.4 g/dL (6.3-8.2)
== END ==
PROVIDERS: Family Provider Family Medicine; PCP Student in an Organized Health Care Education/Training Program; Referring Provider Student in an Organized Health Care Education/Training Program; Visit Provider Student in an Organized Health Care Education/Training Program
DX: I10 Essential (primary) hypertension; R79.89 Other specified abnormal findings of blood chemistry; S89.91XA Unspecified injury of right lower leg, initial encounter; X58.XXXA Exposure to other specified factors, initial encounter
CPT/HCPCS: 36415; 73562; 80053

== ENCOUNTER 2021-11-06 14:20 | Emergency (ER) | payer OTHER, MEDICAID, SELFPAY ==
[2021-11-06 14:27] VITALS: BP 154/94; PULSE 100; RESP 18; TEMP 36.6; O2SAT 96; BMI 32.3
--- NOTE | 2021-11-06 14:31 | DI.RAD.S_ITS ---
PROCEDURE: XR FOOT RT MIN 3V INDICATIONS: pain, lateral side near heel TECHNIQUE: 3 views of the foot were acquired. COMPARISON: None. FINDINGS: Bones: No fractures or dislocations. No suspicious bony lesions. Soft tissues: No tibiotalar joint effusion. Achilles tendon appears normal. IMPRESSION: Normal right foot radiographs Approved by: Dmiitrios Cash M.D. on 11/06/2021 at 14:42
--- NOTE | 2021-11-06 16:35 | ED.LOWEXIN ---
HPI - Extremity Injury (Lower) <Andrew Mendez PA-C - Last Filed: 11/06/21 17:36> General Chief Complaint: Extremity Injury, Lower Stated Complaint: Cant put weight on RT foot Time Seen by Provider: 11/06/21 16:30 Source: patient Mode of arrival: Wheelchair History of Present Illness HPI Narrative: Patient is a 51-year-old male who presents to the emergency room today with complaint of pain in his right foot this started yesterday around noon. He was doing a lot of work before that time and was using the foot strenuously. States that the pain has progressed to where he is unable to put weight on the foot at this time. States that he initially started to have problems weightbearing last night. States right now the pain is about a 6. States that her applying weight to the foot makes the pain worse in nothing makes it better other than not putting weight on the foot. States the pain started on the lateral foot and extends to the back of the foot. Also admits to a history of chronic pain in his back that is being treated with meds. Has taken with 5 mg of oxycodone did not help to relieve the pain. Related Data Previous Rx's Medication Instructions Recorded lisinopril 20 mg tablet 20 mg PO DAILY #90 tabs 11/20/20 lidocaine 5 % topical patch 1 patch topical Q12H PRN back howard 09/14/21 (Lidoderm) #15 ea lorazepam 1 mg tablet 1 mg PO HS PRN anxiety #10 tabs 09/22/21 oxycodone 5 mg tablet 5 mg PO DAILY PRN pain #30 tabs 09/22/21 Allergies Allergy/AdvReac Type Severity Reaction Status Date / Time codeine [CODEINE] Allergy Unknown Verified 09/22/21 10:00 PENICILLIN Allergy Unknown Uncoded 09/22/21 10:00 Review of Systems <Andrew Mendez PA-C - Last Filed: 11/06/21 17:36> Review of Systems Narrative: R.O.S.: General: No fever, chills or fatigue. Cardiovascular: No chest pain or palpitations Respiratory: No S.O.B. HEENT: No congestion, ear pain, rhinorrhea, sore throat or tinnitus Gastrointestinal: No nausea or vomiting : No urinary concerns Skin: No rash or associated abnormalities Musculoskeletal: Has pain to right foot? Neurological: Awake, alert and in not apparent distress. No Headaches, changes in vision or other related neurological concerns. Patient History <Andrew Mendez PA-C - Last Filed: 11/06/21 17:36> Medical History Anxiety (~2016) Chronic back pain (~1999) Dental caries Eczema Fractures (~1999) Rosacea Surgical History Amputated finger (~2000) Anesthesia History of arthroscopic knee surgery (~1989) Wrist fracture, right (~1999) Social History household members: spouse Smoking Status: Current every day smoker Smoking Status: Current every day smoker tobacco type: cigarettes alcohol intake frequency: a few times a week Substance Use Type: marijuana Exam <Andrew Mendez PA-C - Last Filed: 11/06/21 17:36> Narrative Exam Narrative: Physical Exam: ? General: normal appearance, well developed, well nourished, alert, and awake. Not in acute distress. ? Head: Normocephalic, no lesions. Chest: Lungs CTAB, no rales, rhonchi or wheezes. ?? Heart: RRR, no murmurs, rubs or gallops. Eyes: PERRLA, EOM's full, conjunctivae clear. ? Neuro: Physiological, no localizing findings, CN3-12 intact. ?? Musculoskeletal: Patient has tenderness to palpation mid 5th metacarpal lateral area that extends to the posterior lateral calcaneal area. ? Skin: Normal, no rashes, no lesions noted. ?? PSYCHIATRIC: The mood is good, no blunted affect. Speech is clear. Thought process is linear, thought content is appropriate. The voice is without significant inflection. Gastrointestinal: Soft; NT; ND; Pos BS with Neg. rebound tenderness. No scars or major deformities noted on Visual Inspection. Initial Vital Signs Initial Vital Signs: Vital Signs Temperature 97.8 F 11/06/21 14:27 Pulse Rate 100 H 11/06/21 14:27 Respiratory Rate 18 11/06/21 14:27 Blood Pressure 154/94 H 11/06/21 14:27 Pulse Oximetry 96 11/06/21 14:27 Oxygen Delivery Method 11/06/21 14:27 <Marcie Ashby MD - Last Filed: 11/07/21 07:25> Initial Vital Signs Initial Vital Signs: Vital Signs Temperature 97.8 F 11/06/21 14:27 Pulse Rate 100 H 11/06/21 14:27 Respiratory Rate 18 11/06/21 14:27 Blood Pressure 154/94 H 11/06/21 14:27 Pulse Oximetry 96 11/06/21 14:27 Oxygen Delivery Method 11/06/21 14:27 Course <Andrew Mendez PA-C - Last Filed: 11/06/21 17:36> Orders Ordered: ED Orders 11/06/21 14:31 XR foot RT min 3V Stat Vital Signs Vital signs: Vital Signs - 8 hr 11/06/21 14:27 Temperature 97.8 F Pulse Rate 100 H Respiratory Rate 18 Blood Pressure 154/94 H Pulse Oximetry 96 Oxygen Delivery Method Room Air <Marcie Ashby MD - Last Filed: 11/07/21 07:25> Orders Ordered: ED Orders 11/06/21 14:31 XR foot RT min 3V Stat Vital Signs Vital signs: Vital Signs - 8 hr 11/06/21 14:27 Temperature 97.8 F Pulse Rate 100 H Respiratory Rate 18 Blood Pressure 154/94 H Pulse Oximetry 96 Oxygen Delivery Method Room Air MDM - Extremity Injury (Lower) <Andrew Mendez PA-C - Last Filed: 11/06/21 17:36> Imaging Data Extremity x-ray #1: Radiologist's Impression: PROCEDURE:? XR FOOT RT MIN 3V ? INDICATIONS:? pain, lateral side near heel ? TECHNIQUE:? 3 views of the foot were acquired.? ? COMPARISON:? None. ? FINDINGS:? ? Bones:? No fractures or dislocations.? No suspicious bony lesions.? ? Soft tissues:? No tibiotalar joint effusion.? Achilles tendon appears normal.? ? ? IMPRESSION:? Normal right foot radiographs ? ? ? Approved by: Dimitrios Cash M.D. on 11/06/2021 at 14:42? MDM Narrative Medical decision making narrative: Patient is a 51-year-old male who presents to the emergency room today with complaint of pain to his right foot started on Monday and has progressed to him being unable to weightbear on that foot. X-rays and physical exam did not reveal any urgent emergent concerns at this time. Physical exam and history are consistent with a sprain of the foot. CHRISTOPHER wrap was applied to the foot and patient was issued crutches to help with walking. Patient was also given a referral to ortho and advised to return should anything emergent concerns arise. Patient agrees with plan Discharge Plan Departure Patient Disposition: Home Clinical Impression: Right foot sprain Instructions: DI for Foot Sprain Activity Restrictions/Additional Instructions: *You have been diagnosed with sprain of your right foot. We have applied an Christopher wrap initial crutches with instructions to help with her gait. I suggest you refrain from any strenuous activity using the foot and mildly progressed to using the foot as tolerated. Also suggest you take [id number] nonsteroidal anti-inflammatories to assist with pain. I refer you to ortho in the ortho provider is Dr. De Leon and their phone number is [phone]. I suggest she follow-up with ortho should her condition worsen or not improve. I also advised him to return to the emergency room for any emergent concerns arise. [ ] *What to do: *Please continue to take your regular medications as directed. [ ] New medication prescriptions sent to your pharmacy: [ ] [ ] New medication written as a paper prescription [x] No new medications given *Please follow up with your primary care provider in 2-3 days, call for an appointment. Let them know you were seen in the Emergency Department and that we ask that you be seen in follow up. We will electronically transmit a record of today's note if your PCP is in our system *If you do not have a primary care provider please contact the [facility] Resource line at [phone]. They will ask some questions about your medical history and help get you set up with a doctor in the community. *Return to Emergency Department if you should have any new, worsening or concerning symptoms, such as [fever greater than 101 F, shaking chills, worsening pain, persistent vomiting or other bothersome symptoms] Prescriptions: No Action lidocaine [Lidoderm] 5 % adhesive patch,medicated 1 patch topical Q12H PRN (Reason: back howard) Qty: 15 0RF Rx Instructions: leave on most painful area for up to 12 hrs lisinopril 20 mg tablet 20 mg PO DAILY Qty: 90 3RF oxycodone 5 mg tablet 5 mg PO DAILY PRN (Reason: pain) Qty: 30 0RF Rx Instructions: EXEMPT; quantity must last 30 days lorazepam 1 mg tablet 1 mg PO HS PRN (Reason: anxiety) Qty: 10 1RF Referrals: Ryan Arizmendi MD [Primary Care Provider] - Shanae Cohen MD [Physician] - Visit Report Forms: Patient Portal/API <Marcie Ashby MD - Last Filed: 11/07/21 07:25> [facility]: I was immediately available in the department for consultation throughout this patient's visit. I agree with documentation as above. Marcie Ashby MD
[2021-11-06 17:44] VITALS: BP 140/60; PULSE 70; RESP 18; O2SAT 98
== END 2021-11-06 17:44 | disposition home or self-care (01) ==
PROVIDERS: Emergency Provider Physician Assistant; Family Provider Family Medicine; PCP Student in an Organized Health Care Education/Training Program
DX: S93.601A Unspecified sprain of right foot, initial encounter (principal)
CPT/HCPCS: 73630; 99282; 99283

== ENCOUNTER → 2022-05-24 08:42 | Outpatient (CLI) | payer OTHER, MEDICAID, SELFPAY ==
[2022-05-24 10:41] LABS: Alanine Aminotransferase 94 IU/L (<50); Albumin 3.9 g/dL (3.5-5.0); Albumin Globulin Ratio 1.3 (1.0-2.8); Alkaline Phosphatase 54 U/L (38-126); Aspartate Aminotransferase 57 IU/L (17-59); BUN Creatinine Ratio 20.8 (6-22); Bilirubin Total 0.4 mg/dL (0.2-1.3); Blood Urea Nitrogen 16 mg/dL (9-20); Calcium 8.9 mg/dL (8.4-10.2); Carbon Dioxide 24 mmol/L (22-32); Chloride 102 mmol/L (98-107); Estimated Glomerular Filt Rate > 60 mL/min (>60); Globulin 2.9 g/dL (1.7-4.1); Glucose 133 mg/dL (70-100); HEMOLYSIS < 15 (0-50); Potassium 4.3 mmol/L (3.4-5.1); Sodium 134 mmol/L (137-145); Total Protein 6.8 g/dL (6.3-8.2)
[2022-05-25 15:53] LABS: HBsAg Screen Negative (Negative); Hepatitis A Antibody IgM Negative (Negative); Hepatitis B Core Antibody IgM Negative (Negative); Hepatitis C Antibody Non Reactive (Non Reactive)
== END ==
PROVIDERS: Family Provider Family Medicine; PCP Student in an Organized Health Care Education/Training Program; Referring Provider Student in an Organized Health Care Education/Training Program; Visit Provider Student in an Organized Health Care Education/Training Program
DX: R79.89 Other specified abnormal findings of blood chemistry (principal); F41.9 Anxiety disorder, unspecified; I10 Essential (primary) hypertension; L30.9 Dermatitis, unspecified; Z79.1 Long term (current) use of non-steroidal anti-inflammatories (NSAID)
CPT/HCPCS: 36415; 80053; 80074

== ENCOUNTER 2023-02-06 13:41 | Emergency (ER) | payer OTHER, MEDICAID, SELFPAY ==
[2023-02-06 13:57] VITALS: BP 184/88; PULSE 115; RESP 18; TEMP 37; O2SAT 98; BMI 32.3
--- NOTE | 2023-02-06 14:19 | DI.MRI.S_ITS ---
PROCEDURE: MR LUMBAR SPINE WO CON INDICATIONS: Lower back pain, urinary hesitancy TECHNIQUE: Noncontrast sagittal T1 spin echo and T2 fast echo, sagittal STIR, and T2 fast spin echo through the lumbar spine. In cases with scoliosis, additional coronal T2 fast spin echo may be performed. COMPARISON: [facility], MR, MR LUMBAR SPINE WITHOUT CONTRAST, 02/25/2020, 15:32. [facility], MR, LUMBAR SPINE W/O CONTRAST, 11/28/2013, 13:05. [facility], CR, XR LUMBAR SPINE 2 OR 3 VIEWS, 01/19/2021, 16:18. FINDINGS: Image quality: Diagnostic, with note made of motion artifact. Alignment and Curvature: There is normal bony alignment. Bone Marrow: Marrow is of normal overall signal. No acute vertebral body compression fractures. There is a remote L1 anterior wedge deformity, with 70% loss of height anteriorly. Posterior displacement of fracture fragments of 3 mm can be seen superiorly. Spinal Cord: Conus medullaris terminates at the L1 level. Visualized cord demonstrates normal signal and size. Paraspinous Soft Tissues: No paravertebral masses. T12-L1: Qtik-[id number] loss of disc height and disc signal can be seen. Mild to moderate disc bulge is seen, with a central disc protrusion. No neural foraminal narrowing is seen. No significant central canal narrowing can be seen at the disc level itself. Along the superior aspect of L1, there is iwxx-gs-zomipuyl central canal narrowing seen, which is similar to the prior. L1-L2: The disc height and disk signal are well-preserved. Mild generalized disc bulge is seen. There is mild right-sided and no left-sided neural foraminal narrowing. No central canal narrowing is seen. Stable from the prior study. L2-L3: The disc height and disk signal are well-preserved. Mild generalized disc bulge is seen. There is a superimposed central disc protrusion. There is mild right-sided and moderate left-sided neural foraminal narrowing. No significant central canal narrowing is seen. When comparison is made with the prior images, these findings are similar. L3-L4: The disc height and disk signal are well-preserved. Mild generalized disc bulge is seen. Mild facet joint hypertrophy is seen. Moderate bilateral neural foraminal narrowing is seen. No significant central canal narrowing is seen. No significant change from the prior. L4-L5: The disc height is well-preserved. Loss of disc signal is seen at this level. Moderate disc bulge is seen, with a central/right disc protrusion. There is a focal annular fissure seen posteriorly. Mild to moderate facet hypertrophy is seen. There is moderate right-sided and at least moderate left-sided neural foraminal narrowing. There is a degree of compression again seen upon the exiting left L4 nerve root. Moderate central canal narrowing is seen. When comparison is made with the prior images, these findings are similar. L5-S1: At least moderate loss of disc height and disc signal can be seen. Reactive marrow endplate changes are seen, which are hyperintense on T1-weighted and T2-weighted imaging and most consistent with fatty metaplasia (Modic type II changes). Moderate generalized disc bulge is seen. There is a central disc osteophyte protrusion. Partially bridging endplate osteophytes can be seen on the left and on the right. Moderate facet joint hypertrophy is seen. There is moderate to severe bilateral neural foraminal narrowing seen, with an associated a degree of compression seen upon the exiting nerve roots. Mild central canal narrowing is seen. When comparison is made with the prior images, these findings are similar. IMPRESSION: Multiple levels of significant lumbar spine degenerative change can be seen, which are similar to 202. There is a remote L1 anterior wedge deformity again seen. Dictated by: Mateo Soriano M.D. on 02/06/2023 at 14:33 Approved by: Mateo Soriano M.D. on 02/06/2023 at 14:40
[2023-02-06] MEDS: MORPHINE 4 MG/ML INJ IV ×2 (14:37→16:01)
[2023-02-06] MEDS: LORazepam 0.5 MG TABLET 1 MG PO (14:39)
[2023-02-06 15:39] VITALS: BP 146/78; PULSE 85; RESP 24; TEMP 37.1; O2SAT 98
--- NOTE | 2023-02-06 16:00 | PC.NURSE ---
Pt's pharmacy was called to [facility] in [place] and rx for percocet was cancelled per MEREDITH Chavez due to patient stating he has high LFT's and cannot take tylenol. Pt has home pain medications he states he can take. Blaine, Pharmacist at [facility] to cancel prescription.
--- NOTE | 2023-02-07 13:23 | ED_ITS ---
HPI - Back Pain/Injury <Hima Chavez PA-C - Last Filed: 02/07/23 13:30> General Chief Complaint: Back Pain/Injury Stated Complaint: Back Spasms Time Seen by Provider: 02/06/23 14:05 Source: patient and family History of Present Illness HPI Narrative: 52-year-old male with chronic back issues presents to the ED with 2 weeks of worsening lower back pain. 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 Patient appears to be in a lot of pain, pain is exacerbated with movement and patient is walking slowly in order to manage the pain. Patient states that this time around his pain is also radiating down his left leg. Patient is feeling some intermittent tingling and numbness. Denies weakness. Patient also endorses urinary hesitancy since this morning. No urinary incontinence or bowel incontinence. No saddle paresthesias. Related Data Home Medications Medication Instructions Recorded Confirmed ibuprofen 800 mg tablet 800 mg PO Q8H 05/24/22 12/22/22 Previous Rx's Medication Instructions Recorded lisinopril 20 mg tablet 20 mg PO DAILY #90 tabs 02/22/22 hydrocortisone 2.5 % topical cream 1 applic topical BID PRN rash #28 05/24/22 grams mupirocin 2 % topical ointment 1 applic topical BID #15 grams 09/09/22 pregabalin 50 mg capsule 50 mg PO BID neuropathic pain 09/19/22 control trial #60 caps clobetasol 0.05 % scalp solution 1 applic topical BID 2 weeks #50 mL 12/22/22 lorazepam 1 mg tablet 1 mg PO HS PRN anxiety #10 tabs 01/12/23 oxycodone 10 mg tablet 10 mg PO BID PRN pain #60 tabs 01/12/23 hydrochlorothiazide 12.5 mg tablet 12.5 mg PO DAILY #90 tabs 01/17/23 methylprednisolone 4 mg tablets in See Rx Instructions PO .COMPLEX 02/06/23 a dose pack (Medrol (Edwin)) #21 ea oxycodone-acetaminophen 5 mg-325 1 tab PO Q8H PRN pain 3 days #10 02/06/23 mg tablet (Percocet) tabs Allergies Allergy/AdvReac Type Severity Reaction Status Date / Time Penicillins Allergy Family Verified 02/06/23 13:57 allergy codeine [CODEINE] AdvReac Severe Nausea Verified 02/06/23 13:57 Review of Systems <Hima Chavez PA-C - Last Filed: 02/07/23 13:30> Constitutional Constitutional: Denies chills, Denies fatigue, Denies fever(s), Denies frequent falls, Denies lethargy and Denies weakness Eyes Eyes: Denies change in vision, Denies eye discharge, Denies irritation and Denies loss of vision ENT Ears, Nose, Mouth, and Throat: Denies change in voice, Denies dizziness, Denies neck pain, Denies sore throat and Denies throat swelling Cardiovascular Cardiovascular: Denies chest pain, Denies irregular heart rhythm, Denies lightheadedness, Denies palpitations, Denies dyspnea, Denies dyspnea on exertion and Denies orthopnea Respiratory Respiratory: Denies cough, Denies dyspnea, Denies dyspnea on exertion and Denies wheezing Gastrointestinal Gastrointestinal: Denies abdominal pain, Denies change in bowel habits, Denies diarrhea, Denies nausea and Denies vomiting Musculoskeletal Musculoskeletal: Reports back pain, Denies neck pain, Reports numbness, Reports radiating pain into limb and Reports tingling Integumentary/Breasts Skin/Breast: Denies pruritus, Denies erythema, Denies rash and Denies wounds Neurologic Neurologic: Denies behavioral changes, Denies confusion, Denies dizziness, Denies frequent falls, Denies loss of vision, Reports numbness, Reports tingling and Denies weakness Psychiatric Psychiatric: Denies anxiety, Denies behavioral changes, Denies confusion, Denies depression, Denies homicidal ideation and Denies suicidal ideation Endocrine Endocrine: Denies fatigue, Denies flushing and Denies palpitations Hematologic/Lymphatic Hematologic/Lymphatic: Denies easy bruising Allergic/Immunologic Allergic/Immunologic: Denies urticaria, Denies throat swelling and Denies wheezing Patient History <Hima Chavez PA-C - Last Filed: 02/07/23 13:30> Medical History NSAID long-term use Tobacco use Opioid dependence Lumbar radiculopathy Hypertension Folliculitis Fecal smearing Mixed hyperlipidemia Dental caries Tinnitus Anxiety (~2017) Fractures (~1999) Rosacea Eczema Surgical History Anesthesia Wrist fracture, right (~1999) History of arthroscopic knee surgery (~1989) Amputated finger (~2000) Social History household members: spouse Smoking Status: Current every day smoker Smoking Status: Current every day smoker tobacco type: cigarettes alcohol intake frequency: a few times a week Substance Use Type: marijuana Exam <Hima Chavez PA-C - Last Filed: 02/07/23 13:30> Narrative Exam Narrative: Const General:?cooperative, healthy appearing and comfortable HENID Head:?normal to inspection Ears:?hearing grossly normal bilaterally Nose:?external nose normal Face and sinus:?normal facial exam and sinuses nontender Mouth:?oral mucosae normal Throat:?posterior oropharynx normal Eyes General:?appearance normal, both eyes and all related structures Neck Neck:?normal visual inspection and no lymphadenopathy noted Resp Effort & Inspection:?normal respiratory effort Auscultation:?clear to auscultation bilaterally Cardio Rate:?regular rate Rhythm:?regular rhythm Musculoskeletal There is some midline tenderness to palpation in the lower back in the lumbar region. No paraspinal tenderness to palpation. Positive SLR and cross SLR. Patient appears neurovascularly intact. Neuro General:?patient alert, patient awake and patient oriented x3 Initial Vital Signs Initial Vital Signs: Vital Signs Temperature 98.6 F 02/06/23 13:57 Pulse Rate 115 H 02/06/23 13:57 Respiratory Rate 18 02/06/23 13:57 Blood Pressure 184/88 H 02/06/23 13:57 Pulse Oximetry 98 02/06/23 13:57 Oxygen Delivery Method Room Air 02/06/23 13:57 <Hoda Sloan DO - Last Filed: 02/07/23 13:31> Initial Vital Signs Initial Vital Signs: Vital Signs Temperature 98.6 F 02/06/23 13:57 Pulse Rate 115 H 02/06/23 13:57 Respiratory Rate 18 02/06/23 13:57 Blood Pressure 184/88 H 02/06/23 13:57 Pulse Oximetry 98 02/06/23 13:57 Oxygen Delivery Method Room Air 02/06/23 13:57 Course <Hima Chavez PA-C - Last Filed: 02/07/23 13:30> Orders Ordered: Discontinued Medications Lorazepam (Lorazepam 0.5 Mg Tablet) 1 mg PO NOW ONE Stop: 02/06/23 14:21 Last Admin: 02/06/23 14:39 Dose: 1 mg Documented By: CTS Morphine Sulfate (Morphine 4 Mg/Ml Inj) 4 mg IV NOW ONE Stop: 02/06/23 14:21 Last Admin: 02/06/23 14:37 Dose: 4 mg Documented By: CTS Morphine Sulfate (Morphine 4 Mg/Ml Inj) 4 mg IV NOW ONE Stop: 02/06/23 15:37 Last Admin: 02/06/23 16:01 Dose: 4 mg Documented By: SPF <Hoda Sloan DO - Last Filed: 02/07/23 13:31> Orders Ordered: Discontinued Medications Lorazepam (Lorazepam 0.5 Mg Tablet) 1 mg PO NOW ONE Stop: 02/06/23 14:21 Last Admin: 02/06/23 14:39 Dose: 1 mg Documented By: CTS Morphine Sulfate (Morphine 4 Mg/Ml Inj) 4 mg IV NOW ONE Stop: 02/06/23 14:21 Last Admin: 02/06/23 14:37 Dose: 4 mg Documented By: CTS Morphine Sulfate (Morphine 4 Mg/Ml Inj) 4 mg IV NOW ONE Stop: 02/06/23 15:37 Last Admin: 02/06/23 16:01 Dose: 4 mg Documented By: SPF MDM - Back Pain/Injury <Hima Chavez PA-C - Last Filed: 02/07/23 13:30> MDM Narrative Medical decision making narrative: 52-year-old male with chronic back issues presents to the ED with 2 weeks of worsening lower back pain. Given urinary hesitancy, numbness, tingling and patient has considerable pain, will obtain an MRI to rule out spinal emergencies. Will give Ativan and morphine for pain relief. Lumbar spine MRI shows multiple levels of significant lumbar spine degenerative changes that are similar to that obtained in 2020. There is a remote L1 anterior wedge deformity again seen. Discussed findings with patient, recommend follow-up with ortho for further evaluation and treatment. Prescribed a prednisone taper. Patient agrees to take the hydrocodone that he already has at home for pain. Also recommend ibuprofen for pain and inflammation. ED return precautions were discussed with patient. Patient verbalized understanding. Medical records reviewed: Yes Discharge Plan Departure Patient Disposition: Home Clinical Impression: Low back pain Qualifiers: Chronicity: acute Back pain laterality: left Sciatica presence: with sciatica Sciatica laterality: sciatica of left side Qualified Code(s): M54.42 - Lumbago with sciatica, left side Instructions: DI for Back Pain With Sciatica Activity Restrictions/Additional Instructions: You were evaluated in the ED today for lower back pain. Your MRI today was largely unchanged from the prior MRI and with no acute emergent findings. Your symptoms today did improve with morphine and Ativan. You are being prescribed Percocet for pain control for the next 3 days. You may also take ibuprofen which is effective for reduction of pain as well as the inflammation. You are being prescribed a taper dose of prednisone. Please follow-up with your PCP as soon as possible. Please also follow-up with an ortho specialist as soon as possible for further evaluation. Return to the ED if you have worsening symptoms, urinary difficulties, numbness, tingling, weakness. Prescriptions: New oxycodone-acetaminophen [Percocet] 5-325 mg tablet 1 tab PO Q8H PRN (Reason: pain) 3 Days Qty: 10 0RF methylprednisolone [Medrol (Edwin)] 4 mg tablets,dose pack See Rx Instructions .ROUTE .COMPLEX Qty: 21 0RF Rx Instructions: orally per package directions No Action lorazepam 1 mg tablet 1 mg PO HS PRN (Reason: anxiety) Qty: 10 1RF oxycodone 10 mg tablet 10 mg PO BID PRN (Reason: pain) Qty: 60 0RF Rx Instructions: dosage change. pls call for refill monthly for now at least a week before scripts run out. thanks. hydrochlorothiazide 12.5 mg tablet 12.5 mg PO DAILY Qty: 90 1RF ibuprofen 800 mg tablet 800 mg PO Q8H hydrocortisone 2.5 % cream 1 applic topical BID PRN (Reason: rash) Qty: 28 1RF pregabalin 50 mg capsule 50 mg PO BID Qty: 60 0RF Rx Instructions: start with one daily for 1 week then inc to one twice daily and maintain there if tolerated. if some effect but not sufficient, contact office at one month and dosage inc to be discussed. tks. lisinopril 20 mg tablet 20 mg PO DAILY Qty: 90 3RF mupirocin 2 % ointment 1 applic topical BID Qty: 15 1RF Rx Instructions: use into both nostrils for 5 days and on any open area draining pus for 5-7 days until imporved/gone clobetasol 0.05 % solution 1 applic topical BID 14 Days Qty: 50 1RF Referrals: Guillermian Dickey DO [Primary Care Provider] - Stand Alone Forms: Patient Portal/API ED Sign-out <Hoda Sloan DO - Last Filed: 02/07/23 13:31> Cosign ED Attending Cosignature Attestation: I was available for consultation.
== END 2023-02-06 16:40 | disposition home or self-care (01) ==
PROVIDERS: Emergency Provider Student in an Organized Health Care Education/Training Program; Family Provider Family Medicine; PCP Family Medicine
DX: M54.42 Lumbago with sciatica, left side (principal)
CPT/HCPCS: 36415; 72148; 96374; 96376; 99284; J2270

== ENCOUNTER → 2023-04-04 09:51 | Outpatient (CLI) | payer OTHER, MEDICAID, SELFPAY ==
[2023-04-04 11:03] LABS: Hemoglobin A1C% w Est Avg Glu 5.5 % (4.0-6.0)
[2023-04-04 11:15] LABS: Alanine Aminotransferase 77 IU/L (<50); Albumin 4.7 g/dL (3.5-5.0); Albumin Globulin Ratio 1.3 (1.0-2.8); Alkaline Phosphatase 66 U/L (38-126); Aspartate Aminotransferase 49 IU/L (17-59); BUN Creatinine Ratio 15.3 (6-22); Bilirubin Total 0.9 mg/dL (0.2-1.3); Blood Urea Nitrogen 13 mg/dL (9-20); Calcium 10.1 mg/dL (8.4-10.2); Carbon Dioxide 28 mmol/L (22-32); Chloride 101 mmol/L (98-107); Cholesterol 198 mg/dL (140-199); Estimated Glomerular Filt Rate > 60 mL/min (>60); Globulin 3.5 g/dL (1.7-4.1); Glucose 98 mg/dL (70-100); HDL Cholesterol 30 mg/dL (40-60); HEMOLYSIS < 15 (0-50); LDL Cholesterol Calculated 125 mg/dL (<100); Potassium 3.9 mmol/L (3.4-5.1); Sodium 138 mmol/L (137-145); Total Protein 8.2 g/dL (6.3-8.2); Triglycerides 215 mg/dL (35-150)
[2023-04-04 13:10] LABS: UR Morphine/Opiate cutoff 300 Negative (Negative); Ur Creatinine Normal (Normal); Ur Specific Gravity Normal (Normal); Urine Amphetamines Negative (Negative); Urine Barbiturates Negative (Negative); Urine Benzodiazepines Negative (Negative); Urine Cocaine Negative (Negative); Urine MDMA Negative (Negative); Urine Methamphetamines Negative (Negative); Urine Phencyclidine Negative (Negative); Urine Tetrahydrocannabinol Negative (Negative); Urine pH Normal (Normal)
[2023-04-04 13:11] LABS: Urine Methadone Negative (Negative); Urine Oxycodone Negative (Negative); Urine Tricyclic Antidepressant Negative (Negative)
[2023-04-11 09:54] LABS: Percent Free Testosterone 3.07 % (1.50-4.20); Testosterone Free 14.47 ng/dL (5.00-21.00); Testosterone Total 471.3 ng/dL (264.0-916.0)
== END ==
PROVIDERS: Family Provider Family Medicine; PCP Family Medicine; Referring Provider Family Medicine; Visit Provider Family Medicine
DX: R73.09 Other abnormal glucose (principal); E78.5 Hyperlipidemia, unspecified; I10 Essential (primary) hypertension; F11.20 Opioid dependence, uncomplicated; Z79.1 Long term (current) use of non-steroidal anti-inflammatories (NSAID)
CPT/HCPCS: 36415; 80053; 80061; 80305; 83036; 84402; 84403

== ENCOUNTER → 2023-04-21 08:48 | Outpatient (CLI) | payer OTHER, MEDICAID, SELFPAY ==
[2023-04-28 07:36] LABS: Percent Free Testosterone 3.16 % (1.50-4.20); Testosterone Free 16.69 ng/dL (5.00-21.00); Testosterone Total 528.1 ng/dL (264.0-916.0)
== END ==
PROVIDERS: Family Provider Family Medicine; PCP Family Medicine; Referring Provider Family Medicine; Visit Provider Family Medicine
DX: F11.20 Opioid dependence, uncomplicated (principal); N52.9 Male erectile dysfunction, unspecified
CPT/HCPCS: 36415; 84402; 84403

== ENCOUNTER → 2024-04-23 13:14 | Outpatient (CLI) | payer OTHER, SELFPAY ==
[2024-04-23 13:36] LABS: Add Manual Diff / Slide Review NO; Basophils Absolute Auto 0 /uL (0-100); Basophils Percent Auto 0.2 % (0-2); Eosinophils Absolute Auto 200 /uL (0-450); Eosinophils Percent Auto 2.3 % (2-4); Hematocrit 45.2 % (41-53); Hemoglobin 15.9 g/dL (13.5-17.5); Lymphocytes Absolute Auto 2000 /uL (1100-4500); Lymphocytes Percent Auto 25.2 % (25-40); Mean Corpuscular HGB Conc 35.2 % (30-36); Mean Corpuscular Hemoglobin 34.1 PG (26-34); Mean Corpuscular Volume 96.9 fL (80-100); Monocytes Absolute Auto 800 /uL (0-900); Monocytes Percent Auto 10.6 % (3-14); Neutrophils Absolute Auto 4800 /uL (1500-7000); Neutrophils Percent Auto 61.7 % (50-75); Platelet Count 320 X10^3/uL (150-400); Red Blood Cell Count 4.66 X10^6/uL (4.5-5.9); Red Cell Distribution Width 13.5 % (11.6-14.8); White Blood Cell Count 7.8 X10^3/uL (4.5-11.0)
[2024-04-23 13:46] LABS: Hemoglobin A1C% w Est Avg Glu 5.1 % (4.0-6.0)
[2024-04-23 13:53] LABS: UR Morphine/Opiate cutoff 300 Negative (Negative); Ur Creatinine Normal (Normal); Ur Specific Gravity Normal (Normal); Urine Amphetamines Negative (Negative); Urine Barbiturates Negative (Negative); Urine Benzodiazepines Negative (Negative); Urine Cocaine Negative (Negative); Urine MDMA Negative (Negative); Urine Methadone Negative (Negative); Urine Methamphetamines Negative (Negative); Urine Oxycodone Positive (Negative); Urine Phencyclidine Negative (Negative); Urine Tetrahydrocannabinol Positive (Negative); Urine Tricyclic Antidepressant Negative (Negative); Urine pH Normal (Normal)
[2024-04-23 13:54] LABS: Alanine Aminotransferase 55 IU/L (<50); Albumin 4.8 g/dL (3.5-5.0); Albumin Globulin Ratio 1.6 (1.0-2.8); Alkaline Phosphatase 63 U/L (38-126); Aspartate Aminotransferase 40 IU/L (17-59); BUN Creatinine Ratio 21.1 (6-22); Bilirubin Total 0.8 mg/dL (0.2-1.3); Blood Urea Nitrogen 19 mg/dL (9-20); Calcium 9.4 mg/dL (8.4-10.2); Carbon Dioxide 24 mmol/L (22-32); Chloride 101 mmol/L (98-107); Cholesterol 176 mg/dL (140-199); Estimated Glomerular Filt Rate > 60 mL/min (>60); Glucose 112 mg/dL (70-100); HDL Cholesterol 36 mg/dL (40-60); HEMOLYSIS < 15 (0-50); LDL Cholesterol Calculated 107 mg/dL (<100); Potassium 4.3 mmol/L (3.4-5.1); Sodium 136 mmol/L (137-145); Total Protein 7.8 g/dL (6.3-8.2); Triglycerides 164 mg/dL (35-150)
== END ==
PROVIDERS: Family Provider Family Medicine; PCP Family Medicine; Referring Provider Family Medicine; Visit Provider Family Medicine
DX: M54.9 Dorsalgia, unspecified (principal); G89.29 Other chronic pain; M54.17 Radiculopathy, lumbosacral region; F11.20 Opioid dependence, uncomplicated; F41.9 Anxiety disorder, unspecified; Z79.899 Other long term (current) drug therapy; I10 Essential (primary) hypertension; Z72.0 Tobacco use; E78.00 Pure hypercholesterolemia, unspecified; Z68.32 Body mass index [BMI] 32.0-32.9, adult
CPT/HCPCS: 36415; 80053; 80061; 80305; 83036; 85025

== ENCOUNTER 2025-01-21 00:19 | Emergency (ER) | payer OTHER, SELFPAY ==
[2025-01-21 00:48] VITALS: BP 132/76; PULSE 98; RESP 23; TEMP 36.7; O2SAT 93; BMI 32.3
--- NOTE | 2025-01-21 03:26 | ED.BACK ---
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 but due to persistent symptoms decided come into the ED for further evaluation treatment, patient is able to stand bear weight ambulate unassisted here in the emergency department. He denies any other symptoms such as headache visual disturbance chest pain shortness breath fever chills nausea vomiting abdominal pain or any other GI/ symptoms time. Related Data Home Medications ?Medication ?Instructions ?Recorded ?Confirmed ibuprofen 800 mg tablet 800 mg PO Q8H PRN 04/22/24 05/09/24 Previous Rx's ?Medication ?Instructions ?Recorded hydrocortisone 2.5 % topical cream 1 applic topical BID PRN rash #28 05/24/22 grams atorvastatin 20 mg tablet 20 mg PO DAILY #30 tabs 04/25/24 clobetasol 0.05 % scalp solution 1 applic topical BID 2 weeks #50 mL 04/25/24 hydrochlorothiazide 25 mg tablet 25 mg PO DAILY #30 tabs 05/09/24 diazepam 5 mg tablet (Valium) 5 mg PO BEDTIME PRN muscle spasm 5 01/21/25 days #5 tabs prednisone 20 mg tablet 20 mg PO DAILY 5 days #5 tabs 01/21/25 Allergies Allergy/AdvReac Type Severity Reaction Status Date / Time Penicillins Allergy Family Verified 05/09/24 07:36 allergy codeine (CODEINE) AdvReac Severe Nausea Verified 05/09/24 07:36 Review of Systems Review of Systems Narrative: General: Denies fever, chills, weight loss HEENT: Denies headache, eye drainage, eye irritation, head trauma, sore throat, voice change Cardiovascular: Denies any chest pain, palpitations, tachycardia Respiratory: Denies any shortness of breath, cough, wheeze, stridor GI/: Denies any abdominal pain, nausea, vomiting, diarrhea, bright red blood per rectum, melanotic stools, urinary frequency, urinary retention, dysuria, hematuria MSK: Positive low back pain/muscle spasms Skin: Denies any rashes, lesions, discoloration Neuro: Denies any headache, lightheadedness, dizziness, fainting, weakness Psych: Denies SI/HI Patient History Medical History (Updated 01/21/25 @ 03:30 by Adam Walker DO) Hyperlipidemia NSAID long-term use Tobacco use Opioid dependence Lumbar radiculopathy Hypertension Folliculitis Fecal smearing Mixed hyperlipidemia Dental caries Tinnitus Anxiety (~2016) Fractures (~1999) Rosacea Eczema Surgical History Anesthesia Wrist fracture, right (~1999) History of arthroscopic knee surgery (~1989) Amputated finger (~2000) Social History household members: spouse Smoking Status: Current every day smoker Smoking Status: Current every day smoker tobacco type: cigarettes alcohol intake frequency: a few times a week Alcohol type: beer Exam Narrative Exam Narrative: General: Cooperative, well-developed, not in acute distress HEENT: Normocephalic, atraumatic, PERRLA, normal sclera, eyelids normal Neck: Active full range of motion, atraumatic Chest: Normal to inspection, negative crepitus, no overlying erythema ecchymosis Respiratory: Normal respiratory effort, not in acute respiratory distress, clear to auscultation bilaterally negative cough, wheeze, tachypnea, rhonchi, rales Cardiology: Regular rate rhythm negative gallop, murmur, rubs GI/: No tenderness to palpation, soft, non rigid, normal to inspection, exam deferred MSK: Full active range of motion in all 4 extremities, atraumatic, no tenderness to palpation of any bony prominences, patient able to stand bear weight ambulate unassisted here in the emergency department, Skin: No rashes or lesions noted Neuro: Alert awake oriented x3, moves all 4 extremities spontaneously, cranial nerves intact, able to answer all questions appropriately follows commands appropriately Psych: Cooperative, negative suicidal or homicidal ideations Initial Vital Signs Initial Vital Signs: Vital Signs Temperature 98.0 F 01/21/25 00:48 Pulse Rate 98 H 01/21/25 00:48 Respiratory Rate 23 01/21/25 00:48 Blood Pressure 132/76 01/21/25 00:48 Pulse Oximetry 93 01/21/25 00:48 Oxygen Delivery Method Room Air 01/21/25 00:48 Course Vital Signs Vital signs: Vital Signs - 8 hr 01/21/25 00:48 Temperature 98.0 F Pulse Rate 98 H Respiratory Rate 23 Blood Pressure 132/76 Pulse Oximetry 93 Oxygen Delivery Method Room Air MDM - Back Pain/Injury MDM Narrative Medical decision making narrative: 54-year-old male with a past medical history of low back pain comes into the ED from home for evaluation of exacerbation of low back pain, denies any trauma or falls denies any red flags for cauda equina, he states that he noticed typical back pain described as muscle spasms at around 1:00 p.m., stable to stand bear weight ambulate unassisted here in the emergency department, states that he took lorazepam at around 11:00 p.m. without any relief therefore came into the ED for further evaluation treatment. Given the fact that patient has no traumatic injuries, as well as describing his symptoms as his typical low back pain, he states normally he needs steroids such as prednisone to help with the symptoms. At this point no indication for imaging, patient will be given dose of symptomatic medication here as well as for home and instructed to follow up with the primary care as needed in outpatient setting. He was given strict return precautions he verbalized understanding and agrees to being discharged home with outpatient follow up Discharge Plan Departure Patient Disposition: Home Clinical Impression: Acute on chronic low back pain Instructions: DI for Low Back Pain Activity Restrictions/Additional Instructions: Please follow up with the primary care doctor as needed Please read the discharge instructions sheet carefully and bring all papers to all doctor follow-up visits, as it may contain information that your doctor may want to see. Disease processes change and evolve, if your symptoms worsen or if you develop any new symptoms that are concerning to you please return for evaluation. Your evaluation today does not show any evidence of any life-threatening/serious illnesses requiring admission to the hospital or surgery. Please follow-up with your doctor for re-evaluation in approximately 1 day. Seek immediate medical attention for any worrisome symptoms. *If you do not have a primary care provider please contact the [facility] Resource line at [phone]. They will ask some questions about your medical history and help get you set up with a doctor in the community. Prescriptions: New prednisone 20 mg tablet 20 mg PO DAILY 5 Days Qty: 5 0RF diazepam [Valium] 5 mg tablet 5 mg PO BEDTIME PRN (Reason: muscle spasm) 5 Days Qty: 5 0RF No Action clobetasol 0.05 % solution 1 applic topical BID 14 Days Qty: 50 1RF atorvastatin 20 mg tablet 20 mg PO DAILY Qty: 30 0RF hydrocortisone 2.5 % cream 1 applic topical BID PRN (Reason: rash) Qty: 28 1RF ibuprofen 800 mg tablet 800 mg PO Q8H PRN hydrochlorothiazide 25 mg tablet 25 mg PO DAILY Qty: 30 3RF Referrals: Miscellaneous,Doctor, MD [Primary Care Provider, Medical] Stand Alone Forms: Patient Portal/API
[2025-01-21] MEDS: KETOROLAC 30 MG/ML VIAL IM (03:48)
[2025-01-21 03:57] VITALS: BP 131/94; PULSE 91; RESP 22; O2SAT 94
== END 2025-01-21 03:59 | disposition home or self-care (01) ==
PROVIDERS: Emergency Provider Student in an Organized Health Care Education/Training Program; Family Provider Family Medicine
DX: M54.59 Other low back pain (principal); M62.838 Other muscle spasm
CPT/HCPCS: 96374; 96375; 99283; 99284; J1100; J1885

== ENCOUNTER 2025-01-24 22:21 | Emergency (ER) | payer OTHER, SELFPAY ==
[2025-01-24] VITALS (7 sets, daily range): BP systolic 165–172; BP diastolic 81–104; PULSE 107–125; RESP 16–20; TEMP 37.3; O2SAT 95–98; BMI 32.3
--- NOTE | 2025-01-24 22:34 | ED_ITS ---
HPI - Back Pain/Injury <Jack Chew MD - Last Filed: 01/24/25 22:39> General Chief Complaint: Back Pain/Injury Stated Complaint: Back spasms, sharp pain, tingling in toes Time Seen by Provider: 01/24/25 22:33 History of Present Illness HPI Narrative: 54-year-old male patient with a history of chronic back pain and hypertension who presents with complaint of exacerbation of his chronic back pain with no recent falls but perhaps over working or overexerting. 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 He carries things a lot. He was seen here 3 days ago for the same problem. He describes spasm and pain in the lower back and sacrum with radiation to both legs but worse on the right with some numbness in the toes. No incontinence of urine or bowel and no weakness. He has been diagnosed in the past with degenerative disc disease and had a fall with lumbar fracture in the past but no surgery of the lumbar spine. He is on no medications currently and parted ways with his primary care physician over pain management of his low back pain. He smokes cigarettes and drinks alcohol frequently. He uses marijuana but denies other drugs. Related Data Home Medications ?Medication ?Instructions ?Recorded ?Confirmed ibuprofen 800 mg tablet 800 mg PO Q8H PRN 04/22/24 0 05/09/24 Previous Rx's ?Medication ?Instructions ?Recorded hydrocortisone 2.5 % topical cream 1 applic topical BI D PRN rash #28 05/24/22 grams atorvastatin 20 mg tablet 20 mg PO DAILY #30 tabs 04/07 clobetasol 0.05 % scalp solution 1 applic topical BID 2 weeks #50 mL 04/25/24 hydrochlorothiazide 25 mg tablet 25 mg PO DAILY #30 ta bs 05/09/24 diazepam 5 mg tablet (Valium) 5 mg PO BEDTIME PRN musc le spasm 5 01/21/25 days #5 tabs prednisone 20 mg tablet 20 mg PO DAILY 5 days #5 tab s 01/21/25 oxycodone-acetaminophen 5 mg-325 1 tab PO Q6H PRN pain #7 tabs 01/25/25 mg tablet (Percocet) prednisone 10 mg tablets in a dose See Rx Instructions PO .COMPLEX 01/25/25 pack #21 ea Allergies Allergy/AdvReac Type Severity Reaction Status Date / Time Penicillins Allergy Family Verified 01/24/25 22:36 allergy codeine (CODEINE) AdvReac Severe Nausea Verified 01/24/25 22:36 Review of Systems <Jack Chew MD - Last Filed: 01/24/25 22:39> Review of Systems ROS Unobtainable: All systems reviewed & are unremarkable except as noted in HPI and below Musculoskeletal Musculoskeletal: Reports as per HPI Patient History <Jack Chew MD - Last Filed: 01/24/25 22:39> Medical History (Updated 01/24/25 @ 23:54 by Mary Mcgregor DO) Hyperlipidemia NSAID long-term use Tobacco use Opioid dependence Lumbar radiculopathy Hypertension Folliculitis Fecal smearing Mixed hyperlipidemia Dental caries Tinnitus Anxiety (~2016) Fractures (~1999) Rosacea Eczema Surgical History Anesthesia Wrist fracture, right (~1999) History of arthroscopic knee surgery (~1989) Amputated finger (~2000) Social History household members: spouse Smoking Status: Never smoker tobacco type: cigarettes alcohol intake frequency: a few times a week Alcohol type: beer Exam <Jack Chew MD - Last Filed: 01/24/25 22:39> Narrative Exam Narrative: General: Alert and conversant. Moderate distress. Appears well nourished and well hydrated Lungs: Clear to auscultation with good air movement. No wheezing, rales or rhonchi. No respiratory distress Cardiac: Regular rate and rhythm with no appreciable murmur or gallop Musculoskeletal: Lumbar muscle spasms with tenderness over the lumbosacral region. Straight leg raising equivocal in the lower remedies. Neuro: Alert and oriented. Cranial nerves, motor, sensory and cerebellar all grossly intact. No focal deficit Skin: Warm and normal color. No rashes Psychological: Normal affect and interaction. No evidence of delusion or psychosis. Normal mood. Initial Vital Signs Initial Vital Signs: Vital Signs Pulse Rate 125 H 01/24/25 22:29 Blood Pressure 166/104 H 01/24/25 22:29 Pulse Oximetry 97 01/24/25 22:29 <Mary Mcgregor DO - Last Filed: 01/25/25 01:53> Initial Vital Signs Initial Vital Signs: Vital Signs Pulse Rate 125 H 01/24/25 22:29 Blood Pressure 166/104 H 01/24/25 22:29 Pulse Oximetry 97 01/24/25 22:29 Course <Jack Chew MD - Last Filed: 01/24/25 22:39> Orders Ordered: ED Orders 01/24/25 22:38 CT lumbar spine wo con Stat Discontinued Medications Hydromorphone HCl (Hydromorphone 1 Mg/Ml Syringe) 1 mg IM NOW ONE Stop: 01/24/25 22:39 Last Admin: 01/24/25 22:53 Dose: 1 mg Documented By: ALEJANDRA Ketorolac Tromethamine (Ketorolac 30 Mg/Ml Vial) 60 mg IM NOW ONE Stop: 01/24/25 22:39 Last Admin: 01/24/25 22:52 Dose: 60 mg Documented By: ALEJANDRA Oxycodone/Acetaminophen (Oxycodone/Apap 5/325 Prepack) 1 bottle MISC DIRECTED ONE Stop: 01/25/25 00:07 Last Admin: 01/25/25 00:48 Dose: 1 bottle Documented By: ALEJANDRA Oxycodone/Acetaminophen (Oxycodone/Acetaminophen 5/325 Tablet) 2 tab PO NOW ONE Stop: 01/25/25 00:43 Last Admin: 01/25/25 00:45 Dose: 2 tab Documented By: ALEJANDRA Prednisone (Prednisone 20 Mg Tablet) 60 mg PO NOW ONE Stop: 01/25/25 00:07 Last Admin: 01/25/25 00:39 Dose: 60 mg Documented By: ALEJANDRA Vital Signs Vital signs: Vital Signs - 8 hr 01/24/25 22:29 01/24/25 22:29 01/24/25 22:30 Temperature Pulse Rate 125 H 122 H Respiratory Rate Blood Pressure 166/104 H Pulse Oximetry 97 97 Oxygen Delivery Method 01/24/25 22:36 01/24/25 22:45 01/24/25 22:45 Temperature 99.2 F Pulse Rate 115 H 108 H Respiratory Rate 16 16 Blood Pressure 166/104 H 165/81 H Pulse Oximetry 98 96 Oxygen Delivery Method Room Air 01/24/25 22:52 01/24/25 22:52 01/24/25 23:03 Temperature Pulse Rate 109 H 108 H Respiratory Rate 20 Blood Pressure 172/86 H Pulse Oximetry 97 96 Oxygen Delivery Method 01/24/25 23:30 01/25/25 00:00 01/25/25 00:30 Temperature Pulse Rate 107 H 110 H 100 H Respiratory Rate 19 22 24 Blood Pressure Pulse Oximetry 95 97 97 Oxygen Delivery Method 01/25/25 00:50 Temperature Pulse Rate Respiratory Rate Blood Pressure 164/84 H Pulse Oximetry Oxygen Delivery Method <Mary Mcgregor, - Last Filed: 01/25/25 01:53> Orders Ordered: ED Orders 01/24/25 22:38 CT lumbar spine wo con Stat Discontinued Medications Hydromorphone HCl (Hydromorphone 1 Mg/Ml Syringe) 1 mg IM NOW ONE Stop: 01/24/25 22:39 Last Admin: 01/24/25 22:53 Dose: 1 mg Documented By: ALEJANDRA Ketorolac Tromethamine (Ketorolac 30 Mg/Ml Vial) 60 mg IM NOW ONE Stop: 01/24/25 22:39 Last Admin: 01/24/25 22:52 Dose: 60 mg Documented By: ALEJANDRA Oxycodone/Acetaminophen (Oxycodone/Apap 5/325 Prepack) 1 bottle MISC DIRECTED ONE Stop: 01/25/25 00:07 Last Admin: 01/25/25 00:48 Dose: 1 bottle Documented By: ALEJANDRA Oxycodone/Acetaminophen (Oxycodone/Acetaminophen 5/325 Tablet) 2 tab PO NOW ONE Stop: 01/25/25 00:43 Last Admin: 01/25/25 00:45 Dose: 2 tab Documented By: ALEJANDRA Prednisone (Prednisone 20 Mg Tablet) 60 mg PO NOW ONE Stop: 01/25/25 00:07 Last Admin: 01/25/25 00:39 Dose: 60 mg Documented By: ALEJANDRA Vital Signs Vital signs: Vital Signs - 8 hr 01/24/25 22:29 01/24/25 22:29 01/24/25 22:30 Temperature Pulse Rate 125 H 122 H Respiratory Rate Blood Pressure 166/104 H Pulse Oximetry 97 97 Oxygen Delivery Method 01/24/25 22:36 01/24/25 22:45 01/24/25 22:45 Temperature 99.2 F Pulse Rate 115 H 108 H Respiratory Rate 16 16 Blood Pressure 166/104 H 165/81 H Pulse Oximetry 98 96 Oxygen Delivery Method Room Air 01/24/25 22:52 01/24/25 22:52 01/24/25 23:03 Temperature Pulse Rate 109 H 108 H Respiratory Rate 20 Blood Pressure 172/86 H Pulse Oximetry 97 96 Oxygen Delivery Method 01/24/25 23:30 01/25/25 00:00 01/25/25 00:30 Temperature Pulse Rate 107 H 110 H 100 H Respiratory Rate 19 22 24 Blood Pressure Pulse Oximetry 95 97 97 Oxygen Delivery Method 01/25/25 00:50 Temperature Pulse Rate Respiratory Rate Blood Pressure 164/84 H Pulse Oximetry Oxygen Delivery Method MDM - Back Pain/Injury <Mary Mcgregor, DO - Last Filed: 01/25/25 01:53> MDM Narrative Medical decision making narrative: 01/24/25 Dr. Mcgregor: Patient is seen and evaluated by myself. Patient signed out by Dr. Del Real, while CT imaging is pending. 54-year-old male history of acute on chronic low back pain with radicular symptoms, numbness, no saddle anesthesia, no weakness, no incontinence. Patient has a prior lumbar MRI from 02/06/2023 which showed multiple levels significant lumbar spine degenerative changes similar to 2020 remote L1 anterior wedge deformity again seen. CT L-spine without contrast shows chronic severe anterior wedge compression deformity of the L1 vertebral body with mild retropulsion causing mild bony spinal canal narrowing and [id number] right-sided bony foraminal narrowing at L1-L2, additional degenerative changes spine most prominent L5-S1 where there is [id number] bilateral bony foraminal narrowing. Patient had received Toradol and Dilaudid here in the department, dose of oral prednisone and prepack. Patient ambulated in the department. Discussed with the patient he has seen a spinal surgeon in the past, they discussed fusion but it was deferred as patient was not having significant symptoms at that time he has also seen PMR for spinal injection once before. He is open to following with a both of these. He would like to try a larger dose of prednisone and taper down he states that is seems to has been helpful in the past. He denies any other red flag symptoms. Discharge Plan Departure Patient Disposition: Home Clinical Impression: Closed compression fracture of L1 vertebra Instructions: DI for Low Back Pain Activity Restrictions/Additional Instructions: Your imaging shows chronic severe anterior wedge compression deformity fracture of the L1 vertebral body there is some mild bony spinal canal narrowing and mild -to-moderate right-sided bony foraminal narrowing as well as degenerative changes through the lumbar spine. Contacts included below for spinal surgeon as well as PMR which can evaluate you for possible back injections if your symptoms are becoming more persistent. Stop your current dose of prednisone take the tapering dose. You can take ibuprofen up to 600 mg every 6 hours as needed for pain if inadequate you can take Percocet 1 tablet every 6 hours as needed. This medication can make you sleepy do not drive, perform hazardous activities or make any major decisions while taking it. This medication will make you constipated please take a stool softener once to twice daily until stools are soft and regular. Prescription sent to [facility] in [place]. Please return if you develop fevers, rapidly worsening pain, any loss of bowel or bladder control, any loss of sensation in the groin, new weakness, loss of sensation in your extremities or other new or concerning changes. Prescriptions: New prednisone 10 mg tablets,dose pack See Rx Instructions .ROUTE .COMPLEX Qty: 21 0RF Rx Instructions: 6 tabs p.o. x1 day, then 5 tabs p.o. x1 day, then 4 tablets p.o. x1 day, then 3 tabs p.o. x1 day, then 2 tabs p.o. x1 day, then 1 tab p.o. x1 day oxycodone-acetaminophen [Percocet] 5-325 mg tablet 1 tab PO Q6H PRN (Reason: pain) Qty: 7 0RF No Action clobetasol 0.05 % solution 1 applic topical BID 14 Days Qty: 50 1RF atorvastatin 20 mg tablet 20 mg PO DAILY Qty: 30 0RF hydrocortisone 2.5 % cream 1 applic topical BID PRN (Reason: rash) Qty: 28 1RF ibuprofen 800 mg tablet 800 mg PO Q8H PRN hydrochlorothiazide 25 mg tablet 25 mg PO DAILY Qty: 30 3RF prednisone 20 mg tablet 20 mg PO DAILY 5 Days Qty: 5 0RF diazepam [Valium] 5 mg tablet 5 mg PO BEDTIME PRN (Reason: muscle spasm) 5 Days Qty: 5 0RF Referrals: Eduar Hernandez DO [Physician, Physiatry] Leif Hernadez MD [Non-Staff, Orthopedic Surgery] Miscellaneous,MD Corry [Primary Care Provider, Medical] Stand Alone Forms: Patient Portal/API
--- NOTE | 2025-01-24 22:38 | DI.CT.S_ITS ---
PROCEDURE: CT LUMBAR SPINE WO CON INDICATIONS: Acute exacerbation of chronic lumbar pain TECHNIQUE: Noncontrast 3 mm thick sections acquired from the T12 level to the sacrum. Sagittal and coronal reformats were constructed. For radiation dose reduction, the following was used: automated exposure control. COMPARISON: None. FINDINGS: Image quality: Excellent. Bones: Focal kyphosis of the spine is visualized at T12-L2, secondary to compression fracture at L1. There is related mild anterolisthesis of T12 on L1, and mild retrolisthesis of L1 on L2. There is also trace retrolisthesis of L2 on L3. Severe anterior wedge-shaped compression deformity of the L1 vertebral body. There is approximately 4 mm retropulsion causing mild bony spinal canal narrowing. There is mild to moderate right-sided bony foraminal narrowing at L1-L2. Additional mild multilevel degenerative changes of the lumbar spine, most prominent at L5-S1 where there is facet arthropathy and degenerative disc disease with posterior disc osteophyte complex, causing mild to moderate bilateral bony foraminal narrowing. No high-grade spinal canal or bony foraminal narrowing at the remaining levels. Soft tissues: No retroperitoneal masses or hematomas. Visualized aorta is normal in caliber. IMPRESSION: Chronic severe anterior wedge compression deformity of the L1 vertebral body, with mild retropulsion causing mild bony spinal canal narrowing, and [id number] right-sided bony foraminal narrowing at L1-L2. Additional degenerative changes of the spine are most prominent at L5-S1, where there is mild to moderate bilateral bony foraminal narrowing. Dictated by: Lex Connolly M.D. on 01/24/2025 at 23:41 Approved by: Lex Connolly M.D. on 01/24/2025 at 23:47
--- OUTSIDE RECORDS SUMMARY | 2025-01-24 22:41 | XMS_ITS | Clinical Summary ---
Author Organization [facility] ons Address [address] [place] [address] Care Team Providers Care Picker/Puller Name Role Phone Unavailable Primary Care Provider Unavailabl e Active Problems Problem Noted Date Diagnosed Date Suspected Condition 06/09/2020 Overview (06/11/2020): CAREL - Cardiovascular - extra low Added by RAMP Suspected Conditions Suspected Condition 06/09/2020 Overview (06/11/2020): SKCL - Skeletal - low Added by RAMP Suspected Conditions Suspected Condition 06/09/2020 Overview (06/11/2020): SUBL - Substance abuse - low Added by RAMP Suspected Conditions Social History Tobacco Use Types Packs/Day Years Used Date Smoking Tobacco: Never Assessed Sex and Gender Information Value Date Recorded Sex Assigned at Male 11/16/2022 9:31 PM PDT Legal Sex Male 10:37 PM PDT Gender Identity Not on file Sexual Orientation Not on file Plan of Treatment Health Maintenance Due Date Last Done Comments COVID-19 Vaccine (#1) 10/07/1976 Annual Physical Exam 10/07/1978 Depression screening 1983 Controlling High Blood Pressure (CBP) 10/07/1989 DTaP,Tdap,and Td Vaccines (1 - Tdap) 10/07/1990 Pneumococcal 0-64 years (1 of 2 - PCV) 10/07/1990 Pneumococcal 50+ years (1 of 2 - PCV) 10/07/1990 Shingles (Zoster) Vaccines (1 of 2) 10/07/1990 CT Colonography Subtopic 10/07/2021 Colonoscopy Subtopic 10/07/2021 Colorectal Cancer Screening 10/07/2021 FIT-DNA (Cologuard) Subtopic 10/07/2021 FOBT Subtopic 10/07/2021 Flexible Sigmoidoscopy Subtopic 10/07/2021 Influenza Vaccine (#1) 2024 Insurance [facility] [employer] ADULT
[2025-01-24] MEDS: KETOROLAC 30 MG/ML VIAL 60 MG IM (22:52)
[2025-01-25] VITALS: PULSE 110; RESP 22; O2SAT 97
[2025-01-25 00:30] VITALS: PULSE 100; RESP 24; O2SAT 97
[2025-01-25 00:50] VITALS: BP 164/84
== END 2025-01-25 01:34 | disposition home or self-care (01) ==
PROVIDERS: Emergency Provider Emergency Medicine; Family Provider Family Medicine
DX: S32.010A Wedge compression fracture of first lumbar vertebra, initial encounter for closed fracture (principal); M48.061 Spinal stenosis, lumbar region without neurogenic claudication; M48.07 Spinal stenosis, lumbosacral region; W19.XXXA Unspecified fall, initial encounter
CPT/HCPCS: 72131; 96372; 99284; J1171; J1885